=== PATIENT | female | born 1960 | race Hispanic/Latino ===

== ENCOUNTER 2017-02-04 06:26 | Inpatient (IN) | payer MEDICARE, MEDICAID, OTHER ==
--- NOTE | 2017-02-04 07:28 | ED PDOC ---
Arrival/HPI <Rickie Whitlock - Last Filed: 02/04/17 12:33> - General Historian: Patient - History of Present Illness Time/Duration: Prior to Arrival Symptom Onset: Sudden Symptom Course: Unchanged Quality: Dullness Context: Standing <Omkar Hunter - Last Filed: 02/04/17 12:39> - General Chief Complaint: Trauma Time Seen by Provider: 02/04/17 07:14 - History of Present Illness Narrative History of Present Illness (Text): 02/04/17 07:27 56yo F with PMHx including DM, HTN, Parkionson's, morbid obesity here for evaluation after Fall. She states that she woke up this morning to use the restroom, when she got up, her right knee gave out and she fell to the right side and hit the back of her right side head on a floor fan. She denies any loss of consciousness. Denies feeling dizzy or light-headed. Unable to get up off the floor after she fell and called EMS for transport to the Hospital. States that she remembers everything about the event, however, she does report feeling somewhat dazed. No tongue biting, no bowel or bladder incontinence. She states that she has been in and out of Rehab facilities over the past 4-5 months due to general weakness and deconditioning. She was last discharged from a Rehab facility on Jan 21. She states that her PMD recently decreased her Parkinson's med doses. She has not taken her meds today. She does report a hx of CVA with some residual mild left sided weakness. PMD: Dr. Bartolome Weems PMHx: DM, HTN, Parkinson's PSHx: Posterior Craniotomy/Kristen hole due to hemorrhagic CVA evacuation. Social Hx: Lives with partner Allergy: PCN (DaleOmkar) Past Medical History - Provider Review Nursing Documentation Reviewed: Yes - Infectious Disease Hx of Infectious Diseases: None - Reproductive Menopause: Yes - Cardiac Hx Hypertension: Yes - Pulmonary Hx Respiratory Disorders: No - Neurological HX Cerebrovascular Accident: Yes (bilateral) Hx Parkinson's Disease: Yes - HEENT Hx HEENT Disorder: No - Renal Hx Renal Disorder: No - Endocrine/Metabolic Hx Diabetes Mellitus Type 2: Yes - Hematological/Oncological Hx Blood Disorders: No - Integumentary Hx Dermatological Disorder: No - Musculoskeletal/Rheumatological Hx Musculoskeletal Disorders: No - Gastrointestinal Hx Gastrointestinal Disorders: No - Genitourinary/Gynecological Hx Genitourinary Disorders: No - Psychiatric Hx Psychophysiologic Disorder: No Hx Substance Use: No - Surgical History Other/Comment: skull due to stroke - Anesthesia Hx Anesthesia: No <Omkar Hunter - Last Filed: 02/04/17 12:39> Family/Social History - Physician Review Nursing Documentation Reviewed: Yes Family/Social History: Unknown Family HX Smoking Status: Never Smoked Hx Alcohol Use: No Hx Substance Use: No <Aysha Hunternay - Last Filed: 02/04/17 12:39> Allergies/Home Meds <KamleshRickie L - Last Filed: 02/04/17 12:33> <DaleOmkar - Last Filed: 02/04/17 12:39> Allergies/Adverse Reactions: Allergies Penicillins Allergy (Verified 02/04/17 06:43) ANGIOEDEMA Home Medications: Home Meds Medication Instructions Recorded Confirmed Carbidopa/Levodopa 25/100 mg 1 tab PO BID 06/01/16 06/01/16 [Sinemet] Atorvastatin [Lipitor] 10 mg PO DAILY 02/04/17 02/04/17 Carbidopa/Levodopa/Entacapone 1 tab PO QID 02/04/17 02/04/17 [Carbidopa, Levodopa and Entacapone 31.25 mg-2] Insulin Glargine,Hum.rec.anlog 36 unit SQ DAILY 02/04/17 02/04/17 [Toujeo Solostar] Valsartan/Hydrochlorothiazide 1 each PO DAILY 02/04/17 02/04/17 [Diovan Hct 160-25 mg Tablet] metFORMIN [glucOPHAGE] 500 mg PO BID 02/04/17 02/04/17 Review of Systems - Physician Review All systems were reviewed & negative as marked: Yes - Review of Systems Constitutional: Normal Eyes: Normal ENT: Normal Respiratory: Normal Cardiovascular: Normal Gastrointestinal: Normal Genitourinary Female: Normal Musculoskeletal: Other (Right knee pain) Skin: Normal Neurological: Headache Endocrine: Normal Hemo/Lymphatic: Normal Psychiatric: Normal <DaleOmkar - Last Filed: 02/04/17 12:39> Physical Exam Vital Signs Reviewed: Yes Temperature: Afebrile Blood Pressure: Normal Pulse: Regular Respiratory Rate: Normal Appearance: Positive for: Well-Appearing, Comfortable Pain Distress: Mild Mental Status: Positive for: Alert and Oriented X 3 - Systems Exam Head: Present: Atraumatic, Normocephalic, Other (No aparent contusion. No tenderness to palpation) Pupils: Present: PERRL Extroacular Muscles: Present: EOMI Mouth: Present: Moist Mucous Membranes Respiratory/Chest: Present: Good Air Exchange. No: Accessory Muscle Use, Wheezes, Rhonchi Cardiovascular: Present: Normal S1, S2. No: Murmurs Abdomen: No: Tenderness, Distention Upper Extremity: Present: Normal Inspection Lower Extremity: Present: Edema, NORMAL PULSES, Tenderness (Right medial knee joint tenderness. No bony tenderness. Bilateral lower extremity [place] erythema, dry scaly skin). No: CALF TENDERNESS, Eber's Sign, Deformity, Temperature Abnormalties Neurological: Present: GCS=15 Skin: Present: Warm, Dry, Normal Color Psychiatric: Present: Alert, Oriented x 3 <Omkar Hunter - Last Filed: 02/04/17 12:39> Vital Signs Temp Pulse Resp BP Pulse Ox 02/04/17 12:24 70 18 149/77 100 02/04/17 11:18 75 13 160/92 H 100 02/04/17 09:00 70 19 167/79 H 100 02/04/17 07:46 73 17 160/75 H 99 02/04/17 06:49 97.8 F 74 18 146/66 97 Medical Decision Making <Rickie Whitlock - Last Filed: 02/04/17 12:33> <Omkar Hunter - Last Filed: 02/04/17 12:39> ED Course and Treatment: 02/04/17 08:43 Patient Seen With Resident: In agreement with resident note. Patient was seen and evaluated with resident, came up with plan and treatment together. 02/04/17 09:49 EKG: Ordered, reviewed, and independently interpreted the EKG. Rate : 69 BPM Rhythm : NSR Interpretation : 3 acute waves Comparison : No previous EKG for comparison. 02/04/17 12:33 Labs reviewed. WBC 12. UA pending. PT attempted but patient cannot walk well and is not safe for discharging. She will benefit from rebhab. Case discussed with Dr. Jovel who covers for Dr. Goode who will place on her service. ( Rickie Whitlock) 02/04/17 07:50 56yo F with Parkinson's, DM, HTN here for evaluation after Fall at home - likely mechanical fall, however, patient is a poor historian - CT Head - R Knee XRay - EKG - CBC/CMP/UA - Finger stick Glucose - Possible PT eval and treat in ED 02/04/17 09:13 CT Head - no acute hemorrhage EKG - NSR @69, Q-waves present, No apparent ST changes R Knee - no acute fractures. No apparent joint space disease Finger Stick Glucose - 65. Will give patient something to eat and repeat Finger stick. 02/04/17 09:21 WBC - 12.2 02/04/17 10:15 Repeat sugar is wnl. Will obtain a walker for a bedside walking test. 02/04/17 12:20 Physical Therapy at bedside to walk patient. PT recommends that patient is not safe for discharge and will benefit from rehab. Discussed case with Dr. Goode. Agrees with admission under Dr. Mcgovern. Would like to decrease Insulin coverage to half current dose. Call placed to Dr. Mcgovern, admits for Dr. Goode. 02/04/17 12:[address] Mcgovern. Accepts patient admission. Plan discussed with patient. All questions and concerns addressed. Patient understands and agrees with plan. (Omkar Hunter) - Lab Interpretations Lab Results: 02/04/17 08:50 02/04/17 08:50 Lab Results 02/04/17 09:53: POC Glucose (mg/dL) 119 H 02/04/17 08:50: Sodium 143, Potassium 3.6, Chloride 107, Carbon Dioxide 29, Anion Gap 11, BUN 22 H, Creatinine 0.9, Est GFR ( Amer) > 60, Est GFR ( Non-Af Amer) > 60, Random Glucose 66 L, Calcium 9.4, Total Bilirubin 1.1, AST 29 , ALT 19, Alkaline Phosphatase 139 H, Total Protein 8.0, Albumin 4.3, Globulin 3.7, Albumin/Globulin Ratio 1.2 02/04/17 08:50: WBC 12.2 H, RBC 4.24, Hgb 12.2, Hct 35.1 L, MCV 82.8, MCH 28.8, MCHC 34.8, RDW 14.1, Plt Count 294, MPV 10.1, Gran % 80.7 H, Lymph % (Auto) 13.3 L, Cherry % (Auto) 4.6, Eos % (Auto) 1.1 L, Baso % (Auto) 0.3, Gran # 9.86 H , Lymph # 1.6, Cherry # 0.6, Eos # 0.1, Baso # 0.04 02/04/17 08:25: POC Glucose (mg/dL) 65 - RAD Interpretation Radiology Orders: 02/04/17 07:29 HEAD W/O CONTRAST [CT] Stat 02/04/17 07:36 KNEE RIGHT 2 VIEWS (AP & LAT) [RAD] Stat - Medication Orders Current Medication Orders: Discontinued Medications Acetaminophen (Tylenol 325mg Tab) 975 mg PO STAT STA Stop: 02/04/17 07:30 Last Admin: 02/04/17 07:42 Dose: 975 mg - PA / [employer]GER / Resident Statement / has reviewed & agrees with the documentation as recorded. / has examined the patient and agrees with the treatment plan. <Omkar Hunter - Last Filed: 02/04/17 12:39> Disposition/Present on Arrival - Present on Arrival Any Indicators Present on Arrival: No - Disposition Have Diagnosis and Disposition been Completed?: Yes Disposition Time: 12:34 Patient Plan: Admission <Rickie Whitlock - Last Filed: 02/04/17 12:33> - Present on Arrival Any Indicators Present on Arrival: No History of DVT/PE: No History of Uncontrolled Diabetes: No Urinary Catheter: No History of Decub. Ulcer: No History Surgical Site Infection Following: None - Disposition Have Diagnosis and Disposition been Completed?: Yes Patient Plan: Admission <DaleOmkar - Last Filed: 02/04/17 12:39> - Disposition Diagnosis: Weakness, Ataxia, Fall, Knee pain, Hypoglycemia Disposition: HOSPITALIZED Patient Problems: Current Active Problems Problem Status Onset Ataxia Acute Fall Acute Hypoglycemia Acute Knee pain Acute Weakness Acute Condition: FAIR Discharge Instructions (ExitCare): Weakness (ED) Referrals: [facility] Bridgett Req, [Non-Staff] - Follow up with primary Forms: Spotted ([place])
--- NOTE | 2017-02-04 08:50 | CT ---
PROCEDURE: CT HEAD WITHOUT CONTRAST. HISTORY: Fall, Headache COMPARISON: 03/17/2016 TECHNIQUE: Axial computed tomography images were obtained through the head/brain without intravenous contrast. Radiation dose: Total exam DLP = 690 mGy-cm. This CT exam was performed using one or more of the following dose reduction techniques: Automated exposure control, adjustment of the mA and/or kV according to patient size, and/or use of iterative reconstruction technique. FINDINGS: HEMORRHAGE: No intracranial hemorrhage. BRAIN: No mass effect or edema. Old left suboccipital craniectomy with encephalomalacia in left occipital lobe. Chronic periventricular white matter ischemic disease. VENTRICLES: Unremarkable. No hydrocephalus. CALVARIUM: As above. PARANASAL SINUSES: Unremarkable as visualized. No significant inflammatory changes. MASTOID AIR CELLS: Unremarkable as visualized. No inflammatory changes. OTHER FINDINGS: None. IMPRESSION: No acute hemorrhage.
[2017-02-04 09:06] LABS: BASO # 0.04 K/mm3 (0.0-2.0); BASO % 0.3 % (0.0-3.0); EOS # 0.1 (0.0-0.7); EOS % 1.1 % (1.5-5.0); GRAN # 9.86 (1.4-6.5); GRAN % 80.7 % (50.0-68.0); HEMOGLOBIN 12.2 g/dL (12.0-16.0); LYMPH # 1.6 (1.2-3.4); LYMPH % 13.3 % (22.0-35.0); MEAN CELL VOLUME 82.8 fl (80.0-105.0); MEAN CORPUSCULAR HEMOGLOBIN 28.8 pg (25.0-35.0); MEAN CORPUSCULAR HGB CONC 34.8 g/dl (31.0-37.0); MEAN PLATELET VOLUME 10.1 fl (7.0-11.0); MONO # 0.6 (0.1-0.6); MONO % 4.6 % (1.0-6.0); PLATELET COUNT 294 10^3/uL (120.0-450.0); RBC 4.24 10^6/uL (3.5-6.1); RED CELL DISTRIBUTION WIDTH 14.1 % (11.5-14.5); WHITE BLOOD COUNT 12.2 10^3/ul (4.5-11.0)
[2017-02-04 09:07] LABS: ALB/GLOB RATIO 1.2 (1.1-1.8); ALBUMIN 4.3 g/dL (3.0-4.8); ALT/SGPT 19 U/L (7-56); AST/SGOT 29 U/L (15-39); BLOOD UREA NITROGEN 22 mg/dL (7-21); CALCIUM 9.4 mg/dL (8.4-10.5); GFR AFRICAN-AMERICAN > 60; GFR NON-AFRICAN AMERICAN > 60
--- NOTE | 2017-02-04 09:32 | RAD ---
PROCEDURE: Right Knee Radiographs. HISTORY: Fall COMPARISON: None. FINDINGS: BONES: Normal. No fracture. JOINTS: Normal. No osteoarthritis. JOINT EFFUSION: None. OTHER FINDINGS: None. IMPRESSION: Normal radiographs of the right knee.
--- NOTE | 2017-02-04 11:45 | CARD ---
APPROVED REPORT EKG Measurement Heart [id number] <Conclusion> Normal sinus rhythm Inferior infarct, age undetermined Possible Anterior infarct, age undetermined Abnormal ECG
[2017-02-04 13:19] LABS: URINE BILIRUBIN NEGATIVE (NEGATIVE); URINE BLOOD NEGATIVE (NEGATIVE); URINE GLUCOSE (UA) NEGATIVE (NEGATIVE); URINE LEUKOCYTE ESTERASE TRACE Leu/uL (NEGATIVE); URINE NITRATE NEGATIVE (NEGATIVE); URINE PROTEIN 100 mg/dL (<30 mg/dL); URINE UROBILINOGEN 0.2 E.U./dL (<1 E.U./dL)
[2017-02-04 13:20] LABS: URINE APPEARANCE SL CLOUDY (CLEAR); URINE COLOR YELLOW (YELLOW)
[2017-02-04 13:31] LABS: URINE RBC 0 - 2 /hpf (0-2)
[2017-02-04 13:32] LABS: URINE BACTERIA MANY (NEG)
[2017-02-04] MEDS ORDERED: VALSARTAN PO SCH (17:15)
[2017-02-04] MEDS ORDERED: [UNRECOGNIZED DRUG - OTHER] PO SCH (17:15)
[2017-02-04] MEDS ORDERED: HYDROCHLOROTHIAZIDE PO SCH (17:15)
[2017-02-04] MEDS ORDERED: INSULIN GLARGINE HUM REC ANLOG 36 UNIT SQ SCH (17:15)
[2017-02-04] MEDS ORDERED: Nystatin 100,000 Units/gm Topical Pow(15 gm) TOP PRN (17:37)
[2017-02-04] MEDS: Carbidopa/Levodopa/Entacapone 37.5mg-150mg-200mg PO SCH (18:25)
[2017-02-04 19:55] VITALS: BMI 41.5
[2017-02-04] MEDS ORDERED: Pneumococcal 23-Valent Vaccine IM ONE (19:55)
[2017-02-04] MEDS: Insulin Reg-LOW-Coverage SC SCH (22:29)
[2017-02-04] MEDS: Insulin Detemir 100 units/ml Vial (Levemir) SC SCH (22:30)
--- NOTE | 2017-02-04 23:51 | CP.PCM.HP ---
History of Present Illness - History of Present Illness History of Present Illness: 02/04/17 56yo F with PMHx including DM, HTN, Parkionson's, morbid obesity here for evaluation after Fall. She states that she woke up this morning to use the restroom, when she got up, her right knee gave out and she fell to the right side and hit the back of her right side head on a floor fan. She denies any loss of consciousness. Denies feeling dizzy or light-headed. Unable to get up off the floor after she fell and called EMS for transport to the Hospital. States that she remembers everything about the event, however, she does report feeling somewhat dazed. No tongue biting, no bowel or bladder incontinence. She states that she has been in and out of Rehab facilities over the past 4-5 months due to general weakness and deconditioning. She was last discharged from a Rehab facility on Jan 21. She states that her PMD recently decreased her Parkinson's med doses. She has not taken her meds today. She does report a hx of CVA with some residual mild left sided weakness. Present on Admission - Present on Admission Any Indicators Present on Admission: No Review of Systems - Constitutional Constitutional: As Per HPI - EENT Eyes: As Per HPI Ears: As Per HPI Nose/Mouth/Throat: As Per HPI - Breasts Breasts: As Per HPI - Cardiovascular Cardiovascular: As Per HPI - Respiratory Respiratory: As Per HPI - Gastrointestinal Gastrointestinal: As Per HPI Past Patient History - Infectious Disease Hx of Infectious Diseases: None - Past Social History Smoking Status: Never Smoked - CARDIAC Hx Cardiac Disorders: Yes Hx Hypercholesterolemia: Yes Hx Hypertension: Yes Hx Peripheral Edema: Yes Hx Peripheral Vascular Disease: Yes (VENOUS STASIS DERMATITIS) - PULMONARY Hx Respiratory Disorders: Yes Hx Pneumonia: Yes - NEUROLOGICAL Hx Neurological Disorder: Yes HX Cerebrovascular Accident: Yes (bilateral,LEFT SIDED WEAKNESS) Hx Parkinson's Disease: Yes - HEENT Hx HEENT Problems: No - RENAL Hx Chronic Kidney Disease: No - ENDOCRINE/METABOLIC Hx Endocrine Disorders: Yes Hx Diabetes Mellitus Type 2: Yes - HEMATOLOGICAL/ONCOLOGICAL Hx Blood Disorders: No - INTEGUMENTARY Hx Dermatological Problems: Yes Other/Comment: 02-04-17 MASD TO UNDER THE BREAST FOLD AND UNDER THE STOMACH FOLD. IASD TO BILATERAL GROIN AREA. SACRAL PRESSURE ULCER-HAS A SLIT TO MID PART OF SACRUM.DRY STAGE 2 . RIGHT KNEE SLIGHT ABRASION FR FALL. LEFT UNDER THE ARM BRUISED AREA FROM FALL.HIT IT FR A FLOOR FAN. RIGHT TEMPORAL - WOUND FROM SCRATCHING AREA. - MUSCULOSKELETAL/RHEUMATOLOGICAL Hx Musculoskeletal Disorders: Yes Hx Falls: Yes (FELL TODAY 02-04-17) Hx Unsteady Gait: Yes (CANE/WALKER) - GASTROINTESTINAL Hx Gastrointestinal Disorders: No - GENITOURINARY/GYNECOLOGICAL Hx Genitourinary Disorders: Yes Hx Incontinence: Yes - PSYCHIATRIC Hx Psychophysiologic Disorder: Yes Hx Substance Use: No - SURGICAL HISTORY Hx Surgeries: Yes (TONSILLECTOMY) Other/Comment: CRANIOTOMY- due to HEMORRHAGIC stroke - ANESTHESIA Hx Anesthesia: No Meds Allergies/Adverse Reactions: Allergies Allergy/AdvReac Type Severity Reaction Status Date / Time Penicillins Allergy ANGIOEDEMA Verified 02/04/17 15:50 Physical Exam - Constitutional Appears: Well - Head Exam Head Exam: ATRAUMATIC, NORMAL INSPECTION, NORMOCEPHALIC - Eye Exam Eye Exam: EOMI, Normal appearance, PERRL Pupil Exam: NORMAL ACCOMODATION, PERRL - ENT Exam ENT Exam: Mucous Membranes Moist, Normal Exam - Neck Exam Neck exam: Positive for: Normal Inspection - Respiratory Exam Respiratory Exam: Clear to Auscultation Bilateral, NORMAL BREATHING PATTERN - Cardiovascular Exam Cardiovascular Exam: REGULAR RHYTHM - GI/Abdominal Exam GI & Abdominal Exam: Normal Bowel Sounds, Soft. absent: Tenderness - Rectal Exam Rectal Exam: NORMAL INSPECTION - Exam Exam: Circumcision, NORMAL INSPECTION External exam: NORMAL EXTERNAL EXAM Speculum exam: NORMAL SPECULUM EXAM Bimanual exam: NORMAL BIMANUAL EXAM - Extremities Exam Extremities exam: Positive for: normal inspection - Back Exam Back exam: NORMAL INSPECTION - Neurological Exam Neurological exam: Alert, CN II-XII Intact, Normal Gait, Oriented x3, Reflexes Normal - Psychiatric Exam Psychiatric exam: Normal Affect, Normal Mood - Skin Skin Exam: Dry, Intact, Normal Color, Warm Results - Vital Signs Recent Vital Signs: Last Vital Signs Temp 98.2 F 02/04/17 19:09 Pulse 71 02/04/17 19:09 Resp 18 02/04/17 19:09 BP 158/72 H 02/04/17 19:09 Pulse Ox 96 02/04/17 16:30 - Labs Result Diagrams: 02/04/17 08:50 08/15/17 08:50 Labs: Laboratory Results - last 24 hr 02/04/17 02/04/17 02/04/17 13:00 17:22 21:15 POC Glucose (mg/dL) 101 98 Urine Color Yellow Urine Appearance Sl cloudy Urine pH 6.0 Ur Specific [place] 1.025 Urine Protein 100 H Urine Glucose (UA) Negative Urine Ketones Negative Urine Blood Negative Urine Nitrate Negative Urine Bilirubin Negative Urine Urobilinogen 0.2 Ur Leukocyte Esterase Trace H Urine RBC 0 - 2 Urine WBC 5 - 10 Ur Epithelial Cells 10 - 12 Urine Bacteria Many Urine Other Uyeast Assessment & Plan - Assessment and Plan (Free Text) Assessment: 56yo F with PMHx including DM, HTN, Parkionson's, morbid obesity here for evaluation after Fall. She states that she woke up this morning to use the restroom, when she got up, her right knee gave out and she fell to the right side and hit the back of her right side head on a floor fan. She denies any loss of consciousness. Denies feeling dizzy or light-headed. Unable to get up off the floor after she fell and called EMS for transport to the Hospital. States that she remembers everything about the event, however, she does report feeling somewhat dazed. No tongue biting, no bowel or bladder incontinence. She states that she has been in and out of Rehab facilities over the past 4-5 months due to general weakness and deconditioning. She was last discharged from a Rehab facility on Jan 21. She states that her PMD recently decreased her Parkinson's med doses. She has not taken her meds today. She does report a hx of CVA with some residual mild left sided weakness. Problem Status Onset Ataxia Acute Fall Acute Hypoglycemia Acute Knee pain Acute Weakness Acute Plan: admitted pt consult called with neuro , cat scane of head noted . fall precaution . pt ot
[2017-02-05] MEDS: Insulin Reg-LOW-Coverage SC SCH ×4 (07:59→22:55)
--- NOTE | 2017-02-05 09:09 | CON ---
DATE: 02/04/2017 NEUROLOGY CONSULT CHIEF COMPLAINT: Frequent falls. 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 On CAT scan, we see an old left occipital encephalomalacia from prior hemorrhagic CVA with some residual generalized weakness, Parkinson's disease, where her primary care doctor Dr. Porfirio Goode recently readjusted her Parkinson's medicines, she was seen prior neurologist, which she was on carbidopa and levodopa as well as Stalevo. He adjusted her Stalevo to where she is taking 31.25 mg 4 times a day. She came to the hospital because it was noticed that she was walked into her restroom, where she got up and her right knee gave out, she fell on the right side, hit the back of her right side of the head, but did not lose any consciousness. She has been having frequent falls and has been having lower extremity weakness in terms of increased rigidity and tightness due to recent adjustment of her Parkinson's medications. PAST MEDICAL HISTORY: Type 2 diabetes, hypertension, Parkinson's disease, and history of hemorrhagic occipital lobe CVA. PAST SURGICAL HISTORY: History of posterior left occipital craniotomy/eliazar hole due to hemorrhagic CVA, evacuation. SOCIAL HISTORY: Lives with the partner. No illicit drug use, smoking or ETOH abuse. ALLERGIES: PENICILLIN. REVIEW OF SYSTEMS: A 14-point review of system is negative except as in the HPI. PHYSICAL EXAMINATION: GENERAL: The patient has a flat affect. VITAL SIGNS: Temperature 97.8, pulse rate 70, blood pressure 149/77, respiratory rate 18, and oxygen saturation 100% on room air. HEENT: Head is atraumatic, normocephalic. PERRLA. Extraocular muscles intact. NECK: Supple. No JVD. No adenopathy noted. LUNGS: Clear to auscultation. No adventitious sounds. HEART: S1 and S2 normal, regular rate and rhythm. No murmur, rubs, or gallops. ABDOMEN: Soft, nontender and nondistended. Bowel sounds present. EXTREMITIES: No clubbing, no cyanosis. Peripheral pulses 2+ felt bilaterally. NEUROLOGICAL: The patient is alert and oriented to person, place, and year. Recall after 5 minutes 0/3. Poor attention span, slow thought process. Flat affect. Cranial nerves II through XII intact. Speech is hyperphonic. Motor exam: Increased tone throughout in the lower extremities. Has cogwheel rigidity at the wrist. Sensory exam: Decreased light touch and pinprick up to the calves bilaterally. Decreased vibration of the toes. DTRs are 2+ throughout, 1 at the knees and absent at the ankles. Coordination, [id number] intact. Has a mild resting tremor. Gait is deferred for now. LABORATORY DATA: Sodium 143, potassium 3.6, chloride 107, carbon dioxide 29, BUN 22, creatinine 0.9, and random glucose 66. ASSESSMENT: This is a 56-year-old woman with past medical history of hypertension, type 2 diabetes mellitus with a history of left occipital lobe hemorrhagic cerebrovascular accident in the past with residual encephalomalacia with generalized deconditioned state, history of Parkinson's disease with frequent falls, where her medications were readjusted in terms of Parkinson's medications by Dr. Porfirio Goode, her primary care doctor. She used to see a neurologist in the past, but has not seen one for a year. She used to see Dr. Guadalupe Schuster, who was her neurologist in the past in [place]. Currently, she had came in for frequent falls and deconditioned state. At this time, her frequent falls are secondary to underlying Parkinson's disease causing gait dysfunction. PLAN: 1. We would recommend just for her to be on Stalevo, which is carbidopa/levodopa/entacapone at a dose of 31.25 mg/125/200, and she will take it 4 times a day. 2. She will need physical and occupational therapy, will require subacute rehab. 3. Keep her blood sugars between 140-180. She had an episode of hypoglycemia in the ER. Recommend to monitor her blood sugars and adjust her diabetic medications. Diabetic education given to the patient. Continue current present medical management. Thank you for this consult. Reggie Osborne MD [facility]
[2017-02-05] MEDS: Insulin Detemir 100 units/ml Vial (Levemir) SC SCH ×2 (09:36→23:00)
[2017-02-05] MEDS: Carbidopa/Levodopa/Entacapone 37.5mg-150mg-200mg PO SCH ×5 (09:40→21:42)
--- NOTE | 2017-02-05 13:15 | PN ---
DATE: 02/05/2017 SUBJECTIVE: The patient is seen and examined at bedside. The patient is doing much better, seen up in the chair. She is back on her Stalevo. Physical therapy has been evaluating her today for subacute rehab. No acute events overnight. Blood pressures are stable. 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 PAST SURGICAL HISTORY: History of posterior left occipital craniotomy status post eliazar hole due to hemorrhagic CVA status post evacuation. SOCIAL HISTORY: Lives with the partner. No illicit drug use, smoking or ETOH abuse. ALLERGIES: PENICILLIN. REVIEW OF SYSTEMS: A 14-point review of systems negative except as stated in the HPI. PHYSICAL EXAMINATION: GENERAL: The patient is sitting up in the chair, in no acute distress. VITAL SIGNS: Temperature of 98.2, pulse rate of 71, blood pressure 158/72, respiratory rate of 18, oxygen saturation 100% on room air. HEENT: Atraumatic and normocephalic. PERRLA. Extraocular muscles intact. NECK: Supple. No JVD. No adenopathy noted. LUNGS: Clear to auscultation. No adventitious sounds. HEART: S1 and S2, normal rate and rhythm. No murmurs, rubs, or gallops. ABDOMEN: Soft, nontender, and nondistended. Bowel sounds are present. EXTREMITIES: No clubbing and no cyanosis. Peripheral pulses are 2+, felt bilaterally. NEUROLOGIC: The patient is alert and oriented to person, place, and year. Recall after 5 minutes 0/3. Poor attention span, slow thought process. Flat affect. Cranial nerves II through XII intact. Speech is hyperphonic. Motor exam: Increased tone throughout associated in the lower extremity. Has cogwheel rigidity at the wrist. Sensory exam: Decreased light touch and pinprick up to the calves bilaterally. DTRs are 2+ throughout, one at the knees and absent at the ankles. Coordination: [id number] intact. Has a mild resting tremor. Gait is deferred for now. LABORATORY DATA: Today's blood sugar is 119. ASSESSMENT AND PLAN: This is a 56-year-old woman with a past medical history of hypertension, type 2 diabetes mellitus, history of a left occipital lobe hemorrhages, cerebrovascular accident in the past with residual encephalomalacia with generalized deconditioned state, history of Parkinson's disease with frequent falls where her medications are recently adjusted by her primary care doctor who comes here from frequent falls and difficulty to getup. Her frequent falls are secondary to underlying Parkinson's disease causing gait dysfunction, superimposed underlying decondition state. At this time, I recommend her to continue with Stalevo, which is carbidopa/levodopa/ entacapone at a dose of 31.25 mg/125/200, which she should be on it four times a day. No need for Sinemet since she is on this medication. Await physical therapy and occupational therapy evaluation for a subacute rehab transfer. Keep her blood pressure from 140-180, avoid hypoglycemic events and continue diabetic management. At this time, she is neurologically stable. Thank you for this followup. Reggie Osborne MD [facility]
[2017-02-05] MEDS ORDERED: cefTRIAXone 1 gm 1 GM/100 ML BAG IVPB SCH (13:30)
[2017-02-05] MEDS: Vancomycin 1gm in NS 250ml 1 GM/250 ML BAG IVPB SCH (17:20)
--- NOTE | 2017-02-05 18:49 | US ---
HISTORY: Leg pain and swelling. Evaluate for DVT PHYSICIAN(S): Richard Hodgson MD. TECHNIQUE: Duplex sonography and color-flow Doppler with graded compression were used to evaluate the deep venous systems of both lower extremities. The exam is limited by body habitus and edema. The tibial veins are not well seen. FINDINGS: The visualized deep venous systems of both lower extremities are sonographically normal and compressible. Normal wave forms and augmentation are seen. There is no sonographic evidence for deep venous thrombosis in the visualized segments of both lower extremities. IMPRESSION: No sonographic evidence for deep venous thrombosis in the visualized segments of both lower extremities. Limited study.
--- NOTE | 2017-02-05 23:48 | CP.PCM.PN ---
Subjective - Date & Time of Evaluation Date of Evaluation: 02/05/17 Time of Evaluation: 23:45 - Subjective Subjective: Patient was seen at bed side because of her complaint of nausea and vomiting. Has no other complaints. Medical record was reviewed. This 56 year old woman was admitted after a fall when her right knee gave out. Has PMH of DM II, HTN, obesity, Parkinson's disease, HLD. Objective - Vital Signs/Intake and Output Vital Signs (last 24 hours): Temp Pulse Resp BP Pulse Ox 98 F 61 18 170/80 H 97 02/05/17 16:00 02/05/17 18:38 02/05/17 16:00 02/05/17 18:38 02/05/17 16:00 Intake and Output: 02/05/17 02/06/17 18:59 06:59 Intake Total 360 300 Output Total 500 Balance 360 -200 - Medications Medications: Current Medications Atorvastatin Calcium (Lipitor) 10 mg PO DAILY [facility] Last Admin: 02/05/17 09:35 Dose: 10 mg Carbidopa/Levodopa/Entacapone (Stalevo 150) 1 tab PO QID [facility] Last Admin: 02/05/17 21:42 Dose: 1 tab Clonidine HCl (Catapres-Tts2 0.2 Mg/24 Hr) 1 patch TD Q7D@1000 [facility] Last Admin: 02/05/17 18:38 Dose: 1 patch Furosemide (Lasix) 40 mg PO DAILY [facility] Last Admin: 02/05/17 13:43 Dose: 40 mg Hydrochlorothiazide (Hydrodiuril) 25 mg PO DAILY [facility] Last Admin: 02/05/17 09:35 Dose: 25 mg Vancomycin HCl (Vancomycin 1gm) 1 gm in 250 mls @ 167 mls/hr IVPB Q12H [facility] PRN Reason: Protocol Stop: 02/12/17 15:01 Last Admin: 02/05/17 17:20 Dose: 167 mls/hr Insulin Detemir (Levemir) 18 unit SC Q12 [facility] Last Admin: 02/05/17 23:00 Dose: 18 unit Insulin Human Regular (Humulin R Low) 0 units SC ACHS [facility] PRN Reason: Protocol Last Admin: 02/05/17 22:55 Dose: Not Given Losartan Potassium (Cozaar) 100 mg PO DAILY [facility] Last Admin: 02/05/17 09:35 Dose: 100 mg Metformin HCl (Glucophage) 500 mg PO BID [facility] Last Admin: 02/05/17 17:20 Dose: 500 mg Nystatin (Nystop Topical Powder) 0 gm TOP BID PRN PRN Reason: Rash - Constitutional Appears: Well, No Acute Distress - Head Exam Head Exam: ATRAUMATIC, NORMAL INSPECTION, NORMOCEPHALIC - Eye Exam Eye Exam: Normal appearance - ENT Exam ENT Exam: Normal External Ear Exam - Neck Exam Neck Exam: Normal Inspection - Respiratory Exam Respiratory Exam: NORMAL BREATHING PATTERN - Cardiovascular Exam Cardiovascular Exam: absent: JVD - GI/Abdominal Exam GI & Abdominal Exam: absent: Distended - Rectal Exam Rectal Exam: Deferred - Exam Additional comments: Deferred. - Extremities Exam Extremities Exam: Normal Inspection - Back Exam Back Exam: NORMAL INSPECTION - Neurological Exam Neurological Exam: Alert, Awake - Psychiatric Exam Psychiatric exam: Normal Affect, Normal Mood - Skin Skin Exam: Normal Color Assessment and Plan - Assessment and Plan (Free Text) Assessment: Nausea and vomiting. DM II. HTN. Obesity. Parkinson's disease. HLD. Plan: Zofran 4 mg IV stat. Protonix 40 mg IV stat. Later on Ibuprofen was given for pain. Continue present management.
--- NOTE | 2017-02-06 05:38 | PN ---
DATE: SUBJECTIVE: The patient is a 56-year-old female. The patient is seen and examined at the bedside, sitting on the commode. No nausea, vomiting or diarrhea. No hematuria or hematochezia. Legs are red and warm. Discussion was done with the nurse practitioner. No hematuria or hematochezia. PHYSICAL EXAMINATION: VITAL SIGNS: Temperature 98.2, pulse 71, blood pressure 158/72 and respiratory rate of 18. HEENT: Head normocephalic and atraumatic. Eyes, PERRLA. Extraocular muscles intact. Conjunctivae is clear. Nose patent. NECK: Supple. No carotid bruits. No JVD or thyromegaly. CHEST: Bilaterally symmetrical. HEART: S1 and S2 positive. LUNGS: Clear to auscultation. No adventitious sounds. ABDOMEN: Soft. Bowel sounds are present. No organomegaly. EXTREMITIES: No clubbing. No cyanosis, but has red and warm and swollen. NEUROLOGIC: Awake and alert. Moving all four extremities. No focal deficits. Has tremors. MEDICATIONS: Clindamycin, losartan, metformin, hydrochlorothiazide, insulin, Lasix, Levemir, rosuvastatin. LABORATORY DATA: We do not have recent labs today, but I reviewed old labs. TSH 54. Prolactin less than 0.05. Glucose is 158. ASSESSMENT AND PLAN: Ms. Celestino Rievra is a 56-year-old lady with leukocytosis, inflammatory response syndrome, hyperglycemia, proteinuria, urinary tract infection, Parkinson's disease, neurologist is on the case, history of left occipital craniotomy status post eliazar hole due to hemorrhagic cerebrovascular accident, status post evacuation, cellulitis of the leg. ID consult called. Antibiotics started. Neurologist is on the case. History of frequent falls. Frequent falls looks like secondary to underlying Parkinson's disease causing gait dysfunction, superimposed underlying deconditioning. Continue Stalevo which is carbidopa/levodopa. Physical therapy, antibiotics. GI/DVT prophylaxis. Repeat labs. Alondra Uriostegui MD
[2017-02-06] MEDS: Vancomycin 1gm in NS 250ml 1 GM/250 ML BAG IVPB SCH (06:04)
[2017-02-06 07:41] LABS: HEMOGLOBIN 11.6 g/dL (12.0-16.0); MEAN CORPUSCULAR HEMOGLOBIN 29.1 pg (25.0-35.0); MEAN PLATELET VOLUME 10.4 fl (7.0-11.0); RBC 3.99 10^6/uL (3.5-6.1); RED CELL DISTRIBUTION WIDTH 13.7 % (11.5-14.5); WHITE BLOOD COUNT 9.3 10^3/ul (4.5-11.0)
[2017-02-06 07:59] LABS: ALB/GLOB RATIO 1.2 (1.1-1.8); ALBUMIN 3.8 g/dL (3.0-4.8); ALT/SGPT 13 U/L (7-56); AST/SGOT 20 U/L (15-39); BLOOD UREA NITROGEN 21 mg/dL (7-21); CALCIUM 8.9 mg/dL (8.4-10.5); GFR AFRICAN-AMERICAN > 60; GFR NON-AFRICAN AMERICAN 57
[2017-02-06] MEDS: Insulin Reg-LOW-Coverage SC SCH ×4 (08:38→22:35)
[2017-02-06 08:41] VITALS: RESP 20
[2017-02-06] MEDS ORDERED: Potassium Chloride 20 mEq ER Tab PO ONE (11:06)
[2017-02-06] MEDS: Insulin Detemir 100 units/ml Vial (Levemir) SC SCH ×2 (11:08→22:43)
--- NOTE | 2017-02-06 11:08 | CP.PCM.CON ---
History of Present Illness - History of Present Illness History of Present Illness: 56 year old female with PMH of HTN, DM, Parkinson's disease, morbid obesity with BMI 42 was initially admitted after sustaining a fall in her bathroom, without loss of consciousness, no seizures, although she had slight trauma to the back of her head. Infectious Diseases consult is requested to evaluate for erythema and swelling of her legs. She states that her legs would at times get swollen and become red and painful. Currently there is slight pain, mild redness , no oozing. She denies fever or chills, no nausea or vomiting, no chest pain, no SOB, no headache or dizziness, no abdominal pain, no diarrhea, no dysuria. She denies animal contacts, no insect bites, no soaking of feet or legs in water. Review of Systems - Review of Systems All systems: reviewed and no additional remarkable complaints except (as per HPI ) Past Patient History - Infectious Disease Hx of Infectious Diseases: None - Past Social History Smoking Status: Never Smoked - CARDIAC Hx Cardiac Disorders: Yes Hx Hypercholesterolemia: Yes Hx Hypertension: Yes Hx Peripheral Edema: Yes Hx Peripheral Vascular Disease: Yes (VENOUS STASIS DERMATITIS) - PULMONARY Hx Respiratory Disorders: Yes Hx Pneumonia: Yes - NEUROLOGICAL Hx Neurological Disorder: Yes HX Cerebrovascular Accident: Yes (bilateral,LEFT SIDED WEAKNESS) Hx Parkinson's Disease: Yes - HEENT Hx HEENT Problems: No - RENAL Hx Chronic Kidney Disease: No - ENDOCRINE/METABOLIC Hx Endocrine Disorders: Yes Hx Diabetes Mellitus Type 2: Yes - HEMATOLOGICAL/ONCOLOGICAL Hx Blood Disorders: No - INTEGUMENTARY Hx Dermatological Problems: Yes Other/Comment: 02-04-17 MASD TO UNDER THE BREAST FOLD AND UNDER THE STOMACH FOLD. IASD TO BILATERAL GROIN AREA. SACRAL PRESSURE ULCER-HAS A SLIT TO MID PART OF SACRUM.DRY STAGE 2 . RIGHT KNEE SLIGHT ABRASION FR FALL. LEFT UNDER THE ARM BRUISED AREA FROM FALL.HIT IT FR A FLOOR FAN. RIGHT TEMPORAL - WOUND FROM SCRATCHING AREA. - MUSCULOSKELETAL/RHEUMATOLOGICAL Hx Musculoskeletal Disorders: Yes Hx Falls: Yes (FELL TODAY 02-04-17) Hx Unsteady Gait: Yes (CANE/WALKER) - GASTROINTESTINAL Hx Gastrointestinal Disorders: No - GENITOURINARY/GYNECOLOGICAL Hx Genitourinary Disorders: Yes Hx Incontinence: Yes - PSYCHIATRIC Hx Psychophysiologic Disorder: Yes Hx Substance Use: No - SURGICAL HISTORY Hx Surgeries: Yes (TONSILLECTOMY) Other/Comment: CRANIOTOMY- due to HEMORRHAGIC stroke - ANESTHESIA Hx Anesthesia: No Meds Allergies/Adverse Reactions: Allergies Allergy/AdvReac Type Severity Reaction Status Date / Time Penicillins Allergy ANGIOEDEMA Verified 02/04/17 15:50 - Medications Medications: Current Medications Atorvastatin Calcium (Lipitor) 10 mg PO DAILY [facility] Last Admin: 02/05/17 09:35 Dose: 10 mg Carbidopa/Levodopa/Entacapone (Stalevo 150) 1 tab PO QID [facility] Last Admin: 02/05/17 13:45 Dose: 1 tab Furosemide (Lasix) 40 mg PO DAILY [facility] Last Admin: 02/05/17 13:43 Dose: 40 mg Hydrochlorothiazide (Hydrodiuril) 25 mg PO DAILY [facility] Last Admin: 02/05/17 09:35 Dose: 25 mg Insulin Detemir (Levemir) 18 unit SC Q12 [facility] Last Admin: 02/05/17 09:36 Dose: Not Given Insulin Human Regular (Humulin R Low) 0 units SC ACHS [facility] PRN Reason: Protocol Last Admin: 02/05/17 12:14 Dose: 2 units Losartan Potassium (Cozaar) 100 mg PO DAILY [facility] Last Admin: 02/05/17 09:35 Dose: 100 mg Metformin HCl (Glucophage) 500 mg PO BID [facility] Last Admin: 02/05/17 09:35 Dose: 500 mg Nystatin (Nystop Topical Powder) 0 gm TOP BID PRN PRN Reason: Rash Physical Exam - Constitutional Appears: Non-toxic, No Acute Distress - Head Exam Head Exam: NORMAL INSPECTION - ENT Exam ENT Exam: Mucous Membranes Moist - Neck Exam Neck exam: Negative for: Lymphadenopathy, Meningismus - Respiratory Exam Respiratory Exam: Decreased Breath Sounds - Cardiovascular Exam Cardiovascular Exam: +S1, +S2 - GI/Abdominal Exam GI & Abdominal Exam: Soft. absent: Tenderness - Extremities Exam Additional comments: both legs with dry cracking skin with chronic skin changes on the anterior portions, no discharge, mild erythema, no increased warmth, minimal tenderness Results - Vital Signs Recent Vital Signs: Last Vital Signs Temp 98.0 F 02/05/17 06:00 Pulse 69 02/05/17 06:00 Resp 20 02/05/17 06:00 BP 167/70 H 02/05/17 13:43 Pulse Ox 97 02/05/17 06:00 - Labs Result Diagrams: 02/06/17 07:00 02/06/17 07:00 Labs: Laboratory Results - last 24 hr 02/04/17 02/04/17 02/05/17 17:22 21:15 07:36 ESR POC Glucose (mg/dL) 101 98 84 02/05/17 02/05/17 02/05/17 10:23 12:02 13:24 ESR 64 H POC Glucose (mg/dL) 168 H 213 H Assessment & Plan - Assessment and Plan (Free Text) Plan: Assessment Probable stasis dermatitis of both lower extremities HTN DM Parkinson's disease morbid obesity with BMI 42 Plan Will order Bactroban ointment over the lower extremities and will monitor clinically
[2017-02-06] MEDS: Carbidopa/Levodopa/Entacapone 37.5mg-150mg-200mg PO SCH ×4 (11:10→21:27)
[2017-02-06 16:06] VITALS: TEMP 97.9
--- NOTE | 2017-02-07 00:38 | CP.PCM.PN ---
Subjective - Date & Time of Evaluation Date of Evaluation: 02/06/17 Time of Evaluation: 09:00 - Subjective Subjective: History of Present Illness: 56 year old female with PMH of HTN, DM, Parkinson's disease, morbid obesity with BMI 42 was initially admitted after sustaining a fall in her bathroom, without loss of consciousness, no seizures, although she had slight trauma to the back of her head. Infectious Diseases consult is requested to evaluate for erythema and swelling of her legs. She states that her legs would at times get swollen and become red and painful. Currently there is slight pain, mild redness , no oozing. She denies fever or chills, no nausea or vomiting, no chest pain, no SOB, no headache or dizziness, no abdominal pain, no diarrhea, no dysuria. She denies animal contacts, no insect bites, no soaking of feet or legs in water. Objective - Vital Signs/Intake and Output Vital Signs (last 24 hours): Temp Pulse Resp BP Pulse Ox 97.9 F 64 20 146/80 97 02/06/17 16:00 02/06/17 16:00 02/06/17 16:00 02/06/17 16:00 02/06/17 16:00 Intake and Output: 02/06/17 02/07/17 18:59 06:59 Intake Total 600 Output Total 200 Balance 400 - Medications Medications: Current Medications Atorvastatin Calcium (Lipitor) 10 mg PO DAILY [facility] Last Admin: 02/06/17 11:11 Dose: 10 mg Carbidopa/Levodopa/Entacapone (Stalevo 150) 1 tab PO QID [facility] Last Admin: 02/06/17 21:27 Dose: 1 tab Clonidine HCl (Catapres-Tts2 0.2 Mg/24 Hr) 1 patch TD Q7D@1000 [facility] Last Admin: 02/05/17 18:38 Dose: 1 patch Furosemide (Lasix) 40 mg PO DAILY [facility] Last Admin: 02/06/17 11:11 Dose: 40 mg Hydrochlorothiazide (Hydrodiuril) 25 mg PO DAILY [facility] Last Admin: 02/06/17 11:12 Dose: 25 mg Insulin Detemir (Levemir) 18 unit SC Q12 [facility] Last Admin: 02/06/17 22:43 Dose: 18 unit Insulin Human Regular (Humulin R Low) 0 units SC ACHS [facility] PRN Reason: Protocol Last Admin: 02/06/17 22:35 Dose: Not Given Losartan Potassium (Cozaar) 100 mg PO DAILY [facility] Last Admin: 02/06/17 11:09 Dose: 100 mg Metformin HCl (Glucophage) 500 mg PO BID [facility] Last Admin: 02/06/17 18:10 Dose: 500 mg Mupirocin (Bactroban Ointment) 0 gm TOP BID [facility] Last Admin: 02/06/17 17:50 Dose: Not Given Nystatin (Nystop Topical Powder) 0 gm TOP BID PRN PRN Reason: Rash Ondansetron HCl (Zofran Inj) 4 mg IVP Q4H PRN PRN Reason: Nausea/Vomiting Last Admin: 02/06/17 18:09 Dose: 4 mg - Labs Labs: 02/06/17 07:00 02/06/17 07:00 - Constitutional Appears: Well - Head Exam Head Exam: ATRAUMATIC, NORMAL INSPECTION, NORMOCEPHALIC - Eye Exam Eye Exam: EOMI, Normal appearance, PERRL Pupil Exam: NORMAL ACCOMODATION, PERRL - ENT Exam ENT Exam: Mucous Membranes Moist, Normal Exam - Neck Exam Neck Exam: Full ROM, Normal Inspection. absent: Lymphadenopathy - Respiratory Exam Respiratory Exam: Clear to Ausculation Bilateral, NORMAL BREATHING PATTERN - Cardiovascular Exam Cardiovascular Exam: REGULAR RHYTHM, +S1, +S2. absent: Murmur - GI/Abdominal Exam GI & Abdominal Exam: Soft, Normal Bowel Sounds. absent: Tenderness - Rectal Exam Rectal Exam: NORMAL INSPECTION - Exam Exam: Circumcision, NORMAL INSPECTION External exam: NORMAL EXTERNAL EXAM Speculum exam: NORMAL SPECULUM EXAM Bimanual exam: NORMAL BIMANUAL EXAM - Extremities Exam Extremities Exam: Full ROM, Normal Capillary Refill, Pedal Edema. absent: Joint Swelling - Back Exam Back Exam: NORMAL INSPECTION - Neurological Exam Neurological Exam: Alert, Awake, CN II-XII Intact, Normal Gait, Oriented x3 - Psychiatric Exam Psychiatric exam: Normal Affect, Normal Mood - Skin Skin Exam: Dry, Intact, Normal Color, Warm Assessment and Plan - Assessment and Plan (Free Text) Assessment: Assessment Probable stasis dermatitis of both lower extremities HTN DM Parkinson's disease morbid obesity with BMI 42 Plan ,getting Bactroban ointment over the lower extremities and will monitor clinically 00b ,pt ot , need rehab
[2017-02-07 06:35] LABS: HEMOGLOBIN 12.3 g/dL (12.0-16.0); MEAN CELL VOLUME 83.5 fl (80.0-105.0); MEAN CORPUSCULAR HEMOGLOBIN 28.6 pg (25.0-35.0); MEAN CORPUSCULAR HGB CONC 34.3 g/dl (31.0-37.0); MEAN PLATELET VOLUME 10.7 fl (7.0-11.0); RBC 4.3 10^6/uL (3.5-6.1); RED CELL DISTRIBUTION WIDTH 13.8 % (11.5-14.5); WHITE BLOOD COUNT 9.5 10^3/ul (4.5-11.0)
[2017-02-07 06:49] LABS: ALB/GLOB RATIO 1.1 (1.1-1.8); ALBUMIN 3.9 g/dL (3.0-4.8); CALCIUM 9.1 mg/dL (8.4-10.5)
[2017-02-07] MEDS: Insulin Reg-LOW-Coverage SC SCH ×2 (08:01→12:12)
[2017-02-07 08:25] VITALS: BP 145/70; PULSE 61; O2SAT 100
[2017-02-07] MEDS: Insulin Detemir 100 units/ml Vial (Levemir) SC SCH (09:08)
[2017-02-07] MEDS: Carbidopa/Levodopa/Entacapone 37.5mg-150mg-200mg PO SCH ×2 (09:09→14:35)
--- NOTE | 2017-02-07 15:43 | CP.PCM.PN ---
Subjective - Date & Time of Evaluation Date of Evaluation: 02/07/17 Time of Evaluation: 10:40 - Subjective Subjective: Comfortable, not in distress, afebrile, less pain in the legs. Objective - Vital Signs/Intake and Output Vital Signs (last 24 hours): Temp Pulse Resp BP Pulse Ox 97.9 F 64 20 146/80 97 02/06/17 16:00 02/06/17 16:00 02/06/17 16:00 02/06/17 16:00 02/06/17 16:00 Intake and Output: 02/06/17 02/07/17 18:59 06:59 Intake Total 600 480 Output Total 200 Balance 400 480 - Medications Medications: Current Medications Atorvastatin Calcium (Lipitor) 10 mg PO DAILY [facility] Last Admin: 02/06/17 11:11 Dose: 10 mg Carbidopa/Levodopa/Entacapone (Stalevo 150) 1 tab PO QID [facility] Last Admin: 02/06/17 21:27 Dose: 1 tab Clonidine HCl (Catapres-Tts2 0.2 Mg/24 Hr) 1 patch TD Q7D@1000 [facility] Last Admin: 02/05/17 18:38 Dose: 1 patch Furosemide (Lasix) 40 mg PO DAILY [facility] Last Admin: 02/06/17 11:11 Dose: 40 mg Hydrochlorothiazide (Hydrodiuril) 25 mg PO DAILY [facility] Last Admin: 02/06/17 11:12 Dose: 25 mg Insulin Detemir (Levemir) 18 unit SC Q12 [facility] Last Admin: 02/06/17 22:43 Dose: 18 unit Insulin Human Regular (Humulin R Low) 0 units SC ACHS [facility] PRN Reason: Protocol Last Admin: 02/06/17 22:35 Dose: Not Given Losartan Potassium (Cozaar) 100 mg PO DAILY [facility] Last Admin: 02/06/17 11:09 Dose: 100 mg Metformin HCl (Glucophage) 500 mg PO BID [facility] Last Admin: 02/06/17 18:10 Dose: 500 mg Mupirocin (Bactroban Ointment) 0 gm TOP BID [facility] Last Admin: 02/06/17 17:50 Dose: Not Given Nystatin (Nystop Topical Powder) 0 gm TOP BID PRN PRN Reason: Rash Ondansetron HCl (Zofran Inj) 4 mg IVP Q4H PRN PRN Reason: Nausea/Vomiting Last Admin: 02/06/17 18:09 Dose: 4 mg - Labs Labs: 02/07/17 05:30 02/06/17 07:00 - Constitutional Appears: Non-toxic, No Acute Distress - Head Exam Head Exam: NORMAL INSPECTION - ENT Exam ENT Exam: Mucous Membranes Moist - Neck Exam Neck Exam: absent: Lymphadenopathy, Meningismus - Respiratory Exam Respiratory Exam: Decreased Breath Sounds - Cardiovascular Exam Cardiovascular Exam: +S1, +S2 - GI/Abdominal Exam GI & Abdominal Exam: Soft. absent: Tenderness - Extremities Exam Additional comments: anterior legs with some erythema but no tenderness Assessment and Plan - Assessment and Plan (Free Text) Plan: Assessment Probable stasis dermatitis of both lower extremities HTN DM Parkinson's disease morbid obesity with BMI 42 Plan continue Bactroban ointment over the lower extremities and will monitor clinically
--- NOTE | 2017-02-08 14:05 | CP.PCM.DIS ---
Provider - Provider Date of Admission: 02/04/17 12:31 Attending physician: Alondra Uriostegui MD Primary care physician: MD edith dictating dc for 02/07/17 Consults: 56yo F with PMHx including DM, HTN, Parkionson's, morbid obesity here for evaluation after Fall. She states that she woke up this morning to use the restroom, when she got up, her right knee gave out and she fell to the right side and hit the back of her right side head on a floor fan. She denies any loss of consciousness. Denies feeling dizzy or light-headed. Unable to get up off the floor after she fell and called EMS for transport to the Hospital. States that she remembers everything about the event, however, she does report feeling somewhat dazed. No tongue biting, no bowel or bladder incontinence. She states that she has been in and out of Rehab facilities over the past 4-5 months due to general weakness and deconditioning. She was last discharged from a Rehab facility on Jan 21. She states that her PMD recently decreased her Parkinson's med doses. She has not taken her meds today. She does report a hx of CVA with some residual mild left marilyn. Time Spent in preparation of Discharge (in minutes): 60 Hospital Course - Lab Results Lab Results: Micro Results 02/05/17 13:24 Blood-Venous Blood Culture - Preliminary NO GROWTH AFTER 3 DAYS Most Recent Lab Values WBC 9.5 10^3/ul (4.5-11.0) 02/07/17 05:30 RBC 4.30 10^6/uL (3.5-6.1) 02/07/17 05:30 Hgb 12.3 g/dL (12.0-16.0) 02/07/17 05:30 Hct 35.9 % (36.0-48.0) L 02/07/17 05:30 MCV 83.5 fl (80.0-105.0) 02/07/17 05:30 MCH 28.6 pg (25.0-35.0) 02/07/17 05:30 MCHC 34.3 g/dl (31.0-37.0) 02/07/17 05:30 RDW 13.8 % (11.5-14.5) 02/07/17 05:30 Plt Count 274 10^3/uL (120.0-450.0) 02/07/17 05:30 MPV 10.7 fl (7.0-11.0) 02/07/17 05:30 Gran % 80.7 % (50.0-68.0) H 02/04/17 08:50 Lymph % (Auto) 13.3 % (22.0-35.0) L 02/04/17 08:50 Jerauld % (Auto) 4.6 % (1.0-6.0) 02/04/17 08:50 Eos % (Auto) 1.1 % (1.5-5.0) L 02/04/17 08:50 Baso % (Auto) 0.3 % (0.0-3.0) 02/04/17 08:50 Gran # 9.86 (1.4-6.5) H 02/04/17 08:50 Lymph # 1.6 (1.2-3.4) 02/04/17 08:50 Jerauld # 0.6 (0.1-0.6) 02/04/17 08:50 Eos # 0.1 (0.0-0.7) 02/04/17 08:50 Baso # 0.04 K/mm3 (0.0-2.0) 02/04/17 08:50 ESR 64 mm/hr (0.0-20.0) H 02/05/17 13:24 Sodium 141 mmol/L (132-148) 02/07/17 05:30 Potassium 3.7 mmol/L (3.6-5.0) 02/07/17 05:30 Chloride 103 mmol/L (95-110) 02/07/17 05:30 Carbon Dioxide 29 mmol/L (21-33) 02/07/17 05:30 Anion Gap 13 (10-20) 02/07/17 05:30 BUN 29 mg/dL (7-21) H 02/07/17 05:30 Creatinine 1.2 mg/dL (0.5-1.4) 02/07/17 05:30 Est GFR ( Amer) 56 02/07/17 05:30 Est GFR (Non-Af Amer) 46 02/07/17 05:30 POC Glucose (mg/dL) 167 mg/dL (65-110) H 02/07/17 11:42 Random Glucose 134 mg/dL (70-110) H 02/07/17 05:30 Calcium 9.1 mg/dL (8.4-10.5) 02/07/17 05:30 Total Bilirubin 1.4 mg/dL (0.2-1.3) H 02/07/17 05:30 AST 18 U/L (15-39) 02/07/17 05:30 ALT 21 U/L (7-56) 02/07/17 05:30 Alkaline Phosphatase 108 U/L (38-133) 02/07/17 05:30 C-React Prot High Sens > 15.00 mg/L (1.00-3.00) H 02/05/17 13:24 Total Protein 7.4 g/dL (5.8-8.3) 02/07/17 05:30 Albumin 3.9 g/dL (3.0-4.8) 02/07/17 05:30 Globulin 3.5 gm/dL 02/07/17 05:30 Albumin/Globulin Ratio 1.1 (1.1-1.8) 02/07/17 05:30 Procalcitonin < 0.05 NG/ML (0.19-0.49) L 02/05/17 13:24 Urine Color Yellow (YELLOW) 02/04/17 13:00 Urine Appearance Sl cloudy (CLEAR) 02/04/17 13:00 Urine pH 6.0 (4.7-8.0) 02/04/17 13:00 Ur Specific Mcdonough 1.025 (1.005-1.035) 02/04/17 13:00 Urine Protein 100 mg/dL (<30 mg/dL) H 02/04/17 13:00 Urine Glucose (UA) Negative mg/dL (NEGATIVE) 02/04/17 13:00 Urine Ketones Negative mg/dL (NEGATIVE) 02/04/17 13:00 Urine Blood Negative (NEGATIVE) 02/04/17 13:00 Urine Nitrate Negative (NEGATIVE) 02/04/17 13:00 Urine Bilirubin Negative (NEGATIVE) 02/04/17 13:00 Urine Urobilinogen 0.2 E.U./dL (<1 E.U./dL) 02/04/17 13:00 Ur Leukocyte Esterase Trace Richie/uL (NEGATIVE) H 02/04/17 13:00 Urine RBC 0 - 2 /hpf (0-2) 02/04/17 13:00 Urine WBC 5 - 10 /hpf (0-6) 02/04/17 13:00 Ur Epithelial Cells 10 - 12 /hpf (0-5) 02/04/17 13:00 Urine Bacteria Many (NEG) 02/04/17 13:00 Urine Other Uyeast 02/04/17 13:00 - Hospital Course Hospital Course: 56yo F with PMHx including DM, HTN, Parkionson's, morbid obesity here for evaluation after Fall. She states that she woke up this morning to use the restroom, when she got up, her right knee gave out and she fell to the right side and hit the back of her right side head on a floor fan. She denies any loss of consciousness. Denies feeling dizzy or light-headed. Unable to get up off the floor after she fell and called EMS for transport to the Hospital. States that she remembers everything about the event, however, she does report feeling somewhat dazed. No tongue biting, no bowel or bladder incontinence. She states that she has been in and out of Rehab facilities over the past 4-5 months due to general weakness and deconditioning. She was last discharged from a Rehab facility on Jan 21. She states that her PMD recently decreased her Parkinson's med doses. She has not taken her meds today. She does report a hx of CVA with some residual mild left sided weakness.admittted id , neuro and gave anb Probable stasis dermatitis of both lower extremities HTN DM Parkinson's disease morbid obesity with BMI 42 Plan continue Bactroban ointment over the lower extremities and will monitor clinically Discharge Exam - Head Exam Head Exam: NORMAL INSPECTION - Eye Exam Eye Exam: EOMI, Normal appearance, PERRL Pupil Exam: NORMAL ACCOMODATION, PERRL - GI/Abdominal Exam GI & Abdominal Exam: Normal Bowel Sounds - Rectal Exam Rectal Exam: NORMAL INSPECTION - Exam Exam: Circumcision, NORMAL INSPECTION External exam: NORMAL EXTERNAL EXAM Speculum exam: NORMAL SPECULUM EXAM Bimanual exam: NORMAL BIMANUAL EXAM - Neurological Exam Neurological exam: Alert, CN II-XII Intact, Normal Gait, Oriented x3, Reflexes Normal - Psychiatric Exam Psychiatric exam: Normal Affect, Normal Mood - Skin Skin Exam: Dry, Intact, Normal Color, Warm Discharge Plan - Discharge Medications Prescriptions: Potassium Chloride [K-Dur 20] 20 meq PO DAILY #1 tab - Follow Up Plan Condition: FAIR Disposition: TRANSF TO SNF Instructions: Weakness (GEN), Fall Prevention (DC) Additional Instructions: MD TO FOLLOW AT [facility]. CONTINUE MEDICATIONS INSTRUCTED. REPORT ANY PAIN, DISCOMFORT TO STAFF. Referrals: Porfirio Goode MD [Primary Care Provider] -
== END 2017-02-07 16:45 | DRG 57 ==
LOC: ED 06:26 → ERH 12:31 → 3RSO 15:43
PROVIDERS: ADMIT Internal Medicine; ATTEND Internal Medicine
DX: G20 Parkinson's disease (principal); L89.152 Pressure ulcer of sacral region, stage 2; E11.649 Type 2 diabetes mellitus with hypoglycemia without coma; E11.65 Type 2 diabetes mellitus with hyperglycemia; I69.354 Hemiplegia and hemiparesis following cerebral infarction affecting left non-dominant side; I10 Essential (primary) hypertension; S40.022A Contusion of left upper arm, initial encounter; D72.829 Elevated white blood cell count, unspecified; N39.0 Urinary tract infection, site not specified; Z68.41 Body mass index [BMI] 40.0-44.9, adult; L03.119 Cellulitis of unspecified part of limb; R53.1 Weakness; S09.90XA Unspecified injury of head, initial encounter; I87.2 Venous insufficiency (chronic) (peripheral); E66.01 Morbid (severe) obesity due to excess calories; E78.00 Pure hypercholesterolemia, unspecified; I73.9 Peripheral vascular disease, unspecified; R29.6 Repeated falls; Z79.899 Other long term (current) drug therapy; Z87.01 Personal history of pneumonia (recurrent); R27.0 Ataxia, unspecified; M25.569 Pain in unspecified knee; S80.211A Abrasion, right knee, initial encounter; R32 Unspecified urinary incontinence; Z88.0 Allergy status to penicillin; R80.9 Proteinuria, unspecified; R53.81 Other malaise

== ENCOUNTER 2017-05-09 01:11 | Emergency (ER) | payer MEDICARE, MEDICAID, OTHER ==
[2017-05-09 01:12] VITALS: BMI 41.5
[2017-05-09 01:32] VITALS: TEMP 98.1
--- NOTE | 2017-05-09 02:00 | ED PDOC ---
Arrival/HPI - General Chief Complaint: Lower Extremity Problem/Injury Time Seen by Provider: 05/09/17 01:32 - History of Present Illness Narrative History of Present Illness (Text): 05/09/17 01:52 A 56 year old female, whose past medical history includes CVA, DM, HTN, Parkionson's, morbid obesity, presents to the emergency department complaining of s/p fall injuries. Uses walker to ambulate. Patient reports she was walking to the bathroom and legs gave out, causing mechanical fall. Patient notes hitting head onto dresser but deneis any syncope. Patient denies any other injuries. Also, patient is not currently taking any anticoagulents. No PMD Past Medical History - Provider Review Nursing Documentation Reviewed: Yes - Infectious Disease Hx of Infectious Diseases: None - Reproductive Menopause: Yes - Cardiac Hx Cardiac Disorders: Yes Hx Hypertension: Yes Hx Peripheral Edema: Yes Hx Peripheral Vascular Disease: Yes (VENOUS STASIS DERMATITIS) - Pulmonary Hx Respiratory Disorders: Yes Hx Pneumonia: Yes - Neurological Hx Neurological Disorder: Yes HX Cerebrovascular Accident: Yes (2010 left sided weakness w/c) Hx Parkinson's Disease: Yes - HEENT Hx HEENT Disorder: No - Renal Hx Renal Disorder: No - Endocrine/Metabolic Hx Endocrine Disorders: Yes Hx Diabetes Mellitus Type 2: Yes - Hematological/Oncological Hx Blood Disorders: No - Integumentary Hx Dermatological Disorder: Yes Other/Comment: 02-04-17 MASD TO UNDER THE BREAST FOLD AND UNDER THE STOMACH FOLD. IASD TO BILATERAL GROIN AREA. SACRAL PRESSURE ULCER-HAS A SLIT TO MID PART OF SACRUM.DRY STAGE 2 . RIGHT KNEE SLIGHT ABRASION FR FALL. LEFT UNDER THE ARM BRUISED AREA FROM FALL.HIT IT FR A FLOOR FAN. RIGHT TEMPORAL - WOUND FROM SCRATCHING AREA. - Musculoskeletal/Rheumatological Hx Musculoskeletal Disorders: Yes Hx Falls: Yes (FELL TODAY 02-04-17) Hx Unsteady Gait: Yes (CANE/WALKER) - Gastrointestinal Hx Gastrointestinal Disorders: No - Genitourinary/Gynecological Hx Genitourinary Disorders: Yes Hx Incontinence: Yes - Psychiatric Hx Psychophysiologic Disorder: Yes Hx Substance Use: No - Surgical History Other/Comment: CRANIOTOMY- due to HEMORRHAGIC stroke 2010 - Anesthesia Hx Anesthesia: No Family/Social History - Physician Review Nursing Documentation Reviewed: Yes Family/Social History: No Known Family HX Smoking Status: Never Smoked Hx Alcohol Use: No Hx Substance Use: No Allergies/Home Meds Allergies/Adverse Reactions: Allergies Penicillins Allergy (Verified 05/09/17 01:24) SWELLING Home Medications: Home Meds Medication Instructions Recorded Confirmed Valsartan/Hydrochlorothiazide 1 each PO DAILY 02/04/17 05/09/17 [Diovan Hct 160-25 mg Tablet] metFORMIN [glucOPHAGE] 500 mg PO BID 02/04/17 05/09/17 Carbidopa/Levodopa/Entacapone 125 mg PO QID 05/09/17 05/09/17 [Stalevo 150] Insulin Glargine,Hum.rec.anlog 32 units SQ BID 05/09/17 05/09/17 [Shalini Brown] Review of Systems - Physician Review All systems were reviewed & negative as marked: Yes - Review of Systems Constitutional: absent: Other (patient denies any other injuries) Musculoskeletal: Other (abrasion to right forehead and left calf s/p mechanical fall) Physical Exam Vital Signs Reviewed: Yes Vital Signs Temp Pulse Resp BP Pulse Ox 05/09/17 05:00 84 18 135/72 98 05/09/17 03:00 85 18 137/72 98 05/09/17 01:24 98.1 F 81 22 147/80 100 Temperature: Afebrile Blood Pressure: Normal Pulse: Regular Respiratory Rate: Normal Appearance: Positive for: Unkept, Other (disheveled) Pain Distress: None Mental Status: Positive for: Alert and Oriented X 3 - Systems Exam Head: Present: Abrasion (1 cm abrasion to right forehead). No: Other (no hematoma) Pupils: Present: PERRL Extroacular Muscles: Present: EOMI Conjunctiva: Present: Normal Mouth: Present: Moist Mucous Membranes Neck: Present: Normal Range of Motion Respiratory/Chest: Present: Clear to Auscultation, Good Air Exchange, Other ( chest wall nontender). No: Respiratory Distress, Accessory Muscle Use Cardiovascular: Present: Regular Rate and Rhythm, Normal S1, S2. No: Murmurs Abdomen: Present: Normal Bowel Sounds. No: Tenderness, Distention, Peritoneal Signs Back: Present: Normal Inspection Upper Extremity: Present: Normal Inspection. No: Cyanosis, Edema Lower Extremity: Present: Normal ROM, Other (abrasion to left calf; small area of cellulitis to left lateral leg) Neurological: Present: GCS=15, CN II-XII Intact, Speech Normal Skin: Present: Warm, Dry, Normal Color. No: Rashes Psychiatric: Present: Alert, Oriented x 3, Normal Insight, Normal Concentration Medical Decision Making ED Course and Treatment: 05/09/17 01:56 Impression: 56 year old female with s/p fall injuries. Physical exam shows 1 cm abrasion to right forehead (no hematoma) and abrasion to left calf; small area of cellulitis to left lateral leg; full ROM to LE; chest wall nontender. Plan: -- Head CT -- Left Tibia Fibula X-Ray -- Reassess and disposition Prior Visits: Notes and results from previous visits were reviewed. Patient was last seen in the emergency department on 02/04/2017 for evaluation after fall. Patient was admitted. Progress Notes: 05/09/2017 03:[address] IMPRESSION: No acute intracranial hemorrhage, or suspicious mass effect. Dictator: Arlet Raines MD - RAD Interpretation Radiology Orders: 05/09/17 01:53 HEAD W/O CONTRAST [CT] Stat TIBIA FIBULA LEFT [RAD] Stat - Medication Orders Current Medication Orders: Discontinued Medications Clindamycin HCl (Cleocin) 300 mg PO STAT STA PRN Reason: Protocol Stop: 05/09/17 03:49 - Scribe Statement The provider has reviewed the documentation as recorded by the Laurence Ritter Provider Scribe Attestation: All medical record entries made by the Scribe were at my direction and personally dictated by me. I have reviewed the chart and agree that the record accurately reflects my personal performance of the history, physical exam, medical decision making, and the department course for this patient. I have also personally directed, reviewed, and agree with the discharge instructions and disposition. Disposition/Present on Arrival - Present on Arrival Any Indicators Present on Arrival: No History of DVT/PE: No History of Uncontrolled Diabetes: No Urinary Catheter: No History of Decub. Ulcer: No History Surgical Site Infection Following: None - Disposition Have Diagnosis and Disposition been Completed?: Yes Diagnosis: Fall Disposition: HOME/ ROUTINE Disposition Time: 03:45 Patient Plan: Discharge Condition: IMPROVED Discharge Instructions (ExitCare): Cellulitis (ED), Fall Prevention for Older Adults (GEN) Prescriptions: Clindamycin [Cleocin] 300 mg PO Q6 #40 cap Referrals: PCP,NO [Primary Care Provider] - Follow up with primary Forms: [employer] (Greek)
--- NOTE | 2017-05-09 03:22 | CT ---
EXAM: CT Head Without Intravenous Contrast CLINICAL HISTORY: 56 years old, female; Injury or trauma; Fall; Initial encounter; Concussion / head injury; Additional info: Fall trauma TECHNIQUE: Axial computed tomography images of the head/brain without intravenous contrast. All CT scans at this facility use one or more dose reduction techniques, viz.: automated exposure control; ma/kV adjustment per patient size (including targeted exams where dose is matched to indication; i.e. head); or iterative reconstruction technique. COMPARISON: CT - HEAD W/O CONTRAST 2017-02-04 07:57 FINDINGS: Brain: No acute intracranial hemorrhage. No significant white matter disease. No edema. Ventricles: No significant ventriculomegaly. Bones: No acute displaced fracture. Sinuses: Unremarkable as visualized. No acute sinusitis. Mastoid air cells: Unremarkable as visualized. No mastoid effusion. IMPRESSION: No acute intracranial hemorrhage, or suspicious mass effect.
[2017-05-09 03:48] VITALS: RESP 18; O2SAT 98
[2017-05-09 06:00] VITALS: BP 135/72; PULSE 84
--- NOTE | 2017-05-09 11:05 | RAD ---
PROCEDURE: Radiographs of the left tibia and fibula. HISTORY: fall COMPARISON: None available. TECHNIQUE: Frontal and lateral views obtained. FINDINGS: BONES: No fracture or destructive lesion. JOINT SPACES: Unremarkable. OTHER FINDINGS: None. IMPRESSION: Unremarkable radiographs of the left tibia and fibula.
== END 2017-05-09 05:10 | disposition home or self-care (01) ==
LOC: ED 01:11
DX: Z04.3 Encounter for examination and observation following other accident (principal); W01.190A Fall on same level from slipping, tripping and stumbling with subsequent striking against furniture, initial encounter; Y93.89 Activity, other specified; Y92.89 Other specified places as the place of occurrence of the external cause

== ENCOUNTER 2017-07-01 21:36 | Inpatient (IN) | payer MEDICARE, OTHER ==
--- NOTE | 2017-07-01 23:00 | ED PDOC ---
Arrival/HPI <Yousif Schwartz - Last Filed: 07/02/17 00:19> - General Historian: Patient - History of Present Illness Time/Duration: Other (see hpi) Context: Home <Tori Patiño - Last Filed: 07/08/17 00:14> - General Time Seen by Provider: 07/01/17 22:59 - History of Present Illness Narrative History of Present Illness (Text): 07/01/17 23:00 Patient just arrived in ED room. A 56 year old female, whose past medical history includes CVA, DM, HTN, Parkinson's, morbid obesity, presents to the emergency department complaining of right lower leg cellulitis, generalized weakness, and multiple falls x 3 days. Patient stated symptoms have worsen today, and she does can not ambulate due to her weakness, and afraid to fall again. Patient noted she was hospitalized for one day at [facility] x 2 days ago, and discharge home yesterday with Bactrim DS. (Tori Patñio) Past Medical History - Provider Review Nursing Documentation Reviewed: Yes - Infectious Disease Hx of Infectious Diseases: None - Cardiac Hx Cardiac Disorders: Yes Hx Hypertension: Yes Hx Peripheral Edema: Yes Hx Peripheral Vascular Disease: Yes (VENOUS STASIS DERMATITIS) - Pulmonary Hx Respiratory Disorders: Yes Hx Pneumonia: Yes - Neurological Hx Neurological Disorder: Yes HX Cerebrovascular Accident: Yes (2011 left sided weakness w/c) Hx Parkinson's Disease: Yes - HEENT Hx HEENT Disorder: No - Renal Hx Renal Disorder: No - Endocrine/Metabolic Hx Endocrine Disorders: Yes Hx Diabetes Mellitus Type 2: Yes - Hematological/Oncological Hx Blood Disorders: No - Integumentary Hx Dermatological Disorder: Yes Other/Comment: 02-04-17 MASD TO UNDER THE BREAST FOLD AND UNDER THE STOMACH FOLD. IASD TO BILATERAL GROIN AREA. SACRAL PRESSURE ULCER-HAS A SLIT TO MID PART OF SACRUM.DRY STAGE 2 . RIGHT KNEE SLIGHT ABRASION FR FALL. LEFT UNDER THE ARM BRUISED AREA FROM FALL.HIT IT FR A FLOOR FAN. RIGHT TEMPORAL - WOUND FROM SCRATCHING AREA. - Musculoskeletal/Rheumatological Hx Musculoskeletal Disorders: Yes Hx Falls: Yes (FELL TODAY 02-04-17) Hx Unsteady Gait: Yes (CANE/WALKER) - Gastrointestinal Hx Gastrointestinal Disorders: No - Genitourinary/Gynecological Hx Genitourinary Disorders: Yes Hx Incontinence: Yes - Psychiatric Hx Psychophysiologic Disorder: Yes Hx Substance Use: No - Surgical History Other/Comment: CRANIOTOMY- due to HEMORRHAGIC stroke 2010 - Anesthesia Hx Anesthesia: No <HaroonKendradusty Gray - Last Filed: 07/08/17 00:14> Family/Social History - Physician Review Nursing Documentation Reviewed: Yes Family/Social History: Other (noncontributory) Smoking Status: Never Smoked Hx Alcohol Use: No Hx Substance Use: No <Tori Patiño - Last Filed: 07/08/17 00:14> Allergies/Home Meds <Yousif Schwartz - Last Filed: 07/02/17 00:19> <HaroonKendradusty Gray - Last Filed: 07/08/17 00:14> Allergies/Adverse Reactions: Allergies Penicillins Allergy (Verified 05/09/17 01:24) SWELLING Home Medications: Home Meds Medication Instructions Recorded Confirmed Valsartan/Hydrochlorothiazide 1 each PO DAILY 02/04/17 07/02/17 [Diovan Hct 160-25 mg Tablet] metFORMIN [glucOPHAGE] 500 mg PO BID 02/04/17 07/02/17 Carbidopa/Levodopa/Entacapone 125 mg PO QID 05/09/17 07/02/17 [Stalevo 150] Insulin Glargine,Hum.rec.anlog 32 units SQ BID 05/09/17 07/02/17 [Shalini Brown] Review of Systems - Review of Systems Constitutional: Fatigue. absent: Weight Change, Fevers Eyes: Normal ENT: Normal Respiratory: Normal. absent: SOB, Cough Cardiovascular: Normal. absent: Chest Pain, Palpitations Gastrointestinal: Normal. absent: Abdominal Pain, Nausea, Vomiting Genitourinary Female: Normal Musculoskeletal: Normal Skin: Cellulitis Neurological: Normal, Other (generalized weakness) Endocrine: Normal Hemo/Lymphatic: Normal Psychiatric: Normal <Tori Patiño - Last Filed: 07/08/17 00:14> Physical Exam Temperature: Afebrile Blood Pressure: Normal Pulse: Regular Respiratory Rate: Normal Appearance: Positive for: Well-Appearing, Non-Toxic, Comfortable Pain Distress: None Mental Status: Positive for: Alert and Oriented X 3 - Systems Exam Head: Present: Atraumatic, Normocephalic Pupils: Present: PERRL Extroacular Muscles: Present: EOMI Conjunctiva: Present: Normal Mouth: Present: Moist Mucous Membranes Neck: Present: Normal Range of Motion Respiratory/Chest: Present: Clear to Auscultation, Good Air Exchange. No: Respiratory Distress, Accessory Muscle Use Cardiovascular: Present: Regular Rate and Rhythm, Normal S1, S2. No: Murmurs Abdomen: Present: Normal Bowel Sounds. No: Tenderness, Distention, Peritoneal Signs Back: Present: Normal Inspection Upper Extremity: Present: Normal Inspection. No: Cyanosis, Edema Lower Extremity: Present: Edema (trace b/l edema), NORMAL PULSES, Normal ROM, Temperature Abnormalties, Neurovascularly Intact, Capillary Refill < 2 s, Other ((+) right lower leg anterior cellulitis). No: CALF TENDERNESS Neurological: Present: GCS=15, CN II-XII Intact, Speech Normal Skin: Present: Warm, Dry, Normal Color. No: Rashes Psychiatric: Present: Alert, Oriented x 3, Normal Insight, Normal Concentration <Tori Patiño - Last Filed: 07/08/17 00:14> Vital Signs Temp Pulse Resp BP Pulse Ox 07/02/17 03:11 98.9 F 07/02/17 01:41 100 H 17 132/63 94 L 07/02/17 00:35 103 F H 07/02/17 00:30 103 F H 07/01/17 23:43 98.3 F 104 H 18 154/77 H 96 Medical Decision Making <Yousif Schwartz - Last Filed: 07/02/17 00:19> Re-evaluation Time: 02:18 Reassessment Condition: Re-examined, Improving,but remains with symptoms - Lab Interpretations I have reviewed the lab results: Yes Interpretation: Abnormal lab values - EKG Interpretation Interpreted by ED Physician: Yes (NSR @ [address] changes) Type: 12 lead EKG Comparison: No previous EKG avail. <Tori Patiño - Last Filed: 07/08/17 00:14> ED Course and Treatment: 07/02/17 02:[address] Uriostegui. Who agreed with plan for admission. She recommended consult Dr. Mead for Infectious Disease consult. (Tori Patiño) - Lab Interpretations Microbiology Results: Microbiology Results 07/02/17 01:15 Blood Blood Culture - Final NO GROWTH AFTER 5 DAYS 07/02/17 01:15 Blood Gram Stain - Final TEST NOT PERFORMED 07/02/17 00:50 Blood Blood Culture - Final NO GROWTH AFTER 5 DAYS 07/02/17 00:50 Blood Gram Stain - Final TEST NOT PERFORMED Lab Results: 07/02/17 00:50 07/02/17 00:50 Lab Results 07/02/17 00:50: PT 14.6 H, INR 1.27 H, APTT 32.2 07/02/17 00:50: pO2 23 L, VBG pH 7.42, VBG pCO2 46.0, VBG HCO3 29.8 H, VBG Total CO2 31.2 H, VBG O2 Sat (Calc) 48.1, VBG Base Excess 4.5 H, VBG Potassium 4.5, Sodium 132.0, Chloride 101.0, Glucose 178 H, Lactate 1.3, FiO2 21.0, Venous Blood Potassium 4.5 07/02/17 00:50: Sodium 134, Chloride 98, Potassium 4.3, Carbon Dioxide 28, Anion Gap 12, BUN 17, Creatinine 1.2, Est GFR ( Amer) 56, Est GFR (Non- Af Amer) 46, Random Glucose 179 H, Calcium 9.2, Total Bilirubin 1.4 H, AST 33, ALT 29, Alkaline Phosphatase 218 H, NT-Pro-B Natriuret Pep 321, Total Protein 7.7, Albumin 4.0, Globulin 3.7, Albumin/Globulin Ratio 1.1 07/02/17 00:50: WBC 11.3 H, RBC 3.84, Hgb 11.2 L, Hct 32.3 L, MCV 84.1, MCH 29.2 , MCHC 34.7, RDW 13.7, Plt Count 234, MPV 10.8, Gran % 86.2 H, Lymph % (Auto) 8.2 L, [place] % (Auto) 5.1, Eos % (Auto) 0.3 L, Baso % (Auto) 0.2, Gran # 9.77 H, Lymph # 0.9 L, [place] # 0.6, Eos # 0.0, Baso # 0.02, ESR 22 H - RAD Interpretation Narrative RAD Interpretations (Text): 07/02/17 03:35 Chest x-rays: NAD (Patiño,Nahim P) Radiology Orders: 07/01/17 23:25 CHEST PORTABLE [RAD] Stat - Medication Orders Current Medication Orders: Discontinued Medications Acetaminophen (Tylenol 325mg Tab) 975 mg PO STAT STA Stop: 07/02/17 00:29 Last Admin: 07/02/17 00:35 Dose: 975 mg NIXON Pain/Vitals Document 07/02/17 00:35 RD (Rec: 07/02/17 01:05 RD [facility] [id number]) Pain Reassessment Is This A Pain ReAssessment? No Sleep Is patient sleeping during reassessment? No Presence of Pain Presence of Pain No Vitals Temperature (97.6 F-99.6 F) 103 F Temperature Source Rectal Acetaminophen (Tylenol 325mg Tab) 650 mg PO Q4H PRN PRN Reason: Fever >100.5 F Last Admin: 07/05/17 22:54 Dose: 650 mg NIXON Pain/Vitals Document 07/05/17 22:54 [place] (Rec: 07/05/17 22:54 [place] [id number]) Pain Reassessment Is This A Pain ReAssessment? No Sleep Is patient sleeping during reassessment? No Presence of Pain Presence of Pain Yes Pain Scale Used Pain Scale Used Numeric Location Left, Right or Bilateral Right Pain Location Body Site Shoulder Intensity 6 Pain Behavior Irritability Alleviating Factors Medication Re-Assess: NIXON Pain/Vitals Document 07/05/17 23:54 [place] (Rec: 07/06/17 01:16 [place] [id number]) Pain Reassessment Is This A Pain ReAssessment? No Sleep Is patient sleeping during reassessment? Yes Al Hydrox/Mg Hydrox/Simethicone (Maalox Plus 30 Ml) 30 ml PO STAT STA Stop: 07/02/17 22:12 Last Admin: 07/02/17 22:18 Dose: 30 ml Albuterol/Ipratropium (Duoneb 3 Mg/0.5 Mg (3 Ml) Ud) 3 ml IH STAT STA Stop: 07/05/17 02:41 Last Admin: 07/05/17 02:51 Dose: 3 ml Albuterol/Ipratropium (Duoneb 3 Mg/0.5 Mg (3 Ml) Ud) 3 ml IH STAT STA Stop: 07/05/17 02:52 Bisacodyl (Dulcolax) 10 mg RC ONCE ONE Stop: 07/04/17 11:57 Last Admin: 07/04/17 12:07 Dose: 10 mg Docusate Sodium (Colace) 200 mg PO DAILY [facility] Last Admin: 07/07/17 12:21 Dose: 200 mg Famotidine (Pepcid) 40 mg PO HS [facility] Last Admin: 07/06/17 22:31 Dose: 40 mg Ferrous Sulfate (Feosol) 324 mg PO TID [facility] Last Admin: 07/07/17 16:36 Dose: 324 mg Home Med (Home Med) 1 unit PO QID [facility] Last Admin: 07/03/17 10:15 Dose: Home Med (Home Med) 1 unit PO QID [facility] Last Admin: 07/07/17 16:37 Dose: 1 unit Hydrochlorothiazide (Hydrodiuril) 25 mg PO DAILY [facility] Hydrochlorothiazide (Hydrodiuril) 25 mg PO DAILY [facility] Last Admin: 07/07/17 12:21 Dose: 25 mg Sodium Chloride (Sodium Chloride 0.9%) 1,000 mls @ 999 mls/hr IV .Q1H1M STA Stop: 07/02/17 01:29 Last Admin: 07/02/17 00:50 Dose: 999 mls/hr eMAR Start Stop Document 07/02/17 00:50 RD (Rec: 07/02/17 01:05 RD [id number]) Intravenous Solution Start Date 07/02/17 Start Time 00:50 End Date 07/02/17 End time 01:50 Total Infusion Time 60 Clindamycin Phosphate 600 mg/ (Sodium Chloride) 54 mls @ 108 mls/hr IVPB STAT STA PRN Reason: Protocol Stop: 07/02/17 02:24 Last Admin: 07/02/17 02:45 Dose: 108 mls/hr eMAR Start Stop Document 07/02/17 02:45 RD (Rec: 07/02/17 02:45 RD [facility] [id number]) Intravenous Solution Start Date 07/02/17 Start Time 02:45 End Date 07/02/17 End time 03:15 Total Infusion Time 30 Vancomycin HCl (Vancomycin 1gm) 1 gm in 250 mls @ 167 mls/hr IVPB DAILY REI PRN Reason: Protocol Last Admin: 07/07/17 12:20 Dose: 167 mls/hr eMAR Start Stop Document 07/07/17 12:20 CV (Rec: 07/07/17 12:20 CV [id number]) Intravenous Solution Start Date 07/07/17 Start Time 12:20 Sodium Chloride (Sodium Chloride 0.9%) 1,000 mls @ 80 mls/hr IV .[id number] [facility] Last Admin: 07/05/17 05:06 Dose: Insulin Human Regular (Humulin R Low) 0 units SC ACHS REI PRN Reason: Protocol Last Admin: 07/04/17 09:23 Dose: 2 units MAR Blood Glucose Document 07/04/17 09:[address] [facility] (Rec: 07/04/17 09[id number] Blood Glucose Finger Stick Blood Glucose (70-120) 221 Subcutaneous Administrations Document 07/04/17 09:[address] [facility] (Rec: 07/04/17 09:23 [id number] Injection Site MAR Injection Site Right Arm Charges for Administration # of Subcutaneous Administrations 1 Insulin Human Regular (Humulin R Low) 0 units SC ACHS REI PRN Reason: Protocol Last Admin: 07/07/17 16:38 Dose: 3 units MAR Blood Glucose Document 07/07/17 16:38 CV (Rec: 07/07/17 16:38 CV [id number]) Blood Glucose Finger Stick Blood Glucose (70-120) 294 Subcutaneous Administrations Document 07/07/17 16:38 CV (Rec: 07/07/17 16:38 CV [id number]) Charges for Administration # of Subcutaneous Administrations 1 Losartan Potassium (Cozaar) 100 mg PO DAILY [facility] Losartan Potassium (Cozaar) 100 mg PO DAILY [facility] Last Admin: 07/07/17 12:21 Dose: 100 mg Metformin HCl (Glucophage) 500 mg PO BID [facility] Last Admin: 07/04/17 09:22 Dose: 500 mg Non-Formulary Medication (Insulin Glargine,Hum.Rec.Anlog [Shalini Brown]) 32 units SQ BID [facility] Last Admin: 07/07/17 10:15 Dose: Ondansetron HCl (Zofran Inj) 4 mg IVP ONCE ONE Stop: 07/04/17 11:57 Last Admin: 07/04/17 12:09 Dose: 4 mg IVP Administration Document 07/04/17 12:[address] [facility] (Rec: 07/04/17 12:09 [id number]) Charges for Administration # of IVP Administrations 1 Polyethylene Glycol (Miralax) 17 gm PO DAILY [facility] Last Admin: 07/07/17 12:21 Dose: 17 gm Potassium Chloride (K-Dur 20 Meq Er Tab) 20 meq PO DAILY [facility] Potassium Chloride (K-Dur 20 Meq Er Tab) 20 meq PO DAILY [facility] Last Admin: 07/07/17 12:22 Dose: 20 meq Tramadol HCl (Ultram) 50 mg PO TID [facility] Last Admin: 07/07/17 16:37 Dose: 50 mg MAR Pain Assessment Document 07/07/17 16:37 CV (Rec: 07/07/17 16:37 CV [facility] [id number]) Pain Reassessment Is this a pain reassessment? No Presence of Pain Presence of Pain Yes Pain Scale Used Pain Scale Used Numeric - PA / RISK AND INSURANCE MANAGER / Resident Statement MD/DO has reviewed & agrees with the documentation as recorded. MD/DO has examined the patient and agrees with the treatment plan. <Yousif Schwartz - Last Filed: 07/02/17 00:19> Disposition/Present on Arrival <Yousif Schwartz - Last Filed: 07/02/17 00:19> - Present on Arrival Any Indicators Present on Arrival: No History of DVT/PE: No History of Uncontrolled Diabetes: No Urinary Catheter: No History Surgical Site Infection Following: None - Disposition Have Diagnosis and Disposition been Completed?: Yes Disposition Time: 02:20 Patient Plan: Admission <Tori Patiño - Last Filed: 07/08/17 00:14> - Disposition Diagnosis: Cellulitis and abscess of lower extremity, Generalized weakness, Failure of outpatient treatment Disposition: HOSPITALIZED Condition: STABLE
[2017-07-02] MEDS ORDERED: Sodium Chloride 0.9% 1,000 ML IV STA (00:29)
[2017-07-02 01:16] LABS: BASO # 0.02 K/mm3 (0.0-2.0); BASO % 0.2 % (0.0-3.0); EOS % 0.3 % (1.5-5.0); GRAN # 9.77 (1.4-6.5); GRAN % 86.2 % (50.0-68.0); HEMOGLOBIN 11.2 g/dL (12.0-16.0); LYMPH # 0.9 (1.2-3.4); LYMPH % 8.2 % (22.0-35.0); MEAN CELL VOLUME 84.1 fl (80.0-105.0); MEAN CORPUSCULAR HEMOGLOBIN 29.2 pg (25.0-35.0); MEAN CORPUSCULAR HGB CONC 34.7 g/dl (31.0-37.0); MEAN PLATELET VOLUME 10.8 fl (7.0-11.0); MONO # 0.6 (0.1-0.6); MONO % 5.1 % (1.0-6.0); RBC 3.84 10^6/uL (3.5-6.1); RED CELL DISTRIBUTION WIDTH 13.7 % (11.5-14.5); WHITE BLOOD COUNT 11.3 10^3/ul (4.5-11.0)
[2017-07-02 01:20] LABS: ALB/GLOB RATIO 1.1 (1.1-1.8); CALCIUM 9.2 mg/dL (8.4-10.5); VENOUS BLOOD GAS BASE EXCESS 4.5 mmol/L (0.0-2.0); VENOUS BLOOD GAS PO2 23 mm/Hg (30-55); VENOUS BLOOD PH 7.42 (7.32-7.43)
[2017-07-02 01:24] LABS: INR 1.27 (0.93-1.08); PARTIAL THROMBOPLASTIN TIME 32.2 Seconds (25.1-36.5); PROTHROMBIN TIME 14.6 SECONDS (9.4-12.5)
[2017-07-02 05:03] VITALS: BMI 40.2
--- NOTE | 2017-07-02 09:28 | RAD ---
HISTORY: admission COMPARISON: No prior. FINDINGS: LUNGS: No active pulmonary disease. PLEURA: No significant pleural effusion identified, no pneumothorax apparent. CARDIOVASCULAR: Normal. OSSEOUS STRUCTURES: No significant abnormalities. VISUALIZED UPPER ABDOMEN: Normal. OTHER FINDINGS: None. IMPRESSION: No active disease.
--- NOTE | 2017-07-02 12:22 | CARD ---
APPROVED REPORT EKG Measurement Heart [id number] <Conclusion> Normal sinus rhythm Left axis deviation Inferior infarct, age undetermined Abnormal ECG
[2017-07-02] MEDS: Insulin Reg-LOW-Coverage SC SCH ×2 (13:20→16:31)
[2017-07-02] MEDS: STALEVO PO SCH ×3 (13:20→18:00)
--- NOTE | 2017-07-02 17:51 | CP.PCM.HP ---
<Mena Yates - Last Filed: 07/03/17 01:11> History of Present Illness - History of Present Illness History of Present Illness: 47 yr female w/ history of CVA, DM, HTN, Parkinson's, morbid obesity, venous stasis dermatitis, and pneumonia. Pt was recently hospitalized at [facility] x 2 days ago and discharge home 07/01/17 with Bactrim DS. She reports R lower leg cellulitis, generalized weakness, and multiple falls x 3 days ago. She denies any fevers, chills, headaches, n/v, diarrhea, constipation , sob, chest pain, urinary changes, or distress. Present on Admission - Present on Admission Any Indicators Present on Admission: No History of DVT/PE: No History of Uncontrolled Diabetes: No Urinary Catheter: No Decubitus Ulcer Present: No Review of Systems - Constitutional Constitutional: As Per HPI - EENT Eyes: As Per HPI Ears: As Per HPI Nose/Mouth/Throat: As Per HPI - Breasts Breasts: As Per HPI - Cardiovascular Cardiovascular: As Per HPI - Respiratory Respiratory: As Per HPI - Gastrointestinal Gastrointestinal: As Per HPI - Genitourinary Genitourinary: As Per HPI - Musculoskeletal Musculoskeletal: As Per HPI - Integumentary Integumentary: As Per HPI - Neurological Neurological: As Per HPI - Psychiatric Psychiatric: As Per HPI - Endocrine Endocrine: As Per HPI - Hematologic/Lymphatic Hematologic: As Per HPI Past Patient History - Infectious Disease Hx of Infectious Diseases: None - Past Social History Smoking Status: Never Smoked - CARDIAC Hx Cardiac Disorders: Yes Hx Hypertension: Yes Hx Peripheral Edema: Yes Hx Peripheral Vascular Disease: Yes (VENOUS STASIS DERMATITIS) - PULMONARY Hx Respiratory Disorders: Yes Hx Pneumonia: Yes - NEUROLOGICAL Hx Neurological Disorder: Yes HX Cerebrovascular Accident: Yes (2011 left sided weakness w/c) Hx Parkinson's Disease: Yes - HEENT Hx HEENT Problems: No - RENAL Hx Chronic Kidney Disease: No - ENDOCRINE/METABOLIC Hx Endocrine Disorders: Yes Hx Diabetes Mellitus Type 2: Yes - HEMATOLOGICAL/ONCOLOGICAL Hx Blood Disorders: No - INTEGUMENTARY Hx Dermatological Problems: Yes Other/Comment: 02-04-17 MASD TO UNDER THE BREAST FOLD AND UNDER THE STOMACH FOLD. IASD TO BILATERAL GROIN AREA. SACRAL PRESSURE ULCER-HAS A SLIT TO MID PART OF SACRUM.DRY STAGE 2 . RIGHT KNEE SLIGHT ABRASION FR FALL. LEFT UNDER THE ARM BRUISED AREA FROM FALL.HIT IT FR A FLOOR FAN. RIGHT TEMPORAL - WOUND FROM SCRATCHING AREA. - MUSCULOSKELETAL/RHEUMATOLOGICAL Hx Falls: No - GASTROINTESTINAL Hx Gastrointestinal Disorders: No - GENITOURINARY/GYNECOLOGICAL Hx Genitourinary Disorders: Yes Hx Incontinence: Yes - PSYCHIATRIC Hx Psychophysiologic Disorder: Yes - SURGICAL HISTORY Other/Comment: CRANIOTOMY- due to HEMORRHAGIC stroke 2010 - ANESTHESIA Hx Anesthesia: No Meds Allergies/Adverse Reactions: Allergies Allergy/AdvReac Type Severity Reaction Status Date / Time Penicillins Allergy SWELLING Verified 05/09/17 01:24 Physical Exam - Constitutional Appears: Older Than Stated Age, Chronically Ill - Head Exam Head Exam: NORMOCEPHALIC Additional comments: R forehead healing abrasion/laceration - Eye Exam Eye Exam: EOMI, Normal appearance, PERRL - ENT Exam ENT Exam: Mucous Membranes Moist, Normal Exam - Neck Exam Neck exam: Positive for: Normal Inspection - Respiratory Exam Respiratory Exam: Clear to Auscultation Bilateral, NORMAL BREATHING PATTERN - Cardiovascular Exam Cardiovascular Exam: REGULAR RHYTHM - GI/Abdominal Exam GI & Abdominal Exam: Normal Bowel Sounds, Soft. absent: Tenderness Additional comments: morbidly obese - Extremities Exam Extremities exam: Positive for: joint swelling, normal capillary refill, pedal edema, tenderness, pedal pulses present Additional comments: bilateral ankle cellulitis noted with 1x1cm wounds. non-weight bearing lower extremities. walker at bedside. - Back Exam Back exam: NORMAL INSPECTION - Neurological Exam Neurological exam: Abnormal Gait, Alert, Oriented x3 Additional comments: resting tremor noted in bilateral hands. - Psychiatric Exam Psychiatric exam: Anxious, Flat Affect, Normal Mood - Skin Skin Exam: Dry, Intact, Normal Color, Warm Results - Vital Signs Recent Vital Signs: Last Vital Signs Temp 99.4 F 07/02/17 08:57 Pulse 80 07/02/17 08:57 Resp 19 07/02/17 08:57 BP 125/69 07/02/17 08:57 Pulse Ox 95 07/02/17 08:57 - Labs Result Diagrams: 07/02/17 00:50 07/02/17 00:50 Assessment & Plan (1) Cellulitis and abscess of lower extremity Status: Acute (2) Failure of outpatient treatment Status: Acute (3) Weakness Status: Acute (4) Ataxia Status: Acute - Assessment and Plan (Free Text) Plan: IV clinda & vanco. US of legs. Blood cultures drawn. PT onboard. Consult: ID - Dr. Mead Reviewed: CXR = WNL ECG = ABNORMAL, NSR, L axis deviation, inferior infarct, age undetermined - Date & Time Date: 07/02/17 Time: 11:30 Decision To Admit - Pt Status Changed To: Hospital Disposition Of: Inpatient Admission - Admit Certification Admit to Inpatient:: After my assessment, the patient will require hospitalization for at least two midnights. This is because of the severity of symptoms shown, intensity of services needed, and/or the medical risk in this patient being treated as an outpatient. - . Bed Request Type: Med/Surg <Alondra Uriostegui - Last Filed: 07/05/17 08:41> Results - Vital Signs Recent Vital Signs: Last Vital Signs Temp 97.8 F 07/05/17 08:12 Pulse 92 H 07/05/17 08:12 Resp 22 07/05/17 08:12 BP 122/75 07/05/17 08:12 Pulse Ox 93 L 07/05/17 08:12 - Labs Result Diagrams: 07/05/17 06:15 07/05/17 06:15 Labs: Laboratory Results - last 24 hr 07/04/17 07/04/17 07/04/17 09:15 09:15 11:31 WBC 20.8 H D RBC 3.32 L Hgb 9.7 L Hct 27.7 L MCV 83.4 MCH 29.2 MCHC 35.0 RDW 13.4 Plt Count 233 MPV 10.7 Gran % Lymph % (Auto) [place] % (Auto) Eos % (Auto) Baso % (Auto) Gran # Lymph # [place] # Eos # Baso # Sodium 129 L Potassium 4.2 Chloride 96 L Carbon Dioxide 23 Anion Gap 15 BUN 23 H Creatinine 1.3 H Est GFR ( Amer) 51 Est GFR (Non-Af Amer) 42 POC Glucose (mg/dL) 246 H Random Glucose 261 H Calcium 8.9 Total Bilirubin AST ALT Alkaline Phosphatase Total Protein Albumin Globulin Albumin/Globulin Ratio 07/04/17 07/04/17 07/05/17 16:19 21:18 06:15 WBC 15.6 H D RBC 3.12 L Hgb 9.2 L Hct 26.3 L MCV 84.3 MCH 29.5 MCHC 35.0 RDW 13.5 Plt Count 264 MPV 12.1 H Gran % 84.0 H Lymph % (Auto) 8.0 L [place] % (Auto) 6.5 H Eos % (Auto) 1.4 L Baso % (Auto) 0.1 Gran # 13.05 H Lymph # 1.3 [place] # 1.0 H Eos # 0.2 Baso # 0.02 Sodium Potassium Chloride Carbon Dioxide Anion Gap BUN Creatinine Est GFR ( Amer) Est GFR (Non-Af Amer) POC Glucose (mg/dL) 206 H 242 H Random Glucose Calcium Total Bilirubin AST ALT Alkaline Phosphatase Total Protein Albumin Globulin Albumin/Globulin Ratio 07/05/17 07/05/17 06:15 08:17 WBC RBC Hgb Hct MCV MCH MCHC RDW Plt Count MPV Gran % Lymph % (Auto) [place] % (Auto) Eos % (Auto) Baso % (Auto) Gran # Lymph # [place] # Eos # Baso # Sodium 129 L Potassium 4.0 Chloride 96 L Carbon Dioxide 23 Anion Gap 14 BUN 28 H Creatinine 1.3 H Est GFR ( Amer) 51 Est GFR (Non-Af Amer) 42 POC Glucose (mg/dL) 245 H Random Glucose 244 H Calcium 8.8 Total Bilirubin 1.9 H AST 46 H D ALT 19 Alkaline Phosphatase 259 H Total Protein 7.2 Albumin 3.2 Globulin 4.0 Albumin/Globulin Ratio 0.8 L Assessment & Plan - Assessment and Plan (Free Text) Plan: 47 yr female w/ history of CVA, DM, HTN, Parkinson's, morbid obesity, venous stasis dermatitis, and pneumonia. Pt was recently hospitalized at [facility] x 2 days ago and discharge home 07/01/17 with Joseph LAUREN. She reports R lower leg cellulitis, generalized weakness, and multiple falls x 3 days ago. She denies any fevers, chills, headaches, n/v, diarrhea, constipation , sob, chest pain, urinary changes, or distress. pt is seen and examined at bed side ,looking comfortable . agreed all above . swelling of legs , red and warm , getting anb. as per anb, will f/u . cont. present treatment ,
--- NOTE | 2017-07-02 18:13 | CP.PCM.CON ---
History of Present Illness - History of Present Illness History of Present Illness: Infectious Disease Consultation: July 02, 2017 57 yo female with medical history of obesity, HTN, DM, Parkinson's Disease, and lower extreme cellulitis history. The patient has erythema mostly to the anterior lower extremities with some scabbed ulcerations also present. There is no current additional warmth or tenderness to the area at this time. The patient had a previous hospitalization for a similar issue. The patient denies fevers or chills at this time. PMHx: Morbidly obesity, HTN, DM, Parkinson's Disease, and lower extreme cellulitis PSHx: tonsillectomy and craniotomy Allergies: PCN Social Hx: No tobacco, EtOH, or illicit drug use Active Medications Acetaminophen (Tylenol 325mg Tab) 650 mg PO Q4H PRN PRN Reason: Fever >100.5 F Home Med (Home Med) 1 unit PO QID [facility] Last Admin: 07/02/17 16:31 Dose: Not Given Hydrochlorothiazide (Hydrodiuril) 25 mg PO DAILY [facility] Vancomycin HCl (Vancomycin 1gm) 1 gm in 250 mls @ 167 mls/hr IVPB DAILY [facility] PRN Reason: Protocol Insulin Human Regular (Humulin R Low) 0 units SC ACHS [facility] PRN Reason: Protocol Last Admin: 07/02/17 16:31 Dose: Not Given Losartan Potassium (Cozaar) 100 mg PO DAILY [facility] Potassium Chloride (K-Dur 20 Meq Er Tab) 20 meq PO DAILY [facility] Family Hx: none given ROS: no fevers, chills, nausea, vomiting, diarrhea, headaches, dizziness, chest pain , abdominal pain, melena, hematuria, hematemesis, hematochezia, depression, anxiety. Past Patient History - Infectious Disease Hx of Infectious Diseases: None - Past Social History Smoking Status: Never Smoked - CARDIAC Hx Cardiac Disorders: Yes Hx Hypertension: Yes Hx Peripheral Edema: Yes Hx Peripheral Vascular Disease: Yes (VENOUS STASIS DERMATITIS) - PULMONARY Hx Respiratory Disorders: Yes Hx Pneumonia: Yes - NEUROLOGICAL Hx Neurological Disorder: Yes HX Cerebrovascular Accident: Yes (2010 left sided weakness w/c) Hx Parkinson's Disease: Yes - HEENT Hx HEENT Problems: No - RENAL Hx Chronic Kidney Disease: No - ENDOCRINE/METABOLIC Hx Endocrine Disorders: Yes Hx Diabetes Mellitus Type 2: Yes - HEMATOLOGICAL/ONCOLOGICAL Hx Blood Disorders: No - INTEGUMENTARY Hx Dermatological Problems: Yes Other/Comment: 02-04-17 MASD TO UNDER THE BREAST FOLD AND UNDER THE STOMACH FOLD. IASD TO BILATERAL GROIN AREA. SACRAL PRESSURE ULCER-HAS A SLIT TO MID PART OF SACRUM.DRY STAGE 2 . RIGHT KNEE SLIGHT ABRASION FR FALL. LEFT UNDER THE ARM BRUISED AREA FROM FALL.HIT IT FR A FLOOR FAN. RIGHT TEMPORAL - WOUND FROM SCRATCHING AREA. - MUSCULOSKELETAL/RHEUMATOLOGICAL Hx Falls: No - GASTROINTESTINAL Hx Gastrointestinal Disorders: No - GENITOURINARY/GYNECOLOGICAL Hx Genitourinary Disorders: Yes Hx Incontinence: Yes - PSYCHIATRIC Hx Psychophysiologic Disorder: Yes - SURGICAL HISTORY Other/Comment: CRANIOTOMY- due to HEMORRHAGIC stroke 2010 - ANESTHESIA Hx Anesthesia: No Meds Allergies/Adverse Reactions: Allergies Allergy/AdvReac Type Severity Reaction Status Date / Time Penicillins Allergy SWELLING Verified 05/09/17 01:24 - Medications Medications: Current Medications Acetaminophen (Tylenol 325mg Tab) 650 mg PO Q4H PRN PRN Reason: Fever >100.5 F Home Med (Home Med) 1 unit PO QID [facility] Last Admin: 07/02/17 16:31 Dose: Not Given Hydrochlorothiazide (Hydrodiuril) 25 mg PO DAILY [facility] Vancomycin HCl (Vancomycin 1gm) 1 gm in 250 mls @ 167 mls/hr IVPB DAILY [facility] PRN Reason: Protocol Insulin Human Regular (Humulin R Low) 0 units SC ACHS [facility] PRN Reason: Protocol Last Admin: 07/02/17 16:31 Dose: Not Given Losartan Potassium (Cozaar) 100 mg PO DAILY [facility] Potassium Chloride (K-Dur 20 Meq Er Tab) 20 meq PO DAILY [facility] Physical Exam - Constitutional Appears: Non-toxic, No Acute Distress, Chronically Ill Additional comments: morbidly obese. - Head Exam Head Exam: ATRAUMATIC, NORMOCEPHALIC - Eye Exam Eye Exam: EOMI, PERRL Pupil Exam: NORMAL ACCOMODATION, PERRL - ENT Exam ENT Exam: Mucous Membranes Moist, Normal External Ear Exam, TM's Normal Bilaterally - Neck Exam Neck exam: Positive for: Full Rom, Normal Inspection - Respiratory Exam Respiratory Exam: Clear to Auscultation Bilateral, NORMAL BREATHING PATTERN. absent: Rales, Rhonchi, Wheezes - Cardiovascular Exam Cardiovascular Exam: REGULAR RHYTHM, RRR, +S1, +S2 - GI/Abdominal Exam GI & Abdominal Exam: Normal Bowel Sounds, Soft. absent: Distended, Tenderness - Extremities Exam Extremities exam: Positive for: full ROM Additional comments: stage 2 ulcerations on anterior lower legs bilaterally. - Neurological Exam Neurological exam: Alert, CN II-XII Intact, Oriented x3 - Psychiatric Exam Psychiatric exam: Normal Affect, Normal Mood - Skin Skin Exam: Intact, Normal Color Additional comments: except for bilateral lower extremities - erythema of the anterior lower legs bilaterally. Scabbed stage 2 ulcers anterior lower extremities. No additional warmth or tenderness at time of exam. Results - Vital Signs Recent Vital Signs: Last Vital Signs Temp 99.4 F 07/02/17 08:57 Pulse 80 07/02/17 08:57 Resp 19 07/02/17 08:57 BP 125/69 07/02/17 08:57 Pulse Ox 95 07/02/17 08:57 - Labs Result Diagrams: 07/02/17 00:50 07/02/17 00:50 Assessment & Plan - Assessment and Plan (Free Text) Assessment: 57 yo female with recent hospitalization at [facility] for lower extremity cellulitis and discharged with Bactrim DS. The patient comes to [facility] with lower extremity pain with erythema to the anterior lower legs. The patient was started on Vancomycin IV for antibiotic coverage given the PCN allergy. Supportive care. The patient has a history of obesity, HTN, DM, Parkinson's Disease, and lower extreme cellulitis. Local wound care. Thank you for allowing me to participate in the care of the patient, we will follow with you.
[2017-07-02] MEDS ORDERED: Alum-Mag Hydrox-Simethicone Susp (30 mL) PO STA (22:11)
[2017-07-03] MEDS: STALEVO PO SCH ×6 (05:29→21:43)
[2017-07-03] MEDS: Insulin Reg-LOW-Coverage SC SCH ×10 (05:30→21:34)
[2017-07-03 07:23] LABS: HEMOGLOBIN 9.8 g/dL (12.0-16.0); MEAN CELL VOLUME 83.3 fl (80.0-105.0); MEAN CORPUSCULAR HEMOGLOBIN 28.7 pg (25.0-35.0); MEAN CORPUSCULAR HGB CONC 34.5 g/dl (31.0-37.0); MEAN PLATELET VOLUME 10.7 fl (7.0-11.0); RBC 3.41 10^6/uL (3.5-6.1); RED CELL DISTRIBUTION WIDTH 13.5 % (11.5-14.5); WHITE BLOOD COUNT 16.6 10^3/ul (4.5-11.0)
[2017-07-03 07:44] LABS: BLOOD UREA NITROGEN 16 mg/dL (7-21); CALCIUM 8.8 mg/dL (8.4-10.5); GFR AFRICAN-AMERICAN > 60; GFR NON-AFRICAN AMERICAN 51
[2017-07-03] MEDS ORDERED: Potassium Chloride 20 mEq ER Tab PO SCH (10:00)
[2017-07-03] MEDS: Potassium Chloride 20 mEq ER Tab PO SCH (10:00)
[2017-07-03] MEDS: Vancomycin 1gm in NS 250ml 1 GM/250 ML BAG IVPB SCH ×2 (10:06→10:17)
[2017-07-03] MEDS: INSULIN GLARGINE HUM REC ANLOG 32 UNIT SQ SCH ×2 (10:16→18:36)
--- NOTE | 2017-07-03 15:58 | CT ---
PROCEDURE: CT Chest without contrast HISTORY: dyspnea COMPARISON: None. TECHNIQUE: Contiguous axial images were obtained through the chest without intravenous contrast enhancement. Sagittal and coronal reconstructions were performed. Radiation dose (DLP): 697 mGy-cm. This CT exam was performed using one or more of the following dose reduction techniques: Automated exposure control, adjustment of the mA and/or kV according to patient size, and/or use of iterative reconstruction technique. FINDINGS: LUNGS: Clear lungs. Visualized airway clear. MEDIASTINUM: Unremarkable thoracic aorta. No aneurysm. Normal sized heart. Main pulmonary artery unremarkable. No vascular congestion. Small anterior mediastinal lymph nodes PLEURA: No pleural fluid. No pneumothorax. BONES: No fracture. No destructive lesion. UPPER ABDOMEN: Grossly unremarkable. OTHER FINDINGS: None. IMPRESSION: Unremarkable non-contrast enhanced CT of the chest.
--- NOTE | 2017-07-03 16:40 | CARD ---
APPROVED REPORT EXAM: Two-dimensional and M-mode echocardiogram with Doppler and color Doppler. INDICATION Dyspnea 2D DIMENSIONS Left Atrium (2D)4.4 (1.6-4.0cm)IVSd1.6 (0.7-1.1cm) LVDd4.6 (3.9-5.9cm)PWd1.2 (0.7-1.1cm) LVDs2.8 (2.5-4.0cm)FS (%) 39.6 % LVEF (%)70.3 (>50%) M-Mode DIMENSIONS Aortic Root3.80 (2.2-3.7cm)Aortic Cusp Exc.1.90 (1.5-2.0cm) Aortic Valve AoV Peak Jslqxnas114.0cm/Mohan Peak GR.6mmHg Mitral Valve MV E Xprhmjvd174.0cm/sMV A Ovrghkkg21.8cm/sE/A ratio1.1 TDI Lateral E' Peak V11.30cm/sMedial E' Peak V5.65cm/sE/Lateral E'9.6 E/Medial E'19.1 Pulmonary Valve PV Peak Hoevfina60.5cm/sPV Peak Grad.2mmHg Tricuspid Valve TR Peak Gjhqxulp657tm/sRAP [id number] Peak Gr.27mmHg [id number] LEFT VENTRICLE The left ventricle is normal size. There is moderate concentric left ventricular hypertrophy. The left ventricular function is normal. The left ventricular ejection fraction is within the normal range. There is normal LV segmental wall motion. Transmitral Doppler flow pattern is Grade I-abnormal relaxation pattern. RIGHT VENTRICLE The right ventricle is normal size. There is normal right ventricular wall thickness. The right ventricular systolic function is normal. ATRIA The left atrium is borderline dilated. The right atrium is borderline dilated. AORTIC VALVE The aortic valve is mildly thickened. There is trace aortic regurgitation. There is no aortic valvular stenosis. MITRAL VALVE The mitral valve is mildly thickened. There is no mitral valve regurgitation noted. There is no mitral valve stenosis. TRICUSPID VALVE There is mild tricuspid regurgitation. There is mild pulmonary hypertension. PULMONIC VALVE There is trace pulmonic valvular regurgitation. GREAT VESSELS The aortic root is mildly enlarged. The IVC was not visualized. <Conclusion> The left ventricle is normal size. There is moderate concentric left ventricular hypertrophy. The left ventricular function is normal. The left ventricular ejection fraction is within the normal range. There is normal LV segmental wall motion. Transmitral Doppler flow pattern is Grade I-abnormal relaxation pattern. There is mild tricuspid regurgitation. There is mild pulmonary hypertension.
--- NOTE | 2017-07-03 23:18 | CP.PCM.PN ---
Subjective - Date & Time of Evaluation Date of Evaluation: 07/03/17 Time of Evaluation: 23:15 - Subjective Subjective: Infectious Disease Follow Up: July 03, 2017 57 yo female with medical history of obesity, HTN, DM, Parkinson's Disease, and lower extreme cellulitis history. The patient has erythema mostly to the anterior lower extremities with some scabbed ulcerations also present. There is no current additional warmth or tenderness to the area at this time. The patient had a previous hospitalization for a similar issue. The patient denies fevers or chills at this time. Patient is overweight with limited mobility. Complains of SOB on exertion. Objective - Vital Signs/Intake and Output Vital Signs (last 24 hours): Temp Pulse Resp BP Pulse Ox 98.4 F 88 20 127/76 95 07/03/17 16:00 07/03/17 16:00 07/03/17 16:00 07/03/17 16:00 07/03/17 16:00 Intake and Output: 07/03/17 07/04/17 18:59 06:59 Intake Total 300 240 Balance 300 240 - Medications Medications: Current Medications Acetaminophen (Tylenol 325mg Tab) 650 mg PO Q4H PRN PRN Reason: Fever >100.5 F Docusate Sodium (Colace) 200 mg PO DAILY [facility] Last Admin: 07/03/17 11:09 Dose: 200 mg Famotidine (Pepcid) 40 mg PO HS [facility] Last Admin: 07/03/17 21:43 Dose: 40 mg Home Med (Home Med) 1 unit PO QID [facility] Last Admin: 07/03/17 21:43 Dose: 1 unit Hydrochlorothiazide (Hydrodiuril) 25 mg PO DAILY [facility] Last Admin: 07/03/17 10:00 Dose: 25 mg Vancomycin HCl (Vancomycin 1gm) 1 gm in 250 mls @ 167 mls/hr IVPB DAILY [facility] PRN Reason: Protocol Last Admin: 07/03/17 10:17 Dose: 167 mls/hr Insulin Human Regular (Humulin R Low) 0 units SC ACHS [facility] PRN Reason: Protocol Last Admin: 07/03/17 21:34 Dose: Not Given Insulin Human Regular (Humulin R Low) 0 units SC ACHS [facility] PRN Reason: Protocol Last Admin: 07/03/17 21:34 Dose: Not Given Losartan Potassium (Cozaar) 100 mg PO DAILY [facility] Last Admin: 07/03/17 10:06 Dose: 100 mg Metformin HCl (Glucophage) 500 mg PO BID [facility] Last Admin: 07/03/17 18:34 Dose: 500 mg Non-Formulary Medication (Insulin Glargine,Hum.Rec.Anlog [Shalini Campbellgrayeric]) 32 units SQ BID [facility] Last Admin: 07/03/17 18:36 Dose: Not Given Potassium Chloride (K-Dur 20 Meq Er Tab) 20 meq PO DAILY [facility] Last Admin: 07/03/17 10:00 Dose: 20 meq Tramadol HCl (Ultram) 50 mg PO TID [facility] Last Admin: 07/03/17 18:36 Dose: 50 mg - Labs Labs: 07/03/17 06:45 07/03/17 06:45 PT 14.6 SECONDS (9.4-12.5) H 07/02/17 00:50 INR 1.27 (0.93-1.08) H 07/02/17 00:50 APTT 32.2 Seconds (25.1-36.5) 07/02/17 00:50 - Constitutional Appears: Non-toxic, No Acute Distress, Chronically Ill - Head Exam Head Exam: ATRAUMATIC, NORMOCEPHALIC - Eye Exam Eye Exam: EOMI, PERRL Pupil Exam: NORMAL ACCOMODATION, PERRL - ENT Exam ENT Exam: Mucous Membranes Moist, Normal External Ear Exam, TM's Normal Bilaterally - Neck Exam Neck Exam: Full ROM, Normal Inspection - Respiratory Exam Respiratory Exam: Clear to Ausculation Bilateral, NORMAL BREATHING PATTERN. absent: Rales, Rhonchi, Wheezes - Cardiovascular Exam Cardiovascular Exam: REGULAR RHYTHM, RRR, +S1, +S2 - GI/Abdominal Exam GI & Abdominal Exam: Soft, Normal Bowel Sounds. absent: Distended, Tenderness - Extremities Exam Extremities Exam: Pedal Edema Additional comments: stage 2 ulcerations on anterior lower legs bilaterally. - Neurological Exam Neurological Exam: Alert, Awake, CN II-XII Intact, Oriented x3 - Psychiatric Exam Psychiatric exam: Normal Affect, Normal Mood - Skin Additional comments: bilateral lower extremities - erythema of the anterior lower legs bilaterally. Scabbed stage 2 ulcers anterior lower extremities. No additional warmth or tenderness at time of exam. Assessment and Plan - Assessment and Plan (Free Text) Assessment: 57 yo female with recent hospitalization at [facility] for lower extremity cellulitis and discharged with Bactrim DS. The patient comes to [facility] with lower extremity pain with erythema to the anterior lower legs. The patient was started on Vancomycin IV for antibiotic coverage given the PCN allergy. Supportive care. The patient has a history of obesity, HTN, DM, Parkinson's Disease, and lower extreme cellulitis. Local wound care. Noted elevation of the WBC today. Monitor WBC trend. Thank you for allowing me to participate in the care of the patient, we will follow with you.
--- NOTE | 2017-07-04 00:34 | US ---
HISTORY: Leg pain and swelling. Evaluate for DVT PHYSICIAN(S): Richard Hodgson MD. TECHNIQUE: Duplex sonography and color-flow Doppler with graded compression were used to evaluate the deep venous systems of both lower extremities. The exam is limited by body habitus and edema. FINDINGS: The visualized deep venous systems of both lower extremities are sonographically normal and compressible. Normal wave forms and augmentation are seen. There is no sonographic evidence for deep venous thrombosis in the visualized segments of both lower extremities. IMPRESSION: No sonographic evidence for deep venous thrombosis in the visualized segments of both lower extremities. Limited study
--- NOTE | 2017-07-04 02:05 | PN ---
SUBJECTIVE: Patient is seen and examined at the bedside. Her mother is on the bedside also. Swelling of the leg is getting better. There is some scab ulceration present on the legs, red and warm and swollen. No fever, no chills. No nausea, vomiting, or diarrhea. No hematuria or hematochezia. No headache. No dizziness. PHYSICAL EXAMINATION VITAL SIGNS: Temperature is 98.4, pulse is 88, respiratory rate is 20, blood pressure is 127/76, pulse oximetry of 95%. HEENT: Head is normocephalic and atraumatic. Eyes; PERRLA. Extraocular muscles intact. Conjunctivae clear. Nose is patent. Mucous membrane moist. NECK: Supple. No carotid bruit. No JVD or thyromegaly. CHEST: Bilaterally symmetrical. HEART: S1 and S2 positive. LUNGS: Clear to auscultation. ABDOMEN: Soft. Bowel sounds positive. No organomegaly. EXTREMITIES: No edema. No cyanosis. NEUROLOGIC: Patient is awake, alert, moving all four extremities. No focal deficit. MEDICATIONS: Tylenol, Colace, Pepcid, hydrochlorothiazide, vancomycin, insulin, Cozaar, Glucophage, tramadol, K-Dur. LABORATORY DATA: White blood cell 16.6, hemoglobin 9.8, hematocrit 28.4, platelets 219. Sodium 131, potassium 4.1, BUN 16, creatinine 1.1, glucose 199. ASSESSMENT AND PLAN: Mrs. Nicole Tirado is a 57-year-old lady with hyponatremia, hyperglycemia, leukocytosis, anemia, may be cellulitis of the lower extremity. Patient was admitted in [facility] recently for lower extremity cellulitis and was discharged home with Bactrim DS. Patient comes to [place] with lower extremity pain with erythema to the anterior lower legs. Now the patient started on vancomycin for antibiotic coverage. THE PATIENT IS ALLERGIC WITH PENICILLIN, obesity, sleep apnea syndrome, history of hypertension, asthma, Parkinson's disease, need local wound care. Discussion done with the patient and the patient's mother and nurse practitioner and nursing staff. May be we will transfer the patient to TCU to complete the antibiotics. We will follow up. Alondra Uriostegui MD
[2017-07-04] MEDS: Potassium Chloride 20 mEq ER Tab PO SCH (09:22)
[2017-07-04] MEDS: Insulin Reg-LOW-Coverage SC SCH ×5 (09:23→21:41)
[2017-07-04] MEDS: Vancomycin 1gm in NS 250ml 1 GM/250 ML BAG IVPB SCH (09:24)
[2017-07-04] MEDS: INSULIN GLARGINE HUM REC ANLOG 32 UNIT SQ SCH ×2 (09:24→17:30)
[2017-07-04 09:30] LABS: HEMOGLOBIN 9.7 g/dL (12.0-16.0); MEAN CELL VOLUME 83.4 fl (80.0-105.0); MEAN CORPUSCULAR HEMOGLOBIN 29.2 pg (25.0-35.0); MEAN PLATELET VOLUME 10.7 fl (7.0-11.0); RBC 3.32 10^6/uL (3.5-6.1); RED CELL DISTRIBUTION WIDTH 13.4 % (11.5-14.5); WHITE BLOOD COUNT 20.8 10^3/ul (4.5-11.0)
[2017-07-04] MEDS: STALEVO PO SCH ×4 (09:34→21:48)
[2017-07-04 09:41] LABS: CALCIUM 8.9 mg/dL (8.4-10.5)
[2017-07-04] MEDS: POLYETHYLENE GLYCOL 3350 17 GM/Dose PACKET PO SCH (12:06)
[2017-07-04] MEDS: Sodium Chloride 0.9% 1,000 ML IV SCH (12:09)
--- NOTE | 2017-07-04 22:45 | CP.PCM.PN ---
Subjective - Date & Time of Evaluation Date of Evaluation: 07/04/17 Time of Evaluation: 22:41 - Subjective Subjective: Infectious Disease Follow Up: July 04, 2017 57 yo female with medical history of obesity, HTN, DM, Parkinson's Disease, and lower extreme cellulitis history. The patient has erythema mostly to the anterior lower extremities with some scabbed ulcerations also present. There is no current additional warmth or tenderness to the area at this time. The patient had a previous hospitalization for a similar issue. The patient denies fevers or chills at this time. Patient is overweight with limited mobility. Complains of SOB on exertion. Cultures negative. On antibiotics. Objective - Vital Signs/Intake and Output Vital Signs (last 24 hours): Temp Pulse Resp BP Pulse Ox 98.8 F 78 18 118/72 98 07/04/17 07:30 07/04/17 07:30 07/04/17 07:30 07/04/17 07:30 07/04/17 07:30 Intake and Output: 07/04/17 07/05/17 18:59 06:59 Intake Total 600 Balance 600 - Medications Medications: Current Medications Acetaminophen (Tylenol 325mg Tab) 650 mg PO Q4H PRN PRN Reason: Fever >100.5 F Docusate Sodium (Colace) 200 mg PO DAILY [facility] Last Admin: 07/04/17 09:21 Dose: 200 mg Famotidine (Pepcid) 40 mg PO HS [facility] Last Admin: 07/04/17 21:48 Dose: 40 mg Home Med (Home Med) 1 unit PO QID [facility] Last Admin: 07/04/17 21:48 Dose: 1 unit Hydrochlorothiazide (Hydrodiuril) 25 mg PO DAILY [facility] Last Admin: 07/04/17 09:22 Dose: 25 mg Vancomycin HCl (Vancomycin 1gm) 1 gm in 250 mls @ 167 mls/hr IVPB DAILY [facility] PRN Reason: Protocol Last Admin: 07/04/17 09:24 Dose: 167 mls/hr Sodium Chloride (Sodium Chloride 0.9%) 1,000 mls @ 80 mls/hr IV .[id number] [facility] Last Admin: 07/04/17 12:09 Dose: 80 mls/hr Insulin Human Regular (Humulin R Low) 0 units SC ACHS [facility] PRN Reason: Protocol Last Admin: 07/04/17 21:41 Dose: Not Given Losartan Potassium (Cozaar) 100 mg PO DAILY [facility] Last Admin: 07/04/17 09:22 Dose: 100 mg Metformin HCl (Glucophage) 500 mg PO BID [facility] Last Admin: 07/04/17 09:22 Dose: 500 mg Non-Formulary Medication (Insulin Glargine,Hum.Rec.Anlog [Fengmarlynsd Campbellgrayeric]) 32 units SQ BID [facility] Last Admin: 07/04/17 17:30 Dose: Not Given Polyethylene Glycol (Miralax) 17 gm PO DAILY [facility] Last Admin: 07/04/17 12:06 Dose: 17 gm Potassium Chloride (K-Dur 20 Meq Er Tab) 20 meq PO DAILY [facility] Last Admin: 07/04/17 09:22 Dose: 20 meq Tramadol HCl (Ultram) 50 mg PO TID [facility] Last Admin: 07/04/17 17:31 Dose: Not Given - Labs Labs: 07/04/17 09:15 07/04/17 09:15 PT 14.6 SECONDS (9.4-12.5) H 07/02/17 00:50 INR 1.27 (0.93-1.08) H 07/02/17 00:50 APTT 32.2 Seconds (25.1-36.5) 07/02/17 00:50 - Constitutional Appears: Non-toxic, No Acute Distress, Chronically Ill - Head Exam Head Exam: ATRAUMATIC, NORMOCEPHALIC - Eye Exam Eye Exam: EOMI, PERRL Pupil Exam: NORMAL ACCOMODATION, PERRL - ENT Exam ENT Exam: Mucous Membranes Moist, Normal External Ear Exam, TM's Normal Bilaterally - Neck Exam Neck Exam: Full ROM, Normal Inspection - Respiratory Exam Respiratory Exam: Clear to Ausculation Bilateral, NORMAL BREATHING PATTERN. absent: Rales, Rhonchi, Wheezes - Cardiovascular Exam Cardiovascular Exam: REGULAR RHYTHM, RRR, +S1, +S2 - GI/Abdominal Exam GI & Abdominal Exam: Soft, Normal Bowel Sounds. absent: Distended, Tenderness - Extremities Exam Extremities Exam: Pedal Edema Additional comments: stage 2 ulcerations on anterior lower legs bilaterally. - Neurological Exam Neurological Exam: Alert, Awake, CN II-XII Intact, Oriented x3 - Psychiatric Exam Psychiatric exam: Normal Affect, Normal Mood - Skin Additional comments: bilateral lower extremities - erythema of the anterior lower legs bilaterally. Scabbed stage 2 ulcers anterior lower extremities. No additional warmth or tenderness at time of exam. Assessment and Plan - Assessment and Plan (Free Text) Assessment: 57 yo female with recent hospitalization at [facility] for lower extremity cellulitis and discharged with Joseph LAUREN. The patient comes to [facility] with lower extremity pain with erythema to the anterior lower legs. The patient was started on Vancomycin IV for antibiotic coverage given the PCN allergy. Supportive care. The patient has a history of obesity, HTN, DM, Parkinson's Disease, and lower extreme cellulitis. Local wound care. Noted elevation of the WBC today. Monitor WBC trend. Up to 20.8 today. Will check differential, ESR, and C-Reactive Protein. Thank you for allowing me to participate in the care of the patient, we will follow with you.
--- NOTE | 2017-07-04 22:45 | PN ---
DATE: Patient is 57-year-old female. SUBJECTIVE: Patient is seen and examined at the bedside. Eating comfortable. Still complaining about leg pain, but leg is getting better, swelling is better, redness is better. No more warm. The patient got physical therapy today. No nausea, vomiting, or diarrhea. No hematuria or hematochezia. No headache, no dizziness. PHYSICAL EXAMINATION: VITAL SIGNS: Temperature 98.8, pulse 78, blood pressure 118/72, respiratory rate 18. HEENT: Head is normocephalic and atraumatic. Eyes; PERRLA. Extraocular muscles intact. Conjunctivae clear. Nose is patent. Mucous membrane moist. NECK: Supple. No carotid bruit. No JVD or thyromegaly. CHEST: Bilaterally symmetrical. HEART: S1 and S2 positive. LUNGS: Clear to auscultation. ABDOMEN: Soft. Bowel sounds positive. No organomegaly. EXTREMITIES: No edema. No cyanosis. NEUROLOGIC: The patient is awake, alert, moving all 4 extremities. No focal deficit. MEDICATIONS: Colace, Cozaar, Glucophage, insulin, hydrochlorothiazide, potassium, MiraLax, Pepcid, Tylenol, tramadol, vancomycin. LABORATORY DATA: White blood cells 20.8, hemoglobin 9.7, hematocrit 27.7. Sodium 129, potassium 4.2, BUN 26, creatinine 1.3, glucose 206. ASSESSMENT AND PLAN: Ms. Celestino Rivera is a 57-year-old female with leukocytosis, anemia, hyponatremia, renal insufficiency, hyperglycemia, has cellulitis of the leg, history of hypertension, obesity, Parkinson disease. The patient was seen in [facility] also for lower extremity cellulitis and discharged on Bactrim DS. The patient comes to [facility] with same complaints. The patient started on vancomycin, IV antibiotics. THE PATIENT IS ALLERGIC WITH PENICILLIN. Supportive care provided, providing local wound care. CAT scan of the chest done, showed unremarkable non-contrast enhance. Discussion done with nursing staff, nurse practitioner. Continue present treatment. Alondra Uriostegui MD
[2017-07-05] MEDS ORDERED: Albuterol-Ipratrop 3 mg / 0.5 (3 ml) UD IH STA ×2 (02:40→02:51)
--- NOTE | 2017-07-05 02:44 | CP.PCM.PN ---
Subjective - Date & Time of Evaluation Date of Evaluation: 07/05/17 Time of Evaluation: 02:40 - Subjective Subjective: Patient was seen at bedside. She complains of intermittent sob for past 24 hours. Never had sob like this before. Denies chest pain, nausea,sweating, palpitation. Has complaints of dry cough. Gives history of wheezing and smoking in the past. Medical record was reviewed. This 57 year old white woman was admitted for right lower leg cellulitis, generalized weakness, falls 3 days ago, Has PMH of obesity,HTN, venous stasis dermatitis, PNA, CVA, Parkinson's,DM II, craniotomy. Objective - Vital Signs/Intake and Output Vital Signs (last 24 hours): Temp Pulse Resp BP Pulse Ox 98.8 F 78 18 118/72 98 07/04/17 07:30 07/04/17 07:30 07/04/17 07:30 07/04/17 07:30 07/04/17 07:30 Intake and Output: 07/04/17 07/05/17 18:59 06:59 Intake Total 600 420 Balance 600 420 - Medications Medications: Current Medications Acetaminophen (Tylenol 325mg Tab) 650 mg PO Q4H PRN PRN Reason: Fever >100.5 F Albuterol/Ipratropium (Duoneb 3 Mg/0.5 Mg (3 Ml) Ud) 3 ml IH STAT STA Stop: 07/05/17 02:41 Docusate Sodium (Colace) 200 mg PO DAILY [facility] Last Admin: 07/04/17 09:21 Dose: 200 mg Famotidine (Pepcid) 40 mg PO HS [facility] Last Admin: 07/04/17 21:48 Dose: 40 mg Home Med (Home Med) 1 unit PO QID [facility] Last Admin: 07/04/17 21:48 Dose: 1 unit Hydrochlorothiazide (Hydrodiuril) 25 mg PO DAILY [facility] Last Admin: 07/04/17 09:22 Dose: 25 mg Vancomycin HCl (Vancomycin 1gm) 1 gm in 250 mls @ 167 mls/hr IVPB DAILY [facility] PRN Reason: Protocol Last Admin: 07/04/17 09:24 Dose: 167 mls/hr Sodium Chloride (Sodium Chloride 0.9%) 1,000 mls @ 80 mls/hr IV .[id number] [facility] Last Admin: 07/04/17 12:09 Dose: 80 mls/hr Insulin Human Regular (Humulin R Low) 0 units SC ACHS [facility] PRN Reason: Protocol Last Admin: 07/04/17 21:41 Dose: Not Given Losartan Potassium (Cozaar) 100 mg PO DAILY [facility] Last Admin: 07/04/17 09:22 Dose: 100 mg Metformin HCl (Glucophage) 500 mg PO BID [facility] Last Admin: 07/04/17 09:22 Dose: 500 mg Non-Formulary Medication (Insulin Glargine,Hum.Rec.Anlog [Shalini Brown]) 32 units SQ BID [facility] Last Admin: 07/04/17 17:30 Dose: Not Given Polyethylene Glycol (Miralax) 17 gm PO DAILY [facility] Last Admin: 07/04/17 12:06 Dose: 17 gm Potassium Chloride (K-Dur 20 Meq Er Tab) 20 meq PO DAILY [facility] Last Admin: 07/04/17 09:22 Dose: 20 meq Tramadol HCl (Ultram) 50 mg PO TID [facility] Last Admin: 07/04/17 17:31 Dose: Not Given - Labs Labs: 07/04/17 09:15 07/04/17 09:15 PT 14.6 SECONDS (9.4-12.5) H 07/02/17 00:50 INR 1.27 (0.93-1.08) H 07/02/17 00:50 APTT 32.2 Seconds (25.1-36.5) 07/02/17 00:50 Micro Results 07/02/17 00:50 Blood Blood Culture - Preliminary NO GROWTH AFTER 3 DAYS 07/02/17 01:15 Blood Blood Culture - Preliminary NO GROWTH AFTER 48 HOURS Most Recent Lab Values WBC 20.8 10^3/ul (4.5-11.0) H D 07/04/17 09:15 RBC 3.32 10^6/uL (3.5-6.1) L 07/04/17 09:15 Hgb 9.7 g/dL (12.0-16.0) L 07/04/17 09:15 Hct 27.7 % (36.0-48.0) L 07/04/17 09:15 MCV 83.4 fl (80.0-105.0) 07/04/17 09:15 MCH 29.2 pg (25.0-35.0) 07/04/17 09:15 MCHC 35.0 g/dl (31.0-37.0) 07/04/17 09:15 RDW 13.4 % (11.5-14.5) 07/04/17 09:15 Plt Count 233 10^3/uL (120.0-450.0) 07/04/17 09:15 MPV 10.7 fl (7.0-11.0) 07/04/17 09:15 Gran % 86.2 % (50.0-68.0) H 07/02/17 00:50 Lymph % (Auto) 8.2 % (22.0-35.0) L 07/02/17 00:50 [place] % (Auto) 5.1 % (1.0-6.0) 07/02/17 00:50 Eos % (Auto) 0.3 % (1.5-5.0) L 07/02/17 00:50 Baso % (Auto) 0.2 % (0.0-3.0) 07/02/17 00:50 Gran # 9.77 (1.4-6.5) H 07/02/17 00:50 Lymph # 0.9 (1.2-3.4) L 07/02/17 00:50 [place] # 0.6 (0.1-0.6) 07/02/17 00:50 Eos # 0.0 (0.0-0.7) 07/02/17 00:50 Baso # 0.02 K/mm3 (0.0-2.0) 07/02/17 00:50 ESR 22 mm/hr (0.0-20.0) H 07/02/17 00:50 PT 14.6 SECONDS (9.4-12.5) H 07/02/17 00:50 INR 1.27 (0.93-1.08) H 07/02/17 00:50 APTT 32.2 Seconds (25.1-36.5) 07/02/17 00:50 pO2 23 mm/Hg (30-55) L 07/02/17 00:50 VBG pH 7.42 (7.32-7.43) 07/02/17 00:50 VBG pCO2 46.0 (40-60) 07/02/17 00:50 VBG HCO3 29.8 mmol/l (21-28) H 07/02/17 00:50 VBG Total CO2 31.2 mmol.L (22-28) H 07/02/17 00:50 VBG O2 Sat (Calc) 48.1 % (40-65) 07/02/17 00:50 VBG Base Excess 4.5 mmol/L (0.0-2.0) H 07/02/17 00:50 VBG Potassium 4.5 mmol/L (3.6-5.2) 07/02/17 00:50 Sodium 132.0 mmol/L (132-148) 07/02/17 00:50 Chloride 101.0 mmol/L (98-107) 07/02/17 00:50 Glucose 178 mg/dl (65-105) H 07/02/17 00:50 Lactate 1.3 mmol/L (0.7-2.1) 07/02/17 00:50 FiO2 21.0 % 07/02/17 00:50 Sodium 129 mmol/L (132-148) L 07/04/17 09:15 Potassium 4.2 mmol/L (3.6-5.0) 07/04/17 09:15 Chloride 96 mmol/L (98-107) L 07/04/17 09:15 Carbon Dioxide 23 mmol/L (21-33) 07/04/17 09:15 Anion Gap 15 (10-20) 07/04/17 09:15 BUN 23 mg/dL (7-21) H 07/04/17 09:15 Creatinine 1.3 mg/dl (0.7-1.2) H 07/04/17 09:15 Est GFR ( Amer) 51 07/04/17 09:15 Est GFR (Non-Af Amer) 42 07/04/17 09:15 POC Glucose (mg/dL) 242 mg/dL (65-110) H 07/04/17 21:18 Random Glucose 261 mg/dL (70-110) H 07/04/17 09:15 Calcium 8.9 mg/dL (8.4-10.5) 07/04/17 09:15 Total Bilirubin 1.4 mg/dL (0.2-1.3) H 07/02/17 00:50 AST 33 U/L (14-36) 07/02/17 00:50 ALT 29 U/L (7-56) 07/02/17 00:50 Alkaline Phosphatase 218 U/L (38-126) H 07/02/17 00:50 NT-Pro-B Natriuret Pep 321 pg/mL (0-450) 07/02/17 00:50 Total Protein 7.7 g/dL (5.8-8.3) 07/02/17 00:50 Albumin 4.0 g/dL (3.0-4.8) 07/02/17 00:50 Globulin 3.7 gm/dL 07/02/17 00:50 Albumin/Globulin Ratio 1.1 (1.1-1.8) 07/02/17 00:50 Venous Blood Potassium 4.5 mmol/L (3.6-5.2) 07/02/17 00:50 - Constitutional Appears: Well, No Acute Distress - Head Exam Head Exam: ATRAUMATIC, NORMAL INSPECTION, NORMOCEPHALIC - Eye Exam Eye Exam: Normal appearance - ENT Exam ENT Exam: Normal External Ear Exam - Neck Exam Neck Exam: Normal Inspection - Respiratory Exam Respiratory Exam: Clear to Ausculation Bilateral, NORMAL BREATHING PATTERN. absent: Accessory Muscle Use, Chest Wall Tenderness, Rales, Rhonchi, Wheezes, Respiratory Distress, Stridor Additional comments: Hardly hear any wheezing. - Cardiovascular Exam Cardiovascular Exam: absent: JVD - GI/Abdominal Exam GI & Abdominal Exam: absent: Distended - Rectal Exam Rectal Exam: Deferred - Exam Additional comments: Deferred. - Extremities Exam Extremities Exam: Normal Inspection Additional comments: No pitting edema. Minimal swelling ,redness. - Back Exam Back Exam: NORMAL INSPECTION - Neurological Exam Neurological Exam: Alert, Awake, Oriented x3 - Psychiatric Exam Psychiatric exam: Normal Affect, Normal Mood - Skin Skin Exam: Normal Color Assessment and Plan - Assessment and Plan (Free Text) Assessment: Dyspnea. Wheezing history. Former smoker. Cellulitis. Obesity. HTN. DM II. Leukocytosis. Anemia. Hyponatremia. Renal insufficiency. History craniotomy for hemorrhagic stroke. Plan: Duoneb neb treatment stat. Continue present management .
[2017-07-05] MEDS: Sodium Chloride 0.9% 1,000 ML IV SCH (05:06)
[2017-07-05 06:49] LABS: ALB/GLOB RATIO 0.8 (1.1-1.8); ALBUMIN 3.2 g/dL (3.0-4.8); CALCIUM 8.8 mg/dL (8.4-10.5)
[2017-07-05 07:33] LABS: EOS % 1.4 % (1.5-5.0); HEMOGLOBIN 9.2 g/dL (12.0-16.0); MEAN CELL VOLUME 84.3 fl (80.0-105.0); MEAN CORPUSCULAR HEMOGLOBIN 29.5 pg (25.0-35.0); MEAN PLATELET VOLUME 12.1 fl (7.0-11.0); MONO % 6.5 % (1.0-6.0); RBC 3.12 10^6/uL (3.5-6.1); RED CELL DISTRIBUTION WIDTH 13.5 % (11.5-14.5); WHITE BLOOD COUNT 15.6 10^3/ul (4.5-11.0)
[2017-07-05 07:34] LABS: BASO # 0.02 K/mm3 (0.0-2.0); BASO % 0.1 % (0.0-3.0); EOS # 0.2 (0.0-0.7); GRAN # 13.05 (1.4-6.5); LYMPH # 1.3 (1.2-3.4)
[2017-07-05] MEDS: POLYETHYLENE GLYCOL 3350 17 GM/Dose PACKET PO SCH (09:09)
[2017-07-05] MEDS: Insulin Reg-LOW-Coverage SC SCH ×4 (09:09→22:37)
[2017-07-05] MEDS: Vancomycin 1gm in NS 250ml 1 GM/250 ML BAG IVPB SCH (09:09)
[2017-07-05] MEDS: Potassium Chloride 20 mEq ER Tab PO SCH ×2 (09:09→09:19)
[2017-07-05] MEDS: STALEVO PO SCH ×3 (09:09→17:16)
[2017-07-05] MEDS: INSULIN GLARGINE HUM REC ANLOG 32 UNIT SQ SCH ×2 (09:10→17:23)
--- NOTE | 2017-07-05 17:37 | CP.PCM.PN ---
Subjective - Date & Time of Evaluation Date of Evaluation: 07/05/17 Time of Evaluation: 15:45 - Subjective Subjective: Infectious Disease Follow Up: July 05, 2017 57 yo female with medical history of obesity, HTN, DM, Parkinson's Disease, and lower extreme cellulitis history. The patient has erythema mostly to the anterior lower extremities with some scabbed ulcerations also present. There is no current additional warmth or tenderness to the area at this time. The patient had a previous hospitalization for a similar issue. The patient denies fevers or chills at this time. Patient is overweight with limited mobility. Complains of SOB on exertion. Cultures negative. On antibiotics. Noted last night the patient complained of SOB. Objective - Vital Signs/Intake and Output Vital Signs (last 24 hours): Temp Pulse Resp BP Pulse Ox 97.8 F 92 H 22 122/75 93 L 07/05/17 08:12 07/05/17 08:12 07/05/17 08:12 07/05/17 08:12 07/05/17 08:12 Intake and Output: 07/05/17 07/05/17 06:59 18:59 Intake Total 660 360 Output Total 1 3 Balance 659 357 - Medications Medications: Current Medications Acetaminophen (Tylenol 325mg Tab) 650 mg PO Q4H PRN PRN Reason: Fever >100.5 F Docusate Sodium (Colace) 200 mg PO DAILY [facility] Last Admin: 07/05/17 09:09 Dose: 200 mg Famotidine (Pepcid) 40 mg PO HS [facility] Last Admin: 07/04/17 21:48 Dose: 40 mg Home Med (Home Med) 1 unit PO QID [facility] Last Admin: 07/05/17 17:16 Dose: 1 unit Hydrochlorothiazide (Hydrodiuril) 25 mg PO DAILY [facility] Last Admin: 07/05/17 09:10 Dose: 25 mg Vancomycin HCl (Vancomycin 1gm) 1 gm in 250 mls @ 167 mls/hr IVPB DAILY [facility] PRN Reason: Protocol Last Admin: 07/05/17 09:09 Dose: 167 mls/hr Sodium Chloride (Sodium Chloride 0.9%) 1,000 mls @ 80 mls/hr IV .[id number] [facility] Last Admin: 07/05/17 05:06 Dose: Not Given Insulin Human Regular (Humulin R Low) 0 units SC ACHS [facility] PRN Reason: Protocol Last Admin: 07/05/17 17:16 Dose: 2 units Losartan Potassium (Cozaar) 100 mg PO DAILY [facility] Last Admin: 07/05/17 09:10 Dose: 100 mg Metformin HCl (Glucophage) 500 mg PO BID [facility] Last Admin: 07/04/17 09:22 Dose: 500 mg Non-Formulary Medication (Insulin Glargine,Hum.Rec.Anlog [Fengmarlynhenryanette Shannanamrit]) 32 units SQ BID [facility] Last Admin: 07/05/17 17:23 Dose: Not Given Polyethylene Glycol (Miralax) 17 gm PO DAILY [facility] Last Admin: 07/05/17 09:09 Dose: 17 gm Potassium Chloride (K-Dur 20 Meq Er Tab) 20 meq PO DAILY [facility] Last Admin: 07/05/17 09:19 Dose: Not Given Tramadol HCl (Ultram) 50 mg PO TID [facility] Last Admin: 07/05/17 17:23 Dose: Not Given - Labs Labs: 07/05/17 06:15 07/05/17 06:15 PT 14.6 SECONDS (9.4-12.5) H 07/02/17 00:50 INR 1.27 (0.93-1.08) H 07/02/17 00:50 APTT 32.2 Seconds (25.1-36.5) 07/02/17 00:50 - Constitutional Appears: Non-toxic, No Acute Distress, Chronically Ill - Head Exam Head Exam: ATRAUMATIC, NORMOCEPHALIC - Eye Exam Eye Exam: EOMI, PERRL Pupil Exam: NORMAL ACCOMODATION, PERRL - ENT Exam ENT Exam: Mucous Membranes Moist, Normal External Ear Exam, TM's Normal Bilaterally - Neck Exam Neck Exam: Full ROM, Normal Inspection - Respiratory Exam Respiratory Exam: Clear to Ausculation Bilateral, NORMAL BREATHING PATTERN. absent: Rales, Rhonchi, Wheezes - Cardiovascular Exam Cardiovascular Exam: REGULAR RHYTHM, RRR, +S1, +S2 - GI/Abdominal Exam GI & Abdominal Exam: Soft, Normal Bowel Sounds. absent: Distended, Tenderness - Extremities Exam Extremities Exam: Pedal Edema Additional comments: stage 2 ulcerations on anterior lower legs bilaterally. - Neurological Exam Neurological Exam: Alert, Awake, CN II-XII Intact, Oriented x3 - Psychiatric Exam Psychiatric exam: Normal Affect, Normal Mood - Skin Skin Exam: Intact, Normal Color Assessment and Plan - Assessment and Plan (Free Text) Assessment: 57 yo female with recent hospitalization at [facility] for lower extremity cellulitis and discharged with Bactrim DS. The patient comes to [facility] with lower extremity pain with erythema to the anterior lower legs. The patient was started on Vancomycin IV for antibiotic coverage given the PCN allergy. Supportive care. The patient has a history of obesity, HTN, DM, Parkinson's Disease, and lower extreme cellulitis. Local wound care. Noted elevation of the WBC today. Monitor WBC trend. Up to 15.6 today. Will check differential, ESR, and C-Reactive Protein. Latest ESR is down to 22. Clinically, the patient is improving. Thank you for allowing me to participate in the care of the patient, we will follow with you.
--- NOTE | 2017-07-05 20:33 | PN ---
DATE: SUBJECTIVE: The patient is a 57-year-old female. The patient was seen and examined early in the morning on the bedside, sitting on the chair, still complaining about intermittent shortness of breath for the past 24 hours, never had shortness of breath before that, seen by house physician. No chest pain. No nausea, vomiting, diarrhea, or palpitations. Still complaining of dry cough. History of heavy smoking actively. Swelling of the leg is getting better, less warm and redness. PHYSICAL EXAMINATION: VITAL SIGNS: Temperature 98.8, pulse 78, respirations 18, blood pressure 118/72, pulse oximetry 98. HEENT: Head is normocephalic and atraumatic. Eyes; PERRLA. Extraocular muscles intact. Conjunctivae clear. Nose is patent. Mucous membrane moist. NECK: Supple. No carotid bruit. No JVD or thyromegaly. CHEST: Bilaterally symmetrical. HEART: S1 and S2 positive. LUNGS: Positive wheezing bilaterally. ABDOMEN: Soft. Bowel sounds positive. No organomegaly. EXTREMITIES: Warm and red, but improving. NEUROLOGIC: The patient is awake, alert, moving all 4 extremities. No focal deficit. MEDICATIONS: Tylenol, DuoNeb, Colace, Pepcid, hydrochlorothiazide, vancomycin, NS, Insulin, Cozaar, Glucophage, MiraLax, K-Dur, and tramadol. LABORATORY DATA: White blood cell 20.8, hemoglobin 9.7, hematocrit 27.7, platelets 236, sodium 129, potassium 4.2, BUN 23, creatinine 1.3, glucose 261. ASSESSMENT AND PLAN: Ms. Celestino Rivera is a 57-year-old lady with leukocytosis trending up, anemia, hyponatremia, renal insufficiency, uncontrolled diabetes mellitus, has history of dyspnea, wheezing, former smoker, cellulitis of the leg, comorbid obesity, hypertension, diabetes mellitus type 2, history of craniotomy for the hemorrhagic stroke in the past. House physician Dr. Wooten, saw the patient and recommended DuoNeb. Forms Designer is on the case. Continue antibiotics as per Dr. Pierce Mead. History of recent hospitalization at [facility] for same lower extremity cellulitis and discharged with Bactrim DS, then patient came into [facility], now got vancomycin. PATIENT IS ALLERGIC WITH PENICILLIN. Supportive care. History of Parkinson disease. Gastrointestinal and deep venous thrombosis prophylaxis. We will repeat labs. We will call for reconsult. We will follow. Alondra Uriostegui MD
[2017-07-06] MEDS: STALEVO PO SCH ×5 (01:04→22:31)
[2017-07-06 08:13] LABS: ALB/GLOB RATIO 0.8 (1.1-1.8); ALBUMIN 3.3 g/dL (3.0-4.8); CALCIUM 8.9 mg/dL (8.4-10.5)
[2017-07-06 08:33] LABS: HEMOGLOBIN 8.8 g/dL (12.0-16.0); MEAN CELL VOLUME 85.6 fl (80.0-105.0); MEAN CORPUSCULAR HEMOGLOBIN 28.8 pg (25.0-35.0); MEAN CORPUSCULAR HGB CONC 33.6 g/dl (31.0-37.0); MEAN PLATELET VOLUME 12.3 fl (7.0-11.0); RBC 3.06 10^6/uL (3.5-6.1); RED CELL DISTRIBUTION WIDTH 13.7 % (11.5-14.5); WHITE BLOOD COUNT 15.8 10^3/ul (4.5-11.0)
[2017-07-06] MEDS: Insulin Reg-LOW-Coverage SC SCH ×4 (08:36→22:05)
[2017-07-06] MEDS: Potassium Chloride 20 mEq ER Tab PO SCH (10:35)
[2017-07-06] MEDS: POLYETHYLENE GLYCOL 3350 17 GM/Dose PACKET PO SCH (10:35)
[2017-07-06] MEDS: INSULIN GLARGINE HUM REC ANLOG 32 UNIT SQ SCH ×2 (10:36→17:50)
[2017-07-06] MEDS: Vancomycin 1gm in NS 250ml 1 GM/250 ML BAG IVPB SCH (10:36)
[2017-07-06 13:15] LABS: FOLATE 8.3 ng/mL
--- NOTE | 2017-07-06 17:25 | PN ---
DATE: SUBJECTIVE: The patient was seen and examined on the bedside, looking comfortable. No nausea, vomiting, diarrhea. No hematuria. No hematochezia. Still has swelling of the leg. Sometimes coughing. Having shortness of breath. No fever. No chills. No headache. No dizziness. The patient is a very poor historian. Family member was sitting on the bedside. Length of time discussion done. According to family, the patient has schizophrenia, bipolar, needs psych medication, but they do not remember medication's name. So I told them bring home medication or I will call a psych consult. PHYSICAL EXAMINATION: VITAL SIGNS: Temperature 98.5, pulse 83, blood pressure 108/63, respiratory rate 18. HEENT: Head normocephalic, atraumatic. Eyes PERRLA. Extraocular muscles intact. Conjunctivae clear. Nose patent. Mucous membrane moist. NECK: Supple. No carotid bruit. No JVD or thyromegaly. CHEST: Bilaterally symmetrical. HEART: S1 and S2 positive. LUNGS: Clear to auscultation. ABDOMEN: Soft. Bowel sounds positive. No organomegaly. EXTREMITIES: Trace edema. Partially red, but improving. NEUROLOGICAL: The patient is awake, alert. Moving all 4 extremities. No focal deficits. LABORATORY DATA: White blood cells 15.8, hemoglobin 8.8, hematocrit 26.2, platelets 284. Sodium 130, potassium 4.1, BUN 33, creatinine 1.4. Glucose 358, 226. Iron 17. Total bilirubin 1.7. MEDICATIONS: Colace, Cozaar, Glucophage, insulin, hydrochlorothiazide, K-Dur, MiraLax, Pepcid, Tylenol, Tramadol, vancomycin. ASSESSMENT AND PLAN: Mrs. Celestino Rivera, 57-year-old lady, with leukocytosis, anemia, hyponatremia, renal insufficiency, hyperglycemia, iron deficiency, abnormal liver function test. As per family has a history of schizophrenia or bipolar. They will bring list of the medication. Seen by Infectious Disease, Dr. Pierce Mead. The patient was hospitalized in [facility] for lower extremity cellulitis, discharged with Bactrim DS. Came in to [facility] with the same complaints, getting vancomycin for antibiotic coverage given the penicillin allergies. Supportive care. The patient has history of obesity, hypertension, Parkinson disease. Local wound care. The patient's white blood cell is trending up. Dr. Mead ordered workup. Inflammatory responsive syndrome. Seen by Dr. Wooten. Gastrointestinal/deep venous thrombosis prophylaxis. Repeat labs. We will follow. Alondra Uriostegui MD
--- NOTE | 2017-07-06 17:33 | CP.PCM.PN ---
Subjective - Date & Time of Evaluation Date of Evaluation: 07/06/17 Time of Evaluation: 16:15 - Subjective Subjective: Infectious Disease Follow Up: July 06, 2017 57 yo female with medical history of obesity, HTN, DM, Parkinson's Disease, and lower extreme cellulitis history. The patient has erythema mostly to the anterior lower extremities with some scabbed ulcerations also present. There is no current additional warmth or tenderness to the area at this time. The patient had a previous hospitalization for a similar issue. The patient denies fevers or chills at this time. Patient is overweight with limited mobility. Complains of SOB on exertion. Cultures negative. On antibiotics. Noted last night the patient complained of SOB. Mild Cellulitis of the lower extremities bilateral that appears to be nearly improved. Objective - Vital Signs/Intake and Output Vital Signs (last 24 hours): Temp Pulse Resp BP Pulse Ox 98.5 F 83 18 108/63 94 L 07/06/17 08:22 07/06/17 08:22 07/06/17 08:22 07/06/17 08:22 07/06/17 08:22 Intake and Output: 07/06/17 07/06/17 06:59 18:59 Intake Total 360 Balance 360 - Medications Medications: Current Medications Acetaminophen (Tylenol 325mg Tab) 650 mg PO Q4H PRN PRN Reason: Fever >100.5 F Last Admin: 07/05/17 22:54 Dose: 650 mg Docusate Sodium (Colace) 200 mg PO DAILY [facility] Last Admin: 07/06/17 10:35 Dose: 200 mg Famotidine (Pepcid) 40 mg PO HS [facility] Last Admin: 07/05/17 22:54 Dose: 40 mg Home Med (Home Med) 1 unit PO QID [facility] Last Admin: 07/06/17 13:50 Dose: 1 unit Hydrochlorothiazide (Hydrodiuril) 25 mg PO DAILY [facility] Last Admin: 07/06/17 10:35 Dose: 25 mg Vancomycin HCl (Vancomycin 1gm) 1 gm in 250 mls @ 167 mls/hr IVPB DAILY [facility] PRN Reason: Protocol Last Admin: 07/06/17 10:36 Dose: 167 mls/hr Sodium Chloride (Sodium Chloride 0.9%) 1,000 mls @ 80 mls/hr IV .[id number] [facility] Last Admin: 07/05/17 05:06 Dose: Not Given Insulin Human Regular (Humulin R Low) 0 units SC ACHS [facility] PRN Reason: Protocol Last Admin: 07/06/17 12:34 Dose: 5 units Losartan Potassium (Cozaar) 100 mg PO DAILY [facility] Last Admin: 07/06/17 10:36 Dose: 100 mg Metformin HCl (Glucophage) 500 mg PO BID [facility] Last Admin: 07/04/17 09:22 Dose: 500 mg Non-Formulary Medication (Insulin Glargine,Hum.Rec.Anlog [Fengannie Shannanamrit]) 32 units SQ BID [facility] Last Admin: 07/06/17 10:36 Dose: Not Given Polyethylene Glycol (Miralax) 17 gm PO DAILY [facility] Last Admin: 07/06/17 10:35 Dose: 17 gm Potassium Chloride (K-Dur 20 Meq Er Tab) 20 meq PO DAILY [facility] Last Admin: 07/06/17 10:35 Dose: 20 meq Tramadol HCl (Ultram) 50 mg PO TID [facility] Last Admin: 07/06/17 13:58 Dose: Not Given - Labs Labs: 07/06/17 06:00 07/06/17 06:30 PT 14.6 SECONDS (9.4-12.5) H 07/02/17 00:50 INR 1.27 (0.93-1.08) H 07/02/17 00:50 APTT 32.2 Seconds (25.1-36.5) 07/02/17 00:50 - Constitutional Appears: Non-toxic, No Acute Distress, Chronically Ill - Head Exam Head Exam: ATRAUMATIC, NORMOCEPHALIC - Eye Exam Eye Exam: EOMI, PERRL Pupil Exam: NORMAL ACCOMODATION, PERRL - ENT Exam ENT Exam: Mucous Membranes Moist, Normal External Ear Exam, TM's Normal Bilaterally - Neck Exam Neck Exam: Full ROM, Normal Inspection - Respiratory Exam Respiratory Exam: Clear to Ausculation Bilateral, NORMAL BREATHING PATTERN. absent: Rales, Rhonchi, Wheezes - Cardiovascular Exam Cardiovascular Exam: REGULAR RHYTHM, RRR, +S1, +S2 - GI/Abdominal Exam GI & Abdominal Exam: Soft, Normal Bowel Sounds. absent: Distended, Tenderness - Extremities Exam Extremities Exam: Pedal Edema Additional comments: stage 2 ulcerations on anterior lower legs bilaterally. - Neurological Exam Neurological Exam: Alert, Awake, CN II-XII Intact, Oriented x3 - Psychiatric Exam Psychiatric exam: Normal Affect, Normal Mood - Skin Skin Exam: Intact, Normal Color Assessment and Plan - Assessment and Plan (Free Text) Assessment: 57 yo female with recent hospitalization at [facility] for lower extremity cellulitis and discharged with Bactrim DS. The patient comes to [facility] with lower extremity pain with erythema to the anterior lower legs. The patient was started on Vancomycin IV for antibiotic coverage given the PCN allergy. Supportive care. The patient has a history of obesity, HTN, DM, Parkinson's Disease, and lower extreme cellulitis. Local wound care. Noted mild elevation of the WBC today. Monitor WBC trend. Up to 15.8 today. Will check differential, ESR, and C-Reactive Protein. Latest ESR is down to 22. Clinically, the patient is improving. Thank you for allowing me to participate in the care of the patient, we will follow with you.
--- NOTE | 2017-07-07 02:54 | CON ---
DATE: 07/06/2017 PULMONARY CONSULTATION REFERRING PHYSICIAN: Alondra Uriostegui MD REASON FOR CONSULTATION: Cellulitis of lower extremity, history of schizophrenia, and may have sleep apnea syndrome. HISTORY OF PRESENT ILLNESS: This is a 57-year-old female with known history of schizophrenia, hypertension, diabetes, Parkinson's disease, and lower extremity cellulitis, originally seen at [facility], was sent home with antibiotics, comes back with pain, discomfort, and erythema to [facility], ER where she was admitted and being treated by antibiotics. She admitted to have snoring, daytime sleepy and tired, not much cough, short of breath with exertion. No nausea, no vomiting, and no diarrhea. PAST MEDICAL HISTORY: Schizophrenia, obesity, hypertension, diabetes, Parkinson's disease, and lower extremity cellulitis. ALLERGIES: PENICILLIN. SOCIAL HISTORY: Nonsmoker and nondrinker. MEDICATIONS: She is on Colace 100 mg daily, Cozaar 100 mg daily, metformin 500 mg twice a day, insulin coverage, hydrochlorothiazide 25 mg daily, potassium 20 mEq daily, MiraLax 17 grams daily, Pepcid 40 mg at bedtime, IV fluid normal saline 80 mL/hour, Tylenol p.r.n., Ultram 50 mg 3 times a day, and vancomycin 1 g IV daily. REVIEW OF SYSTEMS: No headache and no rhinitis. Short of breath with exertion. No chest pain. Admit to have snoring, daytime sleepy and tired. No nausea, no vomiting, and no diarrhea. Does have leg erythema. PHYSICAL EXAMINATION: GENERAL: Lying in the bed, in no acute distress. VITAL SIGNS: Temperature is 98, heart rate is 83, respiratory rate is 20, blood pressure is 108/63, and pulse ox is 94% on nasal cannula. HEENT: Moist mucous membranes. Crowded airway. NECK: Supple. No JVD. LUNGS: Has a fair airflow with rhonchi. HEART: S1 and S2. ABDOMEN: Soft, nontender, and nondistended. EXTREMITIES: Erythema of the lower extremities. NEUROLOGIC: Awake, alert, and follows simple commands. LABORATORY DATA: Shows hemoglobin of 8.8, hematocrit of 26.2, WBC of 15.8, and platelets of 284. Sodium of 130, potassium of 4.1, chloride of 98, bicarbonate of 24, BUN of 33, creatinine of 1.4, glucose is 358, and calcium is 8.9. Iron is 17. AST is 34, ALT is 13, alkaline phosphatase is 271, and albumin is 3.3. Triglycerides is 120. Vitamin B12 is 611. Folate is 8.3. Sedimentation rate was 138. Microbiology: Blood cultures have been negative. DIAGNOSTIC DATA: She had a CAT scan of the chest done on admission, which showed unremarkable noncontrast CT of the chest. IMPRESSION AND PLAN: Cellulitis of lower extremity being treated with antibiotics and Infectious Disease, anemia, renal insufficiency, hyperglycemia, sleep apnea syndrome, and schizophrenia. Agree with the present management. Continue antibiotics as per Infectious Diseases. Gastric prophylaxis and deep venous thrombosis prophylaxis. We will start iron. We will send stool for guaiac. Sleep apnea precautions, as an outpatient attended sleep study. Thank you and we will follow with you. Jenise Salinas MD
[2017-07-07] MEDS: Insulin Reg-LOW-Coverage SC SCH ×3 (08:30→16:38)
[2017-07-07 08:37] VITALS: RESP 22
[2017-07-07 10:04] LABS: HEMOGLOBIN 8.3 g/dL (12.0-16.0); MEAN CELL VOLUME 84.1 fl (80.0-105.0); MEAN CORPUSCULAR HGB CONC 33.3 g/dl (31.0-37.0); MEAN PLATELET VOLUME 11.1 fl (7.0-11.0); RBC 2.96 10^6/uL (3.5-6.1); RED CELL DISTRIBUTION WIDTH 13.7 % (11.5-14.5); WHITE BLOOD COUNT 12.3 10^3/ul (4.5-11.0)
[2017-07-07 10:11] LABS: ALB/GLOB RATIO 0.8 (1.1-1.8); ALBUMIN 3.1 g/dL (3.0-4.8); CALCIUM 8.6 mg/dL (8.4-10.5)
[2017-07-07] MEDS: INSULIN GLARGINE HUM REC ANLOG 32 UNIT SQ SCH (10:15)
[2017-07-07] MEDS: Vancomycin 1gm in NS 250ml 1 GM/250 ML BAG IVPB SCH (12:20)
[2017-07-07] MEDS: POLYETHYLENE GLYCOL 3350 17 GM/Dose PACKET PO SCH (12:21)
[2017-07-07] MEDS: Potassium Chloride 20 mEq ER Tab PO SCH (12:22)
[2017-07-07] MEDS: STALEVO PO SCH ×2 (12:41→16:37)
[2017-07-07 19:22] VITALS: BP 169/96; PULSE 72; TEMP 97.6; O2SAT 95
--- NOTE | 2017-07-07 19:22 | CP.PCM.PN ---
Subjective - Date & Time of Evaluation Date of Evaluation: 07/07/17 Time of Evaluation: 17:15 - Subjective Subjective: Infectious Disease Follow Up: July 07, 2017 57 yo female with medical history of obesity, HTN, DM, Parkinson's Disease, and lower extreme cellulitis history. The patient has erythema mostly to the anterior lower extremities with some scabbed ulcerations also present. There is no current additional warmth or tenderness to the area at this time. The patient had a previous hospitalization for a similar issue. The patient denies fevers or chills at this time. Patient is overweight with limited mobility. Complains of SOB on exertion. Cultures negative. On antibiotics. Noted last night the patient complained of SOB. Mild Cellulitis of the lower extremities bilateral that appears to be nearly improved at this time. Remains on Vancomycin IV for antibiotic treatment. Renal function has remained stable though the course of treatment. Objective - Vital Signs/Intake and Output Vital Signs (last 24 hours): Temp Pulse Resp BP Pulse Ox 97.7 F 74 22 125/80 94 L 07/07/17 07:30 07/07/17 07:30 07/07/17 07:30 07/07/17 07:30 07/07/17 07:30 Intake and Output: 07/07/17 07/07/17 06:59 18:59 Intake Total 180 Balance 180 - Medications Medications: Current Medications Acetaminophen (Tylenol 325mg Tab) 650 mg PO Q4H PRN PRN Reason: Fever >100.5 F Last Admin: 07/05/17 22:54 Dose: 650 mg Docusate Sodium (Colace) 200 mg PO DAILY [facility] Last Admin: 07/07/17 12:21 Dose: 200 mg Famotidine (Pepcid) 40 mg PO HS [facility] Last Admin: 07/06/17 22:31 Dose: 40 mg Ferrous Sulfate (Feosol) 324 mg PO TID [facility] Last Admin: 07/07/17 16:36 Dose: 324 mg Home Med (Home Med) 1 unit PO QID [facility] Last Admin: 07/07/17 16:37 Dose: 1 unit Hydrochlorothiazide (Hydrodiuril) 25 mg PO DAILY [facility] Last Admin: 07/07/17 12:21 Dose: 25 mg Vancomycin HCl (Vancomycin 1gm) 1 gm in 250 mls @ 167 mls/hr IVPB DAILY [facility] PRN Reason: Protocol Last Admin: 07/07/17 12:20 Dose: 167 mls/hr Sodium Chloride (Sodium Chloride 0.9%) 1,000 mls @ 80 mls/hr IV .[id number] [facility] Last Admin: 07/05/17 05:06 Dose: Not Given Insulin Human Regular (Humulin R Low) 0 units SC ACHS [facility] PRN Reason: Protocol Last Admin: 07/07/17 16:38 Dose: 3 units Losartan Potassium (Cozaar) 100 mg PO DAILY [facility] Last Admin: 07/07/17 12:21 Dose: 100 mg Metformin HCl (Glucophage) 500 mg PO BID [facility] Last Admin: 07/04/17 09:22 Dose: 500 mg Non-Formulary Medication (Insulin Glargine,Hum.Rec.Anlog [Shalini Brown]) 32 units SQ BID [facility] Last Admin: 07/07/17 10:15 Dose: Not Given Polyethylene Glycol (Miralax) 17 gm PO DAILY [facility] Last Admin: 07/07/17 12:21 Dose: 17 gm Potassium Chloride (K-Dur 20 Meq Er Tab) 20 meq PO DAILY [facility] Last Admin: 07/07/17 12:22 Dose: 20 meq Tramadol HCl (Ultram) 50 mg PO TID [facility] Last Admin: 07/07/17 16:37 Dose: 50 mg - Labs Labs: 07/07/17 09:50 07/07/17 09:50 PT 14.6 SECONDS (9.4-12.5) H 07/02/17 00:50 INR 1.27 (0.93-1.08) H 07/02/17 00:50 APTT 32.2 Seconds (25.1-36.5) 07/02/17 00:50 - Constitutional Appears: Non-toxic, No Acute Distress, Chronically Ill - Head Exam Head Exam: ATRAUMATIC, NORMOCEPHALIC - Eye Exam Eye Exam: EOMI, PERRL Pupil Exam: NORMAL ACCOMODATION, PERRL - ENT Exam ENT Exam: Mucous Membranes Moist, Normal External Ear Exam, TM's Normal Bilaterally - Neck Exam Neck Exam: Full ROM, Normal Inspection - Respiratory Exam Respiratory Exam: Clear to Ausculation Bilateral, NORMAL BREATHING PATTERN. absent: Rales, Rhonchi, Wheezes - Cardiovascular Exam Cardiovascular Exam: REGULAR RHYTHM, RRR, +S1, +S2 - GI/Abdominal Exam GI & Abdominal Exam: Soft, Normal Bowel Sounds. absent: Distended, Tenderness - Extremities Exam Extremities Exam: Pedal Edema Additional comments: stage 2 ulcerations on anterior lower legs bilaterally. - Neurological Exam Neurological Exam: Alert, Awake, CN II-XII Intact, Oriented x3 - Psychiatric Exam Psychiatric exam: Normal Affect, Normal Mood - Skin Skin Exam: Intact, Normal Color Assessment and Plan - Assessment and Plan (Free Text) Assessment: 57 yo female with recent hospitalization at [facility] for lower extremity cellulitis and discharged with Bactrim DS. The patient comes to [facility] with lower extremity pain with erythema to the anterior lower legs. The patient was started on Vancomycin IV for antibiotic coverage given the PCN allergy. Supportive care. The patient has a history of obesity, HTN, DM, Parkinson's Disease, and lower extreme cellulitis. Local wound care. Noted mild elevation of the WBC today. Monitor WBC trend. Down to 12.3 today. Will check differential, ESR, and C-Reactive Protein. Latest ESR is down to 22. Clinically, the patient is improving. Minimal cellulitis on the legs. Thank you for allowing me to participate in the care of the patient, we will follow with you.
--- NOTE | 2017-07-07 23:46 | PN ---
DATE: 07/07/2017 REFERRING PHYSICIAN: Alondra Uriostegui MD SUBJECTIVE: The patient is lying in the bed at 45 degrees. Night was unremarkable. Feels better. Decreased cough. Decreased shortness of breath. No nausea. No vomiting. No diarrhea. Still has a lower extremity erythema. OBJECTIVE: VITAL SIGNS: Temperature 98, heart rate is 74, respiratory rate is 20, blood pressure 125/80, pulse ox 94% on 2 L nasal cannula. HEENT: Moist mucous membranes. Crowded airway. NECK: Supple. No JVD. LUNGS: Has fair airflow with rhonchi. HEART: S1 and S2. ABDOMEN: Soft and nontender. No organomegaly. EXTREMITIES: She has a trace edema of the lower extremity with erythema. NEUROLOGIC: Awake and alert. Follows simple commands. MEDICATIONS: She is on Colace 100 mg daily, Cozaar 100 mg daily, ferrous sulfate 324 mg three times a day, metformin 500 mg twice a day, insulin coverage, hydrochlorothiazide 25 mg daily, potassium 20 mEq daily, MiraLax 17 gm daily, Pepcid 40 mg daily, IV fluid normal saline 80 mL/hour, Tylenol p.r.n., albuterol 50 mg 3 times a day, and vancomycin 1 gm IV daily. LABORATORY DATA: Shows hemoglobin 8.3, hematocrit 24.9, WBC 12.3, and platelets are 370. Sodium 130, potassium 3.9, chloride 98, bicarbonate 24, BUN 33, creatinine 1.2, glucose 281, calcium is 8.6, total bilirubin 1.7, AST 48, ALT 25, alkaline phosphatase is 316, albumin is 3.1. Microbiology: Blood cultures have been negative. IMPRESSION AND PLAN: Cellulitis of lower extremities, anemia, renal insufficiency, hyperglycemia, sleep apnea syndrome, schizophrenia, obesity. Agree with the present management. Continue antibiotics. Keep head at 45 degrees. Sleep apnea precautions. Careful with sedation. Gastric and deep venous thrombosis prophylaxis. Fall precautions. Thank you, and we will follow with you. Jenise Salinas MD
--- NOTE | 2017-07-08 08:47 | CON ---
DATE: 07/07/2017 She is being seen today for a consultation. PRESENTATION: The patient is a 57-year-old female seen sitting by the side of her bed. She is quite disheveled and she is confused. The patient was admitted to the hospital for right lower leg cellulitis, generalized weakness, and multiple falls. She had been discharged from [facility] two days prior to that and she was admitted to [facility] on 07/02/2017. Psychiatric consult was ordered for depression. When I questioned the patient as to why she is in the hospital, she takes quite a while to come up with the answer, but she finally settles on that her leg was itchy. States she has Parkinson's disease and she hears voices, but they are not harmful. When I questioned her as to whether she has even been psychiatrically hospitalized, or seen a Psychiatrist, or been on psychiatric medications, she states no to all three. She indicates, she has no history of suicidal ideation or suicidal thoughts, and she indicates that the voices that she hears is only heard for few days. She denies any history of alcohol or drugs. She states she lives with her common-law in an apartment. Her brother visits and takes care of the buying groceries and cleaning the house. She indicates that they have two cats. She is on disability as well as her roommate. She does not remember how long they have been living together. She is unable to give me his name. She does not feel she is confused. However, she is unable to name the year, she does think it might be June and a Friday. Medically, she denies she has any problems. She denies ever having any legal issues, ever being arrested, spending a night in shelter, and denies any family history of depression or any kind of suicidal actions. She grew up in [place]. She indicates she is number 4 of 4 siblings. She had 2 sisters and a brother, one sister of something she was unable to remember what. Her brother lives locally and her sister lives in [place], [place]. She indicates that she has a good relationship with both. Does not recall either of their phone numbers. She indicates her mother is still alive and lives in [place], indicates that she had a happy childhood and lots of friends and graduate from high school. She cannot remember what she did after that. She does not think she had any education. She thinks, she might have worked and then she do agrees with me that she has a poor memory and she cannot remember these things. She is not taoist. She indicates, she has some friends, but she is really a very very poor historian and unable to clarify much of anything. PHYSICAL EXAMINATION: VITAL SIGNS: Current vital signs include temperature of 97.7, pulse rate of 74, blood pressure of 125/80, respiratory rate of 22, and an O2 sat of 94%. LABORATORY DATA: Her white blood cell count has gone as high as 20.8 on 07/04/2017, today it is down to 12.3, which is an improvement. CURRENT MEDICATIONS: Her current medications are all medical, there are no psychiatric medications at all with her. Hence speaking with the nurses and reviewing nurses notes, it appears that the patient will be discharged to [facility]. MENTAL STATUS EXAMINATION: The patient is alert and oriented x2. Her eye contact is fair. Her behavior is cooperative. Speech rate and volume are within normal limits. Mood is confused. Affect is constricted. Thought is scattered. She denies being suicidal or homicidal. Denies the presence of hallucinations, delusions, or paranoia. Her concentration and her focus reports are good; however, they are scattered. Her memory both short and exterminator termite have impairments. Her appetite and her sleep are reported as normal. DIAGNOSIS: Dementia, unspecified, possibly secondary to infection. PLAN: The patient denies being suicidal or homicidal at this time. She does not appear in no imminent danger of hurting herself or anyone else. In review of the old records available to me, this is her eighth admission since 2010 for medical issues. There is never been any psychiatric history on the chart. No any psychiatric consults. The patient has had some confusion during the night, but otherwise is cooperative and pleasant. She is cleared to go to the assisted. We will sign off on this patient. If there are any further concerns, just let us know. Thank you for the consult. María Aviles APN
== END 2017-07-07 19:38 | DRG 603 ==
LOC: ED 21:36 → ERH 07-02 02:16 → 5RSO 07-02 04:28 → 5RNO 07-04 22:09
PROVIDERS: ADMIT Internal Medicine; ATTEND Internal Medicine
DX: L03.115 Cellulitis of right lower limb (principal); L89.152 Pressure ulcer of sacral region, stage 2; E11.51 Type 2 diabetes mellitus with diabetic peripheral angiopathy without gangrene; G20 Parkinson's disease; F03.90 Unspecified dementia, unspecified severity, without behavioral disturbance, psychotic disturbance, mood disturbance, and anxiety; E11.65 Type 2 diabetes mellitus with hyperglycemia; E87.1 Hypo-osmolality and hyponatremia; Z68.41 Body mass index [BMI] 40.0-44.9, adult; D50.9 Iron deficiency anemia, unspecified; L03.116 Cellulitis of left lower limb; L02.419 Cutaneous abscess of limb, unspecified; I87.2 Venous insufficiency (chronic) (peripheral); E66.9 Obesity, unspecified; F20.9 Schizophrenia, unspecified; G47.30 Sleep apnea, unspecified; I10 Essential (primary) hypertension; J45.909 Unspecified asthma, uncomplicated; N28.9 Disorder of kidney and ureter, unspecified; R29.6 Repeated falls; Z86.73 Personal history of transient ischemic attack (TIA), and cerebral infarction without residual deficits; Z87.01 Personal history of pneumonia (recurrent); Z87.891 Personal history of nicotine dependence; Z88.0 Allergy status to penicillin; R26.81 Unsteadiness on feet; R32 Unspecified urinary incontinence; R40.2412 Glasgow coma scale score 13-15, at arrival to emergency department; S80.211A Abrasion, right knee, initial encounter

== ENCOUNTER 2017-07-29 10:00 | Inpatient (IN) | payer MEDICARE, OTHER ==
[2017-07-29 10:07] VITALS: BMI 40.0
[2017-07-29] MEDS ORDERED: diltiaZEM IVPB 100mg in NS 100 ML IV PRN (10:27)
--- NOTE | 2017-07-29 10:41 | ED PDOC ---
Arrival/HPI - General Chief Complaint: Dizziness/Lightheaded Time Seen by Provider: 07/29/17 10:15 Historian: Patient - Critical Care Critical Care Minutes: 30 minutes - History of Present Illness Narrative History of Present Illness (Text): 07/29/17 10:41 57 year old female, whose past medical history includes, CVA, diabetes, hypertension, Parkinson's, morbid obesity, and venous stasis dermatitis, presents to the emergency department complaining of weakness and dizziness associated with nausea and vomiting that began 3 days ago. She reports she's an ex-smoker and denies alcohol use. Patient denies any fever, chills, chest pain, shortness of breath, diarrhea, urinary symptoms, back pain, neck pain, headache , or any other complaints. Time/Duration: Other (3 days ago) Symptom Course: Unchanged Activities at Onset: Light Context: Home Past Medical History - Provider Review Nursing Documentation Reviewed: Yes - Infectious Disease Hx of Infectious Diseases: None - Reproductive Menopause: Yes - Cardiac Hx Cardiac Disorders: Yes Hx Hypertension: Yes Hx Peripheral Edema: Yes Hx Peripheral Vascular Disease: Yes (VENOUS STASIS DERMATITIS) - Pulmonary Hx Respiratory Disorders: Yes Hx Pneumonia: Yes - Neurological Hx Neurological Disorder: Yes HX Cerebrovascular Accident: Yes (2010 left sided weakness w/c) Hx Parkinson's Disease: Yes - HEENT Hx HEENT Disorder: No - Renal Hx Renal Disorder: No - Endocrine/Metabolic Hx Endocrine Disorders: Yes Hx Diabetes Mellitus Type 2: Yes - Hematological/Oncological Hx Blood Disorders: No - Integumentary Hx Dermatological Disorder: Yes Other/Comment: 02-04-17 MASD TO UNDER THE BREAST FOLD AND UNDER THE STOMACH FOLD. IASD TO BILATERAL GROIN AREA. SACRAL PRESSURE ULCER-HAS A SLIT TO MID PART OF SACRUM.DRY STAGE 2 . RIGHT KNEE SLIGHT ABRASION FR FALL. LEFT UNDER THE ARM BRUISED AREA FROM FALL.HIT IT FR A FLOOR FAN. RIGHT TEMPORAL - WOUND FROM SCRATCHING AREA. - Musculoskeletal/Rheumatological Hx Musculoskeletal Disorders: Yes Hx Falls: Yes (FELL TODAY 02-04-17) Hx Unsteady Gait: Yes (CANE/WALKER) - Gastrointestinal Hx Gastrointestinal Disorders: No - Genitourinary/Gynecological Hx Genitourinary Disorders: Yes Hx Incontinence: Yes - Psychiatric Hx Psychophysiologic Disorder: Yes Hx Substance Use: No - Surgical History Other/Comment: CRANIOTOMY- due to HEMORRHAGIC stroke 2011 - Anesthesia Hx Anesthesia: Yes Hx Anesthesia Reactions: No Hx Malignant Hyperthermia: No Family/Social History - Physician Review Nursing Documentation Reviewed: Yes Family/Social History: No Known Family HX Smoking Status: Never Smoked Hx Alcohol Use: No Hx Substance Use: No Allergies/Home Meds Allergies/Adverse Reactions: Allergies Penicillins Allergy (Verified 07/29/17 10:06) SWELLING Home Medications: Home Meds Medication Instructions Recorded Confirmed metFORMIN [glucOPHAGE] 500 mg PO BID 02/04/17 07/29/17 Carbidopa/Levodopa/Entacapone 125 mg PO QID 05/09/17 07/29/17 [Stalevo 150] Insulin Glargine,Hum.rec.anlog 32 units SQ BID 05/09/17 07/29/17 [Toujeo Solostar] Famotidine [Pepcid] 40 mg PO DAILY 07/29/17 07/29/17 Losartan [Cozaar] 100 mg PO DAILY 07/29/17 07/29/17 Pantoprazole [Protonix] 40 mg PO DAILY 07/29/17 07/29/17 Tramadol HCl [Ultram] 50 mg PO Q8 PRN 07/29/17 07/29/17 hydroCHLOROthiazide [Hydrodiuril] 25 mg PO DAILY 07/29/17 07/29/17 Review of Systems - Physician Review All systems were reviewed & negative as marked: Yes - Review of Systems Constitutional: absent: Fevers, Other (Chills) Respiratory: absent: SOB Cardiovascular: absent: Chest Pain Gastrointestinal: Nausea, Vomiting. absent: Diarrhea Genitourinary Female: absent: Dysuria, Frequency, Hematuria Musculoskeletal: absent: Back Pain, Neck Pain Neurological: Other (weakness). absent: Headache, Dizziness Physical Exam Vital Signs Reviewed: Yes Vital Signs Temp Pulse Resp BP Pulse Ox 07/29/17 12:44 128 H 16 133/79 100 07/29/17 10:50 90 106/67 07/29/17 10:41 123 H 112/74 07/29/17 10:27 97.0 F L 107 H 17 112/74 97 Temperature: Afebrile Blood Pressure: Normal Pulse: Tachycardic Respiratory Rate: Normal Appearance: Positive for: Well-Appearing, Non-Toxic, Other (morbidly obese). No : Comfortable Pain Distress: None Mental Status: Positive for: Alert and Oriented X 3 - Systems Exam Head: Present: Atraumatic, Normocephalic Pupils: Present: PERRL Extroacular Muscles: Present: EOMI Conjunctiva: Present: Normal Mouth: Present: Moist Mucous Membranes Neck: Present: Normal Range of Motion Respiratory/Chest: Present: Clear to Auscultation, Good Air Exchange, Other ( Diminished breath sounds). No: Respiratory Distress, Accessory Muscle Use, Rales, Rhonchi Cardiovascular: Present: Irregular Rhythm, Tachycardic. No: Murmurs Abdomen: Present: Normal Bowel Sounds. No: Tenderness, Distention, Peritoneal Signs, Rebound, Guarding Back: Present: Normal Inspection Upper Extremity: Present: Normal Inspection. No: Cyanosis, Edema Lower Extremity: Present: Edema (Bilaterial lower extremity +2 edema ), Other ( Chronic venous stasis changes. Both erythematous with ulcerated with blanching ) Neurological: Present: GCS=15, CN II-XII Intact, Speech Normal Skin: Present: Warm, Dry, Normal Color. No: Rashes Psychiatric: Present: Alert, Oriented x 3, Normal Insight, Normal Concentration Medical Decision Making ED Course and Treatment: 07/29/17 10:41 Impression: 57 year old female presents complaining of weakness and dizziness associated with nausea and vomiting that began 3 days ago Plan: -- VBG -- EKG -- Labs -- Chest X-ray -- Cardizem, Zofran Inj -- Urinalysis -- Reassess and disposition Prior Visits: Notes and results from previous visits were reviewed. Patient was last seen in the emergency department on 07/01/17 presents complaining of right lower leg cellulites, generalized weakness, multiple falls for the past 3 days. Progress Notes: PROCEDURE: Chest X-ray Dictator : Richard Appiah MD Report Date : 07/29/2017 10:47:27 IMPRESSION: No active disease. 07/29/17 12:07 Symptoms markedly improved. Heart rate improved. Discussed with , who will admit to telemetry. 07/29/17 12:46 EKG shows atrial fibrillation rate approximately [address] changes. EKG was normal sinus rhythm on 07/02/2017 - Lab Interpretations Lab Results: 07/29/17 10:30 07/29/17 10:30 Lab Results 07/29/17 12:00: Urine Color Yellow, Urine Appearance Clear, Urine pH 6.5, Ur Specific Rice 1.010, Urine Protein Negative, Urine Glucose (UA) Negative, Urine Ketones Trace H, Urine Blood Negative, Urine Nitrate Negative, Urine Bilirubin Negative, Urine Urobilinogen 0.2, Ur Leukocyte Esterase Negative 07/29/17 10:45: pO2 36, VBG pH 7.35, VBG pCO2 53.0, VBG HCO3 29.3 H, VBG Total CO2 30.9 H, VBG O2 Sat (Calc) 73.6 H, VBG Base Excess 2.5 H, VBG Potassium 3.8, Glucose 200 H, Lactate 1.7, FiO2 21.0, Sodium 140.0, Chloride 102.0, Venous Blood Potassium 3.8 07/29/17 10:30: Sodium 143, Potassium 3.8, Chloride 102, Carbon Dioxide 30, Anion Gap 14, BUN 26 H, Creatinine 1.0, Est GFR ( Amer) > 60, Est GFR ( Non-Af Amer) 57, Random Glucose 192 H, Calcium 9.8, Total Bilirubin 1.1, AST 18 , ALT 16, Alkaline Phosphatase 143 H D, Lactate Dehydrogenase 662, Total Creatine Kinase 38, Troponin I 0.01, NT-Pro-B Natriuret Pep 384, Total Protein 7.6, Albumin 4.0, Globulin 3.6, Albumin/Globulin Ratio 1.1, Lipase 110 07/29/17 10:30: PT 13.8 H, INR 1.20 H, APTT 30.8 07/29/17 10:30: WBC 6.9 D, RBC 4.02, Hgb 11.2 L D, Hct 33.8 L, MCV 84.1, MCH 27.9, MCHC 33.1, RDW 14.0, Plt Count 257, MPV 10.8, Gran % 72.9 H, Lymph % (Auto ) 16.7 L, [place] % (Auto) 6.0, Eos % (Auto) 4.1, Baso % (Auto) 0.3, Gran # 5.01, Lymph # (Auto) 1.2, [place] # (Auto) 0.4, Eos # (Auto) 0.3, Baso # (Auto) 0.02 I have reviewed the lab results: Yes - RAD Interpretation Radiology Orders: 07/29/17 10:26 CHEST PORTABLE [RAD] Stat - EKG Interpretation Interpreted by ED Physician: Yes Type: 12 lead EKG - Medication Orders Current Medication Orders: diltiaZEM IVPB 100mg in NS (Cardizem 100mg In Ns) 100 mls @ 5 mls/hr IV .Q20H PRN; Protocol; 5 MG/HR PRN Reason: PER MD Last Admin: 07/29/17 10:41 Dose: 5 mls/hr eMAR Start Stop Document 07/29/17 10:41 MS (Rec: 07/29/17 10:49 [place] [id number] Intravenous Solution Start Date 07/29/17 Start Time 10:48 Discontinued Medications Diltiazem HCl (Cardizem) 20 mg IVP ONCE ONE Stop: 07/29/17 10:28 Last Admin: 07/29/17 10:41 Dose: 20 mg IVP Administration Document 07/29/17 10:41 MS (Rec: 07/29/17 10:41 [place] [id number] Charges for Administration # of IVP Administrations 1 MAR Pulse and Blood Pressure Document 07/29/17 10:41 MS (Rec: 07/29/17 10:41 MS [id number]) Pulse Pulse Rate (60-90) 123 Blood Pressure Blood Pressure (100/60-150/90) 112/74 Ondansetron HCl (Zofran Inj) 4 mg IVP ONCE ONE Stop: 07/29/17 10:28 Last Admin: 07/29/17 10:36 Dose: 4 mg IVP Administration Document 07/29/17 10:36 MS (Rec: 07/29/17 10:40 MS [id number][place] Charges for Administration # of IVP Administrations 1 - Scribe Statement The provider has reviewed the documentation as recorded by the Kaseyibsarita Small Provider Scribe Attestation: All medical record entries made by the Scribe were at my direction and personally dictated by me. I have reviewed the chart and agree that the record accurately reflects my personal performance of the history, physical exam, medical decision making, and the department course for this patient. I have also personally directed, reviewed, and agree with the discharge instructions and disposition. Disposition/Present on Arrival - Present on Arrival Any Indicators Present on Arrival: No History of DVT/PE: No History of Uncontrolled Diabetes: No Urinary Catheter: No History of Decub. Ulcer: No History Surgical Site Infection Following: None - Disposition Have Diagnosis and Disposition been Completed?: Yes Diagnosis: Hyperglycemia, Nausea and vomiting, Rapid atrial fibrillation Disposition: HOSPITALIZED Disposition Time: 12:08 Patient Plan: Admission, Telemetry Patient Problems: Current Active Problems Problem Status Onset Hyperglycemia Acute Nausea and vomiting Acute Rapid atrial fibrillation Acute Condition: SERIOUS
--- NOTE | 2017-07-29 10:49 | RAD ---
HISTORY: weakness COMPARISON: 07/01/2017 FINDINGS: LUNGS: No active pulmonary disease. PLEURA: No significant pleural effusion identified, no pneumothorax apparent. CARDIOVASCULAR: Normal. OSSEOUS STRUCTURES: No significant abnormalities. VISUALIZED UPPER ABDOMEN: Normal. OTHER FINDINGS: None. IMPRESSION: No active disease.
[2017-07-29 10:51] LABS: VENOUS BLOOD GAS BASE EXCESS 2.5 mmol/L (0.0-2.0); VENOUS BLOOD GAS PO2 36 mm/Hg (30-55); VENOUS BLOOD PH 7.35 (7.32-7.43)
[2017-07-29 10:51] LABS: BASO # 0.02 K/mm3 (0.0-2.0); BASO % 0.3 % (0.0-3.0); EOS # 0.3 (0.0-0.7); EOS % 4.1 % (1.5-5.0); GRAN # 5.01 (1.4-6.5); GRAN % 72.9 % (50.0-68.0); HEMOGLOBIN 11.2 g/dL (12.0-16.0); LYMPH # 1.2 (1.2-3.4); LYMPH % 16.7 % (22.0-35.0); MEAN CELL VOLUME 84.1 fl (80.0-105.0); MEAN CORPUSCULAR HEMOGLOBIN 27.9 pg (25.0-35.0); MEAN CORPUSCULAR HGB CONC 33.1 g/dl (31.0-37.0); MEAN PLATELET VOLUME 10.8 fl (7.0-11.0); MONO # 0.4 (0.1-0.6); RBC 4.02 10^6/uL (3.5-6.1); WHITE BLOOD COUNT 6.9 10^3/ul (4.5-11.0)
[2017-07-29 11:04] LABS: ALB/GLOB RATIO 1.1 (1.1-1.8); ALT/SGPT 16 U/L (7-56); AST/SGOT 18 U/L (14-36); BLOOD UREA NITROGEN 26 mg/dL (7-21); CALCIUM 9.8 mg/dL (8.4-10.5); GFR AFRICAN-AMERICAN > 60; GFR NON-AFRICAN AMERICAN 57; LIPASE 110 U/L (23-300)
[2017-07-29 11:12] LABS: B-TYPE NATRIURETIC PEPTIDE 384 pg/mL (0-450); TROPONIN I 0.01 ng/mL
[2017-07-29 11:13] LABS: INR 1.2 (0.93-1.08); PARTIAL THROMBOPLASTIN TIME 30.8 Seconds (25.1-36.5); PROTHROMBIN TIME 13.8 SECONDS (9.4-12.5)
--- NOTE | 2017-07-29 12:16 | CARD ---
APPROVED REPORT EKG Measurement Heart [id number] <Conclusion> Atrial fibrillation with rapid ventricular response Anterolateral infarct, age undetermined Abnormal ECG
[2017-07-29 12:31] LABS: PH,URINE 6.5 (4.7-8.0); URINE BILIRUBIN NEGATIVE (NEGATIVE); URINE BLOOD NEGATIVE (NEGATIVE); URINE GLUCOSE (UA) NEGATIVE (NEGATIVE); URINE LEUKOCYTE ESTERASE NEGATIVE Leu/uL (NEGATIVE); URINE NITRATE NEGATIVE (NEGATIVE); URINE PROTEIN NEGATIVE mg/dL (<30 mg/dL); URINE UROBILINOGEN 0.2 E.U./dL (<1 E.U./dL)
[2017-07-29 12:34] LABS: URINE APPEARANCE CLEAR (CLEAR); URINE COLOR YELLOW (YELLOW)
[2017-07-29] MEDS ORDERED: Influenza Vaccine 60 mcg/0.5 mL SYR (4YR UP) IM ONE (16:14)
[2017-07-29] MEDS ORDERED: Pneumococcal 23-Valent Vaccine IM ONE (16:14)
[2017-07-29] MEDS: Insulin Reg-LOW-Coverage SC SCH ×2 (17:25→22:17)
[2017-07-29] MEDS: Pantoprazole 40 mg EC Tab PO SCH (17:31)
[2017-07-29] MEDS: INSULIN GLARGINE HUM REC ANLOG 32 UNIT SQ SCH (17:32)
[2017-07-29] MEDS ORDERED: Carbidopa/Levodopa/Entacapone 37.5mg-150mg-200mg PO SCH ×2 (18:00→18:25)
[2017-07-29] MEDS: Carbidopa/Levodopa/Entacapone 37.5mg-150mg-200mg PO SCH (18:52)
[2017-07-29] MEDS: Enoxaparin 100 mg Syringe SC SCH (20:44)
[2017-07-30] MEDS: Carbidopa/Levodopa/Entacapone 37.5mg-150mg-200mg PO SCH ×6 (00:04→23:14)
--- NOTE | 2017-07-30 05:27 | CON ---
DATE: 07/29/2017 SERVICE: Cardiology. PHYSICIAN: Jenise Jang MD REASON FOR CONSULTATION: Followup AFib with rapid ventricular rate, dizziness, headache, vomiting. HISTORY OF PRESENT ILLNESS: The patient is a 57-year-old female with a past medical history significant for CVA, diabetes, hypertension, hyperlipidemia, Parkinson disease, morbid obesity, venous stasis dermatitis, complained of weakness and dizziness, started vomiting for three days. So, the patient came to the emergency room. In the emergency room, she was found to be in AFib with rapid ventricular rate. Cardiology consult was called. The patient denies any chest pain, denies any shortness of breath, denies any palpitation. PAST MEDICAL HISTORY: Significant for CVA, Parkinson disease, diabetes, hypertension, and hyperlipidemia. PAST SURGICAL HISTORY: Nothing significant. CURRENT MEDICATIONS: The patient at home prior to coming was taking metformin 500 mg, hydrochlorothiazide, tramadol, Protonix, losartan, insulin, and carbidopa/levodopa. ALLERGIES: TO PENICILLIN. SOCIAL HISTORY: Denies smoking. Denies any history of alcohol abuse. REVIEW OF SYSTEMS: As per HPI. PHYSICAL EXAMINATION: As follows: VITAL SIGNS: Temperature afebrile, heart rate 120, blood pressure 133/79. HEENT: PERRLA. Extraocular muscles intact. NECK: Supple. No carotid bruit or thyromegaly. CHEST: Clear to auscultation. HEART: S1 and S2 regular. ABDOMEN: Soft. EXTREMITIES: Clubbing and cyanosis negative. LABORATORY DATA: EKG shows AFib with rapid ventricular rate. Telemetry shows that the patient converted to normal sinus. WBC 5, hemoglobin 11.8, hematocrit 33.5, and platelet count 257. Chemistry shows sodium 140, potassium 3.8, chloride 102, carbon dioxide 30, anion gap of 14, BUN 26, and creatinine is 1.0. BNP 384, total protein 7.6, albumin 4, globulin 3.2, and globulin ratio 1.1. IMPRESSION: Atrial fibrillation new onset, diabetes, hypertension, hyperlipidemia, vomiting, cerebrovascular accident, Parkinson disease, converted to normal sinus on Cardizem intravenous, currently on Cardizem. On previous cardiac workup, the patient had echocardiography done on 07/03/2017 that showed ejection fraction 70% calculated, normal left ventricular segmental wall motion abnormality, mild tricuspid regurgitation, no mitral valve stenosis, no mitral valve regurgitation. Right ventricular systolic pressure 37. New-onset atrial fibrillation, converted to normal sinus, essentially left ventricular function normal by echocardiogram, dated 07/03/2017, morbid obesity, diabetes, hypertension, hyperlipidemia, Parkinson disease, history of cerebrovascular accident. RECOMMENDATION: We will get lipid profile, TSH, and hemoglobin A1c. We will change Cardizem to p.o. and put beta-diana. We will hold losartan for now. We will follow with you. Thank you Dr. Uriostegui for providing us the opportunity in taking care of the patient, Celestino Rivera. Jenise Jang MD
[2017-07-30 06:21] LABS: BASO # 0.03 K/mm3 (0.0-2.0); BASO % 0.5 % (0.0-3.0); EOS # 0.3 (0.0-0.7); EOS % 5.4 % (1.5-5.0); GRAN # 3.09 (1.4-6.5); GRAN % 51.6 % (50.0-68.0); HEMOGLOBIN 10.1 g/dL (12.0-16.0); LYMPH # 2.1 (1.2-3.4); LYMPH % 34.6 % (22.0-35.0); MEAN CELL VOLUME 84.1 fl (80.0-105.0); MEAN CORPUSCULAR HEMOGLOBIN 27.7 pg (25.0-35.0); MEAN CORPUSCULAR HGB CONC 32.9 g/dl (31.0-37.0); MEAN PLATELET VOLUME 10.4 fl (7.0-11.0); MONO # 0.5 (0.1-0.6); MONO % 7.9 % (1.0-6.0); RBC 3.65 10^6/uL (3.5-6.1); RED CELL DISTRIBUTION WIDTH 14.1 % (11.5-14.5)
--- NOTE | 2017-07-30 06:38 | HP ---
CHIEF COMPLAINT: Dizziness and lightheadedness. HISTORY OF PRESENT ILLNESS: Ms. Celestino Rivera is a 57-year-old lady, well-known to me from previous admission and from [facility] stay with past medical history of CVA, diabetes, hypertension, Parkinson's disease, morbid obesity, venous stasis dermatitis of the extremities, came to the emergency room complaining of weakness, dizziness associated with nausea and vomiting that began 3 days ago. She reports she is an ex-smoker, and denies alcohol abuse. The patient denies any fevers, chills, nausea, vomiting, diarrhea, hematuria or hematochezia. No swelling of the legs. No fever. 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 FAMILY HISTORY: Father and mother, noncontributory. HABITS: Never smoked. No drug, no ethanol. ALLERGIES: THE PATIENT IS ALLERGIC WITH PENICILLIN. HOME MEDICATIONS: Metformin, carbidopa/levodopa, Cozaar, Protonix, tramadol, hydrochlorothiazide. REVIEW OF SYSTEMS: The patient seen and examined on the bedside, looking comfortable. No nausea, vomiting, or diarrhea. No hematuria or hematochezia. No swelling of the legs. No chest pain, no palpitation. No headache, no dizziness. Due to fall, there are multiple abrasions on the body at different parts. Sacral area had decubitus ulcer. PHYSICAL EXAMINATION VITAL SIGNS: Temperature 97.0, pulse 107, respiratory rate 17, blood pressure 110/74, pulse oximetry 97. HEENT: Head is normocephalic and atraumatic. Eyes, PERRLA. Extraocular muscles are intact. Conjunctivae are clear. Nose is patent. Mucous membranes are moist. NECK: Supple. No carotid bruits, JVD or thyromegaly. CHEST: Bilaterally symmetrical. HEART: S1 and S2 positive. LUNGS: Clear to auscultation. ABDOMEN: Soft. Bowel sound present. No organomegaly. EXTREMITIES: No edema. No cyanosis. NEUROLOGIC: The patient is awake and alert. Moving all 4 extremities. No focal deficits. LABORATORY DATA: White blood cell 6.9, hemoglobin 11.2, hematocrit 33.8, platelets 257. Sodium 143, potassium 3.8, BUN 23, creatinine 1.0, glucose 192. ASSESSMENT AND PLAN: Ms. Celestino Rivera is a 57-year-old lady with anemia, renal insufficiency, hyperglycemia, came with atrial fibrillation, nausea and vomiting, rapid atrial fibrillation, Cardizem given by . emergency room physician. The patient has a history of parkinsonism, old cerebrovascular accident, hypertension, morbid obesity, history of stasis dermatitis on the extremities, sacral decubitus ulcer, history of multiple falls, history of pneumonia, history of craniotomy due to hemorrhagic stroke, unsteady gait, urinary incontinence. We admitted the patient. Cardiology consult called. Started home medications. GI and deep venous thrombosis prophylaxis. Repeat labs. We will follow up. Alondra Uriostegui MD MTDEdis
[2017-07-30 06:54] LABS: LDL CHOLESTEROL 68 mg/dL (0-129)
[2017-07-30 07:52] LABS: ALB/GLOB RATIO 0.9 (1.1-1.8); ALBUMIN 3.4 g/dL (3.0-4.8); ALT/SGPT 16 U/L (7-56); AST/SGOT 19 U/L (14-36); BLOOD UREA NITROGEN 19 mg/dL (7-21); CALCIUM 9.4 mg/dL (8.4-10.5); GFR AFRICAN-AMERICAN > 60; GFR NON-AFRICAN AMERICAN 51; HDL CHOLESTEROL 38 mg/dL (29-60)
[2017-07-30] MEDS: Insulin Reg-LOW-Coverage SC SCH ×4 (08:15→23:12)
[2017-07-30] MEDS: Enoxaparin 100 mg Syringe SC SCH (08:52)
[2017-07-30] MEDS ORDERED: Potassium Chloride 20 mEq ER Tab PO ONE (09:44)
[2017-07-30] MEDS: INSULIN GLARGINE HUM REC ANLOG 32 UNIT SQ SCH ×3 (10:00→18:24)
[2017-07-30] MEDS: Metoprolol Succinate 25 mg XL Tab PO SCH (10:31)
[2017-07-30] MEDS: diltiaZEM 120 mg/24 Hours CD Cap PO SCH (10:32)
[2017-07-30] MEDS: Pantoprazole 40 mg EC Tab PO SCH (10:32)
--- NOTE | 2017-07-30 12:10 | CP.PCM.PN ---
<Mena Yates - Last Filed: 07/30/17 12:07> Subjective - Date & Time of Evaluation Date of Evaluation: 07/30/17 Time of Evaluation: 10:30 - Subjective Subjective: Chief complaint: Weakness 57 yr female previously resident of [facility] w/ history of hemorrhagic CVA (L sided weakness), DM II, HTN, Parkinson's disease, morbid obesity, stage II decubitus ulcer, & venous stasis dermatitis of BLE. She was at home following recent discharge from [facility]; unable to independently preform ADLS and with worsening tremors. She began to develop nausea, vomiting, dizziness and was found to be in Afib upon admission to [facility]. Today, she reports relief of n/v and dizziness. She states, "I don't think I can safely take care of myself and my family can't do it either." Denies any shortness of breath, chest pain, headache, constipation, paraesthesias, or urinary changes. Objective - Vital Signs/Intake and Output Vital Signs (last 24 hours): Temp Pulse Resp BP Pulse Ox 98.1 F 72 18 146/84 95 07/30/17 12:00 07/30/17 12:00 07/30/17 12:00 07/30/17 12:00 07/30/17 06:00 Intake and Output: 07/30/17 07/30/17 06:59 18:59 Intake Total 360 Balance 360 - Medications Medications: Current Medications Carbidopa/Levodopa/Entacapone (Stalevo 150) 1 tab PO Q6 [facility] Diltiazem HCl (Cardizem Cd) 120 mg PO DAILY [facility] Last Admin: 07/30/17 10:32 Dose: 120 mg Enoxaparin Sodium (Lovenox) 40 mg SC DAILY [facility] PRN Reason: Protocol Famotidine (Pepcid) 40 mg PO DAILY [facility] Last Admin: 07/30/17 10:33 Dose: 40 mg Insulin Human Regular (Humulin R Low) 0 units SC ACHS [facility] PRN Reason: Protocol Last Admin: 07/30/17 08:15 Dose: Not Given Losartan Potassium (Cozaar) 25 mg PO DAILY [facility] Last Admin: 07/30/17 10:31 Dose: 25 mg Metformin HCl (Glucophage) 500 mg PO BID [facility] Last Admin: 07/30/17 10:32 Dose: 500 mg Metoprolol Succinate (Toprol Xl) 25 mg PO DAILY [facility] Last Admin: 07/30/17 10:31 Dose: 25 mg Non-Formulary Medication (Insulin Glargine,Hum.Rec.Anlog [Shalini Campebllgrayeric]) 32 units SQ BID [facility] Last Admin: 07/29/17 17:32 Dose: Not Given Pantoprazole Sodium (Protonix Ec Tab) 40 mg PO DAILY [facility] Last Admin: 07/30/17 10:32 Dose: 40 mg Tramadol HCl (Ultram) 50 mg PO Q8 PRN PRN Reason: Pain, severe (8-10) - Labs Labs: 07/30/17 06:00 07/30/17 06:00 PT 13.8 SECONDS (9.4-12.5) H 07/29/17 10:30 INR 1.20 (0.93-1.08) H 07/29/17 10:30 APTT 30.8 Seconds (25.1-36.5) 07/29/17 10:30 - Constitutional Appears: Older Than Stated Age, Chronically Ill - Head Exam Head Exam: ATRAUMATIC, NORMAL INSPECTION, NORMOCEPHALIC Additional comments: healing scab on R side of forehead - Eye Exam Eye Exam: EOMI, Normal appearance, PERRL Pupil Exam: NORMAL ACCOMODATION, PERRL - ENT Exam ENT Exam: Mucous Membranes Moist, Normal Exam - Neck Exam Neck Exam: Full ROM, Normal Inspection. absent: Lymphadenopathy - Respiratory Exam Respiratory Exam: Clear to Ausculation Bilateral, NORMAL BREATHING PATTERN - Cardiovascular Exam Cardiovascular Exam: Irregular Rhythm, +S1, +S2 - GI/Abdominal Exam GI & Abdominal Exam: Soft, Normal Bowel Sounds. absent: Tenderness - Extremities Exam Additional comments: R arm tremor, contracture Stasis dermatitis of BLE, redness - Back Exam Back Exam: NORMAL INSPECTION - Neurological Exam Neurological Exam: Alert, Awake, Oriented x3 Additional comments: tremor, resting - Psychiatric Exam Psychiatric exam: Anxious, Depressed - Skin Skin Exam: Dry, Intact, Normal Color, Warm Additional comments: stage II sacral ulcer Assessment and Plan (1) Ketonuria Status: Acute (2) Anemia Status: Acute (3) Stasis dermatitis of both legs Status: Acute (4) Hyperglycemia Status: Acute (5) Nausea and vomiting Status: Acute (6) Rapid atrial fibrillation Status: Acute (7) Ataxia Status: Acute (8) Cellulitis and abscess of lower extremity Status: Acute (9) Weakness Status: Acute - Assessment and Plan (Free Text) Plan: Labs ordered. ECG ordered. Seizure, aspiration precautions. GI/VTE prophlyaxis on board. PT/OT onboard. Pain management: ultram Consults: Cardio - Dr. Torres Reviewed: CXR = WNL ECG = ABNORMAL, Afib, w RVR, anterolateral infarct <Alondra Uriostegui - Last Filed: 07/30/17 14:54> Objective - Vital Signs/Intake and Output Vital Signs (last 24 hours): Temp Pulse Resp BP Pulse Ox 98.1 F 72 18 146/84 95 07/30/17 12:00 07/30/17 12:00 07/30/17 12:00 07/30/17 12:00 07/30/17 06:00 Intake and Output: 07/30/17 07/30/17 06:59 18:59 Intake Total 360 Balance 360 - Medications Medications: Current Medications Carbidopa/Levodopa/Entacapone (Stalevo 150) 1 tab PO Q6 [facility] Diltiazem HCl (Cardizem Cd) 120 mg PO DAILY [facility] Last Admin: 07/30/17 10:32 Dose: 120 mg Enoxaparin Sodium (Lovenox) 40 mg SC DAILY [facility] PRN Reason: Protocol Famotidine (Pepcid) 40 mg PO DAILY [facility] Last Admin: 07/30/17 10:33 Dose: 40 mg Insulin Human Regular (Humulin R Low) 0 units SC ACHS [facility] PRN Reason: Protocol Last Admin: 07/30/17 08:15 Dose: Not Given Losartan Potassium (Cozaar) 25 mg PO DAILY [facility] Last Admin: 07/30/17 10:31 Dose: 25 mg Metformin HCl (Glucophage) 500 mg PO BID [facility] Last Admin: 07/30/17 10:32 Dose: 500 mg Metoprolol Succinate (Toprol Xl) 25 mg PO DAILY [facility] Last Admin: 07/30/17 10:31 Dose: 25 mg Non-Formulary Medication (Insulin Glargine,Hum.Rec.Anlog [Toannie Brown]) 32 units SQ BID [facility] Last Admin: 07/29/17 17:32 Dose: Not Given Pantoprazole Sodium (Protonix Ec Tab) 40 mg PO DAILY [facility] Last Admin: 07/30/17 10:32 Dose: 40 mg Tramadol HCl (Ultram) 50 mg PO Q8 [facility]N PRN Reason: Pain, severe (8-10) - Labs Labs: 07/30/17 06:00 07/30/17 06:00 PT 13.8 SECONDS (9.4-12.5) H 07/29/17 10:30 INR 1.20 (0.93-1.08) H 07/29/17 10:30 APTT 30.8 Seconds (25.1-36.5) 07/29/17 10:30 Assessment and Plan - Assessment and Plan (Free Text) Plan: 57 yr female previously resident of [facility] w/ history of hemorrhagic CVA (L sided weakness), DM II, HTN, Parkinson's disease, morbid obesity, stage II decubitus ulcer, & venous stasis dermatitis of BLE. She was at home following recent discharge from [facility]; unable to independently preform ADLS and with worsening tremors. She began to develop nausea, vomiting, dizziness and was found to be in Afib upon admission to [facility]. Today, she reports relief of n/v and dizziness. She states, "I don't think I can safely take care of myself and my family can't do it either." Denies any shortness of breath, chest pain, headache, constipation, parenthesis, or urinary changes.pt is seen and examined at bed side . looking comfortable . agreed all above , chart . labs and meds noted , agreed all above , d/d with unpaid intern and staff , will f/u
--- NOTE | 2017-07-30 16:02 | CARD ---
APPROVED REPORT EKG Measurement Heart [id number] <Conclusion> Normal sinus rhythm Low voltage QRS Inferior infarct, age undetermined Abnormal ECG
[2017-07-30] MEDS: Enoxaparin 40 mg Syringe SC SCH (16:11)
[2017-07-31] MEDS: Carbidopa/Levodopa/Entacapone 37.5mg-150mg-200mg PO SCH ×3 (05:23→17:58)
--- NOTE | 2017-07-31 08:08 | PN ---
DATE: 07/30/2017 REASON FOR CONSULTATION AND FOLLOWUP: AFib, new onset, converted to normal sinus, admitted with AFib with rapid ventricular rate after having dizziness, nausea, and vomiting. SUBJECTIVE: The patient denies any chest pain, shortness of breath, or palpitation. Wanted to go home. PHYSICAL EXAMINATION: GENERAL: Not in apparent distress. VITAL SIGNS: Temperature afebrile, heart rate 72, blood pressure 137/74. HEENT: PERRLA. Extraocular muscles intact. NECK: Supple. No carotid bruits or thyromegaly. CHEST: Clear to auscultation. HEART: S1 and S2, regular. ABDOMEN: Soft. EXTREMITIES: Clubbing and cyanosis negative. LABORATORY DATA: Blood workup as follows; WBC 6, hemoglobin , hematocrit 30.7, platelet count 240. Chemistry shows sodium 140, potassium 3.0, chloride 104, carbon dioxide 29, anion gap of 11, BUN 19, creatinine 1.1. Troponin is 0.01. Total protein 6.9, albumin , albumin-globulin ratio 0.9. Triglyceride 141, cholesterol 142, LDL 68, HDL 38. TSH 2.45. IMPRESSION: A 57-year-old female with a past medical history significant for Parkinson disease, diabetes, hypertension, hyperlipidemia, obesity, history of cerebrovascular accident, tremor, came in with nausea and vomiting, found to be in atrial fibrillation with rapid ventricular rate, converted to normal sinus, now patient is in normal sinus rhythm since then. The patient's last echo dated 07/03/2017 - ejection fraction 70% calculated, normal segmental wall motion, mild tricuspid regurgitation, no aortic valve stenosis, no mitral regurgitation, right ventricular systolic pressure 37. RECOMMENDATION: So far, no evidence of acute [place]. We will change Cardizem CD to 120 mg. The patient was at home on 100 mg of losartan, which is decreased to 25 because of Cardizem was given, so does not drop the blood pressure and the patient need losartan because of the diabetes to prevent proteinuria. We will put low dose of beta-diana as well and we will discontinue telemetry. We will supplement potassium and DVT prophylaxis. CVS status is stable. Put metoprolol succinate 25 once a day and hold for heart rate 55 and blood pressure 95. We will supplement potassium and discontinue telemetry and we will change Lovenox for DVT prophylaxis. Now, the patient is in normal sinus. Yesterday, the patient got 1 mg/kg q. 12 and now we will decrease to 40 once a day. Continue medicine for Parkinson disease because the patient has a tremor and cannot new symptoms of angina because of false positive result and the patient is asymptomatic. We will follow with you. Thank you Dr. Uriostegui for providing us the opportunity in taking care of the patient, Celestino Rivera. Jenise Jang MD
[2017-07-31] MEDS: Insulin Reg-LOW-Coverage SC SCH ×4 (08:20→21:45)
[2017-07-31] MEDS: Pantoprazole 40 mg EC Tab PO SCH (10:05)
[2017-07-31] MEDS: diltiaZEM 120 mg/24 Hours CD Cap PO SCH (10:07)
[2017-07-31] MEDS: Metoprolol Succinate 25 mg XL Tab PO SCH (10:08)
[2017-07-31] MEDS: Enoxaparin 40 mg Syringe SC SCH (10:08)
[2017-07-31] MEDS: INSULIN GLARGINE HUM REC ANLOG 32 UNIT SQ SCH ×2 (10:09→17:58)
--- NOTE | 2017-07-31 15:28 | PN ---
DATE: 07/31/2017 REASON FOR CONSULTATION AND FOLLOWUP: Atrial fibrillation, new onset, converted to normal sinus, admitted with atrial fibrillation with rapid ventricular rate after having dizziness, nausea, and vomiting. SUBJECTIVE: The patient denies any chest pain, shortness of breath, or palpitation. PHYSICAL EXAMINATION: VITAL SIGNS: Temperature afebrile, heart rate 72, blood pressure 157/79. HEENT: PERRLA. Extraocular muscles intact. NECK: Supple. No carotid bruits or thyromegaly. CHEST: Clear to auscultation. HEART: S1, S2. Regular. ABDOMEN: Soft. EXTREMITIES: Clubbing and cyanosis negative. LABORATORY DATA: Blood workup as follows; WBC 6, hemoglobin , hematocrit 30.7, and platelet count 240,000. Chemistry shows sodium 140, potassium , chloride 104, carbon dioxide 29, anion gap of 11, BUN 19, and creatinine 1.1. Total protein 6.9, albumin 3.4, albumin-globulin ratio 0.9. Triglycerides 141, cholesterol 142, LDL 68, and HDL . TSH 2.45. IMPRESSION: Paroxysmal atrial fibrillation converted to normal sinus; now, the patient is in normal sinus. Hypertension, diabetes, , Parkinson disease, cerebrovascular accident, tremor came in with nausea and vomiting, atrial fibrillation with rapid ventricular rate. Last echo dated 07/03/2017 shows ejection fraction of 70% calculated and normal segmental wall motion, mild tricuspid regurgitation, no aortic stenosis, no mitral regurgitation, right ventricular systolic pressure of 37. RECOMMENDATIONS: No evidence of acute [place]. Cardizem started for atrial fibrillation and change to Cardizem CD. Continue DVT prophylaxis. Continue low-dose beta-diana. We will discontinue telemetry. Further recommendation as per Dr. Uriostegui. No further cardiac workup is planned. Thank you Dr. Uriostegui for providing us the opportunity in taking care of the patient, eClestino Rivera. Jenise Jang MD
[2017-08-01] MEDS: Carbidopa/Levodopa/Entacapone 37.5mg-150mg-200mg PO SCH ×4 (07:03→18:17)
[2017-08-01] MEDS: Insulin Reg-LOW-Coverage SC SCH (08:21)
[2017-08-01 08:24] VITALS: RESP 20
--- NOTE | 2017-08-01 09:44 | PN ---
DATE: 07/31/2017 SUBJECTIVE: The patient is a 57-year-old female. The patient is seen and examined at the bedside, looking comfortable, constantly moving her head. As per the patient, today early in the morning, she had episode of nausea and vomiting. But when I saw her, she was having lunch and was tolerating very well. No fever, no chills. No hematuria or hematochezia. PHYSICAL EXAMINATION: VITAL SIGNS: Temperature 98.6, heart rate 72, blood pressure 150/79. HEENT: Head: Normocephalic, atraumatic. Eyes: PERRLA. Extraocular movements are intact. Conjunctivae clear. Nose patent. Mucous membranes are moist. NECK: Supple. No carotid bruits. No JVD, or thyromegaly. CHEST: Bilaterally symmetrical. HEART: S1, S2 positive. LUNGS: Clear to auscultation. ABDOMEN: Soft. Bowel sounds present. No organomegaly. EXTREMITIES: No edema. No cyanosis. NEUROLOGIC: The patient is awake and alert. Moving all four extremities. No focal deficits. MEDICATIONS: Reviewed by me. LABORATORY DATA: White blood cell is 6, hematocrit 30.7, and platelets 240. Sodium 140, BUN 19, creatinine 1.1. Triglyceride 141, cholesterol 142. ASSESSMENT AND PLAN: a 57-year-old female with history of paroxysmal atrial fibrillation - now converted to normal sinus, now the patient is in normal sinus, hypertension, uncontrolled diabetes mellitus, Parkinson's disease, advancing, cerebrovascular accident, tremors. Today, had an episode of nausea, vomiting. Echo is done, shows ejection fraction of 70%. No evidence of acute myocardial infarction. Cardizem started for atrial fibrillation and changed to Cardizem CD. Continue deep venous thrombosis and gastrointestinal prophylaxis, low doses of beta blockers. Dr. Jang discontinued the telemetry. The patient has problems with taking care of herself. She cannot do her activities of daily living. Looking for rehab/long-term. Discussion done with medicine staff and social workers. We will continue Cardizem, Losartan, metformin, insulin, Lovenox, Pepcid, pantoprazole, carbidopa/levodopa, metoprolol, tramadol, Zofran. We will follow. Alondra Uriostegui MD [facility] # [id number] JENA
[2017-08-01] MEDS: Metoprolol Succinate 25 mg XL Tab PO SCH (09:55)
[2017-08-01] MEDS: INSULIN GLARGINE HUM REC ANLOG 32 UNIT SQ SCH (09:56)
[2017-08-01] MEDS: Enoxaparin 40 mg Syringe SC SCH (09:56)
[2017-08-01] MEDS: diltiaZEM 120 mg/24 Hours CD Cap PO SCH (09:56)
[2017-08-01] MEDS: Pantoprazole 40 mg EC Tab PO SCH (09:56)
[2017-08-01] MEDS ORDERED: Bacitracin Ointment 30 GM TUBE TOP SCH (12:30)
--- NOTE | 2017-08-01 12:36 | CP.PCM.PN ---
<Mena Yates - Last Filed: 08/01/17 12:33> Subjective - Date & Time of Evaluation Date of Evaluation: 08/01/17 Time of Evaluation: 09:40 - Subjective Subjective: Chief complaint: R forehead abrasion 57 yr female previously resident of [facility] w/ history of hemorrhagic CVA (L sided weakness), DM II, HTN, Parkinson's disease, morbid obesity, stage II decubitus ulcer, & venous stasis dermatitis of BLE. She was at home following recent discharge from [facility]; unable to independently preform ADLS and with worsening tremors. She began to develop nausea, vomiting, dizziness and was found to be in Afib upon admission to [facility]. Today, she has an abrasion on her R forehead. Denies any shortness of breath, chest pain, headache , constipation, paraesthesias, or urinary changes. Objective - Vital Signs/Intake and Output Vital Signs (last 24 hours): Temp Pulse Resp BP Pulse Ox 98.6 F 76 20 137/71 99 08/01/17 07:30 08/01/17 07:30 08/01/17 07:30 08/01/17 07:30 08/01/17 07:30 Intake and Output: 08/01/17 08/01/17 06:59 18:59 Intake Total 120 Balance 120 - Medications Medications: Current Medications Bacitracin (Bacitracin) 0 gm TOP DAILY [facility] Carbidopa/Levodopa/Entacapone (Stalevo 150) 1 tab PO Q6 [facility] Last Admin: 08/01/17 07:03 Dose: 1 tab Diltiazem HCl (Cardizem Cd) 120 mg PO DAILY [facility] Last Admin: 08/01/17 09:56 Dose: 120 mg Enoxaparin Sodium (Lovenox) 40 mg SC DAILY [facility] PRN Reason: Protocol Last Admin: 08/01/17 09:56 Dose: 40 mg Famotidine (Pepcid) 40 mg PO DAILY [facility] Last Admin: 08/01/17 09:56 Dose: 40 mg Insulin Human Regular (Humulin R Low) 0 units SC ACHS [facility] PRN Reason: Protocol Last Admin: 08/01/17 08:21 Dose: Not Given Losartan Potassium (Cozaar) 25 mg PO DAILY [facility] Last Admin: 08/01/17 09:56 Dose: 25 mg Metformin HCl (Glucophage) 500 mg PO BID [facility] Last Admin: 08/01/17 09:56 Dose: 500 mg Metoprolol Succinate (Toprol Xl) 25 mg PO DAILY [facility] Last Admin: 08/01/17 09:55 Dose: 25 mg Non-Formulary Medication (Insulin Glargine,Hum.Rec.Anlog [Shalini Campbellgrayeric]) 32 units SQ BID [facility] Last Admin: 08/01/17 09:56 Dose: Not Given Ondansetron HCl (Zofran Inj) 4 mg IVP Q8H PRN PRN Reason: Nausea/Vomiting Last Admin: 07/31/17 11:33 Dose: 4 mg Pantoprazole Sodium (Protonix Ec Tab) 40 mg PO DAILY [facility] Last Admin: 08/01/17 09:56 Dose: 40 mg Tramadol HCl (Ultram) 50 mg PO Q8 PRN PRN Reason: Pain, severe (8-10) - Labs Labs: 07/30/17 06:00 07/30/17 06:00 PT 13.8 SECONDS (9.4-12.5) H 07/29/17 10:30 INR 1.20 (0.93-1.08) H 07/29/17 10:30 APTT 30.8 Seconds (25.1-36.5) 07/29/17 10:30 - Constitutional Appears: Unkempt, Chronically Ill - Head Exam Additional comments: R forehead abrasion, erythema - Eye Exam Eye Exam: EOMI, Normal appearance, PERRL Pupil Exam: NORMAL ACCOMODATION, PERRL - ENT Exam ENT Exam: Mucous Membranes Moist, Normal Exam - Neck Exam Neck Exam: Full ROM, Normal Inspection. absent: Lymphadenopathy - Respiratory Exam Respiratory Exam: Clear to Ausculation Bilateral, NORMAL BREATHING PATTERN - Cardiovascular Exam Cardiovascular Exam: +S1, +S2 - GI/Abdominal Exam GI & Abdominal Exam: Soft, Normal Bowel Sounds. absent: Tenderness - Extremities Exam Extremities Exam: Normal Capillary Refill Additional comments: BLE erythema, edema +1 - Neurological Exam Neurological Exam: Alert, Awake, Oriented x3 Additional comments: tremor, resting - Psychiatric Exam Psychiatric exam: Normal Affect, Normal Mood - Skin Skin Exam: Abrasion Additional comments: stage II sacral ulcer Assessment and Plan (1) Abrasion head Status: Acute (2) Ketonuria Status: Acute (3) Anemia Status: Acute (4) Stasis dermatitis of both legs Status: Acute (5) Hyperglycemia Status: Acute (6) Nausea and vomiting Status: Acute (7) Rapid atrial fibrillation Status: Acute (8) Ataxia Status: Acute (9) Cellulitis and abscess of lower extremity Status: Acute (10) Weakness Status: Acute - Assessment and Plan (Free Text) Plan: Labs ordered. On cardizem CD for Afib. Seizure, aspiration precautions. GI/VTE prophlyaxis on board. PT/OT onboard. Pain management: ultram Consults: Cardio - Dr. Torres Reviewed: CXR = WNL ECG = ABNORMAL, Afib, w RVR, anterolateral infarct ECG = 07/30/17 ABNORMAL, NSR, low voltage QRS, inferior infarct <Alondra Uriostegui - Last Filed: 08/02/17 00:10> Subjective - Subjective Subjective: 57 yr female previously resident of [facility] w/ history of hemorrhagic CVA (L sided weakness), DM II, HTN, Parkinson's disease, morbid obesity, stage II decubitus ulcer, & venous stasis dermatitis of BLE. She was at home following recent discharge from [facility]; unable to independently preform ADLS and with worsening tremors. She began to develop nausea, vomiting, dizziness and was found to be in Afib upon admission to [facility]. Today, she has an abrasion on her R forehead. Denies any shortness of breath, chest pain, headache , constipation, paraesthesias, or urinary changes.pt is seen and examined at bed side , looking comfortable . agreed all above . will f/u Objective - Vital Signs/Intake and Output Vital Signs (last 24 hours): Temp Pulse Resp BP Pulse Ox 97.8 F 74 20 122/76 100 08/01/17 16:00 08/01/17 16:00 08/01/17 16:00 08/01/17 16:00 08/01/17 16:00 - Labs Labs: 07/30/17 06:00 07/30/17 06:00 PT 13.8 SECONDS (9.4-12.5) H 07/29/17 10:30 INR 1.20 (0.93-1.08) H 07/29/17 10:30 APTT 30.8 Seconds (25.1-36.5) 07/29/17 10:30
[2017-08-01 16:45] VITALS: BP 122/76; PULSE 74; TEMP 97.8; O2SAT 100
== END 2017-08-01 21:45 | DRG 309 ==
LOC: ED 10:00 → ERH 12:05 → 2RSO 13:13 → 5RSO 07-31 23:44
PROVIDERS: ADMIT Internal Medicine; ATTEND Internal Medicine
DX: I48.0 Paroxysmal atrial fibrillation (principal); E11.65 Type 2 diabetes mellitus with hyperglycemia; L03.119 Cellulitis of unspecified part of limb; L89.152 Pressure ulcer of sacral region, stage 2; G20 Parkinson's disease; E66.01 Morbid (severe) obesity due to excess calories; L02.419 Cutaneous abscess of limb, unspecified; I87.2 Venous insufficiency (chronic) (peripheral); I10 Essential (primary) hypertension; R29.6 Repeated falls; D64.9 Anemia, unspecified; E78.5 Hyperlipidemia, unspecified; N28.9 Disorder of kidney and ureter, unspecified; R27.0 Ataxia, unspecified; R53.1 Weakness; S00.81XA Abrasion of other part of head, initial encounter; Z86.73 Personal history of transient ischemic attack (TIA), and cerebral infarction without residual deficits; Z91.81 History of falling; Z87.01 Personal history of pneumonia (recurrent); Z87.891 Personal history of nicotine dependence

== ENCOUNTER 2018-04-11 11:47 | Emergency (ER) | payer MEDICARE, MEDICAID ==
[2018-04-11 11:54] VITALS: BMI 41.5
--- NOTE | 2018-04-11 12:18 | ED PDOC ---
Arrival/HPI - General Historian: Patient - History of Present Illness Narrative History of Present Illness (Text): 04/11/18 12:15 57 yo F with PMHx of Parkinsons, HTN, DM, CVA, venous stasis dermatitis presenting to ED with acute onset RLE ulceration/pain x 1 day. Pt de scribes the pain as burning, localized to b/l LE R> L, with no radiation of pain. Pt unaware of any leg trauma or inciting event. Denies any headaches, dizziness, changes in vision, chest pain, palpitations, sob, cough, abdominal pain, n/v/d/c, dysuria, or changes in stool. Time/Duration: 24 hours Symptom Onset: Sudden Symptom Course: Unchanged Quality: Burning Activities at Onset: Light <Jerry Sanabria - Last Filed: 04/11/18 14:35> <Titus Mahoney - Last Filed: 04/11/18 14:47> - General Chief Complaint: Lower Extremity Problem/Injury Time Seen by Provider: 04/11/18 11:52 Past Medical History - Provider Review Nursing Documentation Reviewed: Yes - Infectious Disease Hx of Infectious Diseases: None - Cardiac Hx Cardiac Disorders: Yes Hx MA: Yes (cardiac cath with stents) Hx Hypertension: Yes - Pulmonary Hx Respiratory Disorders: Yes Hx Pneumonia: Yes - Neurological HX Cerebrovascular Accident: Yes (2011 left sided weakness) Hx Parkinson's Disease: Yes - HEENT Hx HEENT Disorder: No - Renal Hx Renal Disorder: No - Endocrine/Metabolic Hx Diabetes Mellitus Type 2: Yes - Hematological/Oncological Hx Blood Disorders: No - Integumentary Hx Dermatological Disorder: Yes Other/Comment: venous stasis dermatitis, vertical slit in skin to sacrum healed, buttocks slight redness, ble red tight dry edema dry flakey skin chronic blisters that break and form scabs, multiple red scabs to both legs, scratch higgins to left shoulder, slight redness to abd fold, and red area of skin to lower abd, no redness noted undr breasts, small scab to r forehead, red raised rash to top of left hand, multiple red scabs to both arms - Musculoskeletal/Rheumatological Hx Musculoskeletal Disorders: Yes Hx Falls: Yes Hx Osteomyelitis: Yes Hx Unsteady Gait: Yes (cane walker w/ch) - Gastrointestinal Hx Gastrointestinal Disorders: Yes (obese) Hx Constipation: Yes Hx Gastroesophageal Reflux: Yes - Genitourinary/Gynecological Hx Genitourinary Disorders: Yes Hx Incontinence: Yes - Psychiatric Hx Psychophysiologic Disorder: Yes Hx Bipolar Disorder: Yes Hx Schizophrenia: Yes (borderline) Hx Substance Use: No - Surgical History Other/Comment: CRANIOTOMY- due to HEMORRHAGIC stroke 2010, tonsillectomy - Anesthesia Hx Anesthesia: Yes Hx Anesthesia Reactions: No Hx Malignant Hyperthermia: No <Jerry Sanabria - Last Filed: 04/11/18 14:35> Family/Social History - Physician Review Nursing Documentation Reviewed: Yes Smoking Status: Never Smoked Hx Alcohol Use: No Hx Substance Use: No <Jerry Sanabria - Last Filed: 04/11/18 14:35> - Physician Review Nursing Documentation Reviewed: Yes Family/Social History: Unknown Family HX Smoking Status: Never Smoked Hx Alcohol Use: No Hx Substance Use: No <Titus Mahoney - Last Filed: 04/11/18 14:47> Allergies/Home Meds <Jerry Sanabria - Last Filed: 04/11/18 14:35> <Titus Mahoney - Last Filed: 04/11/18 14:47> Allergies/Adverse Reactions: Allergies Penicillins Allergy (Verified 07/29/17 10:06) SWELLING Home Medications: Home Meds Medication Instructions Recorded Confirmed Furosemide [Lasix] 1 tab PO DAILY 04/11/18 04/11/18 Pramipexole Di-HCl [Mirapex] 1 tab PO Q12H 04/11/18 04/11/18 RX: Carbidopa/Levodopa 25/100 mg 1 tab PO QID 04/11/18 04/11/18 [Sinemet] RX: Lisinopril [Zestril] 1 tab PO DAILY 04/11/18 04/11/18 RX: metFORMIN [glucOPHAGE] 1 tab PO BID 04/11/18 04/11/18 Review of Systems - Physician Review All systems were reviewed & negative as marked: Yes - Review of Systems Constitutional: Normal Eyes: Normal ENT: Normal Respiratory: Normal Cardiovascular: Normal. absent: Chest Pain, Palpitations Gastrointestinal: Normal. absent: Abdominal Pain, Constipation, Diarrhea, Nausea, Vomiting Genitourinary Female: Normal Musculoskeletal: Normal Skin: Skin Lesions (chronic dermatitis, b/l LE), Ulcer (2x1 cm skin ulcer on R anterior stock[place]), Cellulitis Neurological: Normal Endocrine: Normal Hemo/Lymphatic: Normal Psychiatric: Normal <Jerry Sanabria - Last Filed: 04/11/18 14:35> Physical Exam Vital Signs Reviewed: Yes Temperature: Afebrile Blood Pressure: Hypertensive Pulse: Regular Respiratory Rate: Normal Appearance: Positive for: Non-Toxic Pain Distress: Moderate Mental Status: Positive for: Alert and Oriented X 3 - Systems Exam Head: Present: Atraumatic, Normocephalic Pupils: Present: PERRL Extroacular Muscles: Present: EOMI Conjunctiva: Present: Normal Mouth: Present: Moist Mucous Membranes Neck: Present: Normal Range of Motion Respiratory/Chest: Present: Clear to Auscultation, Good Air Exchange. No: Respiratory Distress, Accessory Muscle Use, Wheezes, Rales, Rhonchi Cardiovascular: Present: Regular Rate and Rhythm, Normal S1, S2 Abdomen: Present: Normal Bowel Sounds. No: Tenderness, Distention, Peritoneal Signs, Rebound, Guarding, Mass/Organomegaly Back: Present: Normal Inspection Upper Extremity: Present: Normal Inspection, Normal ROM, NORMAL PULSES, Capillary Refill < 2s. No: Cyanosis, Edema, Tenderness, Swelling, Erythema Lower Extremity: Present: CALF TENDERNESS (R calf tenderness), NORMAL PULSES, Swelling (R>L), Erythema (B/L LE), Temperature Abnormalties (warm to touch b/l), Capillary Refill < 2 s Neurological: Present: GCS=15, Speech Normal Skin: Present: Warm, Dry, Rashes (chronic dermatitis b/l LE), Erythematous (b/l LE), Other (2x1cm ulcer R anterior stock[place]) Psychiatric: Present: Alert, Oriented x 3, Normal Insight, Normal Concentration <Jerry Sanabria - Last Filed: 04/11/18 14:35> Vital Signs Temp Pulse Resp BP Pulse Ox 04/11/18 11:48 97.7 F 64 18 153/55 H 98 <Titus Mahoney - Last Filed: 04/11/18 14:47> Medical Decision Making ED Course and Treatment: 04/11/18 12:23 Impression: 57 yo F with pmhx of HTN, CVA, DM, Parkinsons, chronic venous stasis dermatitis presenting to ED with acute onset RLE pain, ulceration x 1day Plan: --CBC, CMP --venous doppler --reassess and disposition 04/11/18 14:28 Labs wnl, venous dopplers negative Patient medically stable to be discharged To go home on clindamycin given PCN allergy, instructed to follow up with her PMD - Lab Interpretations I have reviewed the lab results: Yes - RAD Interpretation Narrative RAD Interpretations (Text): 04/11/18 14:09 Venous Dopplers: no acute findings Radiology Orders: 04/11/18 12:13 DUPLEX LOWER EXTRM VEIN BILAT [US] Stat [employer]ductor Equipment Technician: Radiologist <Jerry Sanabria - Last Filed: 04/11/18 14:35> ED Course and Treatment: 04/11/18 12:44 Seen and examined with the resident. Our history and physical exam reveals a woman who appears older than her stated age with chronic bilateral lower ext remity erythema. She developed an anterior right stock[place] ulcer after an unknown trauma an unknown time ago. She was seen in the emergency department by Dr. Wetzel who verifies that the erythema in her legs is chronic and no different from usual. The right lower extremity is swollen and we will obtain Doppler to rule out DVT. - RAD Interpretation Radiology Orders: 04/11/18 12:13 DUPLEX LOWER EXTRM VEIN BILAT [US] Stat Venous Doppler radiology read negative for DVT. Semiconductor Equipment Technician: Radiologist <Titus Mahoney - Last Filed: 04/11/18 14:47> - PA / COMPOUND WORKER / Resident Statement MD/DO has examined the patient and agrees with the treatment plan. - Scribe Statement The provider has reviewed the documentation as recorded by the Laurence Muhammad Provider Scribe Attestation: All medical record entries made by the Kaseyibsarita were at my direction and personally dictated by me. I have reviewed the chart and agree that the record accurately reflects my personal performance of the history, physical exam, medical decision making, and the department course for this patient. I have also personally directed, reviewed, and agree with the discharge instructions and disposition. <Titus Mahoney - Last Filed: 04/11/18 14:47> Disposition/Present on Arrival - Present on Arrival Any Indicators Present on Arrival: Yes History of DVT/PE: No History of Uncontrolled Diabetes: Yes Urinary Catheter: No History of Decub. Ulcer: No History Surgical Site Infection Following: None - Disposition Have Diagnosis and Disposition been Completed?: Yes Disposition Time: 14:10 Patient Plan: Discharge <Jerry Sanabria - Last Filed: 04/11/18 14:35> - Present on Arrival Any Indicators Present on Arrival: No History of DVT/PE: No History of Uncontrolled Diabetes: Yes Urinary Catheter: No History of Decub. Ulcer: No History Surgical Site Infection Following: None - Disposition Have Diagnosis and Disposition been Completed?: Yes Patient Plan: Discharge <Titus Mahoney - Last Filed: 04/11/18 14:47> - Disposition Diagnosis: Cellulitis, Leg ulcer Disposition: HOME/ ROUTINE Patient Problems: Current Active Problems Problem Status Onset Cellulitis Acute Leg ulcer Acute Condition: STABLE Discharge Instructions (ExitCare): Cellulitis (ED) Additional Instructions: RENAN GARZA, thank you for letting us take care of you today. Your provider was Ronald Mahoney MD and you were treated for RIGHT LEG PAIN AND SWELLING. The emergency medical care you received today was directed at your acute symptoms. If you were prescribed any medication, please fill it and take as directed. It may take several days for your symptoms to resolve. Return to the Emergency Department if your symptoms worsen, do not improve, or if you have any other problems. Please contact your doctor or call one of the physicians/clinics you have been referred to that are listed on the Patient Visit Information form that is included in your discharge packet. Bring any paperwork you were given at discharge with you along with any medications you are taking to your follow up visit. Our treatment cannot replace ongoing medical care by a primary care provider outside of the emergency department. Thank you for allowing the [facility] team to be part of your care today. Prescriptions: RX: Clindamycin [Cleocin] 450 mg PO TID #21 cap Referrals: Felipe Wetzel, [Primary Care Provider] - Follow up with primary Forms: [employer] (Hungarian)
[2018-04-11 12:20] VITALS: RESP 18; TEMP 97.7
[2018-04-11 12:48] LABS: BASO # 0.05 K/mm3 (0.0-2.0); BASO % 0.6 % (0.0-3.0); EOS # 0.3 (0.0-0.7); EOS % 3.6 % (1.5-5.0); GRAN # 4.94 (1.4-6.5); GRAN % 59.3 % (50.0-68.0); HEMOGLOBIN 11.4 g/dL (12.0-16.0); LYMPH # 2.5 (1.2-3.4); LYMPH % 30.3 % (22.0-35.0); MEAN CELL VOLUME 84.1 fl (80.0-105.0); MEAN CORPUSCULAR HEMOGLOBIN 28.3 pg (25.0-35.0); MEAN CORPUSCULAR HGB CONC 33.6 g/dl (31.0-37.0); MEAN PLATELET VOLUME 11.7 fl (7.0-11.0); MONO # 0.5 (0.1-0.6); MONO % 6.2 % (1.0-6.0); RBC 4.03 10^6/uL (3.5-6.1); WHITE BLOOD COUNT 8.3 10^3/ul (4.5-11.0)
[2018-04-11 12:54] LABS: ALB/GLOB RATIO 1.1 (1.1-1.8); ALBUMIN 4.2 g/dL (3.0-4.8); ALT/SGPT 13 U/L (7-56); AST/SGOT 23 U/L (14-36); BLOOD UREA NITROGEN 35 mg/dL (7-21); CALCIUM 9.5 mg/dL (8.4-10.5); GFR NON-AFRICAN AMERICAN 57
[2018-04-11 16:24] VITALS: BP 148/76; PULSE 68; O2SAT 98
--- NOTE | 2018-04-12 16:53 | US ---
HISTORY: Leg pain and swelling. Evaluate for DVT PHYSICIAN(S): Richard Hodgson MD. TECHNIQUE: Duplex sonography and color-flow Doppler with graded compression were used to evaluate the deep venous systems of both lower extremities. The exam is very limited by body habitus and edema. The tibial veins are not well seen FINDINGS: The visualized deep venous systems of both lower extremities are sonographically normal and compressible. Normal wave forms and augmentation are seen. There is no sonographic evidence for deep venous thrombosis in the visualized segments of both lower extremities. IMPRESSION: No sonographic evidence for deep venous thrombosis in the visualized segments of both lower extremities. Very limited study.
== END 2018-04-11 16:25 | disposition home or self-care (01) ==
LOC: ED 11:47
DX: L97.919 Non-pressure chronic ulcer of unspecified part of right lower leg with unspecified severity (principal); I10 Essential (primary) hypertension; G20 Parkinson's disease; E11.9 Type 2 diabetes mellitus without complications

== ENCOUNTER 2018-04-18 00:32 | Observation (INO) | payer MEDICARE, MEDICAID ==
--- NOTE | 2018-04-18 01:04 | ED PDOC ---
Arrival/HPI - General Chief Complaint: Lower Extremity Problem/Injury Time Seen by Provider: 04/18/18 00:40 Historian: Patient - History of Present Illness Narrative History of Present Illness (Text): 04/18/18 01:04 Celestino Rivera is a 57 year old female, whose past medical history includes Parkinson's disease, hypertension, Type 2 diabetes, CVA, and venous statis dermatitis, who presents to the Emergency department complaining of bilateral lower extremity pain. Patient states she has been experiencing worsening bilateral lower extremity pain with associated redness, right greater then left. On 04/11/2018, patient was seen in the Emergency department for worsening RLE ulceration/pain and had US Dopplers Lower Extremities performed, which were negative for DVT. Patient was discharged home. Patient denies any fever, chills, chest pain, shortness of breath, nausea, vomiting, diarrhea, headache, dizziness, or any other complaints. Symptom Onset: Gradual Symptom Course: Unchanged Activities at Onset: Light Context: Home Past Medical History - Provider Review Nursing Documentation Reviewed: Yes - Infectious Disease Hx of Infectious Diseases: None - Reproductive Menopause: Yes - Cardiac Hx Cardiac Disorders: Yes Hx OK: Yes (cardiac cath with stents) Hx Hypertension: Yes - Pulmonary Hx Respiratory Disorders: Yes Hx Pneumonia: Yes - Neurological HX Cerebrovascular Accident: Yes (2010 left sided weakness) Hx Parkinson's Disease: Yes - HEENT Hx HEENT Disorder: No - Renal Hx Renal Disorder: No - Endocrine/Metabolic Hx Diabetes Mellitus Type 2: Yes - Hematological/Oncological Hx Blood Disorders: No - Integumentary Hx Dermatological Disorder: Yes Other/Comment: venous stasis dermatitis, vertical slit in skin to sacrum healed, buttocks slight redness, ble red tight dry edema dry flakey skin chronic blisters that break and form scabs, multiple red scabs to both legs, scratch higgins to left shoulder, slight redness to abd fold, and red area of skin to lower abd, no redness noted undr breasts, small scab to r forehead, red raised rash to top of left hand, multiple red scabs to both arms - Musculoskeletal/Rheumatological Hx Musculoskeletal Disorders: Yes Hx Falls: Yes Hx Osteomyelitis: Yes Hx Unsteady Gait: Yes (cane walker w/ch) - Gastrointestinal Hx Gastrointestinal Disorders: Yes (obese) Hx Constipation: Yes Hx Gastroesophageal Reflux: Yes - Genitourinary/Gynecological Hx Genitourinary Disorders: Yes Hx Incontinence: Yes - Psychiatric Hx Psychophysiologic Disorder: Yes Hx Bipolar Disorder: Yes Hx Schizophrenia: Yes (borderline) Hx Substance Use: No - Surgical History Other/Comment: CRANIOTOMY- due to HEMORRHAGIC stroke 2010, tonsillectomy - Anesthesia Hx Anesthesia: Yes Hx Anesthesia Reactions: No Hx Malignant Hyperthermia: No Family/Social History - Physician Review Nursing Documentation Reviewed: Yes Family/Social History: Unknown Family HX Smoking Status: Never Smoked Hx Alcohol Use: No Hx Substance Use: No Allergies/Home Meds Allergies/Adverse Reactions: Allergies Penicillins Allergy (Verified 04/18/18 00:49) SWELLING Home Medications: Home Meds Medication Instructions Recorded Confirmed Carbidopa/Levodopa 25/100 mg 1 tab PO QID 04/11/18 04/18/18 [Sinemet] Furosemide [Lasix] 1 tab PO DAILY 04/11/18 04/18/18 Lisinopril [Zestril] 1 tab PO DAILY 04/11/18 04/18/18 Pramipexole Di-HCl [Mirapex] 1 tab PO Q12H 04/11/18 04/18/18 metFORMIN [glucOPHAGE] 1 tab PO BID 04/11/18 04/18/18 Review of Systems - Physician Review All systems were reviewed & negative as marked: Yes - Review of Systems Constitutional: Normal. absent: Fevers Eyes: Normal ENT: Normal Respiratory: Normal. absent: SOB, Cough Cardiovascular: Normal. absent: Chest Pain Gastrointestinal: Normal. absent: Abdominal Pain, Diarrhea, Nausea, Vomiting Genitourinary Female: Normal. absent: Dysuria, Frequency, Hematuria, Urine Output Changes Musculoskeletal: Normal. absent: Neck Pain Skin: Cellulitis Neurological: Normal Endocrine: Normal Hemo/Lymphatic: Normal Psychiatric: Normal Physical Exam Vital Signs Reviewed: Yes Vital Signs Temp Pulse Resp BP Pulse Ox 04/18/18 00:45 98.7 F 73 17 102/69 97 Temperature: Afebrile Blood Pressure: Normal Pulse: Regular Respiratory Rate: Normal Appearance: Positive for: Well-Appearing, Non-Toxic, Comfortable Pain Distress: None Mental Status: Positive for: Alert and Oriented X 3 - Systems Exam Head: Present: Atraumatic, Normocephalic Pupils: Present: PERRL Extroacular Muscles: Present: EOMI Conjunctiva: Present: Normal Mouth: Present: Moist Mucous Membranes Neck: Present: Normal Range of Motion Respiratory/Chest: Present: Clear to Auscultation, Good Air Exchange. No: Respiratory Distress, Accessory Muscle Use Cardiovascular: Present: Regular Rate and Rhythm, Normal S1, S2. No: Murmurs Abdomen: No: Tenderness, Distention, Peritoneal Signs Back: Present: Normal Inspection Upper Extremity: Present: Normal Inspection. No: Cyanosis, Edema Lower Extremity: Present: Swelling (Swelling to right lower leg), Erythema (Confluent erythema to bilateral lower legs.), Other (Scabbed wound to right leg). No: Edema Neurological: Present: GCS=15, CN II-XII Intact, Speech Normal Skin: Present: Warm, Dry, Normal Color. No: Rashes Psychiatric: Present: Alert, Oriented x 3, Normal Insight, Normal Concentration Medical Decision Making ED Course and Treatment: 04/18/18 01:04 Impression: 57 year old female complaining of bilateral lower extremity pain and redness, right greater than left. Plan: -- US Duplex Lower Extremities -- Labs, cultures -- Reassess and disposition Prior Visits: Notes and results from previous visits were reviewed. On 04/11/2018, pt was seen in the Emergency department for worsening RLE ulceration and pain. US Dopplers Lower Extremities performed, negative for DVT. Pt was discharged home. Progress Notes: Preliminary US Duplex Lower Extremities negative for DVT. 04/18/18 04:[address] Wetzel, who is aware and agrees with plan. Accepts pt in to his service. - Lab Interpretations I have reviewed the lab results: Yes - Scribe Statement The provider has reviewed the documentation as recorded by the Laurence Hermosillo Provider Scribe Attestation: All medical record entries made by the Scribe were at my direction and personally dictated by me. I have reviewed the chart and agree that the record accurately reflects my personal performance of the history, physical exam, medical decision making, and the department course for this patient. I have also personally directed, reviewed, and agree with the discharge instructions and disposition. Disposition/Present on Arrival - Present on Arrival Any Indicators Present on Arrival: No History of DVT/PE: No History of Uncontrolled Diabetes: Yes Urinary Catheter: No History of Decub. Ulcer: No History Surgical Site Infection Following: None - Disposition Have Diagnosis and Disposition been Completed?: Yes Diagnosis: Cellulitis Disposition: HOSPITALIZED Disposition Time: :21 Patient Plan: Discharge Condition: STABLE Discharge Instructions (ExitCare): Cellulitis (ED) Forms: [id number] (Hungarian)
[2018-04-18 03:23] LABS: ALBUMIN 3.4 g/dL (3.0-4.8); ALT/SGPT 11 U/L (7-56); AST/SGOT 22 U/L (14-36); BLOOD UREA NITROGEN 30 mg/dL (7-21); CALCIUM 9.2 mg/dL (8.4-10.5); GFR NON-AFRICAN AMERICAN 51
[2018-04-18 03:49] LABS: MEAN CORPUSCULAR HEMOGLOBIN 28.1 pg (25.0-35.0); MEAN CORPUSCULAR HGB CONC 33.4 g/dl (31.0-37.0); MEAN PLATELET VOLUME 12.4 fl (7.0-11.0); RBC 3.56 10^6/uL (3.5-6.1); RED CELL DISTRIBUTION WIDTH 13.7 % (11.5-14.5); WHITE BLOOD COUNT 10.5 10^3/uL (4.5-11.0)
[2018-04-18] MEDS ORDERED: Vancomycin 1gm in NS 250ml 1 GM/250 ML BAG IVPB STA (04:22)
[2018-04-18] MEDS ORDERED: Sodium Chloride 0.45% 1,000 ML IV SCH (11:15)
[2018-04-18 11:26] VITALS: BMI 41.0
[2018-04-18] MEDS: Insulin Lispro (humaLOG) MEDIUM Coverage SC SCH ×2 (13:02→17:04)
--- NOTE | 2018-04-18 13:52 | HP ---
was on clindamycin for cellulitis and she was brought into the emergency room with worsening bilateral lower extremity pain associated with redness, the right greater than the left. She had Dopplers done on the outpatient because of the swelling that she had to make sure there were no clots. PAST MEDICAL HISTORY: She has a past medical history of Parkinson's disease, hypertension, diabetes, CVA, venous stasis, dermatitis. She had a cardiac cath with stents. She had a CVA with left-sided weakness. I have been doing house calls on her. She has venous stasis dermatitis, sacral redness. She has had falls. She has had osteomyelitis in the past. She had unsteady gait in the past. She is obese, constipation, reflux. She has been incontinent of urine. Borderline history of schizophrenia. She had a hemorrhagic stroke in 2010. She had craniotomy, tonsillectomy, hypertension in the family. SOCIAL HISTORY: No smoker. No drinking. No drugs. ALLERGIES: SHE HAS ALLERGIES TO PENICILLIN. MEDICATIONS: She is on Sinemet, Lasix, Zestril, Mirapex, Glucophage. REVIEW OF SYSTEMS: No acute vision or hearing changes. No sore throat. No shortness of breath or cough. No chest pain or palpitations. No abdominal pain, nausea, vomiting, constipation or diarrhea. No problems urinating. No back pain. The legs are both been red. She has been on clindamycin on the outpatient. They got worse. Neurologically, she is okay. No anxiety. PHYSICAL EXAMINATION: VITAL SIGNS: She has 98.7 temperature, 78 pulse, 17 respiratory rate, 102/69 blood pressure, 97% O2 sat on room air. HEENT: Head is atraumatic and normocephalic. Well appearing, nontoxic, comfortable. Alert and oriented x3. Extraocular muscles are intact. Pupils are equal and reactive to light. Throat is moist. NECK: Supple. HEART: Regular rate. Normal S1 and S2. LUNGS: Decreased breath sounds bilaterally but clear to auscultation. No wheezes, no rhonchi, no rales. ABDOMEN: Soft and nontender. Positive bowel sounds. No guarding, no rebound or CVA tenderness. She is morbidly obese. EXTREMITIES: There is swelling to right lower extremity and left lower extremity. There is scab, there is some redness on the right stock[place]. GCS is 15. Cranial nerves II-XII are grossly intact. Speech is normal. Alert and oriented x3. LYMPHS: Thyroid midline. No palpable appreciable lymphadenopathy. LABORATORY DATA: She has 141 sodium, potassium 3.6, BUN 30, creatinine 1.1, GFR is 51, sugar is 259. Calcium is 9.2, total bili is 1.7, AST is 22, ALT is 11, alk phos 126, total protein is 6.7, albumin is 3.4. White count is 7.5, hemoglobin 10, hematocrit 29.9, platelets are 226. There is a extremity ultrasound pending. She will be on IV fluids and her medications. I will consult Infectious Disease for antibiotics to see if she needs to stay in the hospital. She is in observation right now to make sure she has a diet and get physical therapy, and I will talk to Infectious Disease later and see what the plan will be. had failed outpatient cellulitis of both lower extremities. Felipe Wetzel DO MTDD
--- NOTE | 2018-04-18 15:50 | DS ---
HISTORY OF PRESENT ILLNESS: She came in this morning with worsening cellulitis after being on clindamycin at home, but got more swollen and red. She came to the hospital and Infectious Disease felt that it does not need to be in the hospital at this time. She had one dose of vancomycin in the emergency room. She is currently on Zyvox 600 twice a day, should be on that for 5 days. As per Infectious Disease, she will be admitted and discharged today and followed up on the outpatient on house call. PHYSICAL EXAMINATION: VITAL SIGNS: She has 98.5 temperature, 88 pulse, 121/79 blood pressure, 16 respiratory rate, 99% O2 sat on room air. HEENT: Head is atraumatic and normocephalic. HEART: Regular rate with decreased breath sounds. ABDOMEN: Soft, morbidly obese, nontender. Positive bowel sounds. EXTREMITIES: Both lower extremities are red and inflamed. She will be on Zyvox at home. She failed outpatient clindamycin. Infectious Disease feels that she can go home on Zyvox 600 twice a day for 5 days. We will follow and see what happens. Ultrasound is pending. Felipe Wetzel DO
[2018-04-18 16:52] VITALS: BP 121/71; PULSE 74; RESP 19; TEMP 98.4; O2SAT 98
[2018-04-18] MEDS ORDERED: Clotrimazole 1% Cream(30 gm) TOP SCH (18:00)
--- NOTE | 2018-04-18 19:28 | CON ---
DATE OF CONSULTATION: 04/18/2018 The patient seen in Room 365, Bed 2. CHIEF COMPLAINT: Lower extremity erythema for several days. HISTORY OF PRESENT ILLNESS: This is a 57-year-old female with a history of obesity with BMI of 38, diabetes mellitus, cerebrovascular accident in 2010 with left-sided weakness, Parkinson disease, hypertension, peripheral vascular disease, coronary artery disease and venous stasis, who is admitted with a diagnosis of cellulitis. The patient states that she is weak. She is unable to walk normally. She walks with a walker. She has not been able to do that. She has had low-grade fevers at home, but no chills, no chest pain. She has had mild shortness of breath and minimal cough. No abdominal pain. No diarrhea or constipation. She denies any dysuria or frequency. However, she is complaining of generalized weakness. No headaches or blurred vision. PAST MEDICAL HISTORY: Significant for cerebrovascular accident in 2010 with left-sided weakness, Parkinson's disease, diabetes mellitus, hypertension, peripheral vascular ease, coronary artery disease, myocardial infarction, schizophrenia, bipolar, and hypertension. PAST SURGICAL HISTORY: Significant for cardiac stent placement. MEDICATIONS AT HOME: The patient is on carbidopa, levodopa, clindamycin, Lasix, lisinopril, Mirapex and Glucophage. The patient is not on any SSRI, not on any antidepressants. ALLERGIES: THE PATIENT HAS AN ALLERGY TO PENICILLIN. She states she was swelled up, although she does not really remember what happened as it was many years ago. PHYSICAL EXAMINATION: She is in bed, appearing weak, and overall poorly maintained with a temperature of 98, heart rate of 70, blood pressure is 113/40, respiratory rate of 18. Examination of HEENT is unremarkable. Neck is supple. Lungs have decreased breath sounds. Heart exam is normal S1 and S2. Abdominal examination is soft, nontender. No organomegaly, no rebound, no guarding, no masses. Examination of lower extremities reveals venous stasis. On the right leg, there is erythema, warmer to touch, but no break in the skin, no discharge. LABORATORY EXAMINATION: The patient's white count is 10, hemoglobin of 10, and platelets of 226. Chemistries reveal a BUN of 38, creatinine of 1.1. Ultrasound is noted. ASSESSMENT AND PLAN: This is a 57-year-old female with obesity with a BMI of 38, diabetes mellitus, cerebrovascular accident in 2011, Parkinson's, hypertension, peripheral vascular disease, coronary artery disease, and venous stasis with the right leg cellulitis. We can treat the patient with p.o. Zyvox 600 mg p.o. b.i.d. 5 days. The patient is not on any SSRIs from the review of medications. If unable to get Zyvox, may be able to use doxycycline 100 mg p.o. b.i.d. x5 days. We also will order Lotrimin or an antifungal cream to the feet in between the toes. Both feet she has significant tenia. We will treat that for 10 days bilateral with clotrimazole 1% cream, Lotrimin 1% topically b.i.d. to the feet x10 days. Case discussed with Dr. Felipe Wetzel. We will follow closely with you. Goran Loera MD
--- NOTE | 2018-04-20 11:00 | US ---
HISTORY: Leg pain and swelling. Evaluate for DVT PHYSICIAN(S): Richard Hodgson MD. TECHNIQUE: Duplex sonography and color-flow Doppler with graded compression were used to evaluate the deep venous systems of both lower extremities. The exam is limited by body habitus and edema. FINDINGS: The visualized deep venous systems of both lower extremities are sonographically normal and compressible. Normal wave forms and augmentation are seen. There is no sonographic evidence for deep venous thrombosis in the visualized segments of both lower extremities. IMPRESSION: No sonographic evidence for deep venous thrombosis in the visualized segments of both lower extremities. Limited study.
== END 2018-04-18 21:37 | disposition home or self-care (01) ==
LOC: ED 00:32 → ERH 04:23 → 3RNO 06:05
PROVIDERS: ADMIT Family Medicine; ATTEND Family Medicine
DX: L03.116 Cellulitis of left lower limb (principal); L03.115 Cellulitis of right lower limb; E11.622 Type 2 diabetes mellitus with other skin ulcer; L97.919 Non-pressure chronic ulcer of unspecified part of right lower leg with unspecified severity; E11.51 Type 2 diabetes mellitus with diabetic peripheral angiopathy without gangrene; G20 Parkinson's disease; I10 Essential (primary) hypertension; I25.10 Atherosclerotic heart disease of native coronary artery without angina pectoris; I69.354 Hemiplegia and hemiparesis following cerebral infarction affecting left non-dominant side; K21.9 Gastro-esophageal reflux disease without esophagitis; I87.8 Other specified disorders of veins; I87.2 Venous insufficiency (chronic) (peripheral); F20.9 Schizophrenia, unspecified; I25.2 Old myocardial infarction; E66.01 Morbid (severe) obesity due to excess calories; Z68.41 Body mass index [BMI] 40.0-44.9, adult; Z95.5 Presence of coronary angioplasty implant and graft; Z88.0 Allergy status to penicillin
CPT/HCPCS: 80053; 82948; 85027; 87040; 93970; 96365; 96366; 96375; 99284; G0378; J1940; J7030

== ENCOUNTER 2018-05-09 05:44 | Emergency (ER) | payer MEDICARE, MEDICAID ==
[2018-05-09 05:49] VITALS: BMI 43.4
[2018-05-09] MEDS ORDERED: Sodium Chloride 0.9% 1,000 ML IV STA (07:27)
--- NOTE | 2018-05-09 07:30 | ED PDOC ---
Arrival/HPI - General Chief Complaint: GI Problem Historian: Patient, Parent - History of Present Illness Narrative History of Present Illness (Text): 05/09/18 07:27 57 year old female, whose past medical history includes diabetes, hypertension, Parkinson's disease, CVA, and venous statis dermatitis, presents to the emergency department accompanied by mother complaining of urinary frequency and diarrhea for the past 12 hours. Patient denies any blood in urine or stool. Patient denies any fever, chills, chest pain, shortness of breath, nausea, vomiting, back pain, neck pain, headache, dizziness, or any other complaints. PMD: Dr. Wetzel Time/Duration: Other (12 hours (7:30PM last night)) Symptom Onset: Gradual Symptom Course: Unchanged Activities at Onset: Light Context: Home Past Medical History - Provider Review Nursing Documentation Reviewed: Yes - Infectious Disease Hx of Infectious Diseases: None - Cardiac Hx Cardiac Disorders: Yes Hx Circulatory Problems: Yes Hx Hypertension: Yes Hx Peripheral Edema: Yes Hx Peripheral Vascular Disease: Yes (Venous stasis dermatitis) - Pulmonary Hx Respiratory Disorders: Yes Hx Pneumonia: Yes - Neurological Hx Neurological Disorder: Yes HX Cerebrovascular Accident: Yes (2010 left sided weakness) Hx Parkinson's Disease: Yes - HEENT Hx HEENT Disorder: No - Renal Hx Renal Disorder: No - Endocrine/Metabolic Hx Endocrine Disorders: Yes Hx Diabetes Mellitus Type 2: Yes - Hematological/Oncological Hx Blood Disorders: No - Integumentary Hx Dermatological Disorder: Yes Other/Comment: venous stasis dermatitis, rash to bilateral breast skin folds - Musculoskeletal/Rheumatological Hx Musculoskeletal Disorders: Yes Hx Falls: Yes Hx Osteomyelitis: Yes Hx Unsteady Gait: Yes (walker) - Gastrointestinal Hx Gastrointestinal Disorders: Yes (obese) Hx Gastroesophageal Reflux: Yes - Genitourinary/Gynecological Hx Genitourinary Disorders: Yes Hx Incontinence: Yes - Psychiatric Hx Psychophysiologic Disorder: Yes Hx Bipolar Disorder: Yes Hx Schizophrenia: Yes (borderline) Hx Substance Use: No - Surgical History Hx Cardiac Catheterization: Yes Hx Coronary Stent: Yes Other/Comment: CRANIOTOMY- due to HEMORRHAGIC stroke 2010, tonsillectomy - Anesthesia Hx Anesthesia: Yes Hx Anesthesia Reactions: No Hx Malignant Hyperthermia: No Family/Social History - Physician Review Nursing Documentation Reviewed: Yes Family/Social History: No Known Family HX Smoking Status: Never Smoked Hx Alcohol Use: No Hx Substance Use: No Allergies/Home Meds Allergies/Adverse Reactions: Allergies Penicillins Allergy (Verified 05/09/18 05:48) SWELLING Home Medications: Home Meds Medication Instructions Recorded Confirmed Carbidopa/Levodopa 25/100 mg 1 tab PO QID 04/11/18 05/09/18 [Sinemet] Furosemide [Lasix] 1 tab PO DAILY 04/11/18 05/09/18 Lisinopril [Zestril] 1 tab PO DAILY 04/11/18 05/09/18 Pramipexole Di-HCl [Mirapex] 1 tab PO Q12H 04/11/18 05/09/18 metFORMIN [glucOPHAGE] 1 tab PO BID 04/11/18 05/09/18 Review of Systems - Physician Review All systems were reviewed & negative as marked: Yes - Review of Systems Constitutional: absent: Fevers, Other (Chills) Respiratory: absent: SOB Cardiovascular: absent: Chest Pain Gastrointestinal: Diarrhea. absent: Abdominal Pain, Nausea, Vomiting, Hematochezia Genitourinary Female: Frequency. absent: Hematuria Musculoskeletal: absent: Back Pain, Neck Pain Neurological: absent: Headache, Dizziness Physical Exam Vital Signs Reviewed: Yes Vital Signs Temp Pulse Resp BP Pulse Ox 05/09/18 05:56 97.6 F 69 16 149/39 L 99 Temperature: Afebrile Blood Pressure: Normal Pulse: Regular Respiratory Rate: Normal Appearance: Positive for: Well-Appearing, Non-Toxic, Comfortable Pain Distress: None Mental Status: Positive for: Alert and Oriented X 3 - Systems Exam Head: Present: Atraumatic, Normocephalic Pupils: Present: PERRL Extroacular Muscles: Present: EOMI Conjunctiva: Present: Normal Mouth: Present: Moist Mucous Membranes Neck: Present: Normal Range of Motion Respiratory/Chest: Present: Clear to Auscultation, Good Air Exchange. No: Respiratory Distress, Accessory Muscle Use Cardiovascular: Present: Regular Rate and Rhythm, Normal S1, S2. No: Murmurs Abdomen: No: Tenderness, Distention, Peritoneal Signs Back: Present: Normal Inspection Upper Extremity: Present: Normal Inspection. No: Cyanosis, Edema Lower Extremity: Present: Normal Inspection. No: Edema Neurological: Present: GCS=15, CN II-XII Intact, Speech Normal, Other (Resting tremor) Skin: Present: Warm (to touch), Dry, Normal Color, Erythematous, Other (Bilateral lower legs superfical breakdown secondary to cellulitis) Psychiatric: Present: Alert, Oriented x 3, Normal Insight, Normal Concentration Medical Decision Making ED Course and Treatment: 05/09/18 07:27 Impression: 57 year old female presents complaining of urinary frequency and diarrhea since last night for the past 12 hours. Plan: -- CT abd & Pelvis IV Contrast -- Labs -- IV Fluids -- Urine Culture -- Urinalysis -- Reassess and disposition Prior Visits: Notes and results from previous visits were reviewed. Progress Notes: PROCEDURE: CT Abdomen and Pelvis with contrast Dictator : Sue Mccullough MD Report Date : 05/09/2018 09:36:48 IMPRESSION: Two exophytic somewhat heterogeneous or hyperdense appearing right renal masses. Hounsfield units indicate these are cystic. Suggest further evaluation with follow-up ultrasound. Additional findings as above. 05/09/18 09:[address] Wetzel who is aware and recommends patient to be discharged home and follow up with him as outpatient. Patient is aware and agrees with the plan to be discharged home. Patient is stable for discharge. - Lab Interpretations I have reviewed the lab results: Yes - Scribe Statement The provider has reviewed the documentation as recorded by the Kaseyibsarita Small Provider Scribe Attestation: All medical record entries made by the Scribe were at my direction and personally dictated by me. I have reviewed the chart and agree that the record accurately reflects my personal performance of the history, physical exam, medical decision making, and the department course for this patient. I have also personally directed, reviewed, and agree with the discharge instructions and disposition. Disposition/Present on Arrival - Present on Arrival Any Indicators Present on Arrival: No History of DVT/PE: No History of Uncontrolled Diabetes: Yes Urinary Catheter: No History of Decub. Ulcer: No History Surgical Site Infection Following: None - Disposition Have Diagnosis and Disposition been Completed?: Yes Diagnosis: Diarrhea Disposition: HOME/ ROUTINE Disposition Time: 09:45 Condition: GOOD Discharge Instructions (ExitCare): Diarrhea in Adolescents and Adults Additional Instructions: RENAN GARZA, thank you for letting us take care of you today. The emergency medical care you received today was directed at your acute symptoms. If you were prescribed any medication, please fill it and take as directed. It may take several days for your symptoms to resolve. Return to the Emergency Department if your symptoms worsen, do not improve, or if you have any other problems. Please contact your doctor or call one of the physicians/clinics you have been referred to that are listed on the Patient Visit Information form that is included in your discharge packet. Bring any paperwork you were given at discharge with you along with any medications you are taking to your follow up visit. Our treatment cannot replace ongoing medical care by a primary care provider outside of the emergency department. Thank you for allowing the [facility] team to be part of your care today. Follow up with Dr. Wetzel next week for re-evaluation and further management. Referrals: Felipe Wetzel, [Family Provider] - Follow up with primary Forms: [employer] ([place])
[2018-05-09 08:03] LABS: BASO # 0.05 K/mm3 (0.0-2.0); BASO % 0.5 % (0.0-3.0); EOS # 0.3 (0.0-0.7); EOS % 2.9 % (1.5-5.0); GRAN # 7.33 (1.4-6.5); GRAN % 69.6 % (50.0-68.0); HEMOGLOBIN 11.6 g/dL (12.0-16.0); LYMPH # 2.3 (1.2-3.4); LYMPH % 21.9 % (22.0-35.0); MEAN CELL VOLUME 85.6 fl (80.0-105.0); MEAN CORPUSCULAR HEMOGLOBIN 28.3 pg (25.0-35.0); MEAN PLATELET VOLUME 12.1 fl (7.0-11.0); MONO # 0.5 (0.1-0.6); MONO % 5.1 % (1.0-6.0); RBC 4.1 10^6/uL (3.5-6.1); RED CELL DISTRIBUTION WIDTH 14.8 % (11.5-14.5); WHITE BLOOD COUNT 10.5 10^3/uL (4.5-11.0)
[2018-05-09 08:26] LABS: URINE BILIRUBIN NEGATIVE (NEGATIVE); URINE BLOOD NEGATIVE (NEGATIVE); URINE GLUCOSE (UA) NEGATIVE (NEGATIVE); URINE LEUKOCYTE ESTERASE NEGATIVE Leu/uL (NEGATIVE); URINE PROTEIN NEGATIVE mg/dL (<30 mg/dL); URINE UROBILINOGEN 0.2 E.U./dL (<1 E.U./dL)
[2018-05-09 08:29] LABS: ALB/GLOB RATIO 1.1 (1.1-1.8); ALBUMIN 4.1 g/dL (3.0-4.8); ALT/SGPT 24 U/L (7-56); AST/SGOT 25 U/L (14-36); BLOOD UREA NITROGEN 27 mg/dL (7-21); CALCIUM 9.6 mg/dL (8.4-10.5); GFR NON-AFRICAN AMERICAN > 60; LIPASE 120 U/L (23-300)
[2018-05-09 08:33] LABS: URINE APPEARANCE CLEAR (CLEAR); URINE COLOR YELLOW (YELLOW)
[2018-05-09] MEDS ORDERED: Iohexol 350 MG/100 ML VIAL ONE (08:48)
--- NOTE | 2018-05-09 09:40 | CT ---
Date of service: 05/09/2018 PROCEDURE: CT Abdomen and Pelvis with contrast HISTORY: lower abdominal pain with diarrhea COMPARISON: None available. TECHNIQUE: Contrast dose: 100 mL Omnipaque 350 Radiation dose: Total exam DLP = 1073.42 mGy-cm. This CT exam was performed using one or more of the following dose reduction techniques: Automated exposure control, adjustment of the mA and/or kV according to patient size, and/or use of iterative reconstruction technique. FINDINGS: Examination limited by habitus and streak artifact. LOWER THORAX: No visible consolidation, pleural effusion, or pneumothorax. LIVER: Unremarkable. GALLBLADDER AND BILE DUCTS: Unremarkable. PANCREAS: Atrophy. SPLEEN: Unremarkable. ADRENALS: Unremarkable. KIDNEYS AND URETERS: The kidneys enhance symmetrically. No hydronephrosis or obstructing calculus identified. Heterogeneous hypodense exophytic right renal mass measures 14 mm, 4 HU, likely cystic. Additional smaller right renal exophytic mass also appears somewhat hyperdense/heterogeneous but measures approximately 11 HU and 1 cm. VASCULATURE: No aortic aneurysm. Atherosclerotic calcification / mural plaque present. BOWEL: Stomach is nondistended. Lack of oral contrast limits evaluation for bowel pathology. Bowel loops appear within normal limits of caliber without evidence of obstruction. APPENDIX: The appendix appears within normal limits of caliber. No secondary signs of acute appendicitis. PERITONEUM: No significant free fluid. No definite free air. LYMPH NODES: No bulky adenopathy identified. BLADDER: The urinary bladder appears distended, otherwise grossly unremarkable. REPRODUCTIVE: Uterus is present. BONES: Degenerative changes. OTHER FINDINGS: None. IMPRESSION: Two exophytic somewhat heterogeneous or hyperdense appearing right renal masses. Hounsfield units indicate these are cystic. Suggest further evaluation with follow-up ultrasound. Additional findings as above.
[2018-05-09 11:07] VITALS: BP 150/78; PULSE 69; RESP 19; TEMP 98
[2018-05-09 11:48] VITALS: O2SAT 97
== END 2018-05-09 11:47 | disposition home or self-care (01) ==
LOC: ED 05:44
DX: R19.7 Diarrhea, unspecified (principal); E11.9 Type 2 diabetes mellitus without complications; I10 Essential (primary) hypertension; G20 Parkinson's disease
CPT/HCPCS: 74177; 80053; 81003; 83690; 83735; 85025; 87086; 99284; J7030; Q9967

== ENCOUNTER 2018-07-05 08:57 | Inpatient (IN) | payer MEDICARE, MEDICAID ==
[2018-07-05 09:05] VITALS: BMI 39.2
[2018-07-05] MEDS ORDERED: Vancomycin 1gm in NS 250ml 1 GM/250 ML BAG IVPB STA (09:44)
[2018-07-05] MEDS ORDERED: Morphine 4 mg/ml ISec IVP STA (09:44)
[2018-07-05] MEDS ORDERED: MEROPENEM 500 MG in NS 500 MG/50 ML BAG IVPB STA (09:44)
--- NOTE | 2018-07-05 09:44 | ED PDOC ---
Arrival/HPI - General Chief Complaint: Lower Extremity Problem/Injury Historian: Patient - History of Present Illness Narrative History of Present Illness (Text): 07/05/18 09:31 58 y/o female, pmh including dm/a.fibb/anemia/chronic lower extremity pedal e evin, allergic to penicillin, c/o bilateral lower extremities redness/swelling and pain x 3 days with no fall or trauma. Pt. has bilateral lower extremities cellulitis history, was on the PICC line vanco and merrems, last dose 05/26/2018, discharged from [facility] 06/22/2018 and now residing at home, noticed bilateral lower extremities redness/pain and skin blisters about 3 days ago, called the PMD dr. lew this morning and advised to come to the ER for evaluation. Pt. has no fever or chills, no night sweat, no numbness or tingling, no slurred speech, no other medical or psychological complaints. Past Medical History - Provider Review Nursing Documentation Reviewed: Yes - Infectious Disease Hx of Infectious Diseases: None - Cardiac Hx Cardiac Disorders: Yes (CARDIAC STENTS) Hx Congestive Heart Failure: Yes Hx Hypertension: Yes - Pulmonary Hx Pneumonia: Yes - Neurological Hx Parkinson's Disease: Yes - HEENT Hx HEENT Disorder: No - Renal Hx Renal Disorder: No - Endocrine/Metabolic Hx Diabetes Mellitus Type 2: Yes - Hematological/Oncological Hx Blood Disorders: No - Integumentary Hx Dermatological Disorder: Yes Other/Comment: venous stasis dermatitis - Musculoskeletal/Rheumatological Hx Musculoskeletal Disorders: Yes Hx Falls: Yes Hx Osteomyelitis: Yes - Gastrointestinal Hx Gastrointestinal Disorders: Yes Hx Gastroesophageal Reflux: Yes - Genitourinary/Gynecological Hx Genitourinary Disorders: Yes Hx Incontinence: Yes - Psychiatric Hx Bipolar Disorder: Yes Hx Schizophrenia: Yes (borderline) Hx Substance Use: No - Surgical History Hx Coronary Stent: Yes Hx Tonsillectomy: Yes - Anesthesia Hx Anesthesia: Yes Hx Anesthesia Reactions: No Hx Malignant Hyperthermia: No Family/Social History - Physician Review Nursing Documentation Reviewed: Yes Family/Social History: Unknown Family HX Smoking Status: Never Smoked Hx Alcohol Use: No Hx Substance Use: No Allergies/Home Meds Allergies/Adverse Reactions: Allergies Penicillins Allergy (Verified 05/09/18 05:48) SWELLING Home Medications: Home Meds Medication Instructions Recorded Confirmed Carbidopa/Levodopa 25/100 mg 1 tab PO QID 04/11/18 07/05/18 [Sinemet] Furosemide [Lasix] 1 tab PO DAILY 04/11/18 07/05/18 Lisinopril [Zestril] 1 tab PO DAILY 04/11/18 07/05/18 Pramipexole Di-HCl [Mirapex] 1 tab PO Q12H 04/11/18 07/05/18 metFORMIN [glucOPHAGE] 1 tab PO BID 04/11/18 07/05/18 Review of Systems - Review of Systems Constitutional: absent: Fatigue Eyes: absent: Vision Changes ENT: absent: Hearing Changes Respiratory: absent: SOB, Cough Cardiovascular: absent: Chest Pain Gastrointestinal: absent: Abdominal Pain, Nausea, Vomiting Skin: Rash, Pruritis, Skin Lesions, Cellulitis. absent: Laceration, Abscess, Ulcer Neurological: absent: Headache, Dizziness Psychiatric: absent: Anxiety, Depression Physical Exam Vital Signs Reviewed: Yes Vital Signs Temp Pulse Resp BP Pulse Ox 07/05/18 09:13 97.4 F L 72 18 138/62 98 Temperature: Afebrile Blood Pressure: Normal Pulse: Regular Respiratory Rate: Normal Appearance: Positive for: Well-Appearing Pain Distress: Moderate Mental Status: Positive for: Alert and Oriented X 3 - Systems Exam Head: Present: Atraumatic, Normocephalic Pupils: Present: PERRL Extroacular Muscles: Present: EOMI Conjunctiva: Present: Normal Mouth: Present: Moist Mucous Membranes Neck: Present: Normal Range of Motion Respiratory/Chest: Present: Clear to Auscultation, Good Air Exchange. No: Respiratory Distress, Accessory Muscle Use Cardiovascular: Present: Regular Rate and Rhythm, Normal S1, S2, Other (2+ pedal edema). No: Murmurs Abdomen: No: Tenderness, Distention, Peritoneal Signs Back: Present: Normal Inspection Upper Extremity: Present: Normal Inspection, Neurovascularly Intact. No: Cyanosis, Edema Lower Extremity: Present: Normal Inspection, Neurovascularly Intact, Other (Bilateral lower extremities: bilateral tibia/fibula calf regions noted to have erythematous/2+pedal edema celullitis with skin blisters and some ruptured assoc iated with streaking up to the proximal 1/3 tibial/fibula plus down to the foot region, +DPPT pulses, capillary refill< 2 seconds, neurovascular intact. ). No: Edema Neurological: Present: GCS=15, CN II-XII Intact, Speech Normal, Motor Func Grossly Intact, Memory Normal Skin: Present: Warm, Dry, Normal Color. No: Rashes Psychiatric: Present: Alert, Oriented x 3, Normal Insight, Normal Concentration Medical Decision Making ED Course and Treatment: 07/05/18 09:54 Cellulitis vs. DVT vs. Dehydration vs. CHF -labs/blood culture -ekg -doppler -chest xray -IV morphine/vancomycin/merrem -Observe and reassess 07/05/18 12:09 -EKG: NSR @ 71 BPM with low votlage QRS, no ST elevation or depression, no T wave inversion -Chest xray: No active disease. No significant interval change compared to the prior examination(s). -Bilateral LE Venuous doppler: as per preliminary report, no acute DVT -Labs show no acute findings except hgb 10.2 from 11.3, BUN 29 (IVF slow ordered) -Mg within normal limit -BNP 613 (mildly elevated) -UA ordered and no sample -I spoke to the pmd DR. Lew, agreed to admit to his service and he would order the consults. 07/05/18 12:31 - RAD Interpretation Radiology Orders: Bilateral LE Venuous doppler: as per preliminary report, no acute DVT -Chest xray: Date of service: 07/05/2018 HISTORY: Admission COMPARISON: 07/29/2017. FINDINGS: LUNGS: No active pulmonary disease. PLEURA: No significant pleural effusion identified, no pneumothorax apparent. CARDIOVASCULAR: No atherosclerotic calcification present No radiographic findings to suggest acute or significant cardiovascular disease. OSSEOUS STRUCTURES: No significant abnormalities. VISUALIZED UPPER ABDOMEN: Normal. OTHER FINDINGS: None. IMPRESSION: No active disease. No significant interval change compared to the prior examination(s). Neckties Painter: Radiologist - EKG Interpretation EKG Interpretation (Text): 07/05/18 10:47 NSR @ 71 BPM with low votlage QRS, no ST elevation or depression, no T wave inversion Interpreted by ED Physician: Yes Type: 12 lead EKG - PA / SERVICE DESK ANALYST / Resident Statement MD/DO has reviewed & agrees with the documentation as recorded. Disposition/Present on Arrival - Present on Arrival Any Indicators Present on Arrival: No History of DVT/PE: No History of Uncontrolled Diabetes: Yes Urinary Catheter: No History of Decub. Ulcer: No History Surgical Site Infection Following: None - Disposition Have Diagnosis and Disposition been Completed?: Yes Diagnosis: Cellulitis, Dehydration, Elevated brain natriuretic peptide (BNP) level Disposition: HOSPITALIZED Disposition Time: 12:11 Patient Plan: Observation, Telemetry Patient Problems: Current Active Problems Problem Status Onset Cellulitis Acute Dehydration Acute Elevated brain natriuretic peptide (BNP) level Acute Condition: STABLE
--- NOTE | 2018-07-05 10:28 | RAD ---
Date of service: 07/05/2018 HISTORY: Admission COMPARISON: 07/29/2017. FINDINGS: LUNGS: No active pulmonary disease. PLEURA: No significant pleural effusion identified, no pneumothorax apparent. CARDIOVASCULAR: No atherosclerotic calcification present No radiographic findings to suggest acute or significant cardiovascular disease. OSSEOUS STRUCTURES: No significant abnormalities. VISUALIZED UPPER ABDOMEN: Normal. OTHER FINDINGS: None. IMPRESSION: No active disease. No significant interval change compared to the prior examination(s).
[2018-07-05 11:31] LABS: BASO # 0.03 K/mm3 (0.0-2.0); BASO % 0.3 % (0.0-3.0); EOS # 0.2 (0.0-0.7); EOS % 1.9 % (1.5-5.0); GRAN # 6.2 (1.4-6.5); GRAN % 67.1 % (50.0-68.0); HEMOGLOBIN 10.2 g/dL (12.0-16.0); LYMPH # 2.3 (1.2-3.4); LYMPH % 24.5 % (22.0-35.0); MEAN CELL VOLUME 85.7 fl (80.0-105.0); MEAN CORPUSCULAR HEMOGLOBIN 28.6 pg (25.0-35.0); MEAN CORPUSCULAR HGB CONC 33.3 g/dl (31.0-37.0); MEAN PLATELET VOLUME 11.5 fl (7.0-11.0); MONO # 0.6 (0.1-0.6); MONO % 6.2 % (1.0-6.0); RBC 3.57 10^6/uL (3.5-6.1); RED CELL DISTRIBUTION WIDTH 15.6 % (11.5-14.5); WHITE BLOOD COUNT 9.3 10^3/uL (4.5-11.0)
[2018-07-05 11:37] LABS: BLOOD UREA NITROGEN 29 mg/dL (7-21); CALCIUM 9.5 mg/dL (8.4-10.5); GFR NON-AFRICAN AMERICAN > 60
[2018-07-05 11:38] LABS: ALB/GLOB RATIO 1.1 (1.1-1.8); ALT/SGPT 14 U/L (7-56); AST/SGOT 24 U/L (14-36)
[2018-07-05 11:46] LABS: B-TYPE NATRIURETIC PEPTIDE 613 pg/mL (0-450)
[2018-07-05] MEDS ORDERED: Sodium Chloride 0.9% 1,000 ML IV SCH (12:15)
--- NOTE | 2018-07-05 13:24 | US ---
HISTORY: Leg pain and swelling. Evaluate for DVT PHYSICIAN(S): Richard Hodgson MD. TECHNIQUE: Duplex sonography and color-flow Doppler with graded compression were used to evaluate the deep venous systems of both lower extremities. The exam is very limited by body habitus and edema FINDINGS: The visualized deep venous systems of both lower extremities are sonographically normal and compressible. Normal wave forms and augmentation are seen. There is no sonographic evidence for deep venous thrombosis in the visualized segments of both lower extremities. IMPRESSION: No sonographic evidence for deep venous thrombosis in the visualized segments of both lower extremities. Limited study.
--- NOTE | 2018-07-05 13:39 | HP ---
DATE OF EXAM: 07/05/2018 HISTORY OF PRESENT ILLNESS: I know Celestino very well from multiple admissions to the hospital also from house call. She is a 58-year-old female I know well, who presents with lower extremity swelling, redness, blisters, no falls, no trauma. She has had this before. She was on Merrem while back and Infectious Disease. The last time I saw the legs were great. No redness. No blisters, were very thin, has swollen, red and inflamed with blisters. PAST MEDICAL HISTORY: She has a past medical history of diabetes, AFib, anemia, lower extremity pedal edema, cellulitis, blisters, ulcers. She has CHF history, hypertension, pneumonia history, Parkinson's, diabetes, venous stasis, dermatitis, falls, osteomyelitis history, GERD, incontinence, schizophrenia, tonsillectomy, coronary stents. FAMILY HISTORY: Unknown family history. SOCIAL HISTORY: No smoking. No drinking. No drugs. ALLERGIES: ALLERGY TO PENICILLIN. MEDICATIONS: On carbidopa and levodopa, Lasix, Zestril, Mirapex, Glucophage. REVIEW OF SYSTEMS: She is fatigued, tired. Alert, no acute vision or hearing changes. No shortness of breath or cough. No chest pain or palpitations. No abdominal pain, nausea, vomiting, constipation, diarrhea. Bilateral lower extremity skin lesions, old cellulitis ulcers, blisters no headaches or dizziness. Not anxious or depressed. PHYSICAL EXAMINATION: VITAL SIGNS: 97.4 temperature, 72 pulse, 18 respiratory rate, 138/62 blood pressure, 98 pulse ox. GENERAL: Well appearing, alert and oriented x3, understands the situation. HEENT: Head is atraumatic, normocephalic. Extraocular muscles are intact. Pupils equal, react to light. Throat is moist. NECK: Supple. HEART: Regular rate. Normal S1, S2. LUNGS: Decreased breath sounds but clear to auscultation. ABDOMEN: Soft, morbidly obese. Nontender. Positive bowel sounds. No guarding, no rebound or CVA tenderness. EXTREMITIES: Bilateral lower extremities have +2/4 pitting edema with ulcers and blisters and redness and cellulitis. GCS is 15. NEUROLOGIC: Cranial nerves II through XII grossly intact. Normal speech. Alert and oriented x3. SKIN: Skin is okay except for the lower extremities. LYMPH: Thyroid midline. No palpable appreciable lymphadenopathy. DIAGNOSTIC DATA: She has a chest x-ray which showed no active disease. The labs are all pending at this time. Her legs are very swollen. She is here as far as bilateral cellulitis with blisters and ulcers and cellulitis with CHF and she is a diabetic. She had consults with Infectious Disease and Podiatry and Cardiology. She will be on IV Merrem which is already ordered. I will see what else the labs tests say. We will continue aggressive treatment and care. She got physical therapy. I will watch her very closely and she is here for cellulitis, CHF. Felipe Wetzel DO
[2018-07-05] MEDS: Meropenem IV 1 gm in NS 1 GM/50 ML BAG IVPB SCH ×2 (14:43→22:04)
[2018-07-05] MEDS ORDERED: Levalbuterol 0.63 MG/3 ML Inhal Soln UD ONE (15:03)
[2018-07-05] MEDS: Insulin Reg-MEDIUM-Coverage SC SCH ×3 (16:03→22:05)
[2018-07-05] MEDS ORDERED: Insulin Regular 1 UNITS/0.01 ML ML ONE (16:27)
[2018-07-05] MEDS: Clotrimazole 1% Cream(30 gm) TOP SCH (19:30)
--- NOTE | 2018-07-05 20:24 | CON ---
DATE OF CONSULTATION: 07/05/2018 The patient is seen in bed 29 in the emergency room. CHIEF COMPLAINT: Lower extremity erythema for several days. HISTORY OF PRESENT ILLNESS: This is a 58-year-old female with obesity, BMI of 39, diabetes, cerebrovascular accident in 2010 with left-sided weakness, Parkinson's disease, hypertension, peripheral vascular disease, coronary artery disease, schizophrenia, bipolar, atrial fibrillation, anemia, who is admitted now with complaint of lower extremity erythema and pain bilaterally. PAST MEDICAL HISTORY: Significant for diabetes, cerebrovascular accident, Parkinson's, hypertension, peripheral vascular disease, coronary artery disease, schizophrenia, bipolar, atrial fibrillation, anemia, obesity and cerebrovascular accident. PAST SURGICAL HISTORY: Significant for cardiac stent. MEDICATIONS AT HOME: Metformin, insulin, Lasix and carbidopa-levodopa. ALLERGIES: THE PATIENT IS ALLERGIC TO PENICILLIN. She has tolerated meropenem in the past well. REVIEW OF SYSTEMS: A 12-point review of systems is performed. There are low-grade fevers. No chills. No nausea or vomiting. No chest pain. PHYSICAL EXAMINATION: VITAL SIGNS: The patient's temperature is 97, blood pressure is 130/60, respiratory rate of 18, heart rate of 72. HEENT: Unremarkable. NECK: Supple. LUNGS: Decreased breath sounds. HEART: Normal S1, S2. ABDOMEN: Soft, nontender. EXTREMITIES: Bilateral lower extremity edema and erythema. However, right leg is warm to touch and more erythematous. LABORATORY EXAMINATION: White count 9.3, hemoglobin of 10, platelets of 329,00. Chemistries are noted. The patient does have a creatinine of 0.9. However, in the past, she has had creatinine of 1.4 in 06/2017. Urinalysis is pending. The patient's chest x-ray is negative. ER chart is reviewed. The patient had an ultrasound of the lower extremities and venous ultrasound. The results are pending. ASSESSMENT/PLAN: This is a 58-year-old female who is diabetic with right leg cellulitis in phase of bilateral chronic lower extremity erythema secondary to venous stasis and tenia. Must rule out underlying peripheral arterial disease progression and must rule out underlying osteomyelitis. We will give the patient vanco once daily because of the renal failure in the past and meropenem because of the penicillin allergy. The right leg does have a bullous lesion that is erythematous and has a discharge from the bullous lesion and we will send that for culture and additional blood culture. We will order sed rate, C-reactive protein, vanco trough on the fourth dose, HIV and a CAT scan to rule out underlying osteomyelitis. We will order arterial Dopplers to rule out the progression of peripheral arterial disease and ABIs, vascular consultation and podiatric consultation. Case discussed with Dr. Felipe Wetzel. Goran Loera MD
[2018-07-05] MEDS: Insulin Detemir 100 units/ml Vial (Levemir) SC SCH (22:04)
--- NOTE | 2018-07-05 22:05 | CARD ---
APPROVED REPORT Date of service: 07/05/2018 EKG Measurement Heart [id number] <Conclusion> Normal sinus rhythm Low voltage QRS Inferior infarct, age undetermined Cannot rule out Anterior infarct, age undetermined Abnormal ECG
[2018-07-06] MEDS: Meropenem IV 1 gm in NS 1 GM/50 ML BAG IVPB SCH ×3 (05:19→21:29)
[2018-07-06 06:40] LABS: MEAN CELL VOLUME 86.3 fl (80.0-105.0); MEAN CORPUSCULAR HGB CONC 32.5 g/dl (31.0-37.0); MEAN PLATELET VOLUME 11.1 fl (7.0-11.0); RBC 3.21 10^6/uL (3.5-6.1); RED CELL DISTRIBUTION WIDTH 15.1 % (11.5-14.5); WHITE BLOOD COUNT 6.6 10^3/uL (4.5-11.0)
[2018-07-06 07:17] LABS: ALBUMIN 3.5 g/dL (3.0-4.8); ALT/SGPT 7 U/L (7-56); AST/SGOT 18 U/L (14-36); BLOOD UREA NITROGEN 23 mg/dL (7-21); CALCIUM 9.1 mg/dL (8.4-10.5); GFR NON-AFRICAN AMERICAN > 60
[2018-07-06] MEDS ORDERED: Vancomycin 1gm in NS 250ml 1 GM/250 ML BAG IVPB SCH (10:00)
--- NOTE | 2018-07-06 10:48 | PN ---
DATE: 07/06/2018 SUBJECTIVE: I saw her this morning in bed. She has got multiple questions. Does not want to be in the hospital, but understands that she is here for IV antibiotics and diuresing of her swollen legs. She has metformin, insulin, Lasix IV, Levemir Lotrimin cream, Merrem IV, morphine, Sinemet, IV fluids which I will discontinue. I am waiting for her consults to see her, which is Podiatry and Cardiology. PHYSICAL EXAMINATION: VITAL SIGNS: She has a 97.3 temperature, 66 pulse, 133/67 blood pressure, 20 respiratory rate and 99% O2 sat on room air. HEENT: Head is atraumatic and normocephalic. HEART: Regular rate. LUNGS: Decreased breath sounds, but clear. ABDOMEN: Soft and obese. EXTREMITIES: +1/4 pitting edema, better than yesterday. Legs are still red and inflamed. There is some cellulitis and ulcers that are slowly improving. LABORATORY DATA: She has 142 sodium, potassium 3.8, BUN 23, creatinine 0.9 getting better, GFR is greater than 60, sugar is 108, calcium is 9.1, total bili is 1.3, AST is 18, ALT is 7, alk phos 19 and total protein 6.8. White count 6.6, hemoglobin 9, hematocrit 27.7 and platelets of 275. She has consults pending, IV antibiotics and watching her blood sugar. We have physical therapy involved, get her out of bed to chair if possible. Checking her labs. She is improving. We will continue with the diuresis and IV antibiotics. I will continue with aggressive treatment and care on Celestino Rivera, who has got bilateral cellulitis with CHF and diabetes. Felipe Wetzel DO
--- NOTE | 2018-07-06 11:12 | CT ---
Date of service: 07/06/2018 PROCEDURE: CT of the right ankle HISTORY: r/o osteo COMPARISON: TECHNIQUE: Radiation dose: Total exam DLP = 437.73 mGy-cm. This CT exam was performed using one or more of the following dose reduction techniques: Automated exposure control, adjustment of the mA and/or kV according to patient size, and/or use of iterative reconstruction technique. FINDINGS: There is no bony destruction to suggest osteomyelitis. There is no evidence of fracture. There is minimal subcutaneous edema on the lateral side of the ankle. IMPRESSION: No evidence of osteomyelitis
--- NOTE | 2018-07-06 11:45 | US ---
PROCEDURE: Lower extremity MERLIN exam HISTORY: Peripheral vascular disease with pain and ulceration. Diabetes. Previous smoking. PHYSICIAN(S): Richard Hodgson MD. FINDINGS: The PVR waveforms are limited by artifact. The right resting MERLIN is normal, 1.24. The left resting MERLIN is mildly abnormal, 0.86 The brachial systolic pressures are symmetric. The low thigh pressures and waveforms are relatively normal. There is a 50 mm gradient across the left knee. The left ankle and metatarsal waveforms are moderately to severely blunted. Findings are consistent with distal left SFA, popliteal, and/or tibial disease. No significant gradient is appreciated on the right. The right ankle and metatarsal waveforms are very limited by artifact IMPRESSION: 1. Limited study. 2. Distal left SFA, popliteal, and/or tibial disease 3. Limited study due to PVR waveform artifact
[2018-07-06] MEDS: Insulin Reg-MEDIUM-Coverage SC SCH ×4 (11:55→21:29)
[2018-07-06] MEDS: Nystatin 100,000 Units/gm Topical Pow(15 gm) TOP SCH ×2 (12:04→18:20)
[2018-07-06] MEDS: Insulin Detemir 100 units/ml Vial (Levemir) SC SCH ×2 (12:04→21:30)
[2018-07-06] MEDS: Clotrimazole 1% Cream(30 gm) TOP SCH ×2 (12:04→18:21)
--- NOTE | 2018-07-06 12:47 | CP.PCM.CON ---
<LaraDarleen - Last Filed: 07/06/18 12:50> History of Present Illness - History of Present Illness History of Present Illness: Podiatry Consult Note: Dr. Chavez, 58 year old female with PMHx of Bipolar Disorder, HTN, Hypercholesterolemia, Parkinson's Disease, Peripheral Edema, Pneumonia, Schizophrenia was seen and evaluated concerning redness and swelling to the b/l LE. Patient is AAOx3 and appears in NAD. Patient states that she usually follows up with Dr. Wetzel who is her program specialist. Patient states that she noticed redness on her leg and was advised to come to the hospital. Patient admits to pain in the right lower extremity.. Patient denies of recent F/N/V/C/SOB/CP/headache. Denies of any other pedal complains today PMHx: Bipolar Disorder, HTN, Hypercholesterolemia, Parkinson's Disease, Peripheral Edema, Pneumonia, Schizophrenia PSHx: Coronary Stent, Tonsillectomy Allergies: Penicillins Past Patient History - Infectious Disease Hx of Infectious Diseases: None - Past Medical History & Family History Past Medical History?: Yes - Past Social History Smoking Status: Never Smoked - CARDIAC Hx Cardiac Disorders: Yes (CARDIAC STENTS) Hx Congestive Heart Failure: Yes Hx Hypertension: Yes - PULMONARY Hx Pneumonia: Yes - NEUROLOGICAL Hx Parkinson's Disease: Yes - HEENT Hx HEENT Problems: No - RENAL Hx Chronic Kidney Disease: No - ENDOCRINE/METABOLIC Hx Diabetes Mellitus Type 2: Yes - HEMATOLOGICAL/ONCOLOGICAL Hx Blood Disorders: No - INTEGUMENTARY Hx Dermatological Problems: Yes Other/Comment: venous stasis dermatitis - MUSCULOSKELETAL/RHEUMATOLOGICAL Hx Musculoskeletal Disorders: Yes Hx Falls: Yes Hx Osteomyelitis: Yes - GASTROINTESTINAL Hx Gastrointestinal Disorders: Yes Hx Gastroesophageal Reflux: Yes - GENITOURINARY/GYNECOLOGICAL Hx Genitourinary Disorders: Yes Hx Incontinence: Yes - PSYCHIATRIC Hx Bipolar Disorder: Yes Hx Schizophrenia: Yes (borderline) Hx Substance Use: No - SURGICAL HISTORY Hx Coronary Stent: Yes Hx Tonsillectomy: Yes - ANESTHESIA Hx Anesthesia: Yes Hx Anesthesia Reactions: No Hx Malignant Hyperthermia: No Meds Allergies/Adverse Reactions: Allergies Allergy/AdvReac Type Severity Reaction Status Date / Time Penicillins Allergy SWELLING Verified 07/11/18 18:19 - Medications Medications: Current Medications Acetaminophen (Tylenol 325mg Tab) 650 mg PO Q6H PRN PRN Reason: Pain, moderate (4-7) Last Admin: 07/05/18 23:21 Dose: 650 mg Carbidopa/Levodopa (Sinemet) 1 tab PO QID [facility] Last Admin: 07/06/18 12:05 Dose: 1 tab Clotrimazole (Lotrimin 1%) 0 gm TOP BID [facility] Stop: 07/15/18 18:01 Last Admin: 07/06/18 12:04 Dose: 1 applic Furosemide (Lasix) 40 mg IVP DAILY [facility] Last Admin: 07/06/18 11:55 Dose: 40 mg Vancomycin HCl (Vancomycin 1gm) 1 gm in 250 mls @ 167 mls/hr IVPB DAILY [facility]; Protocol Stop: 07/11/18 10:01 Last Admin: 07/06/18 12:05 Dose: 167 mls/hr Meropenem (Merrem Iv 1 Gm Premix) 1 gm in 50 mls @ 100 mls/hr IVPB Q8 [facility]; Protocol Stop: 07/14/18 14:01 Last Admin: 07/06/18 05:19 Dose: 100 mls/hr Insulin Detemir (Levemir) 7 unit SC Q12 [facility] Last Admin: 07/06/18 12:04 Dose: 7 units Insulin Human Regular (Humulin R Med) 0 units SC ACHS [facility]; Protocol Last Admin: 07/06/18 11:55 Dose: Not Given Lisinopril (Zestril) 5 mg PO DAILY [facility] Last Admin: 07/06/18 12:05 Dose: 5 mg Metformin HCl (Glucophage) 850 mg PO BID [facility] Last Admin: 07/06/18 11:55 Dose: 850 mg Nystatin (Nystop Topical Powder) 0 gm TOP BID [facility] Last Admin: 07/06/18 12:04 Dose: 1 appl Pramipexole Dihydrochloride (Mirapex) 1 mg PO Q12H [facility] Last Admin: 07/06/18 12:16 Dose: 1 mg Physical Exam - Constitutional Appears: Well, Non-toxic, No Acute Distress - Head Exam Head Exam: ATRAUMATIC, NORMOCEPHALIC - Eye Exam Eye Exam: Normal appearance Pupil Exam: NORMAL ACCOMODATION - ENT Exam ENT Exam: Mucous Membranes Moist - Extremities Exam Additional comments: Bilateral LE exam VASC: DP/PT pulses are palpable 1/4, Cap refill time: < 3 sec to all digits, Temp gradient: warm to warm from proximal to distal, diffuse non-pitting edema noted on b/l LE distal to the knee joint (R>L), erythema noted to the LE b/L DERM: superficial dry eschars noted diffusly with surrounding cellulitis on left lower extremity with some superficial ulceration anterior aspect of the leg, no active drainage, no malodor, no probe to bone, no tunneling and tracking lanced blister noted on the right anterior leg with 100% granular base, no malodor, minimal drainage, no probe to bone, no tracking or tunneling noted. NEURO: Protective sensation mildly diminished ORTHO: no pain on palpation of the LE, no pain during AROM or PROM of the ankle joint - Neurological Exam Neurological exam: Alert, Oriented x3 - Psychiatric Exam Psychiatric exam: Normal Affect Results - Vital Signs Recent Vital Signs: Last Vital Signs Temp 97.3 F L 07/06/18 08:11 Pulse 70 07/06/18 12:05 Resp 20 07/06/18 08:11 BP 146/61 07/06/18 12:05 Pulse Ox 99 07/06/18 08:11 - Labs Result Diagrams: 07/06/18 06:00 07/06/18 06:00 Labs: Laboratory Results - last 24 hr 07/05/18 07/05/18 07/05/18 12:50 16:02 21:16 WBC RBC Hgb Hct MCV MCH MCHC RDW Plt Count MPV ESR 60 H Sodium Potassium Chloride Carbon Dioxide Anion Gap BUN Creatinine Est GFR ( Amer) Est GFR (Non-Af Amer) POC Glucose (mg/dL) 466 H* 152 H Random Glucose Calcium Total Bilirubin AST ALT Alkaline Phosphatase Total Protein Albumin Globulin Albumin/Globulin Ratio 07/06/18 07/06/18 07/06/18 06:00 06:00 07:22 WBC 6.6 D RBC 3.21 L Hgb 9.0 L Hct 27.7 L MCV 86.3 MCH 28.0 MCHC 32.5 RDW 15.1 H Plt Count 275 MPV 11.1 H ESR Sodium 142 Potassium 3.8 Chloride 109 H Carbon Dioxide 27 Anion Gap 10 BUN 23 H Creatinine 0.9 Est GFR ( Amer) > 60 Est GFR (Non-Af Amer) > 60 POC Glucose (mg/dL) 109 Random Glucose 108 Calcium 9.1 Total Bilirubin 1.3 AST 18 ALT 7 Alkaline Phosphatase 109 Total Protein 6.8 Albumin 3.5 Globulin 3.3 Albumin/Globulin Ratio 1.0 L 07/06/18 11:44 WBC RBC Hgb Hct MCV MCH MCHC RDW Plt Count MPV ESR Sodium Potassium Chloride Carbon Dioxide Anion Gap BUN Creatinine Est GFR ( Amer) Est GFR (Non-Af Amer) POC Glucose (mg/dL) 171 H Random Glucose Calcium Total Bilirubin AST ALT Alkaline Phosphatase Total Protein Albumin Globulin Albumin/Globulin Ratio Assessment & Plan - Assessment and Plan (Free Text) Assessment: 57 year old female evaluated for b/l LE cellulitis with superficial ulcerations on B/L lE Plan: Patient seen and evaluated Labs, vitals and charts reviewe- afebrile, no leukocytosis B/L LE cleaned with saline and adaptic, DSD applied to LE Continue IV abx as per ID Patient is stable from podiatry standpoint Thank you for the Podiatry consult Will continue to follow patient while in-house <Roseanna Chavez - Last Filed: 07/12/18 16:07> Results - Vital Signs Recent Vital Signs: Last Vital Signs Temp 97.7 F 07/11/18 06:00 Pulse 62 07/11/18 06:00 Resp 20 07/11/18 06:00 BP 126/68 07/11/18 10:17 Pulse Ox 98 07/11/18 06:00 - Labs Result Diagrams: 07/11/18 07:00 07/11/18 07:00 Labs: Laboratory Results - last 24 hr 07/11/18 16:12 POC Glucose (mg/dL) 241 H Attending/Attestation - Attestation I have personally seen and examined this patient.: Yes I have fully participated in the care of the patient.: Yes I have reviewed all pertinent clinical information: Yes
--- NOTE | 2018-07-06 16:10 | CP.PCM.APN ---
Subjective - Date & Time of Evaluation Date of Evaluation: 07/06/18 Time of Evaluation: 15:50 - Subjective Subjective: Pt. seen and examined at bedside. Denied chest pain , shortness of breath, legs wrapped with dressing, denied pain to legs, denied fever or chills. Review of Systems - Constitutional Constitutional: Other - Cardiovascular Cardiovascular: As Per HPI - Respiratory Respiratory: As Per HPI - Gastrointestinal Gastrointestinal: As Per HPI - Genitourinary Genitourinary: As Per HPI - Musculoskeletal Musculoskeletal: Other Additional comments: redness, swelling b/l legs - Integumentary Integumentary: Non-Healing Lesions - Endocrine Endocrine: As Per HPI - Hematologic/Lymphatic Hematologic: As Per HPI Objective - Vital Signs/Intake and Output Vital Signs (last 24 hours): Temp Pulse Resp BP Pulse Ox 97.3 F L 70 20 146/61 99 07/06/18 08:11 07/06/18 12:05 07/06/18 08:11 07/06/18 12:05 07/06/18 08:11 Intake and Output: 07/06/18 07/06/18 06:59 18:59 Intake Total 360 Output Total 400 Balance -40 - Medications Medications: Current Medications Acetaminophen (Tylenol 325mg Tab) 650 mg PO Q6H PRN PRN Reason: Pain, moderate (4-7) Last Admin: 07/05/18 23:21 Dose: 650 mg Carbidopa/Levodopa (Sinemet) 1 tab PO QID [facility] Last Admin: 07/06/18 12:05 Dose: 1 tab Clotrimazole (Lotrimin 1%) 0 gm TOP BID [facility] Stop: 07/15/18 18:01 Last Admin: 07/06/18 12:04 Dose: 1 applic Furosemide (Lasix) 40 mg IVP DAILY [facility] Last Admin: 07/06/18 11:55 Dose: 40 mg Vancomycin HCl (Vancomycin 1gm) 1 gm in 250 mls @ 167 mls/hr IVPB DAILY [facility]; Protocol Stop: 07/11/18 10:01 Last Admin: 07/06/18 12:05 Dose: 167 mls/hr Meropenem (Merrem Iv 1 Gm Premix) 1 gm in 50 mls @ 100 mls/hr IVPB Q8 [facility]; Protocol Stop: 07/14/18 14:01 Last Admin: 07/06/18 05:19 Dose: 100 mls/hr Insulin Detemir (Levemir) 7 unit SC Q12 [facility] Last Admin: 07/06/18 12:04 Dose: 7 units Insulin Human Regular (Humulin R Med) 0 units SC ACHS [facility]; Protocol Last Admin: 07/06/18 11:55 Dose: Not Given Lisinopril (Zestril) 5 mg PO DAILY [facility] Last Admin: 07/06/18 12:05 Dose: 5 mg Metformin HCl (Glucophage) 850 mg PO BID [facility] Last Admin: 07/06/18 11:55 Dose: 850 mg Nystatin (Nystop Topical Powder) 0 gm TOP BID [facility] Last Admin: 07/06/18 12:04 Dose: 1 appl Pramipexole Dihydrochloride (Mirapex) 1 mg PO Q12H [facility] Last Admin: 07/06/18 12:16 Dose: 1 mg - Labs Labs: 07/06/18 06:00 07/06/18 06:00 - Constitutional Appears: Well, Non-toxic - Head Exam Head Exam: NORMOCEPHALIC - ENT Exam ENT Exam: Mucous Membranes Moist, Normal Exam - Neck Exam Neck Exam: Full ROM - Respiratory Exam Respiratory Exam: Clear to Ausculation Bilateral - Cardiovascular Exam Cardiovascular Exam: REGULAR RHYTHM, +S1, +S2 - GI/Abdominal Exam GI & Abdominal Exam: Soft, Normal Bowel Sounds - Rectal Exam Rectal Exam: Deferred - Exam Exam: NORMAL INSPECTION - Extremities Exam Extremities Exam: Pedal Edema, Tenderness - Neurological Exam Neurological Exam: Alert, Awake, Oriented x3 - Psychiatric Exam Psychiatric exam: Flat Affect - Skin Skin Exam: Erythema Assessment and Plan - Assessment and Plan (Free Text) Assessment: ITS Impressions Chest X-Ray 07/05/18 09:44 IMPRESSION: No active disease. No significant interval change compared to the prior examination(s). Extremity Ultrasound 07/05/18 09:44 IMPRESSION: No sonographic evidence for deep venous thrombosis in the visualized segments of both lower extremities. Limited study. Lower Extremity CT 07/05/18 12:48 IMPRESSION: No evidence of osteomyelitis Extremity Ultrasound 07/05/18 12:49 IMPRESSION: 1. Limited study. 2. Distal left SFA, popliteal, and/or tibial disease 3. Limited study due to PVR waveform artifact Assessment: 57 year old female evaluated for b/l LE cellulitis with superficial ulcerations ,admitted for workup and treatment of cellulitis. Plan: 1. Cellulitis b/l LE, - Wound cx pos. Staph Aureus, Id / sens. pending, continue IV antibiotics, Lasix IV, dressing changes per podiatry. 2. Weakness, - PT recommends TCU vs. HWS, PT eval pending. Will continue to monitor clinical status and follow closely.
--- NOTE | 2018-07-06 17:34 | CP.PCM.PN ---
Subjective - Date & Time of Evaluation Date of Evaluation: 07/06/18 Time of Evaluation: 10:00 - Subjective Subjective: No increase in leg pain, no fevers. Objective - Vital Signs/Intake and Output Vital Signs (last 24 hours): Temp Pulse Resp BP Pulse Ox 98.8 F 68 18 129/71 98 07/05/18 18:00 07/06/18 02:00 07/05/18 18:00 07/05/18 18:00 07/05/18 18:00 Intake and Output: 07/06/18 07/06/18 06:59 18:59 Intake Total 360 Output Total 400 Balance -40 - Medications Medications: Current Medications Acetaminophen (Tylenol 325mg Tab) 650 mg PO Q6H PRN PRN Reason: Pain, moderate (4-7) Last Admin: 07/05/18 23:21 Dose: 650 mg Carbidopa/Levodopa (Sinemet) 1 tab PO QID [facility] Last Admin: 07/05/18 22:04 Dose: 1 tab Clotrimazole (Lotrimin 1%) 0 gm TOP BID [facility] Stop: 07/15/18 18:01 Last Admin: 07/05/18 19:30 Dose: 1 applic Furosemide (Lasix) 40 mg IVP DAILY [facility] Last Admin: 07/05/18 15:32 Dose: 40 mg Sodium Chloride (Sodium Chloride 0.9%) 1,000 mls @ 40 mls/hr IV .Q24H [facility] Last Admin: 07/05/18 15:32 Dose: 40 mls/hr Vancomycin HCl (Vancomycin 1gm) 1 gm in 250 mls @ 167 mls/hr IVPB DAILY [facility]; Protocol Stop: 07/11/18 10:01 Meropenem (Merrem Iv 1 Gm Premix) 1 gm in 50 mls @ 100 mls/hr IVPB Q8 [facility]; Protocol Stop: 07/14/18 14:01 Last Admin: 07/06/18 05:19 Dose: 100 mls/hr Insulin Detemir (Levemir) 7 unit SC Q12 [facility] Last Admin: 07/05/18 22:04 Dose: 7 units Insulin Human Regular (Humulin R Med) 0 units SC ACHS [facility]; Protocol Last Admin: 07/05/18 22:05 Dose: Not Given Lisinopril (Zestril) 5 mg PO DAILY [facility] Metformin HCl (Glucophage) 850 mg PO BID [facility] Last Admin: 07/05/18 18:13 Dose: 850 mg Nystatin (Nystop Topical Powder) 0 gm TOP BID [facility] Pramipexole Dihydrochloride (Mirapex) 1 mg PO Q12H [facility] Last Admin: 07/05/18 23:22 Dose: 1 mg - Labs Labs: 07/06/18 06:00 07/06/18 06:00 - Constitutional Appears: Chronically Ill - Head Exam Head Exam: NORMAL INSPECTION - Respiratory Exam Respiratory Exam: Decreased Breath Sounds - Cardiovascular Exam Cardiovascular Exam: +S1, +S2 - GI/Abdominal Exam GI & Abdominal Exam: Soft. absent: Tenderness Assessment and Plan - Assessment and Plan (Free Text) Plan: Assessment right leg cellulitis R/O PAD R/O osteomyelitis history of stasis dermatitis of both lower extremities HTN DM Parkinson's disease morbid obesity with BMI 42 Plan continue renally-adjusted Vancomycin and Merrem day [address] leg, duplex ultrasound and will make further recommendations based on the test r esults
--- NOTE | 2018-07-06 18:10 | CARD ---
APPROVED REPORT Date of service: 07/06/2018 EXAM: Two-dimensional and M-mode echocardiogram with Doppler and color Doppler. INDICATION PEDAL EDEMA 2D DIMENSIONS Left Atrium (2D)4.3 (1.6-4.0cm)IVSd1.4 (0.7-1.1cm) LVDd4.4 (3.9-5.9cm)PWd1.3 (0.7-1.1cm) LVDs2.8 (2.5-4.0cm)FS (%) 35.8 % LVEF (%)65.6 (>50%) M-Mode DIMENSIONS Aortic Root3.10 (2.2-3.7cm)Aortic Cusp Exc.2.00 (1.5-2.0cm) Aortic Valve AoV Peak Nrafatdq977.0cm/Mohan Peak GR.8mmHg Mitral Valve MV E Wjgruwqx79.8cm/sMV A Czyhxpeb695.0cm/sE/A ratio0.9 TDI Lateral E' Peak V8.58cm/sMedial E' Peak V5.56cm/sE/Lateral E'10.8 E/Medial E'16.7 Pulmonary Valve PV Peak Ddgtwbme98.0cm/sPV Peak Grad.2mmHg Tricuspid Valve TR Peak Zqcnircs146iv/sRAP DOKVCPLW16ztHvOU Peak Gr.30mmHg [id number] LEFT VENTRICLE The left ventricle is normal size. There is mild concentric left ventricular hypertrophy. The left ventricular function is normal. The left ventricular ejection fraction is within the normal range. There is normal LV segmental wall motion. Transmitral Doppler flow pattern is Grade I-abnormal relaxation pattern. RIGHT VENTRICLE The right ventricle is normal size. There is normal right ventricular wall thickness. The right ventricular systolic function is normal. ATRIA The left atrium is borderline dilated. The right atrium is borderline dilated. AORTIC VALVE The aortic valve is normal in structure. No aortic regurgitation is present. There is no aortic valvular stenosis. MITRAL VALVE The mitral valve is normal in structure. Mitral regurgitation is trace to mild. There is no mitral valve stenosis. TRICUSPID VALVE There is mild tricuspid regurgitation. There is mild pulmonary hypertension. PULMONIC VALVE There is trace to mild pulmonic valvular regurgitation. GREAT VESSELS The aortic root is normal in size. The IVC is normal in size and collapses >50% with inspiration. <Conclusion> There is mild concentric left ventricular hypertrophy. The left ventricular function is normal. The left ventricular ejection fraction is within the normal range. There is normal LV segmental wall motion. Transmitral Doppler flow pattern is Grade I-abnormal relaxation pattern. Mitral regurgitation is trace to mild. There is mild tricuspid regurgitation. There is mild pulmonary hypertension.
--- NOTE | 2018-07-06 19:34 | CON ---
DATE: 07/06/2018 HISTORY OF PRESENT ILLNESS: The patient is a 58-year-old woman who presents with lower extremity cellulitis. The patient was just recently [facility] where she suffered from pedal edema and found to have cellulitis in her lower extremities. PAST MEDICAL HISTORY: Includes diabetes mellitus, hypertension and hypercholesterolemia. She has had multivessel PTCA and stent at [facility] a year and a half ago. She denies angina. Her past medical history also includes a history of CVA several years ago. In addition, she has been suffered from Parkinson's. SOCIAL HISTORY: The patient does not smoke, but at home she walks with a walker around the house. REVIEW OF SYSTEMS: Fourteen-point review of systems is reviewed in detail. No angina, no shortness of breath. Positive edema in the lower extremities. No history of syncope. No falls at home. PHYSICAL EXAM: VITAL SIGNS: Blood pressure is 146/61, heart rate is in the 70s. NECK: Negative JVD. LUNGS: Without rales. HEART: S1, S2. EXTREMITIES: A bandage in both lower extremities with erythema underneath the bandages. LABORATORY DATA: Hemoglobin is 9. BUN and creatinine unremarkable. The glucose is 171. The ProBNP on admission was 613. EKG reveals normal sinus rhythm with low voltages throughout, questionable inferior wall [place] in the past. Ultrasound of the lower extremities reveals possible peripheral vascular disease. IMPRESSION: 1. Pedal edema. 2. Cellulitis of the lower extremities. 3. Stable angina. 4. History of percutaneous transluminal coronary angioplasty and stents at [facility] a year and a half to two years ago. 5. Diabetes mellitus. 6. History of cerebrovascular accident. 7. Parkinson's. 8. History of hypertension. Given these findings, I agree with Lasix in association with her IV antibiotics. We will obtain an echocardiogram to evaluate her LV function and to rule out pulmonary hypertension. Richard Dejesus MD
[2018-07-07] MEDS: Meropenem IV 1 gm in NS 1 GM/50 ML BAG IVPB SCH (05:49)
[2018-07-07 06:54] LABS: HEMOGLOBIN 9.4 g/dL (12.0-16.0); MEAN CELL VOLUME 85.3 fl (80.0-105.0); MEAN CORPUSCULAR HEMOGLOBIN 28.1 pg (25.0-35.0); MEAN PLATELET VOLUME 10.8 fl (7.0-11.0); RBC 3.34 10^6/uL (3.5-6.1); RED CELL DISTRIBUTION WIDTH 14.9 % (11.5-14.5); WHITE BLOOD COUNT 6.7 10^3/uL (4.5-11.0)
[2018-07-07 07:41] LABS: ALB/GLOB RATIO 1.1 (1.1-1.8); ALBUMIN 3.5 g/dL (3.0-4.8); ALT/SGPT 12 U/L (7-56); AST/SGOT 16 U/L (14-36); BLOOD UREA NITROGEN 22 mg/dL (7-21); CALCIUM 9.1 mg/dL (8.4-10.5); GFR NON-AFRICAN AMERICAN 57
[2018-07-07] MEDS: Insulin Reg-MEDIUM-Coverage SC SCH ×4 (08:52→21:50)
[2018-07-07] MEDS: Insulin Detemir 100 units/ml Vial (Levemir) SC SCH ×2 (09:42→21:51)
[2018-07-07] MEDS: Nystatin 100,000 Units/gm Topical Pow(15 gm) TOP SCH ×2 (09:43→17:40)
[2018-07-07] MEDS: Clotrimazole 1% Cream(30 gm) TOP SCH ×2 (09:43→17:40)
[2018-07-07] MEDS ORDERED: DAPTOmycin 500 mg Inj (Cubicin) IV SCH (09:45)
--- NOTE | 2018-07-07 10:34 | PN ---
DATE: 07/07/2018 SUBJECTIVE: I saw her resting comfortably in bed. She is doing a bit better. She does not want the telemetry anymore. She does not like these things on her chest. Her legs are little less swollen, little less red, little less painful, that are improving on antibiotics. MEDICATIONS: She is on metformin, Lasix IV, Levemir, Lotrimin cream, Merrem IV, Mirapex, nystatin powder, Sinemet, Tylenol, vancomycin IV, and Zestril. OBJECTIVE: VITAL SIGNS: She has a 97.8 temperature, 65 pulse, 140/71 blood pressure, 20 respiratory rate, 95% O2 sat on room air. HEENT: Head is atraumatic, normocephalic. HEART: Regular rate. LUNGS: Decreased breath sounds, but clear. ABDOMEN: Morbidly obese, soft, nontender. EXTREMITIES: Trace edema to +1 with redness bandage, both legs are bandaged from ulcers and oozing, which are slowly improved. LABORATORY DATA: She has a 139 sodium, potassium 3.7, BUN 22, creatinine 1, GFR is , sugar is 124, calcium is 9.1, total bili is 1.1, AST is 16, ALT is 12, alk phos 112, total protein 6.9. White count 6.7, hemoglobin 9.4, hematocrit 20.5, platelets of 263. ASSESSMENT AND PLAN: She has Staphylococcus aureus in the wound. She is being seen by Infectious Disease, Cardiology, and Podiatry. I am hoping to get her to Transitional Care Unit tomorrow to continue the IV antibiotics and wound care, diuresing and the antibiotics. Bilateral lower extremity cellulitis with ulcerations, congestive heart failure. The patient needs physical therapy. Felipe Wetzel DO MTDD
--- NOTE | 2018-07-07 11:31 | CP.PCM.PN ---
<Darleen Lara - Last Filed: 07/07/18 13:19> Subjective - Date & Time of Evaluation Date of Evaluation: 07/07/18 Time of Evaluation: 11:27 - Subjective Subjective: Podiatry progress Note: Dr. Chavez/mary 58 year old female with PMHx of Bipolar Disorder, HTN, Hypercholesterolemia, Parkinson's Disease, Peripheral Edema, Pneumonia, Schizophrenia was seen and evaluated concerning redness and swelling to the b/l LE. Patient is AAOx3 and appears in NAD. Admits to pain in the lower extremity. Is sleeping at this time. Denies acute overnight events. Objective - Vital Signs/Intake and Output Vital Signs (last 24 hours): Temp Pulse Resp BP Pulse Ox 97.8 F 65 20 140/71 95 07/07/18 08:16 07/07/18 09:43 07/07/18 08:16 07/07/18 09:43 07/07/18 08:16 Intake and Output: 07/07/18 07/07/18 06:59 18:59 Intake Total 2460 Output Total 3500 Balance -1040 - Medications Medications: Current Medications Acetaminophen (Tylenol 325mg Tab) 650 mg PO Q6H PRN PRN Reason: Pain, moderate (4-7) Last Admin: 07/06/18 22:44 Dose: 650 mg Carbidopa/Levodopa (Sinemet) 1 tab PO QID [facility] Last Admin: 07/07/18 09:43 Dose: 1 tab Clotrimazole (Lotrimin 1%) 0 gm TOP BID [facility] Stop: 07/15/18 18:01 Last Admin: 07/07/18 09:43 Dose: 1 applic Furosemide (Lasix) 40 mg IVP DAILY [facility] Last Admin: 07/07/18 09:41 Dose: 40 mg Daptomycin 380 mg/ Sodium (Chloride) 100 mls @ 200 mls/hr IV Q24H [facility] Stop: 07/12/18 10:01 Insulin Detemir (Levemir) 7 unit SC Q12 [facility] Last Admin: 07/07/18 09:42 Dose: 7 units Insulin Human Regular (Humulin R Med) 0 units SC ACHS [facility]; Protocol Last Admin: 07/07/18 08:52 Dose: Not Given Lisinopril (Zestril) 5 mg PO DAILY [facility] Last Admin: 07/07/18 09:43 Dose: 5 mg Metformin HCl (Glucophage) 850 mg PO BID [facility] Last Admin: 07/07/18 09:41 Dose: 850 mg Nystatin (Nystop Topical Powder) 0 gm TOP BID [facility] Last Admin: 07/07/18 09:43 Dose: 1 appl Pramipexole Dihydrochloride (Mirapex) 1 mg PO Q12H [facility] Last Admin: 07/06/18 22:46 Dose: 1 mg - Labs Labs: 07/07/18 06:00 07/07/18 06:30 - Constitutional Appears: Well, Non-toxic, No Acute Distress - Head Exam Head Exam: ATRAUMATIC - Eye Exam Eye Exam: Normal appearance Pupil Exam: NORMAL ACCOMODATION - Extremities Exam Additional comments: Bilateral LE exam: dressing dry, clean and intact VASC: DP/PT pulses are palpable 1/4, Cap refill time: < 3 sec to all digits, Temp gradient: warm to warm from proximal to distal, diffuse non-pitting edema noted on b/l LE distal to the knee joint (R>L), erythema noted to the LE b/L DERM: superficial dry eschars noted diffusly with surrounding cellulitis on left lower extremity with some superficial ulceration anterior aspect of the leg, no active drainage, no malodor, no probe to bone, no tunneling and tracking lanced blister noted on the right anterior leg with 100% granular base, no malodor, minimal drainage, no probe to bone, no tracking or tunneling noted. NEURO: Protective sensation mildly diminished ORTHO: no pain on palpation of the LE, no pain during AROM or PROM of the ankle joint - Neurological Exam Neurological Exam: Alert, Awake, Oriented x3 - Psychiatric Exam Psychiatric exam: Normal Affect Assessment and Plan - Assessment and Plan (Free Text) Assessment: 57 year old female evaluated for b/l LE cellulitis with superficial ulcerations on B/L lE Plan: Patient seen and evaluated Labs, vitals and charts reviewe- afebrile, no leukocytosis B/L LE to be dressed with adaptic, DSD applied to LE Continue IV abx as per ID Wound cultures: MRSA CT: No osteo LE arterial: left distal SFA, popliteal, tibial disease. Vasc consult ordered; recs appreciated Patient is stable from podiatry standpoint Will continue to follow patient while in-house <John Dickinson Last Filed: 07/07/18 17:57> Objective - Vital Signs/Intake and Output Vital Signs (last 24 hours): Temp Pulse Resp BP Pulse Ox 97.8 F 64 18 120/65 98 07/07/18 16:24 07/07/18 16:24 07/07/18 16:24 07/07/18 16:24 07/07/18 16:24 Intake and Output: 07/07/18 07/07/18 06:59 18:59 Intake Total 2460 Output Total 3500 Balance -1040 - Medications Medications: Current Medications Acetaminophen (Tylenol 325mg Tab) 650 mg PO Q6H PRN PRN Reason: Pain, moderate (4-7) Last Admin: 07/06/18 22:44 Dose: 650 mg Carbidopa/Levodopa (Sinemet) 1 tab PO QID [facility] Last Admin: 07/07/18 13:26 Dose: 1 tab Clotrimazole (Lotrimin 1%) 0 gm TOP BID [facility] Stop: 07/15/18 18:01 Last Admin: 07/07/18 09:43 Dose: 1 applic Furosemide (Lasix) 40 mg IVP DAILY [facility] Last Admin: 07/07/18 09:41 Dose: 40 mg Daptomycin 380 mg/ Sodium (Chloride) 100 mls @ 200 mls/hr IV Q24H [facility] Stop: 07/12/18 10:01 Last Admin: 07/07/18 11:26 Dose: 200 mls/hr Insulin Detemir (Levemir) 7 unit SC Q12 [facility] Last Admin: 07/07/18 09:42 Dose: 7 units Insulin Human Regular (Humulin R Med) 0 units SC ACHS [facility]; Protocol Last Admin: 07/07/18 12:50 Dose: 3 unit Lisinopril (Zestril) 5 mg PO DAILY [facility] Last Admin: 07/07/18 09:43 Dose: 5 mg Nystatin (Nystop Topical Powder) 0 gm TOP BID [facility] Last Admin: 07/07/18 09:43 Dose: 1 appl Pramipexole Dihydrochloride (Mirapex) 1 mg PO Q12H [facility] Last Admin: 07/07/18 11:27 Dose: 1 mg Sitagliptin Phosphate (Januvia) 50 mg PO DAILY [facility] - Labs Labs: 07/07/18 06:00 07/07/18 06:30 Attending/Attestation - Attestation I have personally seen and examined this patient.: Yes I have fully participated in the care of the patient.: Yes I have reviewed all pertinent clinical information, including history, physical exam and plan: Yes
--- NOTE | 2018-07-07 12:32 | CP.PCM.PCO ---
Physician Communication Note - Physician Communication Note Physician Communication Note: tcu eval pending,pt.pos MRSA to leg wound
--- NOTE | 2018-07-07 14:06 | PN ---
DATE: 07/07/2018 SUBJECTIVE: The patient is without complaints. No shortness of breath noted. PHYSICAL EXAMINATION: VITAL SIGNS: Stable. NECK: Negative JVD. LUNGS: Without rales. HEART: S1, S2. EXTREMITIES: Trace edema with bandages and erythema noted in lower extremities. LABORATORY DATA: Hemoglobin is 9.4. Chemistries, BUN and creatinine are unremarkable. Glucose is 127. Echocardiogram reveals good LV function with mild pulmonary hypertension. IMPRESSION: 1. Cellulitis of the lower extremities. 2. Left ventricular hypertrophy, on echocardiogram. 3. Mild pulmonary hypertension. 4. Stable angina. 5. History of percutaneous transluminal coronary angioplasty and stent at [facility]. 6. Diabetes mellitus. 7. History of cerebrovascular accident. 8. History of Parkinson's. PLAN: Given these findings, the patient's cardiac status is stable. We will discontinue telemetry at the patient's request. Richard Dejesus MD
--- NOTE | 2018-07-07 15:56 | CP.PCM.PN ---
Subjective - Date & Time of Evaluation Date of Evaluation: 07/07/18 Time of Evaluation: 09:50 - Subjective Subjective: Comfortable, still with leg pain but a little better, afebrile, no diarrhea or nausea. Objective - Vital Signs/Intake and Output Vital Signs (last 24 hours): Temp Pulse Resp BP Pulse Ox 97.8 F 65 20 140/71 95 07/07/18 08:16 07/07/18 08:16 07/07/18 08:16 07/07/18 08:16 07/07/18 08:16 Intake and Output: 07/07/18 07/07/18 06:59 18:59 Intake Total 2460 Output Total 3500 Balance -1040 - Medications Medications: Current Medications Acetaminophen (Tylenol 325mg Tab) 650 mg PO Q6H PRN PRN Reason: Pain, moderate (4-7) Last Admin: 07/06/18 22:44 Dose: 650 mg Carbidopa/Levodopa (Sinemet) 1 tab PO QID [facility] Last Admin: 07/06/18 21:30 Dose: 1 tab Clotrimazole (Lotrimin 1%) 0 gm TOP BID [facility] Stop: 07/15/18 18:01 Last Admin: 07/06/18 18:21 Dose: 1 applic Daptomycin (Cubicin) 380 mg 4 mg/kg (380 mg) IV Q24H [facility]; Protocol Stop: 07/12/18 09:46 Furosemide (Lasix) 40 mg IVP DAILY [facility] Last Admin: 07/06/18 11:55 Dose: 40 mg Insulin Detemir (Levemir) 7 unit SC Q12 [facility] Last Admin: 07/06/18 21:30 Dose: 7 units Insulin Human Regular (Humulin R Med) 0 units SC ACHS [facility]; Protocol Last Admin: 07/07/18 08:52 Dose: Not Given Lisinopril (Zestril) 5 mg PO DAILY [facility] Last Admin: 07/06/18 12:05 Dose: 5 mg Metformin HCl (Glucophage) 850 mg PO BID [facility] Last Admin: 07/06/18 18:22 Dose: 850 mg Nystatin (Nystop Topical Powder) 0 gm TOP BID [facility] Last Admin: 07/06/18 18:20 Dose: 1 appl Pramipexole Dihydrochloride (Mirapex) 1 mg PO Q12H [facility] Last Admin: 07/06/18 22:46 Dose: 1 mg - Labs Labs: 07/07/18 06:00 07/07/18 06:30 - Constitutional Appears: Chronically Ill - Head Exam Head Exam: NORMAL INSPECTION - ENT Exam ENT Exam: Mucous Membranes Moist - Neck Exam Neck Exam: absent: Meningismus - Respiratory Exam Respiratory Exam: Decreased Breath Sounds - Cardiovascular Exam Cardiovascular Exam: +S1, +S2 - GI/Abdominal Exam GI & Abdominal Exam: Soft. absent: Tenderness Assessment and Plan - Assessment and Plan (Free Text) Plan: Assessment right leg cellulitis with probable PAD, no osteomyelitis on CT leg, growing MRSA from wound cultures history of stasis dermatitis of both lower extremities HTN DM Parkinson's disease morbid obesity with BMI 42 Plan will change antibiotics to Daptomycin and continue to monitor clinically (day 3 of antibiotics) follow up further plans of Podiatry
--- NOTE | 2018-07-07 17:08 | CP.PCM.PCO ---
Physician Communication Note - Physician Communication Note Physician Communication Note: TCU eval pending.
--- NOTE | 2018-07-08 01:54 | CON ---
DATE: 07/07/2018 TIME: 6 p.m. CHIEF COMPLAINT/HISTORY OF PRESENT ILLNESS: Ms. Rivera is a 58-year-old female who was admitted with swelling and progressive stasis changes involving both lower extremities. This has been a recurrent problem related to her body habitus, sedentary lifestyle and Parkinson's disease. Her leg swelling has improved since admission with bedrest and elevation. I was asked to see her concerning her lower extremity arterial disease. She has a history of diabetes and CHF. Her MERLIN/PVR exam is limited by artifact but demonstrates left distal SFA, popliteal and/or trifurcation disease. PHYSICAL EXAMINATION: Her feet are warm and she denies pain distally. She has normal capillary refill. Her femoral pulses are strong. She has a palpable right popliteal pulse. Her left popliteal pulse is absent. Her pedal pulses are absent on the dorsum of the foot. RECOMMENDATIONS: At the present time, I would treat Ms. Rivera's stasis disease and swelling. It has improved with bedrest and elevation. She should be fitted with class I compression stockings that she wears on a daily basis. If she comes to the office, we can measure and obtain the compression stockings for her. At the current time, there is no indication for arterial revascularization. She denies claudication or critical limb ischemia. Richard Hodgson MD MTDEdis
[2018-07-08 07:27] LABS: HEMOGLOBIN 10.2 g/dL (12.0-16.0); MEAN CELL VOLUME 85.2 fl (80.0-105.0); MEAN CORPUSCULAR HEMOGLOBIN 27.9 pg (25.0-35.0); MEAN CORPUSCULAR HGB CONC 32.8 g/dl (31.0-37.0); MEAN PLATELET VOLUME 10.5 fl (7.0-11.0); RBC 3.65 10^6/uL (3.5-6.1); RED CELL DISTRIBUTION WIDTH 14.7 % (11.5-14.5); WHITE BLOOD COUNT 6.8 10^3/uL (4.5-11.0)
[2018-07-08 08:07] LABS: ALBUMIN 3.7 g/dL (3.0-4.8); ALT/SGPT 15 U/L (7-56); AST/SGOT 17 U/L (14-36); BLOOD UREA NITROGEN 21 mg/dL (7-21); CALCIUM 9.3 mg/dL (8.4-10.5); GFR NON-AFRICAN AMERICAN > 60
--- NOTE | 2018-07-08 09:24 | PN ---
DATE: 07/08/2018 SUBJECTIVE: I am hoping to get her to TCU today for continued treatment of her cellulitis of the right leg and physical therapy. She is on daptomycin, insulin, Januvia, Lasix, Levemir Lotrimin cream, Mirapex, nystatin powder, Sinemet, Tylenol and Zestril. OBJECTIVE: VITAL SIGNS: She has a 98 temperature, 65 pulse, 146/68 blood pressure, 18 respiratory rate, 95% O2 sat on room air. HEENT: Head: Atraumatic, normocephalic. HEART: Regular rate. LUNGS: Decreased breath sounds but clear. ABDOMEN: Soft, obese. EXTREMITIES: Wrapped up with cellulitis, it is MRSA in the wound with right leg cellulitis. LABORATORY DATA: She has a 6.8 white count, 10.2 hemoglobin, 31.1 hematocrit with 260 platelets. 139 sodium, potassium 4, BUN is 21, creatinine 0.9, GFR is greater than 60, sugar is 115, calcium is 9.3. Total bili is 1.2, AST is 17, ALT is 15, alk phos 111, total protein 7.2. She has MRSA in the wound, seen by interventional radiologist, Infectious Disease, Podiatry holding for TCU today to continue treatment and care. I will continue aggressive treatment and care and IV antibiotics and physical therapy on Jose Guadalupe Rivera. Hopefully, she could be transferred to the TCU today for further care. Felipe Wetzel DO
--- NOTE | 2018-07-08 11:05 | CP.PCM.PN ---
<Darleen Lara - Last Filed: 07/08/18 11:06> Subjective - Date & Time of Evaluation Date of Evaluation: 07/08/18 Time of Evaluation: 11:02 - Subjective Subjective: Podiatry progress Note: Dr. Chavez/mary 58 year old female with PMHx of Bipolar Disorder, HTN, Hypercholesterolemia, Parkinson's Disease, Peripheral Edema, Pneumonia, Schizophrenia was seen and evaluated concerning redness and swelling to the b/l LE. Patient is AAOx3 and appears in NAD. Admits to pain in the lower extremity. Denies acute overnight events. Objective - Vital Signs/Intake and Output Vital Signs (last 24 hours): Temp Pulse Resp BP Pulse Ox 98 F 65 18 146/68 95 07/08/18 06:00 07/08/18 06:00 07/08/18 06:00 07/08/18 06:00 07/08/18 06:00 Intake and Output: 07/08/18 07/08/18 06:59 18:59 Intake Total 1920 Output Total 3540 Balance -1620 - Medications Medications: Current Medications Acetaminophen (Tylenol 325mg Tab) 650 mg PO Q6H PRN PRN Reason: Pain, moderate (4-7) Last Admin: 07/08/18 02:54 Dose: 650 mg Carbidopa/Levodopa (Sinemet) 1 tab PO QID [facility] Last Admin: 07/07/18 21:42 Dose: 1 tab Clotrimazole (Lotrimin 1%) 0 gm TOP BID [facility] Stop: 07/15/18 18:01 Last Admin: 07/07/18 17:40 Dose: 1 applic Furosemide (Lasix) 40 mg IVP DAILY [facility] Last Admin: 07/07/18 09:41 Dose: 40 mg Daptomycin 380 mg/ Sodium (Chloride) 100 mls @ 200 mls/hr IV Q24H [facility] Stop: 07/12/18 10:01 Last Admin: 07/07/18 11:26 Dose: 200 mls/hr Insulin Detemir (Levemir) 7 unit SC Q12 [facility] Last Admin: 07/07/18 21:51 Dose: 7 units Insulin Human Regular (Humulin R Med) 0 units SC ACHS [facility]; Protocol Last Admin: 07/07/18 21:50 Dose: 2 unit Lisinopril (Zestril) 5 mg PO DAILY [facility] Last Admin: 07/07/18 09:43 Dose: 5 mg Nystatin (Nystop Topical Powder) 0 gm TOP BID [facility] Last Admin: 07/07/18 17:40 Dose: 1 appl Pramipexole Dihydrochloride (Mirapex) 1 mg PO Q12H [facility] Last Admin: 07/08/18 04:46 Dose: Not Given Sitagliptin Phosphate (Januvia) 50 mg PO DAILY [facility] - Labs Labs: 07/08/18 07:00 07/08/18 07:00 - Constitutional Appears: Well, Non-toxic, No Acute Distress - Head Exam Head Exam: ATRAUMATIC, NORMOCEPHALIC - Eye Exam Eye Exam: Normal appearance - ENT Exam ENT Exam: Mucous Membranes Moist - Extremities Exam Additional comments: Bilateral LE exam: dressing dry, clean and intact VASC: DP/PT pulses are palpable 1/4, Cap refill time: < 3 sec to all digits, Te mp gradient: warm to warm from proximal to distal, diffuse non-pitting edema noted on b/l LE distal to the knee joint (R>L), erythema noted to the LE b/L DERM: superficial dry eschars noted diffusly with surrounding cellulitis on left lower extremity with some superficial ulceration anterior aspect of the leg, no active drainage, no malodor, no probe to bone, no tunneling and tracking two lanced blisters noted on the right anterior leg with 100% granular base, no malodor, no drainage, no probe to bone, no tracking or tunneling noted. NEURO: Protective sensation mildly diminished ORTHO: no pain on palpation of the LE, no pain during AROM or PROM of the ankle joint - Neurological Exam Neurological Exam: Alert, Awake Assessment and Plan - Assessment and Plan (Free Text) Assessment: 58 yo female evaluated for b/l LE cellulitis with superficial ulcerations on B/L lE Plan: Patient seen and evaluated Labs, vitals and charts reviewe- afebrile, no leukocytosis B/L LE to be dressed with xeroform DSD applied to LE Lotrisone applied to both legs Continue IV abx as per ID Wound cultures: MRSA CT: No osteo LE arterial: left distal SFA, popliteal, tibial disease. Vasc consult ordered; recs appreciated Patient is stable from podiatry standpoint Will continue to follow patient while in-house <Roseanna Chavez - Last Filed: 07/12/18 16:03> Objective - Vital Signs/Intake and Output Vital Signs (last 24 hours): Temp Pulse Resp BP Pulse Ox 97.7 F 62 20 126/68 98 07/11/18 06:00 07/11/18 06:00 07/11/18 06:00 07/11/18 10:17 07/11/18 06:00 - Labs Labs: 07/11/18 07:00 07/11/18 07:00 Attending/Attestation - Attestation I have personally seen and examined this patient.: Yes I have fully participated in the care of the patient.: Yes I have reviewed all pertinent clinical information, including history, physical exam and plan: Yes
[2018-07-08] MEDS: Insulin Detemir 100 units/ml Vial (Levemir) SC SCH ×2 (11:10→22:03)
[2018-07-08] MEDS: Nystatin 100,000 Units/gm Topical Pow(15 gm) TOP SCH ×2 (11:14→18:03)
[2018-07-08] MEDS: Insulin Reg-MEDIUM-Coverage SC SCH ×4 (11:17→21:57)
[2018-07-08] MEDS: Clotrimazole 1% Cream(30 gm) TOP SCH ×2 (11:19→18:03)
--- NOTE | 2018-07-08 16:33 | CP.PCM.APN ---
Subjective - Date & Time of Evaluation Date of Evaluation: 07/08/18 Time of Evaluation: 12:15 - Subjective Subjective: Patient seen and examined at bedside, observed to be eating lunch, does complain of pain to lower legs upon palpation. Denied fever, chills, denied shortness of breath. Review of Systems - Constitutional Constitutional: As Per HPI - EENT Eyes: absent: As Per HPI, Blind Spots, Blurred Vision, Change in Vision, Decreased Night Vision, Diplopia, Discharge, Dry Eye, Exophthalmos, Floaters, Irritation, Itchy Eyes, Loss of Peripheral Vision, Pain, Photophobia, Requires Corrective Lenses, Sees Flashes, Spots in Vision, Tunnel Vision, Other Visual Disturbances, Loss of Vision, Other Ears: absent: As Per HPI, Decreased Hearing, Ear Discharge, Ear Pain, Tinnitus, Abnormal Hearing, Disequilibrium, Dizziness, Other Nose/Mouth/Throat: absent: As Per HPI, Epistaxis, Nasal Congestion, Nasal Discharge, Nasal Obstruction, Nasal Trauma, Nose Pain, Post Nasal Drip, Sinus Pain, Sinus Pressure, Bleeding Gums, Change in Voice, Dental Pain, Dry Mouth, Dysphagia, Halitosis, Hoarsness, Lip Swelling, Mouth Lesions, Mouth Pain, Odynophagia, Sore Throat, Throat Swelling, Tongue Swelling, Facial Pain, Neck Pain, Neck Mass, Other - Cardiovascular Cardiovascular: absent: As Per HPI, Acrocyanosis, Chest Pain, Chest Pain at Rest, Chest Pain with Activity, Claudication, Diaphoresis, Dyspnea, Dyspnea on Exertion, Edema, Irregular Heart Rhythm, Pain Radiating to Arm/Neck/Jaw, Leg Edema, Leg Ulcers, Lightheadedness, Orthopnea, Palpitations, Paroxysmal N octurnal Dyspnea, Pedal Edema, Radiating Pain, Rapid Heart Rate, Slow Heart Rate, Syncope, Other - Respiratory Respiratory: absent: As Per HPI, Cough, Dyspnea, Hemoptysis, Dyspnea on Exertion, Wheezing, Snoring, Stridor, Pain on Inspiration, Chest Congestion, E xcessive Mucous Production, Change in Mucous Color, Pain with Coughing, Other - Gastrointestinal Gastrointestinal: absent: As Per HPI, Abdominal Pain, Belching, Bloating, Change in Bowel Habits, Change in Stool Character, Coffee Ground Emesis, Constipation, Cramping, Diarrhea, Dyspepsia, Dysphagia, Early Satiety, Excessive Flatus, Fecal Incontinence, Heartburn, Hematemesis, Hematochezia, Loose Stools, Melena, Nausea, Odynophagia, Temesmus, Vomiting, Other - Genitourinary Genitourinary: absent: As Per HPI, Change in Urinary Stream, Difficulty Urinating, Dysuria, Flank Pain, Hematuria, Pyuria, Nocturia, Urinary Incon tinence, Urinary Frequency, Urinary Hesitance, Urinary Urgency, Voiding Freq/Small Amts, Freq UTI, Hx Renal/Bladder Calculi, Hx /Renal Surgery, Bladder Distension, Other - Reproductive: Female Reproductive:Female: absent: As Per HPI, Amenorrhea, Amenorrhea/ Control, Currently Menstual, Cycle <21 Days, Cycle >35 Days, Cycle Variable, Menses 1-7 Days, Menses >/= 8 Days, Menses Variable, Cycle > 4 Weeks Between, No Menses for 6 Months, Heavy Menses, Light Menses, Normal Menses, Spotting Between Cycles, S/P Hysterectomy, Menopausal, Post Menopausal, Premenarche, Abnormal Vaginal Bleeding, Dysmenorrhea, Dyspareunia, Genital Lesions, Genital Pruritis, Pelvic Pain, Prolapse Symptoms, Sexual Dysfunction, Vaginal Discharge, Vaginal Dryness, Vaginal Odor, Vaginal Pruritis, Other - Integumentary Integumentary: Wounds - Neurological Neurological: As Per HPI - Psychiatric Psychiatric: Other - Endocrine Endocrine: absent: As Per HPI, Change in Body Appearance, Change in Libido, Cold Intolorance, Deepening of Voice, Excessive Sweating, Fatigue, Flushing, Heat Intolorance, Increase in Ring/Shoe/Hat Size, Palpitations, Polydipsia, Polyphagia, Polyuria, Other - Hematologic/Lymphatic Hematologic: absent: As Per HPI, Easy Bleeding, Easy Bruising, Lymphadenopathy, Other Objective - Vital Signs/Intake and Output Vital Signs (last 24 hours): Temp Pulse Resp BP Pulse Ox 98 F 65 18 146/68 95 07/08/18 06:00 07/08/18 11:14 07/08/18 06:00 07/08/18 11:14 07/08/18 06:00 Intake and Output: 07/08/18 07/08/18 06:59 18:59 Intake Total 1920 Output Total 3540 Balance -1620 - Medications Medications: Current Medications Acetaminophen (Tylenol 325mg Tab) 650 mg PO Q6H PRN PRN Reason: Pain, moderate (4-7) Last Admin: 07/08/18 11:14 Dose: 650 mg Carbidopa/Levodopa (Sinemet) [address] [facility] Last Admin: 07/08/18 14:35 Dose: 1 tab Clotrimazole (Lotrimin 1%) [address] [facility] Stop: 07/15/18 18:01 Last Admin: 07/08/18 11:19 Dose: 1 applic Furosemide (Lasix) [address] [facility] Last Admin: 07/08/18 11:13 Dose: 40 mg Daptomycin 380 mg/ Sodium (Chloride) 100 mls @ 200 mls/hr IV Q24H [facility] Stop: 07/12/18 10:01 Last Admin: 07/08/18 11:16 Dose: 200 mls/hr Insulin Detemir (Levemir) [address] [facility] Last Admin: 07/08/18 11:10 Dose: 7 units Insulin Human Regular (Humulin R Med) [address] [facility]; Protocol Last Admin: 07/08/18 11:17 Dose: Not Given Lisinopril (Zestril) [address] [facility] Last Admin: 07/08/18 11:14 Dose: 5 mg Nystatin (Nystop Topical Powder) [address] [facility] Last Admin: 07/08/18 11:14 Dose: 1 appl Pramipexole Dihydrochloride (Mirapex) [address] [facility] Last Admin: 07/08/18 11:20 Dose: 1 mg Sitagliptin Phosphate (Januvia) [address] [facility] Last Admin: 07/08/18 11:16 Dose: 50 mg - Labs Labs: 07/08/18 07:00 07/08/18 07:00 - Constitutional Appears: Well - Head Exam Head Exam: NORMOCEPHALIC - Eye Exam Pupil Exam: NORMAL ACCOMODATION - ENT Exam ENT Exam: Mucous Membranes Moist, Normal Exam - Neck Exam Neck Exam: Full ROM - Respiratory Exam Respiratory Exam: Clear to Ausculation Bilateral, NORMAL BREATHING PATTERN - Cardiovascular Exam Cardiovascular Exam: REGULAR RHYTHM, +S1, +S2 - GI/Abdominal Exam GI & Abdominal Exam: Soft - Rectal Exam Rectal Exam: Deferred - Exam Exam: absent: Circumcision, NORMAL INSPECTION, Scrotal Swelling, Testicular Tenderness, Uretheral Discharge, Testicular Vertical Lie, Bladder Distension Speculum exam: absent: Cervical Discharge, Erythema, Foreign Body, Laceration, NORMAL SPECULUM EXAM, Tissue, Vaginal Bleeding, Vaginal Discharge Bimanual exam: absent: Adenexal Mass, Adnexal, Cervical Motion Tendernes, NORMAL BIMANUAL EXAM, Uterine Enlargement, Uterine Tenderness - Extremities Exam Extremities Exam: Pedal Edema - Back Exam Back Exam: NORMAL INSPECTION - Neurological Exam Neurological Exam: Oriented x3 - Psychiatric Exam Psychiatric exam: Flat Affect - Skin Skin Exam: Normal Color, Warm Assessment and Plan - Assessment and Plan (Free Text) Assessment: 57 year old female evaluated for b/l LE cellulitis with superficial ulcerations ,admitted for workup and treatment of cellulitis. Plan: 1. Cellulitis b/l LE, - Wound cx pos. Staph Aureus, Id / sens. pending, continue IV antibiotics, Daptomycin 4-5 more days, continue Lasix IV, dressing changes per podiatry. 2. Weakness, - PT recommends TCU , TCU eval pending. Will continue to monitor clinical status and follow closely.
--- NOTE | 2018-07-08 18:16 | PN ---
DATE: 07/08/2018 CARDIOLOGY FOLLOWUP SUBJECTIVE: The patient is without distress. No shortness of breath. No chest pain. PHYSICAL EXAMINATION: VITAL SIGNS: Blood pressure 146/68, heart rates in the 60s. NECK: Negative JVD. LUNGS: Without rales. HEART: S1, S2. EXTREMITIES: Edema noted. LABORATORY DATA: Hemoglobin is 10.2. Chemistries, BUN and creatinine are unremarkable. IMPRESSION: 1. Cellulitis. 2. Good left ventricular function. 3. Mild pulmonary hypertension. 4. History of coronary artery disease. 5. Diabetes mellitus. 6. History of Parkinson's. PLAN: Given these findings, the patient is hemodynamically stable and is currently on IV antibiotics. The patient is awaiting transfer to [facility] Richard Dejesus MD
--- NOTE | 2018-07-08 20:40 | CP.PCM.PN ---
Subjective - Date & Time of Evaluation Date of Evaluation: 07/08/18 Time of Evaluation: 09:00 - Subjective Subjective: Still with leg pain, no fevers. Objective - Vital Signs/Intake and Output Vital Signs (last 24 hours): Temp Pulse Resp BP Pulse Ox 97.8 F 65 20 140/71 95 07/07/18 08:16 07/07/18 09:43 07/07/18 08:16 07/07/18 09:43 07/07/18 08:16 Intake and Output: 07/07/18 07/07/18 06:59 18:59 Intake Total 2460 Output Total 3500 Balance -1040 - Medications Medications: Current Medications Acetaminophen (Tylenol 325mg Tab) 650 mg PO Q6H PRN PRN Reason: Pain, moderate (4-7) Last Admin: 07/06/18 22:44 Dose: 650 mg Carbidopa/Levodopa (Sinemet) 1 tab PO QID [facility] Last Admin: 07/07/18 13:26 Dose: 1 tab Clotrimazole (Lotrimin 1%) 0 gm TOP BID [facility] Stop: 07/15/18 18:01 Last Admin: 07/07/18 09:43 Dose: 1 applic Furosemide (Lasix) 40 mg IVP DAILY [facility] Last Admin: 07/07/18 09:41 Dose: 40 mg Daptomycin 380 mg/ Sodium (Chloride) 100 mls @ 200 mls/hr IV Q24H [facility] Stop: 07/12/18 10:01 Last Admin: 07/07/18 11:26 Dose: 200 mls/hr Insulin Detemir (Levemir) 7 unit SC Q12 [facility] Last Admin: 07/07/18 09:42 Dose: 7 units Insulin Human Regular (Humulin R Med) 0 units SC ACHS [facility]; Protocol Last Admin: 07/07/18 12:50 Dose: 3 unit Lisinopril (Zestril) 5 mg PO DAILY [facility] Last Admin: 07/07/18 09:43 Dose: 5 mg Metformin HCl (Glucophage) 850 mg PO BID [facility] Last Admin: 07/07/18 09:41 Dose: 850 mg Nystatin (Nystop Topical Powder) 0 gm TOP BID [facility] Last Admin: 07/07/18 09:43 Dose: 1 appl Pramipexole Dihydrochloride (Mirapex) 1 mg PO Q12H [facility] Last Admin: 07/07/18 11:27 Dose: 1 mg - Labs Labs: 07/07/18 06:00 07/07/18 06:30 - Constitutional Appears: Chronically Ill - Head Exam Head Exam: NORMAL INSPECTION - Respiratory Exam Respiratory Exam: Decreased Breath Sounds - Cardiovascular Exam Cardiovascular Exam: +S1, +S2 - GI/Abdominal Exam GI & Abdominal Exam: Soft. absent: Tenderness - Extremities Exam Additional comments: both legs with dressings in place Assessment and Plan - Assessment and Plan (Free Text) Plan: Assessment right leg cellulitis with probable PAD, no osteomyelitis on CT leg, growing MRSA from wound cultures history of stasis dermatitis of both lower extremities HTN DM Parkinson's disease morbid obesity with BMI 42 Plan will change antibiotics to Daptomycin and continue to monitor clinically (day 4 of antibiotics) follow up further plans of Podiatry
[2018-07-09 07:50] LABS: HEMOGLOBIN 10.2 g/dL (12.0-16.0); MEAN CELL VOLUME 84.7 fl (80.0-105.0); MEAN CORPUSCULAR HEMOGLOBIN 27.9 pg (25.0-35.0); MEAN PLATELET VOLUME 11.3 fl (7.0-11.0); RBC 3.65 10^6/uL (3.5-6.1); RED CELL DISTRIBUTION WIDTH 14.8 % (11.5-14.5); WHITE BLOOD COUNT 7.6 10^3/uL (4.5-11.0)
[2018-07-09 08:09] LABS: ALBUMIN 3.7 g/dL (3.0-4.8); ALT/SGPT 13 U/L (7-56); AST/SGOT 28 U/L (14-36); BLOOD UREA NITROGEN 26 mg/dL (7-21); CALCIUM 9.2 mg/dL (8.4-10.5); GFR NON-AFRICAN AMERICAN > 60
[2018-07-09] MEDS: Insulin Reg-MEDIUM-Coverage SC SCH ×4 (08:20→22:10)
[2018-07-09] MEDS: Insulin Detemir 100 units/ml Vial (Levemir) SC SCH ×2 (10:11→22:10)
--- NOTE | 2018-07-09 10:13 | CP.PCM.PN ---
<Mitchell Wu - Last Filed: 07/09/18 10:12> Subjective - Date & Time of Evaluation Date of Evaluation: 07/09/18 Time of Evaluation: 10:12 - Subjective Subjective: Podiatry progress Note: Dr. Chavez 58 year old female with PMHx of Bipolar Disorder, HTN, Hypercholesterolemia, Parkinson's Disease, Peripheral Edema, Pneumonia, Schizophrenia was seen and evaluated concerning redness and swelling to the b/l LE. Patient is AAOx3 and appears in NAD. Admits to pain in the lower extremity. Denies acute overnight events. Objective - Vital Signs/Intake and Output Vital Signs (last 24 hours): Temp Pulse Resp BP Pulse Ox 97.7 F 63 18 141/67 97 07/09/18 06:00 07/09/18 06:00 07/09/18 06:00 07/09/18 06:00 07/09/18 06:00 Intake and Output: 07/09/18 07/09/18 06:59 18:59 Intake Total 240 Output Total 150 Balance 90 - Medications Medications: Current Medications Acetaminophen (Tylenol 325mg Tab) 650 mg PO Q6H PRN PRN Reason: Pain, moderate (4-7) Last Admin: 07/08/18 11:14 Dose: 650 mg Carbidopa/Levodopa (Sinemet) 1 tab PO QID [facility] Last Admin: 07/08/18 21:58 Dose: 1 tab Clotrimazole (Lotrimin 1%) 0 gm TOP BID [facility] Stop: 07/15/18 18:01 Last Admin: 07/08/18 18:03 Dose: 1 applic Furosemide (Lasix) 40 mg IVP DAILY [facility] Last Admin: 07/08/18 11:13 Dose: 40 mg Daptomycin 380 mg/ Sodium (Chloride) 100 mls @ 200 mls/hr IV Q24H [facility] Stop: 07/12/18 10:01 Last Admin: 07/08/18 11:16 Dose: 200 mls/hr Insulin Detemir (Levemir) 7 unit SC Q12 [facility] Last Admin: 07/08/18 22:03 Dose: 7 units Insulin Human Regular (Humulin R Med) 0 units SC ACHS [facility]; Protocol Last Admin: 07/09/18 08:20 Dose: Not Given Lisinopril (Zestril) 5 mg PO DAILY [facility] Last Admin: 07/08/18 11:14 Dose: 5 mg Nystatin (Nystop Topical Powder) 0 gm TOP BID [facility] Last Admin: 07/08/18 18:03 Dose: 1 appl Pramipexole Dihydrochloride (Mirapex) 1 mg PO Q12H [facility] Last Admin: 07/08/18 23:21 Dose: 1 mg Sitagliptin Phosphate (Januvia) 50 mg PO DAILY [facility] Last Admin: 07/08/18 11:16 Dose: 50 mg - Labs Labs: 07/09/18 06:45 07/09/18 06:45 - Constitutional Appears: Well, Non-toxic, No Acute Distress - Head Exam Head Exam: ATRAUMATIC, NORMOCEPHALIC - Extremities Exam Additional comments: VASC: DP/PT pulses are palpable 1/4, Cap refill time: < 3 sec to all digits, Temp gradient: warm to warm from proximal to distal, diffuse non-pitting edema n oted on b/l LE distal to the knee joint (R>L), erythema noted to the LE b/L DERM: superficial dry eschars noted diffusly with surrounding cellulitis on left lower extremity with some superficial ulceration anterior aspect of the leg, no active drainage, no malodor, no probe to bone, no tunneling and tracking two lanced blisters noted on the right anterior leg with 100% granular base, no malodor, no drainage, no probe to bone, no tracking or tunneling noted. NEURO: Protective sensation mildly diminished ORTHO: no pain on palpation of the LE, no pain during AROM or PROM of the ankle joint - Neurological Exam Neurological Exam: Alert, Awake - Psychiatric Exam Psychiatric exam: Normal Affect, Normal Mood Assessment and Plan - Assessment and Plan (Free Text) Assessment: 58 yo female evaluated for b/l LE cellulitis with superficial ulcerations on B/L lE Plan: Patient seen and evaluated Labs, vitals and charts reviewe- afebrile, no leukocytosis B/L LE to be dressed with xeroform DSD applied to LE Lotrisone applied to both legs Continue IV abx as per ID Wound cultures: MRSA CT: No osteo LE arterial: left distal SFA, popliteal, tibial disease. Vasc consult ordered; recs appreciated Patient is stable from podiatry standpoint Will continue to follow patient while in-house <Roseanna Chavez - Last Filed: 07/12/18 15:59> Objective - Vital Signs/Intake and Output Vital Signs (last 24 hours): Temp Pulse Resp BP Pulse Ox 97.7 F 62 20 126/68 98 07/11/18 06:00 07/11/18 06:00 07/11/18 06:00 07/11/18 10:17 07/11/18 06:00 - Labs Labs: 07/11/18 07:00 07/11/18 07:00 Attending/Attestation - Attestation I have personally seen and examined this patient.: Yes I have fully participated in the care of the patient.: Yes I have reviewed all pertinent clinical information, including history, physical exam and plan: Yes
--- NOTE | 2018-07-09 12:44 | PN ---
DATE: 07/09/2018 SUBJECTIVE: She is presently comfortable in bed. Her legs are wrapped up. She has methicillin-resistant Staphylococcus aureus in the gram stain of the wound. The pain is better. The swelling is better. She is eating little bit better. PHYSICAL EXAMINATION: VITAL SIGNS: She has 97.7 temperature, 63 pulse, 141/67 blood pressure, 18 respiratory rate, and 97% O2 saturation on room air. HEENT: Head is atraumatic and normocephalic. HEART: Regular rate. LUNGS: Decreased breath sounds, but clear. ABDOMEN: Soft, obese, and nontender. EXTREMITIES: Less swollen. less red; they are improving, they are bandaged. LABORATORY DATA: She has a 7.6 white count, 10.2 hemoglobin, 30.9 hematocrit with 287 platelets; 136 sodium, potassium 4.1, BUN 26, creatinine 0.9, GFR is greater than 60, sugar is 116, calcium is 9.2, total bili is 1.1, AST is 28, ALT is 13, alk phos 112, and total protein is 7.3. HIV was nonreactive. PLAN: She is being seen by Infectious Disease, Cardiology, and Podiatry. She is currently on daptomycin with aggressive treatment and care. Physical Therapy recommended TCU with daptomycin. I will put a TCU order in and will see if they want to accept her. Continue IV antibiotics. Felipe Wetzel DO MTDD
--- NOTE | 2018-07-09 16:12 | CP.PCM.PN ---
Subjective - Date & Time of Evaluation Date of Evaluation: 07/09/18 Time of Evaluation: 09:35 - Subjective Subjective: Still with pain in the legs but a little less, no fevers, no nausea. Objective - Vital Signs/Intake and Output Vital Signs (last 24 hours): Temp Pulse Resp BP Pulse Ox 98 F 65 18 146/68 95 07/08/18 06:00 07/08/18 11:14 07/08/18 06:00 07/08/18 11:14 07/08/18 06:00 - Medications Medications: Current Medications Acetaminophen (Tylenol 325mg Tab) 650 mg PO Q6H PRN PRN Reason: Pain, moderate (4-7) Last Admin: 07/08/18 11:14 Dose: 650 mg Carbidopa/Levodopa (Sinemet) 1 tab PO QID [facility] Last Admin: 07/08/18 18:02 Dose: 1 tab Clotrimazole (Lotrimin 1%) 0 gm TOP BID [facility] Stop: 07/15/18 18:01 Last Admin: 07/08/18 18:03 Dose: 1 applic Furosemide (Lasix) 40 mg IVP DAILY [facility] Last Admin: 07/08/18 11:13 Dose: 40 mg Daptomycin 380 mg/ Sodium (Chloride) 100 mls @ 200 mls/hr IV Q24H [facility] Stop: 07/12/18 10:01 Last Admin: 07/08/18 11:16 Dose: 200 mls/hr Insulin Detemir (Levemir) 7 unit SC Q12 [facility] Last Admin: 07/08/18 11:10 Dose: 7 units Insulin Human Regular (Humulin R Med) 0 units SC ACHS [facility]; Protocol Last Admin: 07/08/18 18:02 Dose: 1 unit Lisinopril (Zestril) 5 mg PO DAILY [facility] Last Admin: 07/08/18 11:14 Dose: 5 mg Nystatin (Nystop Topical Powder) 0 gm TOP BID [facility] Last Admin: 07/08/18 18:03 Dose: 1 appl Pramipexole Dihydrochloride (Mirapex) 1 mg PO Q12H [facility] Last Admin: 07/08/18 11:20 Dose: 1 mg Sitagliptin Phosphate (Januvia) 50 mg PO DAILY [facility] Last Admin: 07/08/18 11:16 Dose: 50 mg - Labs Labs: 07/08/18 07:00 01/16/19 07:00 - Constitutional Appears: Chronically Ill - Head Exam Head Exam: NORMAL INSPECTION - Respiratory Exam Respiratory Exam: Decreased Breath Sounds - Cardiovascular Exam Cardiovascular Exam: +S1, +S2 - GI/Abdominal Exam GI & Abdominal Exam: Soft. absent: Tenderness Assessment and Plan - Assessment and Plan (Free Text) Plan: Assessment right leg cellulitis with probable PAD, no osteomyelitis on CT leg, growing MRSA from wound cultures history of stasis dermatitis of both lower extremities HTN DM Parkinson's disease morbid obesity with BMI 42 Plan continue Daptomycin and continue to monitor clinically (day 5 of antibiotics) follow up further plans of Podiatry
--- NOTE | 2018-07-09 18:11 | PQF ---
PROVIDER RESPONSE TEXT: Mild pulm htn as per cardiology REVIEWER QUERY TEXT: CHF Acuity and Type Congestive Heart Failure is documented in the Medical Record. Please document the type and acuity (in cludes probable or suspected) Such as: Type: -- Systolic -- Diastolic -- Combined -- Other, please specify Acuity: -- Acute -- Chronic -- Acute on chronic -- Other, please specify Also please document the underlying cause of the CHF (includes probable or suspected) The patient's Clinical Indicators include: Echo shows normal LVF, EF 65%, elevated BNP, negative CXR. Please specify type and acuity of CHF. Query created by: Court Guerrero on 07/07/2018 10:09 AM Electronically signed by: Felipe Wetzel DO 07/09/2018 6:08 PM
[2018-07-10 07:43] LABS: HEMOGLOBIN 10.4 g/dL (12.0-16.0); MEAN CELL VOLUME 85.3 fl (80.0-105.0); MEAN CORPUSCULAR HEMOGLOBIN 27.8 pg (25.0-35.0); MEAN CORPUSCULAR HGB CONC 32.6 g/dl (31.0-37.0); MEAN PLATELET VOLUME 11.1 fl (7.0-11.0); RBC 3.74 10^6/uL (3.5-6.1); RED CELL DISTRIBUTION WIDTH 14.7 % (11.5-14.5); WHITE BLOOD COUNT 7.6 10^3/uL (4.5-11.0)
[2018-07-10 08:06] LABS: ALB/GLOB RATIO 1.1 (1.1-1.8); ALBUMIN 3.7 g/dL (3.0-4.8); ALT/SGPT 18 U/L (7-56); AST/SGOT 16 U/L (14-36); BLOOD UREA NITROGEN 32 mg/dL (7-21); GFR NON-AFRICAN AMERICAN 57
[2018-07-10] MEDS: Insulin Reg-MEDIUM-Coverage SC SCH ×4 (08:29→21:50)
[2018-07-10] MEDS: Insulin Detemir 100 units/ml Vial (Levemir) SC SCH ×2 (09:24→21:54)
[2018-07-10] MEDS: Nystatin 100,000 Units/gm Topical Pow(15 gm) TOP SCH ×2 (09:25→17:10)
[2018-07-10] MEDS: Clotrimazole 1% Cream(30 gm) TOP SCH ×2 (09:25→17:10)
--- NOTE | 2018-07-10 11:53 | CP.PCM.PN ---
<Mitchell Wu - Last Filed: 07/10/18 11:49> Subjective - Date & Time of Evaluation Date of Evaluation: 07/10/18 Time of Evaluation: 11:49 - Subjective Subjective: Podiatry progress Note for Dr. Dickinson 58F seen and evaluated at bedside with Dr. Dickinson. Seen sitting in chair resting comfortably. Admits to pain in the right lower extremity, denies in left. Denies acute overnight events. Denies N/V/F/C/SOB/CP and has no other acute complaints. Objective - Vital Signs/Intake and Output Vital Signs (last 24 hours): Temp Pulse Resp BP Pulse Ox 98.6 F 65 18 120/72 99 07/10/18 06:00 07/10/18 06:00 07/10/18 06:00 07/10/18 09:24 07/10/18 06:00 Intake and Output: 07/10/18 07/10/18 06:59 18:59 Intake Total 380 Output Total 50 Balance 330 - Medications Medications: Current Medications Acetaminophen (Tylenol 325mg Tab) 650 mg PO Q6H PRN PRN Reason: Pain, moderate (4-7) Last Admin: 07/09/18 22:55 Dose: 650 mg Carbidopa/Levodopa (Sinemet) 1 tab PO QID [facility] Last Admin: 07/10/18 09:23 Dose: 1 tab Clotrimazole (Lotrimin 1%) 0 gm TOP BID [facility] Stop: 07/15/18 18:01 Last Admin: 07/10/18 09:25 Dose: 1 applic Furosemide (Lasix) 40 mg IVP DAILY [facility] Last Admin: 07/10/18 09:24 Dose: 40 mg Daptomycin 380 mg/ Sodium (Chloride) 100 mls @ 200 mls/hr IV Q24H [facility] Stop: 07/12/18 10:01 Last Admin: 07/10/18 10:33 Dose: 200 mls/hr Insulin Detemir (Levemir) 7 unit SC Q12 [facility] Last Admin: 07/10/18 09:24 Dose: 7 units Insulin Human Regular (Humulin R Med) 0 units SC ACHS [facility]; Protocol Last Admin: 07/10/18 11:48 Dose: Not Given Lisinopril (Zestril) 5 mg PO DAILY [facility] Last Admin: 07/10/18 09:23 Dose: 5 mg Nystatin (Nystop Topical Powder) 0 gm TOP BID [facility] Last Admin: 07/10/18 09:25 Dose: 1 appl Pramipexole Dihydrochloride (Mirapex) 1 mg PO Q12H [facility] Last Admin: 07/10/18 10:37 Dose: 1 mg Sitagliptin Phosphate (Januvia) 50 mg PO DAILY [facility] Last Admin: 07/10/18 09:24 Dose: 50 mg - Labs Labs: 07/10/18 07:30 07/10/18 07:30 - Constitutional Appears: Non-toxic, No Acute Distress - Head Exam Head Exam: ATRAUMATIC, NORMOCEPHALIC - Extremities Exam Additional comments: LE focused VASC: DP/PT pulses are palpable 1/4, Cap refill time: < 3 sec to all digits, Temp gradient: warm to warm from proximal to distal, diffuse non-pitting edema noted on b/l LE distal to the knee joint (R>L), erythema noted to the LE b/L DERM: superficial dry eschars noted diffusly with surrounding cellulitis on left lower extremity with some superficial ulceration anterior aspect of the leg, no active drainage, no malodor, no probe to bone, no tunneling and tracking two lanced blisters noted on the right anterior leg with 100% granular base, no malodor, no drainage, no probe to bone, no tracking or tunneling noted. NEURO: Protective sensation mildly diminished ORTHO: no pain on palpation of the LE, no pain during AROM or PROM of the ankle joint - Neurological Exam Neurological Exam: Alert, Awake - Psychiatric Exam Psychiatric exam: Normal Affect, Normal Mood Assessment and Plan - Assessment and Plan (Free Text) Assessment: 58F with b/l LE cellulitis with superficial ulcerations on B/L LE Plan: Patient seen and evaluated with Dr. Dickinson Afebrile, absent leukocytosis B/L LE to be dressed with xeroform DSD applied to LE Lotrisone applied to both legs and feet Continue IV abx as per ID Wound cultures: MRSA CT: No osteo LE arterial: left distal SFA, popliteal, tibial disease. Vasc consult ordered; recs appreciated Patient is stable from podiatry standpoint Will continue to follow patient while in-house <John Dickinson - Last Filed: 07/11/18 07:34> Objective - Vital Signs/Intake and Output Vital Signs (last 24 hours): Temp Pulse Resp BP Pulse Ox 98.6 F 65 18 120/72 99 07/10/18 06:00 07/10/18 06:00 07/10/18 06:00 07/10/18 09:24 07/10/18 06:00 - Medications Medications: Current Medications Acetaminophen (Tylenol 325mg Tab) 650 mg PO Q6H PRN PRN Reason: Pain, moderate (4-7) Last Admin: 07/10/18 13:44 Dose: 650 mg Carbidopa/Levodopa (Sinemet) 1 tab PO QID [facility] Last Admin: 07/10/18 21:54 Dose: 1 tab Clotrimazole (Lotrimin 1%) 0 gm TOP BID [facility] Stop: 07/15/18 18:01 Last Admin: 07/10/18 17:10 Dose: Not Given Furosemide (Lasix) 40 mg IVP DAILY [facility] Last Admin: 07/10/18 09:24 Dose: 40 mg Daptomycin 380 mg/ Sodium (Chloride) 100 mls @ 200 mls/hr IV Q24H [facility] Stop: 07/12/18 10:01 Last Admin: 07/10/18 10:33 Dose: 200 mls/hr Insulin Detemir (Levemir) 7 unit SC Q12 [facility] Last Admin: 07/10/18 21:54 Dose: 7 units Insulin Human Regular (Humulin R Med) 0 units SC ACHS [facility]; Protocol Last Admin: 07/10/18 21:50 Dose: Not Given Lisinopril (Zestril) 5 mg PO DAILY [facility] Last Admin: 07/10/18 09:23 Dose: 5 mg Nystatin (Nystop Topical Powder) 0 gm TOP BID [facility] Last Admin: 07/10/18 17:10 Dose: 1 appl Pramipexole Dihydrochloride (Mirapex) 1 mg PO Q12H [facility] Last Admin: 07/10/18 10:37 Dose: 1 mg Sitagliptin Phosphate (Januvia) 50 mg PO DAILY [facility] Last Admin: 07/10/18 09:24 Dose: 50 mg - Labs Labs: 07/10/18 07:30 07/10/18 07:30 Attending/Attestation - Attestation I have personally seen and examined this patient.: Yes I have fully participated in the care of the patient.: Yes I have reviewed all pertinent clinical information, including history, physical exam and plan: Yes
--- NOTE | 2018-07-10 13:01 | CP.PCM.PCO ---
Physician Communication Note - Physician Communication Note Physician Communication Note: pt.cleared for discharge to [facility] patient has copay to meet
--- NOTE | 2018-07-10 14:02 | PN ---
DATE: 07/10/2018 SUBJECTIVE: She is resting comfortably in bed. She is alert. The legs are still bothering her a little bit. She is on daptomycin, insulin, Januvia, Lasix IV, Levemir, Lotrimin, Mirapex, nystatin powder, Sinemet, Tylenol and Zestril. She is eating some, not that comfortable yet. PHYSICAL EXAMINATION: VITAL SIGNS: 98.6 temperature, 65 pulse, 124/72 blood pressure, 18 respiratory rate, 99% O2 sat on room air. HEENT: Head is atraumatic, normocephalic. HEART: Regular rate. LUNGS: Decreased breath sounds but clear. ABDOMEN: Soft, obese. EXTREMITIES: Bandaged, but less swollen. LABORATORY DATA: She has a 7.6 white count, 10.4 hemoglobin, 31.9 hematocrit with 275 platelets. 137 sodium, potassium 4.1, BUN 32, creatinine is 1. Last blood sugar is 134, calcium is 9, total bili is 0.9, AST is 16, ALT is 18, alk phos 112, total protein 7.2. HIV was nonreactive. ASSESSMENT AND PLAN: She is being seen by Infectious Disease. She has right leg cellulitis, methicillin-resistant staphylococcus aureus, hypertension, diabetes, Parkinson's disease, on daptomycin. Continue aggressive treatment and care. Felipe Wetzel DO
--- NOTE | 2018-07-10 16:51 | CP.PCM.PN ---
Subjective - Date & Time of Evaluation Date of Evaluation: 07/10/18 Time of Evaluation: 15:25 - Subjective Subjective: Less pain on the legs, no fevers, no nausea. Objective - Vital Signs/Intake and Output Vital Signs (last 24 hours): Temp Pulse Resp BP Pulse Ox 97.7 F 68 20 143/72 99 07/09/18 14:00 07/09/18 14:00 07/09/18 14:00 07/09/18 14:00 07/09/18 14:00 Intake and Output: 07/09/18 07/09/18 06:59 18:59 Intake Total 240 Output Total 150 Balance 90 - Medications Medications: Current Medications Acetaminophen (Tylenol 325mg Tab) 650 mg PO Q6H PRN PRN Reason: Pain, moderate (4-7) Last Admin: 07/08/18 11:14 Dose: 650 mg Carbidopa/Levodopa (Sinemet) 1 tab PO QID [facility] Last Admin: 07/09/18 14:48 Dose: 1 tab Clotrimazole (Lotrimin 1%) 0 gm TOP BID [facility] Stop: 07/15/18 18:01 Last Admin: 07/08/18 18:03 Dose: 1 applic Furosemide (Lasix) 40 mg IVP DAILY [facility] Last Admin: 07/09/18 10:07 Dose: 40 mg Daptomycin 380 mg/ Sodium (Chloride) 100 mls @ 200 mls/hr IV Q24H [facility] Stop: 07/12/18 10:01 Last Admin: 07/09/18 09:58 Dose: 200 mls/hr Insulin Detemir (Levemir) 7 unit SC Q12 [facility] Last Admin: 07/09/18 10:11 Dose: 7 units Insulin Human Regular (Humulin R Med) 0 units SC ACHS [facility]; Protocol Last Admin: 07/09/18 12:11 Dose: 1 unit Lisinopril (Zestril) 5 mg PO DAILY [facility] Last Admin: 07/09/18 10:08 Dose: 5 mg Nystatin (Nystop Topical Powder) 0 gm TOP BID [facility] Last Admin: 07/08/18 18:03 Dose: 1 appl Pramipexole Dihydrochloride (Mirapex) 1 mg PO Q12H [facility] Last Admin: 07/09/18 11:44 Dose: 1 mg Sitagliptin Phosphate (Januvia) 50 mg PO DAILY [facility] Last Admin: 07/09/18 10:07 Dose: 50 mg - Labs Labs: 07/09/18 06:45 07/09/18 06:45 - Constitutional Appears: Chronically Ill - Head Exam Head Exam: NORMAL INSPECTION - Respiratory Exam Respiratory Exam: Decreased Breath Sounds - Cardiovascular Exam Cardiovascular Exam: +S1, +S2 - GI/Abdominal Exam GI & Abdominal Exam: Soft. absent: Tenderness - Extremities Exam Additional comments: both lower extremities with dressings in place Assessment and Plan - Assessment and Plan (Free Text) Plan: Assessment right leg cellulitis with probable PAD, no osteomyelitis on CT leg, growing MRSA from wound cultures history of stasis dermatitis of both lower extremities HTN DM Parkinson's disease morbid obesity with BMI 42 Plan continue Daptomycin and continue to monitor clinically (day 6 of antibiotics) - target 7-10 days of therapy but can switch to PO antibiotics to complete course of therapy follow up further plans of Podiatry
[2018-07-11 07:52] LABS: MEAN CELL VOLUME 85.8 fl (80.0-105.0); MEAN CORPUSCULAR HEMOGLOBIN 27.9 pg (25.0-35.0); MEAN CORPUSCULAR HGB CONC 32.5 g/dl (31.0-37.0); RBC 3.59 10^6/uL (3.5-6.1); RED CELL DISTRIBUTION WIDTH 14.6 % (11.5-14.5); WHITE BLOOD COUNT 7.9 10^3/uL (4.5-11.0)
[2018-07-11 08:00] LABS: ALB/GLOB RATIO 1.1 (1.1-1.8); ALBUMIN 3.6 g/dL (3.0-4.8); ALT/SGPT 19 U/L (7-56); AST/SGOT 16 U/L (14-36); BLOOD UREA NITROGEN 35 mg/dL (7-21); GFR NON-AFRICAN AMERICAN 57
[2018-07-11 08:39] VITALS: PULSE 62; RESP 20; TEMP 97.7; O2SAT 98
[2018-07-11] MEDS: Insulin Reg-MEDIUM-Coverage SC SCH ×2 (08:48→12:34)
[2018-07-11] MEDS: Nystatin 100,000 Units/gm Topical Pow(15 gm) TOP SCH (10:16)
[2018-07-11] MEDS: Insulin Detemir 100 units/ml Vial (Levemir) SC SCH (10:24)
[2018-07-11 10:25] VITALS: BP 126/68
[2018-07-11] MEDS: Clotrimazole 1% Cream(30 gm) TOP SCH (10:34)
--- NOTE | 2018-07-11 11:34 | CP.PCM.PN ---
<Prabhjot Mcgowan - Last Filed: 07/11/18 11:27> Subjective - Date & Time of Evaluation Date of Evaluation: 07/11/18 Time of Evaluation: 11:28 - Subjective Subjective: Podiatry progress Note for Dr. Dickinson 58 y/o F patient seen and evaluated at bedside with Dr. Dickinson. Patient was resting comfortably in her bed and NAD. Patient denies pain to her B/L LE. She denies any acute overnight events. She denies any overnight N/V/F/C/SOB/CP and has no other acute pedal complaints. Objective - Vital Signs/Intake and Output Vital Signs (last 24 hours): Temp Pulse Resp BP Pulse Ox 97.7 F 62 20 126/68 98 07/11/18 06:00 07/11/18 06:00 07/11/18 06:00 07/11/18 10:17 07/11/18 06:00 - Medications Medications: Current Medications Acetaminophen (Tylenol 325mg Tab) 650 mg PO Q6H PRN PRN Reason: Pain, moderate (4-7) Last Admin: 07/10/18 13:44 Dose: 650 mg Carbidopa/Levodopa (Sinemet) 1 tab PO QID [facility] Last Admin: 07/11/18 10:16 Dose: 1 tab Clotrimazole (Lotrimin 1%) 0 gm TOP BID [facility] Stop: 07/15/18 18:01 Last Admin: 07/11/18 10:34 Dose: 1 applic Furosemide (Lasix) 40 mg IVP DAILY [facility] Last Admin: 07/11/18 10:17 Dose: 40 mg Daptomycin 380 mg/ Sodium (Chloride) 100 mls @ 200 mls/hr IV Q24H [facility] Stop: 07/12/18 10:01 Last Admin: 07/11/18 10:31 Dose: 200 mls/hr Doxycycline Hyclate 100 mg/ (Sodium Chloride) 100 mls @ 100 mls/hr IVPB Q12 [facility]; Protocol Stop: 07/17/18 22:00 Insulin Detemir (Levemir) 7 unit SC Q12 [facility] Last Admin: 07/11/18 10:24 Dose: 7 units Insulin Human Regular (Humulin R Med) 0 units SC ACHS [facility]; Protocol Last Admin: 07/11/18 08:48 Dose: Not Given Lisinopril (Zestril) 5 mg PO DAILY [facility] Last Admin: 07/11/18 10:15 Dose: 5 mg Nystatin (Nystop Topical Powder) 0 gm TOP BID [facility] Last Admin: 07/11/18 10:16 Dose: 1 appl Pramipexole Dihydrochloride (Mirapex) 1 mg PO Q12H [facility] Last Admin: 07/11/18 10:30 Dose: 1 mg Sitagliptin Phosphate (Januvia) 50 mg PO DAILY [facility] Last Admin: 07/11/18 10:15 Dose: 50 mg - Labs Labs: 07/11/18 07:00 07/11/18 07:00 - Constitutional Appears: Well, Non-toxic, No Acute Distress - Head Exam Head Exam: ATRAUMATIC, NORMOCEPHALIC - Extremities Exam Additional comments: B/L LE focused VASC: DP/PT pulses are palpable 1/4, Cap refill time: < 3 sec to all digits, Temp gradient: warm to warm from proximal to distal, diffuse non-pitting edema noted on b/l LE distal to the knee joint (R>L), erythema noted to the LE b/L. NEURO: Protective sensation mildly diminished b/l. DERM: superficial dry eschars noted diffusly with surrounding cellulitis on left lower extremity with some superficial ulceration anterior aspect of the leg with no active drainage, no malodor, no probe to bone, no tunneling and tracking, Two lanced blisters noted on the right anterior leg with 100% granular base, no mal odor, no drainage, no probe to bone, no tracking or tunneling noted. MSK: No pain on palpation of the LE, no pain during A-ROM or P-ROM of the ankle joint. - Neurological Exam Neurological Exam: Alert, Awake, Oriented x3 - Psychiatric Exam Psychiatric exam: Normal Affect, Normal Mood Assessment and Plan - Assessment and Plan (Free Text) Assessment: 58 y/o F patient with b/l LE cellulitis with superficial ulcerations on B/L LE Plan: Patient seen and evaluated with Dr. Dickinson Plan discussed with dr. Dickinson. Chart, labs and vitals reviewed; Afebrile, absent leukocytosis B/L LE =dressed with xeroform, ABD and DSD applied to leg Lotrisone to be applied to both legs and feet. ID [id number] appreciated Continue IV abx as per ID Wound cultures: MRSA CT: No OM LE arterial Duplex: left distal SFA, popliteal, tibial disease. Vasc on-board; recs appreciated Patient is stable from podiatry standpoint Podiatry will continue to follow up the patient while in-house <John Dickinson - Last Filed: 07/12/18 12:53> Objective - Vital Signs/Intake and Output Vital Signs (last 24 hours): Temp Pulse Resp BP Pulse Ox 97.7 F 62 20 126/68 98 07/11/18 06:00 07/11/18 06:00 07/11/18 06:00 07/11/18 10:17 07/11/18 06:00 - Labs Labs: 07/11/18 07:00 07/11/18 07:00 Attending/Attestation - Attestation I have personally seen and examined this patient.: Yes I have fully participated in the care of the patient.: Yes I have reviewed all pertinent clinical information, including history, physical exam and plan: Yes
--- NOTE | 2018-07-11 12:08 | CP.PCM.PN ---
Subjective - Date & Time of Evaluation Date of Evaluation: 07/11/18 Time of Evaluation: 10:10 - Subjective Subjective: Patient is feeling a little better, no fevers, not in distress, less pain in the legs, no diarrhea, no nausea. Objective - Vital Signs/Intake and Output Vital Signs (last 24 hours): Temp Pulse Resp BP Pulse Ox 98.6 F 65 18 120/72 99 07/10/18 06:00 07/10/18 06:00 07/10/18 06:00 07/10/18 09:24 07/10/18 06:00 Intake and Output: 07/10/18 07/10/18 06:59 18:59 Intake Total 380 Output Total 50 Balance 330 - Medications Medications: Current Medications Acetaminophen (Tylenol 325mg Tab) 650 mg PO Q6H PRN PRN Reason: Pain, moderate (4-7) Last Admin: 07/10/18 13:44 Dose: 650 mg Carbidopa/Levodopa (Sinemet) 1 tab PO QID [facility] Last Admin: 07/10/18 13:10 Dose: 1 tab Clotrimazole (Lotrimin 1%) 0 gm TOP BID [facility] Stop: 07/15/18 18:01 Last Admin: 07/10/18 09:25 Dose: 1 applic Furosemide (Lasix) 40 mg IVP DAILY [facility] Last Admin: 07/10/18 09:24 Dose: 40 mg Daptomycin 380 mg/ Sodium (Chloride) 100 mls @ 200 mls/hr IV Q24H [facility] Stop: 07/12/18 10:01 Last Admin: 07/10/18 10:33 Dose: 200 mls/hr Insulin Detemir (Levemir) 7 unit SC Q12 [facility] Last Admin: 07/10/18 09:24 Dose: 7 units Insulin Human Regular (Humulin R Med) 0 units SC ACHS [facility]; Protocol Last Admin: 07/10/18 16:42 Dose: Not Given Lisinopril (Zestril) 5 mg PO DAILY [facility] Last Admin: 07/10/18 09:23 Dose: 5 mg Nystatin (Nystop Topical Powder) 0 gm TOP BID [facility] Last Admin: 07/10/18 09:25 Dose: 1 appl Pramipexole Dihydrochloride (Mirapex) 1 mg PO Q12H [facility] Last Admin: 01/18/19 10:37 Dose: 1 mg Sitagliptin Phosphate (Januvia) 50 mg PO DAILY [facility] Last Admin: 07/10/18 09:24 Dose: 50 mg - Labs Labs: 07/10/18 07:30 07/10/18 07:30 - Constitutional Appears: No Acute Distress, Chronically Ill - Head Exam Head Exam: NORMAL INSPECTION - Respiratory Exam Respiratory Exam: Decreased Breath Sounds - Cardiovascular Exam Cardiovascular Exam: +S1, +S2 - GI/Abdominal Exam GI & Abdominal Exam: Soft. absent: Tenderness - Extremities Exam Additional comments: both legs with dressings in place Assessment and Plan - Assessment and Plan (Free Text) Plan: Assessment right leg cellulitis with probable PAD, no osteomyelitis on CT leg, growing MRSA from wound cultures history of stasis dermatitis of both lower extremities HTN DM Parkinson's disease morbid obesity with BMI 42 Plan continue Daptomycin and continue to monitor clinically (day 7 of antibiotics) - target 7-10 days of therapy follow up further plans of Podiatry
--- NOTE | 2018-07-11 23:23 | DS ---
HISTORY OF PRESENT ILLNESS: Celestino Rivera will be discharged today, moving over to the Transitional Care Unit for physical therapy and further IV antibiotics. She is on daptomycin, she will probably get another 3 days of that before we switch over to probably something like doxycycline as per Infectious Disease, Januvia, Lasix, Levemir Lotrimin cream, Mirapex, nystatin, Sinemet, Tylenol, and Zestril. She also needs a physical therapy to get a more balance before she goes home. She had a cellulitis of the legs, hypertension, diabetes, and Parkinson's. She had MRSA. PHYSICAL EXAMINATION: VITAL SIGNS: She has a 97.7 temperature, 62 pulse, 131/66 blood pressure, 20 respiratory rate, and 98% O2 sat on room air. HEENT: Head is atraumatic and normocephalic. HEART: Regular rate. LUNGS: Clear to auscultation. ABDOMEN: Soft and obese. EXTREMITIES: Wrapped up cellulitis with MRSA. LABORATORY DATA: She has a 7.9 white count, 10 hemoglobin, 30.8 hematocrit with 262 platelets. Sodium 139, potassium 3.9, BUN 35, creatinine 1, GFR is 67, sugar is 107, and calcium is 9. Total bili is 0.9, AST is 16, ALT is 19, alk phos is 109, and total protein is 7.1. HIV was negative. ASSESSMENT AND PLAN: She had methicillin-resistant Staphylococcus aureus on the leg. She will be sent over to the Transitional Care Unit today for further care and treatment before she will go home next week. Felipe Wetzel DO [id number]
== END 2018-07-11 15:39 | DRG 603 ==
LOC: ED 08:57 → ERH 12:11 → 3RNO 17:09 → OBSVTOIN 07-06 08:42 → 5RSO 07-07 22:16
PROVIDERS: ADMIT Family Medicine; ATTEND Family Medicine
DX: L03.115 Cellulitis of right lower limb (principal); Z68.41 Body mass index [BMI] 40.0-44.9, adult; L03.116 Cellulitis of left lower limb; I11.0 Hypertensive heart disease with heart failure; G20 Parkinson's disease; F31.9 Bipolar disorder, unspecified; E86.0 Dehydration; I48.91 Unspecified atrial fibrillation; E11.51 Type 2 diabetes mellitus with diabetic peripheral angiopathy without gangrene; K21.9 Gastro-esophageal reflux disease without esophagitis; I87.8 Other specified disorders of veins; L30.9 Dermatitis, unspecified; E66.01 Morbid (severe) obesity due to excess calories; I50.9 Heart failure, unspecified; I25.118 Atherosclerotic heart disease of native coronary artery with other forms of angina pectoris; F20.9 Schizophrenia, unspecified; I87.2 Venous insufficiency (chronic) (peripheral); Z86.73 Personal history of transient ischemic attack (TIA), and cerebral infarction without residual deficits; I27.20 Pulmonary hypertension, unspecified; D64.9 Anemia, unspecified; E11.69 Type 2 diabetes mellitus with other specified complication; E78.00 Pure hypercholesterolemia, unspecified; Z86.14 Personal history of Methicillin resistant Staphylococcus aureus infection; Z87.01 Personal history of pneumonia (recurrent); Z88.0 Allergy status to penicillin; Z95.5 Presence of coronary angioplasty implant and graft

== ENCOUNTER 2018-07-11 15:22 | Inpatient (IN) | payer OTHER, MEDICAID ==
[2018-07-09 13:54] VITALS: BMI 39.2
[2018-07-11] MEDS: Insulin Reg-MEDIUM-Coverage SC SCH ×2 (18:08→23:22)
[2018-07-11] MEDS: Clotrimazole 1% Top Soln(10 ml) TOP SCH (18:09)
[2018-07-11] MEDS: Nystatin 100,000 Units/gm Topical Pow(15 gm) TOP SCH (18:10)
[2018-07-11] MEDS: Insulin Detemir 100 units/ml Vial (Levemir) SC SCH ×2 (19:24→22:08)
[2018-07-11] MEDS ORDERED: Pneumococcal 23-Valent Vaccine IM ONE (19:42)
[2018-07-11] MEDS ORDERED: Influenza Vaccine 60 mcg/0.5 mL SYR (4YR UP) IM ONE (19:42)
[2018-07-12] MEDS: Insulin Reg-MEDIUM-Coverage SC SCH ×3 (06:46→16:43)
[2018-07-12 08:31] LABS: BASO # 0.07 K/mm3 (0.0-2.0); BASO % 0.9 % (0.0-3.0); EOS # 0.3 (0.0-0.7); EOS % 3.8 % (1.5-5.0); GRAN # 4.29 (1.4-6.5); GRAN % 54.6 % (50.0-68.0); HEMOGLOBIN 10.4 g/dL (12.0-16.0); LYMPH # 2.8 (1.2-3.4); LYMPH % 35.2 % (22.0-35.0); MEAN CELL VOLUME 86.2 fl (80.0-105.0); MEAN CORPUSCULAR HEMOGLOBIN 27.7 pg (25.0-35.0); MEAN CORPUSCULAR HGB CONC 32.1 g/dl (31.0-37.0); MEAN PLATELET VOLUME 11.2 fl (7.0-11.0); MONO # 0.4 (0.1-0.6); MONO % 5.5 % (1.0-6.0); RBC 3.76 10^6/uL (3.5-6.1); RED CELL DISTRIBUTION WIDTH 14.5 % (11.5-14.5); WHITE BLOOD COUNT 7.9 10^3/uL (4.5-11.0)
[2018-07-12] MEDS: Insulin Detemir 100 units/ml Vial (Levemir) SC SCH ×2 (08:41→22:03)
[2018-07-12 09:01] LABS: ALB/GLOB RATIO 1.1 (1.1-1.8); CALCIUM 9.2 mg/dL (8.4-10.5)
[2018-07-12] MEDS: Clotrimazole 1% Top Soln(10 ml) TOP SCH (10:17)
--- NOTE | 2018-07-12 13:06 | CP.PCM.PN ---
<Prabhjot Mcgowan - Last Filed: 07/12/18 13:03> Subjective - Date & Time of Evaluation Date of Evaluation: 07/12/18 Time of Evaluation: 13:03 - Subjective Subjective: Podiatry progress Note for Dr. Dickinson 58 y/o F patient seen and evaluated at bedside in the TCU. Patient was resting comfortably in her bed and NAD. Patient denies pain to her B/L LE. She denies any acute overnight events. She denies any overnight N/V/F/C/SOB/CP and has no other acute pedal complaints. Objective - Vital Signs/Intake and Output Vital Signs (last 24 hours): Temp Pulse Resp BP Pulse Ox 97.3 F L 68 18 109/58 L 98 07/12/18 10:00 07/12/18 10:07 07/12/18 10:00 07/12/18 10:07 07/12/18 10:00 - Medications Medications: Current Medications Acetaminophen (Tylenol 325mg Tab) 650 mg PO Q6H PRN; Protocol PRN Reason: Pain, moderate (4-7) Last Admin: 07/11/18 19:39 Dose: 650 mg Carbidopa/Levodopa (Sinemet) 1 tab PO QID [facility]; Protocol Last Admin: 07/12/18 10:09 Dose: 1 tab Clotrimazole (Lotrimin Af 1%) 0 ml TOP BID [facility] Last Admin: 07/12/18 10:17 Dose: 1 applic Furosemide (Lasix) 40 mg IVP 0600 [facility]; Protocol Last Admin: 07/12/18 05:11 Dose: 40 mg Doxycycline Hyclate 100 mg/ (Sodium Chloride) 100 mls @ 100 mls/hr IVPB 0600,1800 [facility]; Protocol Last Admin: 07/12/18 05:08 Dose: 100 mls/hr Insulin Detemir (Levemir) 7 unit SC [facility]; Protocol Last Admin: 07/12/18 08:41 Dose: 7 units Insulin Human Regular (Humulin R Med) 0 units SC ACHS [facility]; Protocol Last Admin: 07/12/18 11:40 Dose: 3 units Lisinopril (Zestril) 5 mg PO DAILY [facility]; Protocol Last Admin: 07/12/18 10:07 Dose: 5 mg Nystatin (Nystop Topical Powder) 0 gm TOP BID [facility]; Protocol Last Admin: 07/11/18 18:10 Dose: Not Given Pramipexole Dihydrochloride (Mirapex) 1 mg PO 0800,1800 [facility] Last Admin: 07/12/18 10:09 Dose: 1 mg Sitagliptin Phosphate (Januvia) 50 mg PO DAILY [facility] Last Admin: 07/12/18 10:07 Dose: 50 mg - Labs Labs: 07/12/18 08:18 07/12/18 08:18 - Constitutional Appears: Well, Non-toxic, No Acute Distress - Head Exam Head Exam: ATRAUMATIC, NORMOCEPHALIC - Extremities Exam Additional comments: B/L LE focused VASC: DP/PT pulses are palpable 1/4, Cap refill time: < 3 sec to all digits, Temp gradient: warm to warm from proximal to distal, diffuse non-pitting edema noted on b/l LE distal to the knee joint (R>L), erythema noted to the LE b/L. NEURO: Protective sensation mildly diminished b/l. DERM: superficial dry eschars noted diffusly with surrounding cellulitis on left lower extremity with some superficial ulceration anterior aspect of the leg with no active drainage, no malodor, no probe to bone, no tunneling and tracking, Two lanced blisters noted on the right anterior leg with 100% granular base, no malodor, no drainage, no probe to bone, no tracking or tunneling noted. MSK: No pain on palpation of the LE, no pain during A-ROM or P-ROM of the ankle joint. - Neurological Exam Neurological Exam: Alert, Awake, Oriented x3 - Psychiatric Exam Psychiatric exam: Normal Affect, Normal Mood Assessment and Plan - Assessment and Plan (Free Text) Assessment: 58 y/o F patient with b/l LE cellulitis with superficial ulcerations on B/L LE Plan: Patient seen and evaluated at the bedside in the TCU Plan discussed with dr. Dickinson. Chart, labs and vitals reviewed; Afebrile, absent leukocytosis B/L LE dressed with xeroform, ABD and DSD applied to leg Lotrisone to be applied to both legs and feet. ID [id number] appreciated Continue IV abx as per ID Wound cultures: MRSA CT: No OM LE arterial Duplex: left distal SFA, popliteal, tibial disease. Vasc on-board; reccs appreciated Patient is stable from podiatry standpoint Podiatry will continue to follow up the patient while in-house <John Dickinson - Last Filed: 07/14/18 10:16> Objective - Vital Signs/Intake and Output Vital Signs (last 24 hours): Temp Pulse Resp BP Pulse Ox 97.3 F L 64 18 115/43 L 98 07/12/18 10:00 07/13/18 10:46 07/12/18 10:00 07/14/18 05:57 07/12/18 10:00 Intake and Output: 07/14/18 07/14/18 06:59 18:59 Intake Total 380 Output Total 600 Balance -220 - Medications Medications: Current Medications Acetaminophen (Tylenol 325mg Tab) 650 mg PO Q6H PRN; Protocol PRN Reason: Pain, moderate (4-7) Last Admin: 07/13/18 16:19 Dose: 650 mg Aspirin (Aspirin Chewable) 81 mg PO DAILY [facility] Last Admin: 07/13/18 11:00 Dose: 81 mg Carbidopa/Levodopa (Sinemet) 1 tab PO 0800,1200,1600,2000 [facility] Clotrimazole (Lotrimin Af 1%) 0 ml TOP BID [facility] Last Admin: 07/13/18 17:55 Dose: Not Given Furosemide (Lasix) 40 mg IVP 0600 [facility]; Protocol Last Admin: 07/14/18 05:57 Dose: 40 mg Doxycycline Hyclate 100 mg/ (Sodium Chloride) 100 mls @ 100 mls/hr IVPB 0600,1800 [facility]; Protocol Last Admin: 07/14/18 05:10 Dose: 100 mls/hr Insulin Detemir (Levemir) 7 unit SC [facility]; Protocol Last Admin: 07/14/18 06:43 Dose: 7 units Insulin Human Regular (Humulin R Med) 0 units SC [facility]; Protocol Last Admin: 07/14/18 06:43 Dose: 3 units Lisinopril (Zestril) 5 mg PO DAILY [facility]; Protocol Last Admin: 07/13/18 10:46 Dose: 5 mg Nystatin (Nystop Topical Powder) 0 gm TOP BID [facility]; Protocol Last Admin: 07/13/18 17:55 Dose: Not Given Pramipexole Dihydrochloride (Mirapex) 1 mg PO 0800,1800 [facility] Last Admin: 07/14/18 07:45 Dose: 1 mg Sitagliptin Phosphate (Januvia) 50 mg PO DAILY [facility]I - Labs Labs: 07/12/18 08:18 07/12/18 08:18 Attending/Attestation - Attestation I have personally seen and examined this patient.: Yes I have fully participated in the care of the patient.: Yes I have reviewed all pertinent clinical information, including history, physical exam and plan: Yes
--- NOTE | 2018-07-12 13:10 | CP.PCM.CON ---
History of Present Illness - History of Present Illness History of Present Illness: 58 year old female with PMH of HTN, DM, Parkinson's disease, obesity with BMI 39 [place] [facility] of pain and swelling of her legs, especially her right legs, with associated wounds. She was found to have skin and skin s tructure infection, with with wounds growing MRSA, and work up revealed probable peripheral vascular disease. She has been doing well with local wound care and IV antibiotics and is now transferred to [facility] for continued medical care and physical rehab. Infectious Diseases consult is requested to continue her antibiotic therapy. She states her legs are a little less painful, no fever or chills, no nausea or vomiting, no chest pain, no SOB, no headache or dizziness, no abdominal pain, no diarrhea, no dysuria. Review of Systems - Review of Systems All systems: reviewed and no additional remarkable complaints except (as per HPI) Past Patient History - Infectious Disease Hx of Infectious Diseases: None - Past Medical History & Family History Past Medical History?: Yes - Past Social History Smoking Status: Never Smoked - CARDIAC Hx Cardiac Disorders: Yes (CARDIAC STENTS) Hx Congestive Heart Failure: Yes Hx Hypertension: Yes - PULMONARY Hx Pneumonia: Yes - NEUROLOGICAL Hx Parkinson's Disease: Yes - HEENT Hx HEENT Problems: No - RENAL Hx Chronic Kidney Disease: No - ENDOCRINE/METABOLIC Hx Diabetes Mellitus Type 2: Yes - HEMATOLOGICAL/ONCOLOGICAL Hx Blood Disorders: No - INTEGUMENTARY Hx Dermatological Problems: Yes Other/Comment: venous stasis dermatitis - MUSCULOSKELETAL/RHEUMATOLOGICAL Hx Falls: Yes - GASTROINTESTINAL Hx Gastrointestinal Disorders: No - GENITOURINARY/GYNECOLOGICAL Hx Genitourinary Disorders: No Hx Reproductive Disorders: No - PSYCHIATRIC Hx Bipolar Disorder: Yes Hx Schizophrenia: Yes (borderline) Hx Substance Use: No - SURGICAL HISTORY Hx Coronary Stent: Yes Hx Tonsillectomy: Yes - ANESTHESIA Hx Anesthesia: Yes Hx Anesthesia Reactions: No Hx Malignant Hyperthermia: No Meds Allergies/Adverse Reactions: Allergies Allergy/AdvReac Type Severity Reaction Status Date / Time Penicillins Allergy SWELLING Verified 07/11/18 18:19 - Medications Medications: Current Medications Acetaminophen (Tylenol 325mg Tab) 650 mg PO Q6H PRN; Protocol PRN Reason: Pain, moderate (4-7) Last Admin: 07/11/18 19:39 Dose: 650 mg Carbidopa/Levodopa (Sinemet) 1 tab PO QID [facility]; Protocol Last Admin: 07/11/18 18:10 Dose: 1 tab Clotrimazole (Lotrimin Af 1%) 0 ml TOP BID [facility] Last Admin: 07/11/18 18:09 Dose: Not Given Furosemide (Lasix) 40 mg IVP 0600 [facility]; Protocol Doxycycline Hyclate 100 mg/ (Sodium Chloride) 100 mls @ 100 mls/hr IVPB 0600,1800 [facility]; Protocol Insulin Detemir (Levemir) 7 unit SC ACBHS [facility]; Protocol Last Admin: 07/11/18 19:24 Dose: 7 units Insulin Human Regular (Humulin R Med) 0 units SC ACHS [facility]; Protocol Last Admin: 07/11/18 18:08 Dose: 3 units Lisinopril (Zestril) 5 mg PO DAILY [facility]; Protocol Nystatin (Nystop Topical Powder) 0 gm TOP BID [facility]; Protocol Last Admin: 07/11/18 18:10 Dose: Not Given Pramipexole Dihydrochloride (Mirapex) 1 mg PO 0800,1800 [facility] Last Admin: 07/11/18 18:09 Dose: 1 mg Sitagliptin Phosphate (Januvia) 50 mg PO DAILY [facility] Physical Exam - Constitutional Appears: No Acute Distress, Chronically Ill - Head Exam Head Exam: NORMAL INSPECTION - Neck Exam Neck exam: Negative for: Meningismus - Respiratory Exam Respiratory Exam: Decreased Breath Sounds - Cardiovascular Exam Cardiovascular Exam: +S1, +S2 - GI/Abdominal Exam GI & Abdominal Exam: Soft. absent: Tenderness - Extremities Exam Additional comments: both lower extremities with dry dressings in place Results - Vital Signs Recent Vital Signs: Last Vital Signs Temp 98.5 F 07/11/18 19:30 Pulse 65 07/11/18 19:30 Resp 18 07/11/18 19:30 BP 114/59 L 07/11/18 19:30 Pulse Ox - Labs Result Diagrams: 07/12/18 08:18 07/12/18 08:18 Assessment & Plan - Assessment and Plan (Free Text) Plan: Assessment right leg cellulitis with probable PAD, no osteomyelitis on CT leg, growing MRSA from wound cultures history of stasis dermatitis of both lower extremities HTN DM Parkinson's disease morbid obesity with BMI 42 Plan was on Daptomycin and is now on Doxycycline (day 8 of antibiotics) - target up to 10 days of therapy follow up further plans of Podiatry will continue to monitor clinically discussed with Dr. Wetzel
[2018-07-12] MEDS: Nystatin 100,000 Units/gm Topical Pow(15 gm) TOP SCH (14:36)
--- NOTE | 2018-07-12 20:14 | HP ---
DATE OF EXAM: 07/12/2018 HISTORY OF PRESENT ILLNESS: She was in the hospital side. She was transferred over to the Transitional Care Unit. She is a nice 58-year-old white female who I know very well from house calls and admissions to the hospital and she came in with lower extremity redness and swelling. She was on Merrem in the past. The legs were great my last house call another red, inflamed and looking terrible. PAST MEDICAL HISTORY: She has a past medical history of diabetes, AFib, anemia, lower extremity total edema, cellulitis, blisters, ulcers, CHF, hypertension, pneumonia history, Parkinson's, diabetes, venous stasis, dermatitis, falls, osteomyelitis history, GERD, incontinence, schizophrenia, tonsillectomy, and coronary stents. FAMILY HISTORY: Unknown. SOCIAL HISTORY: Nonsmoker. No drinking. No drugs. ALLERGIES: ALLERGIES TO PENICILLIN. MEDICATIONS: She is currently on doxycycline, insulin coverage, Januvia, Lasix 40 mg IV, Levemir, Lotrimin, Mirapex, nystatin powder, Sinemet, Tylenol, and Zestril. REVIEW OF SYSTEMS: She is getting physical therapy. She is tired, little fatigued. No acute vision or hearing changes. No shortness of breath or cough or chest pain or palpitations. No abdominal pain, nausea, vomiting, constipation, or diarrhea. She is moving her bowels well. Bilateral lower extremity cellulitis is improving, skin lesions are getting better. The swelling is getting better. No headache or dizziness. Not anxious. Not depressed. PHYSICAL EXAMINATION VITAL SIGNS: She has 97.3 temperature, 68 pulse, 109/58 blood pressure, 18 respiratory rate, and 98% O2 sats. GENERAL: She is well-appearing, alert and oriented x3, sitting out of bed to chair, understands the situation. HEENT: Head is atraumatic and normocephalic. Extraocular muscles are intact. Pupils equal, reactive to light accommodation. Throat is moist. NECK: Supple. HEART: Regular rate and rhythm. Normal S1 and S2. LUNGS: Decreased breath sounds, clear to auscultation. ABDOMEN: Soft, morbidly obese, nontender. Positive bowel sounds. No guarding, no rebound or CVA tenderness. EXTREMITIES: She has bilateral +2/4 pitting edema with cellulitis which is slowly healing. GCS is 15. NEUROLOGIC: Cranial nerves II-XII grossly intact. Normal speech. Alert and oriented x3. SKIN: Is okay except for the lower extremities and no palpable lymphadenopathy. LYMPHS: Thyroid is midline. LABORATORY DATA: She had some lab tests, 138 sodium, potassium 4, BUN 38, creatinine 1.2, GFR is 46, sugar is 110, calcium 9.2, total bili is 0.88, AST is 18, ALT is 17, alk phos 150, total protein 7.6, albumin is 4. White count 7.9, hemoglobin 10.4, hematocrit 32.4 and platelets 278. IMPRESSION: She has got bilateral lower extremity cellulitis with wounds and congestive heart failure and diabetes. PLAN: She will be followed up with Infectious Disease, Podiatry, And Cardiology. She will have physical therapy, IV antibiotics and hopefully she will improve with physical therapy and her legs will continue to improve. Felipe Wetzel DO
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
[2018-07-13] MEDS: Insulin Reg-MEDIUM-Coverage SC SCH ×4 (02:08→17:48)
[2018-07-13] MEDS: Insulin Detemir 100 units/ml Vial (Levemir) SC SCH ×2 (07:41→22:34)
--- NOTE | 2018-07-13 09:26 | CP.PCM.PN ---
<Mitchell Wu - Last Filed: 07/13/18 09:23> Subjective - Date & Time of Evaluation Date of Evaluation: 07/13/18 Time of Evaluation: 09:24 - Subjective Subjective: Podiatry progress Note for Dr. Chavez 58F seen and evaluated at bedside in the TCU. Patient was resting comfortably in her bed and NAD. Patient denies pain to her B/L LE. She denies any acute overnight events. She denies any overnight N/V/F/C/SOB/CP and has no other acute pedal complaints. Objective - Vital Signs/Intake and Output Vital Signs (last 24 hours): Temp Pulse Resp BP Pulse Ox 97.3 F L 68 18 124/69 98 07/12/18 10:00 07/12/18 10:07 07/12/18 10:00 07/13/18 05:07 07/12/18 10:00 Intake and Output: 07/13/18 07/13/18 06:59 18:59 Intake Total 340 Output Total 600 Balance -260 - Medications Medications: Current Medications Acetaminophen (Tylenol 325mg Tab) 650 mg PO Q6H PRN; Protocol PRN Reason: Pain, moderate (4-7) Last Admin: 07/11/18 19:39 Dose: 650 mg Aspirin (Aspirin Chewable) 81 mg PO DAILY [facility] Last Admin: 07/12/18 14:40 Dose: 81 mg Carbidopa/Levodopa (Sinemet) 1 tab PO QID [facility] Last Admin: 07/13/18 08:23 Dose: 1 tab Clotrimazole (Lotrimin Af 1%) 0 ml TOP BID [facility] Last Admin: 07/12/18 10:17 Dose: 1 applic Furosemide (Lasix) 40 mg IVP 0600 [facility]; Protocol Last Admin: 07/13/18 05:07 Dose: 40 mg Doxycycline Hyclate 100 mg/ (Sodium Chloride) 100 mls @ 100 mls/hr IVPB 0600,1800 [facility]; Protocol Last Admin: 07/13/18 05:07 Dose: 100 mls/hr Insulin Detemir (Levemir) 7 unit SC [facility]; Protocol Last Admin: 07/13/18 07:41 Dose: 7 units Insulin Human Regular (Humulin R Med) 0 units SC [facility]; Protocol Last Admin: 07/13/18 06:57 Dose: 1 units Lisinopril (Zestril) 5 mg PO DAILY [facility]; Protocol Last Admin: 07/12/18 10:07 Dose: 5 mg Nystatin (Nystop Topical Powder) 0 gm TOP BID [facility]; Protocol Last Admin: 07/12/18 14:36 Dose: 1 applic Pramipexole Dihydrochloride (Mirapex) 1 mg PO 0800,1800 [facility] Last Admin: 07/13/18 07:57 Dose: 1 mg Sitagliptin Phosphate (Januvia) 50 mg PO DAILY [facility] Last Admin: 07/12/18 10:07 Dose: 50 mg - Labs Labs: 07/12/18 08:18 07/12/18 08:18 - Constitutional Appears: Well, Non-toxic, No Acute Distress - Head Exam Head Exam: ATRAUMATIC, NORMOCEPHALIC - Extremities Exam Additional comments: B/L LE focused VASC: DP/PT pulses are palpable 1/4, Cap refill time: < 3 sec to all digits, Temp gradient: warm to warm from proximal to distal, diffuse non-pitting edema noted on b/l LE distal to the knee joint (R>L), erythema noted to the LE b/L. NEURO: Protective sensation mildly diminished b/l. DERM: superficial dry eschars noted diffusly with surrounding cellulitis on left lower extremity with some superficial ulceration anterior aspect of the leg with no active drainage, no malodor, no probe to bone, no tunneling and tracking, Two lanced blisters noted on the right anterior leg with 100% granular base, no malodor, no drainage, no probe to bone, no tracking or tunneling noted. MSK: No pain on palpation of the LE, no pain during A-ROM or P-ROM of the ankle joint. - Neurological Exam Neurological Exam: Alert, Awake, Oriented x3 - Psychiatric Exam Psychiatric exam: Normal Affect, Normal Mood Assessment and Plan - Assessment and Plan (Free Text) Assessment: 58F patient with b/l LE cellulitis with superficial ulcerations on B/L LE Plan: Patient seen and evaluated at the bedside in the TCU with Dr. Chavez Afebrile, absent leukocytosis B/L LE dressed with maxorb and optifoam Lotrisone to be applied to both legs and feet Patient can shower as long as dressings are reapplied afterwards when legs are dry ID [id number] appreciated Continue IV abx as per ID Wound cultures: MRSA CT: No OM LE arterial Duplex: left distal SFA, popliteal, tibial disease. Vasc on-board; reccs appreciated Patient is stable from podiatry standpoint Podiatry will continue to follow up the patient while in-house <Roseanna Chavez - Last Filed: 07/19/18 18:58> Objective - Vital Signs/Intake and Output Vital Signs (last 24 hours): Temp Pulse Resp BP Pulse Ox 97.8 F 65 14 113/68 100 07/18/18 16:00 07/18/18 16:00 07/18/18 16:00 07/19/18 09:02 07/18/18 16:00 Intake and Output: 07/19/18 07/19/18 06:59 18:59 Intake Total 400 Output Total 575 Balance -175 - Labs Labs: 07/17/18 07:00 07/17/18 07:00 Attending/Attestation - Attestation I have personally seen and examined this patient.: Yes I have fully participated in the care of the patient.: Yes I have reviewed all pertinent clinical information, including history, physical exam and plan: Yes
[2018-07-13] MEDS: Clotrimazole 1% Top Soln(10 ml) TOP SCH ×2 (10:45→17:55)
[2018-07-13] MEDS: Nystatin 100,000 Units/gm Topical Pow(15 gm) TOP SCH ×2 (10:45→17:55)
--- NOTE | 2018-07-13 11:23 | CP.PCM.PN ---
Subjective - Date & Time of Evaluation Date of Evaluation: 07/13/18 Time of Evaluation: 09:55 - Subjective Subjective: A little less pain in the legs, no fevers. Objective - Vital Signs/Intake and Output Vital Signs (last 24 hours): Temp Pulse Resp BP Pulse Ox 97.3 F L 68 18 109/58 L 98 07/12/18 10:00 07/12/18 10:07 07/12/18 10:00 07/12/18 10:07 07/12/18 10:00 - Medications Medications: Current Medications Acetaminophen (Tylenol 325mg Tab) 650 mg PO Q6H PRN; Protocol PRN Reason: Pain, moderate (4-7) Last Admin: 07/11/18 19:39 Dose: 650 mg Carbidopa/Levodopa (Sinemet) 1 tab PO QID [facility]; Protocol Last Admin: 07/12/18 10:09 Dose: 1 tab Clotrimazole (Lotrimin Af 1%) 0 ml TOP BID [facility] Last Admin: 07/12/18 10:17 Dose: 1 applic Furosemide (Lasix) 40 mg IVP 0600 [facility]; Protocol Last Admin: 07/12/18 05:11 Dose: 40 mg Doxycycline Hyclate 100 mg/ (Sodium Chloride) 100 mls @ 100 mls/hr IVPB 0600,1800 [facility]; Protocol Last Admin: 07/12/18 05:08 Dose: 100 mls/hr Insulin Detemir (Levemir) 7 unit SC [facility]; Protocol Last Admin: 07/12/18 08:41 Dose: 7 units Insulin Human Regular (Humulin R Med) 0 units SC [facility]; Protocol Last Admin: 07/12/18 11:40 Dose: 3 units Lisinopril (Zestril) 5 mg PO DAILY [facility]; Protocol Last Admin: 07/12/18 10:07 Dose: 5 mg Nystatin (Nystop Topical Powder) 0 gm TOP BID [facility]; Protocol Last Admin: 07/11/18 18:10 Dose: Not Given Pramipexole Dihydrochloride (Mirapex) 1 mg PO 0800,1800 [facility] Last Admin: 07/12/18 10:09 Dose: 1 mg Sitagliptin Phosphate (Januvia) 50 mg PO DAILY [facility] Last Admin: 07/12/18 10:07 Dose: 50 mg - Labs Labs: 07/12/18 08:18 07/12/18 08:18 - Constitutional Appears: Chronically Ill - Head Exam Head Exam: NORMAL INSPECTION - Respiratory Exam Respiratory Exam: Decreased Breath Sounds - Cardiovascular Exam Cardiovascular Exam: +S1, +S2 - GI/Abdominal Exam GI & Abdominal Exam: Soft. absent: Tenderness Assessment and Plan - Assessment and Plan (Free Text) Plan: Assessment right leg cellulitis with probable PAD, no osteomyelitis on CT leg, growing MRSA from wound cultures history of stasis dermatitis of both lower extremities HTN DM Parkinson's disease morbid obesity with BMI 42 Plan was on Daptomycin and is now on Doxycycline (day 9 of antibiotics) - target up to 10 days of therapy follow up further plans of Podiatry will continue to monitor clinically discussed with Dr. Wetzel previously
--- NOTE | 2018-07-13 13:20 | PN ---
DATE: 07/13/2018 SUBJECTIVE: I saw Celestino resting comfortably in bed in the TCU. She is in good spirits. She is feeling well. She is doing a little bit better. No complaints. MEDICATIONS: She is on aspirin, doxycycline, insulin, Januvia, Lasix, Levemir, Lotrimin, Mirapex, nystatin, Sinemet, Tylenol, and Zestril. PHYSICAL EXAMINATION: VITAL SIGNS: She has 97.3 temperature, 68 pulse, 124/69 blood pressure, 18 respiratory rate, 90% O2 sat on room air. HEAD: Atraumatic, normocephalic. HEART: Regular rate. LUNGS: Decreased breath sounds, but clear. ABDOMEN: Soft. EXTREMITIES: No edema. LABORATORY DATA: White count 7.9, 10.4 hemoglobin, 32.4 hematocrit with 278 platelets. Sodium 138, potassium 4, BUN 38, creatinine 1.2, GFR is 46, sugar is 179, calcium is 9.2, total bili is 0.8. AST is 18, ALT is 17, alk phos 115, total protein 7.6, albumin is 4. ASSESSMENT AND PLAN: Being seen by Cardiology and by Infectious Disease. Right leg cellulitis improving growing methicillin-resistant Staphylococcus aureus, intravenous antibiotics. I will continue with aggressive treatment and care and physical therapy on Celestino Rivera. We will follow. Felipe Wetzel DO MTDD
--- NOTE | 2018-07-13 15:25 | PN ---
DATE: 07/13/2018 CARDIOLOGY FOLLOWUP SUBJECTIVE: Currently the patient is in the TCU. There are no issues. No chest pain, no shortness of breath. PHYSICAL EXAMINATION: VITAL SIGNS: Blood pressure is 129/70, the heart rate is in the 60s. NECK: Negative JVD. LUNGS: Without rales. HEART: S1, S2. EXTREMITIES: Without change. LABORATORY DATA: Hemoglobin is 10.4. BUN and creatinine of 38 and 1.2. The glucose is 230. IMPRESSION: 1. Stable angina. 2. History of percutaneous transluminal coronary angioplasty and stent. 3. Cellulitis of the lower extremities. 4. History of cardiovascular accident. 5. Parkinsonism. 6. Diabetes mellitus. Given these findings, the patient is currently hemodynamically stable. The patient is on IV antibiotics. We will continue the Lasix. Richard Dejesus MD
[2018-07-14] MEDS: Insulin Reg-MEDIUM-Coverage SC SCH ×5 (02:45→21:35)
[2018-07-14] MEDS: Insulin Detemir 100 units/ml Vial (Levemir) SC SCH ×2 (06:43→21:34)
[2018-07-14] MEDS: Clotrimazole 1% Top Soln(10 ml) TOP SCH ×2 (10:19→16:59)
[2018-07-14] MEDS: Nystatin 100,000 Units/gm Topical Pow(15 gm) TOP SCH ×2 (10:20→16:59)
--- NOTE | 2018-07-14 12:41 | CP.PCM.PN ---
<Mitchell Wu - Last Filed: 07/14/18 12:37> Subjective - Date & Time of Evaluation Date of Evaluation: 07/14/18 Time of Evaluation: 12:37 - Subjective Subjective: Podiatry progress Note for Dr. Dickinson 58F seen and evaluated at bedside in the TCU. Patients is at bedside. Patient was resting comfortably in her bed and NAD. Patient denies pain to her B/L LE. She denies any acute overnight events. She denies any overnight N/V/F/C/SOB/CP and has no other acute pedal complaints. Objective - Vital Signs/Intake and Output Vital Signs (last 24 hours): Temp Pulse Resp BP Pulse Ox 97.3 F L 119 H 18 143/72 98 07/12/18 10:00 07/14/18 10:20 07/12/18 10:00 07/14/18 10:20 07/12/18 10:00 Intake and Output: 07/14/18 07/14/18 06:59 18:59 Intake Total 380 Output Total 600 Balance -220 - Medications Medications: Current Medications Acetaminophen (Tylenol 325mg Tab) 650 mg PO Q6H PRN; Protocol PRN Reason: Pain, moderate (4-7) Last Admin: 07/13/18 16:19 Dose: 650 mg Aspirin (Aspirin Chewable) 81 mg PO DAILY [facility] Last Admin: 07/14/18 10:20 Dose: 81 mg Carbidopa/Levodopa (Sinemet) 1 tab PO 0800,1200,1600,2000 [facility] Last Admin: 07/14/18 12:09 Dose: 1 tab Clotrimazole (Lotrimin Af 1%) 0 ml TOP BID [facility] Last Admin: 07/14/18 10:19 Dose: 1 applic Furosemide (Lasix) 40 mg IVP 0600 [facility]; Protocol Last Admin: 07/14/18 05:57 Dose: 40 mg Doxycycline Hyclate 100 mg/ (Sodium Chloride) 100 mls @ 100 mls/hr IVPB 0600,1800 [facility]; Protocol Last Admin: 07/14/18 05:10 Dose: 100 mls/hr Insulin Detemir (Levemir) 7 unit SC ACS [facility]; Protocol Last Admin: 07/14/18 06:43 Dose: 7 units Insulin Human Regular (Humulin R Med) 0 units SC [facility]; Protocol Last Admin: 07/14/18 12:09 Dose: 1 units Lisinopril (Zestril) 5 mg PO DAILY [facility]; Protocol Last Admin: 07/14/18 10:20 Dose: 5 mg Nystatin (Nystop Topical Powder) 0 gm TOP BID [facility]; Protocol Last Admin: 07/14/18 10:20 Dose: 1 applic Pramipexole Dihydrochloride (Mirapex) 1 mg PO 0800,1800 [facility] Last Admin: 07/14/18 07:45 Dose: 1 mg Sitagliptin Phosphate (Januvia) 50 mg PO DAILY [facility] Last Admin: 07/14/18 10:20 Dose: 50 mg - Labs Labs: 07/12/18 08:18 07/12/18 08:18 - Constitutional Appears: Well, Non-toxic, No Acute Distress - Head Exam Head Exam: ATRAUMATIC, NORMOCEPHALIC - Extremities Exam Additional comments: LE focused VASC: DP/PT pulses are palpable 1/4, Cap refill time: < 3 sec to all digits, Temp gradient: warm to warm from proximal to distal, diffuse non-pitting edema noted on b/l LE distal to the knee joint (R>L), erythema noted to the LE b/L. NEURO: Protective sensation mildly diminished b/l. DERM: superficial dry eschars noted diffusly with surrounding cellulitis on left lower extremity with some superficial ulceration anterior aspect of the leg with no active drainage, no malodor, no probe to bone, no tunneling and tracking, Two lanced blisters noted on the right anterior leg with 100% granular base, no malodor, no drainage, no probe to bone, no tracking or tunneling noted. MSK: No pain on palpation of the LE, no pain during A-ROM or P-ROM of the ankle joint. - Neurological Exam Neurological Exam: Alert, Awake, Oriented x3 - Psychiatric Exam Psychiatric exam: Normal Affect, Normal Mood Assessment and Plan - Assessment and Plan (Free Text) Assessment: 58F patient with b/l LE superficial ulcerations on B/L LE, cellulitis resolved Plan: Patient seen and evaluated at the bedside in the TCU with Dr. Dickinson Afebrile, absent leukocytosis B/L LE dressed with maxorb and optifoam Lotrisone to be applied to both legs and feet Patient can shower as long as dressings are reapplied afterwards when legs are dry ID [id number] appreciated Continue IV abx as per ID Wound cultures: MRSA (07/05) CT: No OM LE arterial Duplex: left distal SFA, popliteal, tibial disease. Vasc on-board; reccs appreciated Patient is stable from podiatry standpoint Podiatry will continue to follow up the patient while in-house <John Dickinson - Last Filed: 07/14/18 17:33> Objective - Vital Signs/Intake and Output Vital Signs (last 24 hours): Temp Pulse Resp BP Pulse Ox 97.7 F 67 18 117/61 100 07/14/18 16:00 07/14/18 16:00 07/14/18 16:00 07/14/18 16:00 07/14/18 16:00 Intake and Output: 07/14/18 07/14/18 06:59 18:59 Intake Total 380 Output Total 600 Balance -220 - Medications Medications: Current Medications Acetaminophen (Tylenol 325mg Tab) 650 mg PO Q6H PRN; Protocol PRN Reason: Pain, moderate (4-7) Last Admin: 07/13/18 16:19 Dose: 650 mg Aspirin (Aspirin Chewable) 81 mg PO DAILY [facility] Last Admin: 07/14/18 10:20 Dose: 81 mg Carbidopa/Levodopa (Sinemet) 1 tab PO 0800,1200,1600,2000 [facility] Last Admin: 07/14/18 16:50 Dose: 1 tab Clotrimazole (Lotrimin Af 1%) 0 ml TOP BID [facility] Last Admin: 07/14/18 16:59 Dose: 1 applic Furosemide (Lasix) 40 mg IVP 0600 [facility]; Protocol Last Admin: 07/14/18 05:57 Dose: 40 mg Doxycycline Hyclate 100 mg/ (Sodium Chloride) 100 mls @ 100 mls/hr IVPB 0600,1800 [facility]; Protocol Last Admin: 07/14/18 17:00 Dose: 100 mls/hr Insulin Detemir (Levemir) 7 unit SC [facility]; Protocol Last Admin: 07/14/18 06:43 Dose: 7 units Insulin Human Regular (Humulin R Med) 0 units SC [facility]; Protocol Last Admin: 07/14/18 16:51 Dose: 1 units Lisinopril (Zestril) 5 mg PO DAILY [facility]; Protocol Last Admin: 07/14/18 10:20 Dose: 5 mg Nystatin (Nystop Topical Powder) 0 gm TOP BID [facility]; Protocol Last Admin: 07/14/18 16:59 Dose: 1 applic Pramipexole Dihydrochloride (Mirapex) 1 mg PO 0800,1800 [facility] Last Admin: 07/14/18 16:59 Dose: 1 mg Sitagliptin Phosphate (Januvia) 50 mg PO DAILY [facility] Last Admin: 07/14/18 10:20 Dose: 50 mg - Labs Labs: 07/12/18 08:18 07/12/18 08:18 Attending/Attestation - Attestation I have personally seen and examined this patient.: Yes I have fully participated in the care of the patient.: Yes I have reviewed all pertinent clinical information, including history, physical exam and plan: Yes
--- NOTE | 2018-07-14 12:50 | PN ---
DATE: 07/14/2018 SUBJECTIVE: I saw her in the transitional care unit. She is resting comfortably in bed. She is trying to eat well. She is trying to do physical therapy and needs to get out of bed everyday, but she is definitely improving with her leg cellulitis and the swelling. PHYSICAL EXAMINATION: VITAL SIGNS: She has 97.3 temperature, 68 pulse, 124/69 blood pressure, 18 respiratory rate, 90% O2 sat on room air. HEENT: Atraumatic, normocephalic. HEART: Regular rate. LUNGS: Decreased breath sounds, but clear. ABDOMEN: Soft, obese, nontender. EXTREMITIES: Not edematous. The bandage less reddened. LABORATORY DATA: She has 7.9 white count, 10.4 hemoglobin, 32.4 hematocrit with 78 platelets. Last blood sugar was 202, they have been above 200. I will increase her Januvia to 100 mg. She has 138 sodium, potassium 4, BUN 38, creatinine 1.2, GFR is 46, sugar is 110. AST is 18, ALT is 17, alk phos 115. ASSESSMENT AND PLAN: I increased her Januvia. I ordered labs for tomorrow. Need to get her out of bed to chair. She is being seen by Cardiology, Infectious Disease, and Podiatry. We will continue aggressive treatment and care and physical therapy. Felipe Wetzel DO MTDD
--- NOTE | 2018-07-14 13:22 | CP.PCM.PN ---
Subjective - Date & Time of Evaluation Date of Evaluation: 07/14/18 Time of Evaluation: 11:10 - Subjective Subjective: No fevers, non-toxic. Objective - Vital Signs/Intake and Output Vital Signs (last 24 hours): Temp Pulse Resp BP Pulse Ox 97.3 F L 64 18 129/70 98 07/12/18 10:00 07/13/18 10:46 07/12/18 10:00 07/13/18 10:46 07/12/18 10:00 Intake and Output: 07/13/18 07/13/18 06:59 18:59 Intake Total 340 Output Total 600 Balance -260 - Medications Medications: Current Medications Acetaminophen (Tylenol 325mg Tab) 650 mg PO Q6H PRN; Protocol PRN Reason: Pain, moderate (4-7) Last Admin: 07/11/18 19:39 Dose: 650 mg Aspirin (Aspirin Chewable) 81 mg PO DAILY [facility] Last Admin: 07/13/18 11:00 Dose: 81 mg Carbidopa/Levodopa (Sinemet) 1 tab PO QID [facility] Last Admin: 07/13/18 10:45 Dose: Not Given Clotrimazole (Lotrimin Af 1%) 0 ml TOP BID [facility] Last Admin: 07/13/18 10:45 Dose: 1 applic Furosemide (Lasix) 40 mg IVP 0600 [facility]; Protocol Last Admin: 07/13/18 05:07 Dose: 40 mg Doxycycline Hyclate 100 mg/ (Sodium Chloride) 100 mls @ 100 mls/hr IVPB 0600,1800 [facility]; Protocol Last Admin: 07/13/18 05:07 Dose: 100 mls/hr Insulin Detemir (Levemir) 7 unit SC [facility]; Protocol Last Admin: 07/13/18 07:41 Dose: 7 units Insulin Human Regular (Humulin R Med) [address] [facility]; Protocol Last Admin: 07/13/18 06:57 Dose: 1 units Lisinopril (Zestril) 5 mg PO DAILY [facility]; Protocol Last Admin: 07/13/18 10:46 Dose: 5 mg Nystatin (Nystop Topical Powder) 0 gm TOP BID [facility]; Protocol Last Admin: 07/13/18 10:45 Dose: 1 applic Pramipexole Dihydrochloride (Mirapex) 1 mg PO 0800,1800 [facility] Last Admin: 07/13/18 07:57 Dose: 1 mg Sitagliptin Phosphate (Januvia) 50 mg PO DAILY [facility] Last Admin: 07/13/18 10:45 Dose: 50 mg - Labs Labs: 07/12/18 08:18 07/12/18 08:18 - Constitutional Appears: Chronically Ill - Head Exam Head Exam: NORMAL INSPECTION - Respiratory Exam Respiratory Exam: Decreased Breath Sounds - Cardiovascular Exam Cardiovascular Exam: +S1, +S2 - GI/Abdominal Exam GI & Abdominal Exam: Soft. absent: Tenderness - Extremities Exam Additional comments: both legs with dressings in place Assessment and Plan - Assessment and Plan (Free Text) Plan: Assessment right leg cellulitis with probable PAD, no osteomyelitis on CT leg, growing MRSA from wound cultures history of stasis dermatitis of both lower extremities HTN DM Parkinson's disease morbid obesity with BMI 42 Plan was on Daptomycin and is now on Doxycycline (day 10 of antibiotics) - target up to 10 days of therapy follow up further plans of Podiatry will continue to monitor clinically discussed with Dr. Wetzel previously
[2018-07-15] MEDS: Insulin Detemir 100 units/ml Vial (Levemir) SC SCH ×2 (07:05→22:21)
[2018-07-15] MEDS: Insulin Reg-MEDIUM-Coverage SC SCH ×4 (07:06→22:21)
[2018-07-15 07:15] LABS: HEMOGLOBIN 9.8 g/dL (12.0-16.0); MEAN CELL VOLUME 85.4 fl (80.0-105.0); MEAN CORPUSCULAR HEMOGLOBIN 27.5 pg (25.0-35.0); MEAN CORPUSCULAR HGB CONC 32.1 g/dl (31.0-37.0); MEAN PLATELET VOLUME 10.8 fl (7.0-11.0); RBC 3.57 10^6/uL (3.5-6.1); RED CELL DISTRIBUTION WIDTH 14.4 % (11.5-14.5); WHITE BLOOD COUNT 7.9 10^3/uL (4.5-11.0)
[2018-07-15 07:30] LABS: ALB/GLOB RATIO 1.1 (1.1-1.8); ALBUMIN 3.7 g/dL (3.0-4.8); ALT/SGPT 18 U/L (7-56); AST/SGOT 23 U/L (14-36); BLOOD UREA NITROGEN 46 mg/dL (7-21); CALCIUM 8.9 mg/dL (8.4-10.5); GFR NON-AFRICAN AMERICAN 51
[2018-07-15] MEDS: Nystatin 100,000 Units/gm Topical Pow(15 gm) TOP SCH ×2 (09:17→17:06)
[2018-07-15] MEDS: Clotrimazole 1% Top Soln(10 ml) TOP SCH ×2 (09:17→17:06)
--- NOTE | 2018-07-15 10:40 | CP.PCM.PN ---
<Mitchell Wu - Last Filed: 07/15/18 10:35> Subjective - Date & Time of Evaluation Date of Evaluation: 07/15/18 Time of Evaluation: 10:35 - Subjective Subjective: Podiatry progress Note for Dr. Chavez 58F seen and evaluated at bedside in the TCU with Dr. Chavez. Patient in chair and denies pain to her B/L LE. She denies any acute overnight events. She denies any overnight N/V/F/C/SOB/CP and has no other acute pedal complaints. Objective - Vital Signs/Intake and Output Vital Signs (last 24 hours): Temp Pulse Resp BP Pulse Ox 97.7 F 67 18 91/51 L 100 07/14/18 16:00 07/14/18 16:00 07/14/18 16:00 07/15/18 09:18 07/14/18 16:00 - Medications Medications: Current Medications Acetaminophen (Tylenol 325mg Tab) 650 mg PO Q6H PRN; Protocol PRN Reason: Pain, moderate (4-7) Last Admin: 07/13/18 16:19 Dose: 650 mg Aspirin (Aspirin Chewable) 81 mg PO DAILY [facility] Last Admin: 07/15/18 09:18 Dose: 81 mg Carbidopa/Levodopa (Sinemet) 1 tab PO 0800,1200,1600,2000 [facility] Last Admin: 07/15/18 07:37 Dose: 1 tab Clotrimazole (Lotrimin Af 1%) 0 ml TOP BID [facility] Last Admin: 07/15/18 09:17 Dose: 1 applic Furosemide (Lasix) 40 mg IVP 0600 [facility]; Protocol Last Admin: 07/14/18 05:57 Dose: 40 mg Insulin Detemir (Levemir) 7 unit SC [facility]; Protocol Last Admin: 07/15/18 07:05 Dose: 7 units Insulin Human Regular (Humulin R Med) 0 units SC [facility]; Protocol Last Admin: 07/15/18 07:06 Dose: 3 units Lisinopril (Zestril) 5 mg PO DAILY [facility]; Protocol Last Admin: 07/15/18 09:18 Dose: Not Given Nystatin (Nystop Topical Powder) 0 gm TOP BID [facility]; Protocol Last Admin: 07/15/18 09:17 Dose: 1 applic Pramipexole Dihydrochloride (Mirapex) 1 mg PO 0800,1800 [facility] Last Admin: 07/15/18 07:37 Dose: 1 mg Sitagliptin Phosphate (Januvia) 50 mg PO DAILY [facility] Last Admin: 07/15/18 09:17 Dose: 50 mg - Labs Labs: 07/15/18 06:40 07/15/18 06:40 - Constitutional Appears: Well, Non-toxic, No Acute Distress - Head Exam Head Exam: ATRAUMATIC, NORMOCEPHALIC - Extremities Exam Additional comments: LE focused VASC: DP/PT pulses are palpable 1/4, Cap refill time: < 3 sec to all digits, Temp gradient: warm to warm from proximal to distal, diffuse non-pitting edema noted on b/l LE distal to the knee joint (R>L), erythema noted to the LE b/l NEURO: Protective sensation mildly diminished b/l DERM: superficial dry eschars noted diffusly with surrounding cellulitis on left lower extremity with some superficial ulceration anterior aspect of the leg with no active drainage, no malodor, no probe to bone, no tunneling and tracking, Two lanced blisters noted on the right anterior leg with 100% granular base, no malodor, no drainage, no probe to bone, no tracking or tunneling noted - improved, decreased size, skin islands forming MSK: No pain on palpation of the LE, no pain during A-ROM or P-ROM of the ankle joint - Neurological Exam Neurological Exam: Alert, Awake, Oriented x3 - Psychiatric Exam Psychiatric exam: Normal Affect, Normal Mood Assessment and Plan - Assessment and Plan (Free Text) Assessment: 58F with b/l LE superficial ulcerations on B/L LE, cellulitis resolved Plan: Patient seen and evaluated at the bedside in the TCU with Dr. Chavez Afebrile, absent leukocytosis LLE has no open lesions or wounds, RLE wound cleansed with saline and dressed with maxorb and optifoam Tubigrip applied to b/l LE, can take down at night to allow exposure to air for aid in healing Patient can shower as long as dressings are reapplied afterwards when legs are dry ID [id number] appreciated Continue IV abx as per ID Wound cultures: MRSA (07/05) CT: No OM LE arterial Duplex: left distal SFA, popliteal, tibial disease. Vasc on-board; reccs appreciated Patient is stable from podiatry standpoint Podiatry will continue to follow up the patient while in-house <Roseanna Chavez - Last Filed: 07/19/18 18:55> Objective - Vital Signs/Intake and Output Vital Signs (last 24 hours): Temp Pulse Resp BP Pulse Ox 97.8 F 65 14 113/68 100 07/18/18 16:00 07/18/18 16:00 07/18/18 16:00 07/19/18 09:02 07/18/18 16:00 Intake and Output: 07/19/18 07/19/18 06:59 18:59 Intake Total 400 Output Total 575 Balance -175 - Labs Labs: 07/17/18 07:00 07/17/18 07:00 Attending/Attestation - Attestation I have personally seen and examined this patient.: Yes I have fully participated in the care of the patient.: Yes I have reviewed all pertinent clinical information, including history, physical exam and plan: Yes
--- NOTE | 2018-07-15 15:13 | PN ---
DATE: 07/15/2018 SUBJECTIVE: Celestino was resting comfortably in bed in the transitional care unit. She is in good spirits. She is eating her breakfast. She is trying in physical therapy. She has taken her medications. She is on aspirin, doxycycline, Januvia, Lasix, Levemir, Lotrimin, Mirapex, nystatin, Sinemet, Tylenol and Zestril. PHYSICAL EXAMINATION: VITAL SIGNS: 97.7 temp, 67 pulse, 117/61 blood pressure, 18 respiratory rate, 100% O2 sat. HEENT: Head is atraumatic, normocephalic. HEART: Regular rate. LUNGS: Decreased breath sounds but clear. ABDOMEN: Soft, obese. EXTREMITIES: Wrapped up but doing well. LABORATORY DATA: 7.9 white count, 9.8 hemoglobin, 30.5 hematocrit with 255 platelets. 138 sodium, potassium 4.2, BUN 46, creatinine 1.1, GFR 51, sugar is 207, calcium 8.9. Total bili is 0.5, AST is 23, ALT is 18, alk phos 114. ASSESSMENT AND PLAN: Right leg cellulitis, history of stasis dermatitis, hypertension, diabetes, Parkinson's disease. Continue aggressive treatment and care in the TCU with physical therapy, will check on her labs tomorrow. Felipe Wetzel DO
--- NOTE | 2018-07-15 15:56 | CP.PCM.PN ---
Subjective - Date & Time of Evaluation Date of Evaluation: 07/15/18 Time of Evaluation: 09:30 - Subjective Subjective: Comfortable, less pain in the legs, no fevers. Objective - Vital Signs/Intake and Output Vital Signs (last 24 hours): Temp Pulse Resp BP Pulse Ox 97.3 F L 119 H 18 143/72 98 07/12/18 10:00 07/14/18 10:20 07/12/18 10:00 07/14/18 10:20 07/12/18 10:00 Intake and Output: 07/14/18 07/14/18 06:59 18:59 Intake Total 380 Output Total 600 Balance -220 - Medications Medications: Current Medications Acetaminophen (Tylenol 325mg Tab) 650 mg PO Q6H PRN; Protocol PRN Reason: Pain, moderate (4-7) Last Admin: 07/13/18 16:19 Dose: 650 mg Aspirin (Aspirin Chewable) 81 mg PO DAILY [facility] Last Admin: 07/14/18 10:20 Dose: 81 mg Carbidopa/Levodopa (Sinemet) 1 tab PO 0800,1200,1600,2000 [facility] Last Admin: 07/14/18 12:09 Dose: 1 tab Clotrimazole (Lotrimin Af 1%) 0 ml TOP BID [facility] Last Admin: 07/14/18 10:19 Dose: 1 applic Furosemide (Lasix) 40 mg IVP 0600 [facility]; Protocol Last Admin: 07/14/18 05:57 Dose: 40 mg Doxycycline Hyclate 100 mg/ (Sodium Chloride) 100 mls @ 100 mls/hr IVPB 0600,1800 [facility]; Protocol Last Admin: 07/14/18 05:10 Dose: 100 mls/hr Insulin Detemir (Levemir) 7 unit SC [facility]; Protocol Last Admin: 07/14/18 06:43 Dose: 7 units Insulin Human Regular (Humulin R Med) [address] [facility]; Protocol Last Admin: 07/14/18 12:09 Dose: 1 units Lisinopril (Zestril) 5 mg PO DAILY [facility]; Protocol Last Admin: 07/14/18 10:20 Dose: 5 mg Nystatin (Nystop Topical Powder) 0 gm TOP BID [facility]; Protocol Last Admin: 07/14/18 10:20 Dose: 1 applic Pramipexole Dihydrochloride (Mirapex) 1 mg PO 0800,1800 [facility] Last Admin: 07/14/18 07:45 Dose: 1 mg Sitagliptin Phosphate (Januvia) 50 mg PO DAILY [facility] Last Admin: 07/14/18 10:20 Dose: 50 mg - Labs Labs: 07/12/18 08:18 07/12/18 08:18 - Constitutional Appears: Chronically Ill - Head Exam Head Exam: NORMAL INSPECTION - Respiratory Exam Respiratory Exam: Decreased Breath Sounds - Cardiovascular Exam Cardiovascular Exam: +S1, +S2 - GI/Abdominal Exam GI & Abdominal Exam: Soft. absent: Tenderness Assessment and Plan - Assessment and Plan (Free Text) Plan: Assessment right leg cellulitis with probable PAD, no osteomyelitis on CT leg, growing MRSA from wound cultures history of stasis dermatitis of both lower extremities HTN DM Parkinson's disease morbid obesity with BMI 42 Plan has had 10 days of antibiotics - we can d/c and observe follow up further plans of Podiatry will continue to monitor clinically discussed with Dr. Wetzel previously
[2018-07-16] MEDS: Insulin Reg-MEDIUM-Coverage SC SCH ×4 (06:36→22:13)
[2018-07-16 06:52] LABS: HEMOGLOBIN 9.9 g/dL (12.0-16.0); MEAN CELL VOLUME 85.5 fl (80.0-105.0); MEAN CORPUSCULAR HEMOGLOBIN 27.6 pg (25.0-35.0); MEAN CORPUSCULAR HGB CONC 32.2 g/dl (31.0-37.0); RBC 3.59 10^6/uL (3.5-6.1); RED CELL DISTRIBUTION WIDTH 14.3 % (11.5-14.5); WHITE BLOOD COUNT 8.1 10^3/uL (4.5-11.0)
[2018-07-16 07:13] LABS: ALB/GLOB RATIO 1.1 (1.1-1.8); ALBUMIN 3.9 g/dL (3.0-4.8); ALT/SGPT 16 U/L (7-56); AST/SGOT 20 U/L (14-36); BLOOD UREA NITROGEN 40 mg/dL (7-21); CALCIUM 9.2 mg/dL (8.4-10.5); GFR NON-AFRICAN AMERICAN 57
[2018-07-16] MEDS: Insulin Detemir 100 units/ml Vial (Levemir) SC SCH ×2 (07:29→22:31)
[2018-07-16] MEDS: Clotrimazole 1% Top Soln(10 ml) TOP SCH ×2 (10:01→17:35)
--- NOTE | 2018-07-16 10:56 | CP.PCM.PN ---
<Mitchell Wu - Last Filed: 07/16/18 10:54> Subjective - Date & Time of Evaluation Date of Evaluation: 07/16/18 Time of Evaluation: 10:54 - Subjective Subjective: Podiatry progress Note for Dr. Chavez 58F seen and evaluated at bedside in the TCU with Dr. Chavez. Patient in chair and denies pain to her B/L LE. She denies any acute overnight events. She denies any overnight N/V/F/C/SOB/CP and has no other acute pedal complaints. Objective - Vital Signs/Intake and Output Vital Signs (last 24 hours): Temp Pulse Resp BP Pulse Ox 98.1 F 65 18 106/56 L 98 07/16/18 10:00 07/16/18 10:00 07/16/18 10:00 07/16/18 10:00 07/16/18 10:00 Intake and Output: 07/16/18 07/16/18 06:59 18:59 Intake Total 340 Output Total 575 Balance -235 - Medications Medications: Current Medications Acetaminophen (Tylenol 325mg Tab) 650 mg PO Q6H PRN; Protocol PRN Reason: Pain, moderate (4-7) Last Admin: 07/13/18 16:19 Dose: 650 mg Aspirin (Aspirin Chewable) 81 mg PO DAILY [facility] Last Admin: 07/16/18 09:02 Dose: 81 mg Carbidopa/Levodopa (Sinemet) 1 tab PO 0800,1200,1600,2000 [facility] Last Admin: 07/16/18 07:53 Dose: 1 tab Clotrimazole (Lotrimin Af 1%) 0 ml TOP BID [facility] Last Admin: 07/15/18 17:06 Dose: 1 applic Furosemide (Lasix) 40 mg IVP 0600 [facility]; Protocol Last Admin: 07/16/18 05:55 Dose: 40 mg Insulin Detemir (Levemir) 7 unit SC [facility]; Protocol Last Admin: 07/16/18 07:29 Dose: 7 units Insulin Human Regular (Humulin R Med) 0 units SC [facility]; Protocol Last Admin: 07/16/18 06:36 Dose: Not Given Lisinopril (Zestril) 5 mg PO DAILY [facility]; Protocol Last Admin: 07/16/18 09:02 Dose: 5 mg Nystatin (Nystop Topical Powder) 0 gm TOP BID [facility]; Protocol Last Admin: 07/15/18 17:06 Dose: 1 applic Pramipexole Dihydrochloride (Mirapex) 1 mg PO 0800,1800 [facility] Last Admin: 07/16/18 07:53 Dose: 1 mg Sitagliptin Phosphate (Januvia) 50 mg PO DAILY [facility] Last Admin: 07/16/18 09:02 Dose: 50 mg - Labs Labs: 07/16/18 06:40 07/16/18 06:40 - Constitutional Appears: Well, Non-toxic, No Acute Distress - Head Exam Head Exam: ATRAUMATIC, NORMOCEPHALIC - Extremities Exam Additional comments: LE focused VASC: DP/PT pulses are palpable 1/4, Cap refill time: < 3 sec to all digits, Temp gradient: warm to warm from proximal to distal, diffuse non-pitting edema noted on b/l LE distal to the knee joint (R>L), erythema noted to the LE b/l NEURO: Protective sensation mildly diminished b/l DERM: left leg healed, right leg anterior wound 100% granular base, no malodor, no drainage, no probe to bone, no tracking or tunneling noted - improved, decreased size, skin islands forming MSK: No pain on palpation of the LE, no pain during A-ROM or P-ROM of the ankle joint - Neurological Exam Neurological Exam: Alert, Awake - Psychiatric Exam Psychiatric exam: Normal Affect, Normal Mood Assessment and Plan - Assessment and Plan (Free Text) Assessment: 58F with b/l LE superficial ulcerations on B/L LE, cellulitis resolved Plan: Patient seen and evaluated at the bedside in the TCU with Dr. Chavez Afebrile, absent leukocytosis LLE has no open lesions or wounds, RLE wound cleansed with saline and dressed with maxorb and optifoam Tubigrip applied to b/l LE, can take down at night to allow exposure to air for aid in healing Patient can shower as long as dressings are reapplied afterwards when legs are dry ID [id number] appreciated Continue IV abx as per ID Wound cultures: MRSA (07/05) CT: No OM LE arterial Duplex: left distal SFA, popliteal, tibial disease. Vasc on-board; reccs appreciated Patient is stable from podiatry standpoint Podiatry will continue to follow up the patient while in-house <Roseanna Chavez - Last Filed: 07/19/18 18:54> Objective - Vital Signs/Intake and Output Vital Signs (last 24 hours): Temp Pulse Resp BP Pulse Ox 97.8 F 65 14 113/68 100 07/18/18 16:00 07/18/18 16:00 07/18/18 16:00 07/19/18 09:02 07/18/18 16:00 Intake and Output: 07/19/18 07/19/18 06:59 18:59 Intake Total 400 Output Total 575 Balance -175 - Labs Labs: 07/17/18 07:00 07/17/18 07:00 Attending/Attestation - Attestation I have personally seen and examined this patient.: Yes I have fully participated in the care of the patient.: Yes I have reviewed all pertinent clinical information, including history, physical exam and plan: Yes
--- NOTE | 2018-07-16 11:05 | PN ---
DATE: 07/16/2018 SUBJECTIVE: I saw her in the TCU. She is getting a little bit stronger overall. She is in fairly good spirits. She is trying physical therapy and she is trying to eat. No chest pain or shortness of breath or abdominal pain. MEDICATIONS: She is on aspirin, insulin coverage, Januvia, Lasix, Levemir, Lotrisone cream, nystatin powder, Sinemet, Tylenol, Zestril. PHYSICAL EXAMINATION: VITAL SIGNS: She has a 97.9 temperature, 60 pulse, 134/86 blood pressure, 18 respiratory rate, 99% O2 sat on room air. HEAD: Atraumatic, normocephalic. HEART: Regular rate. LUNGS: Decreased breath sounds but clear. ABDOMEN: Soft, obese, nontender. EXTREMITIES: No edema. She is walking slowly with a walker. LABORATORY DATA: White count 8.1, 9.9 hemoglobin, 30.7 hematocrit with 258 platelets. Sodium 140, potassium 4.1, BUN is 40, creatinine 1, GFR is 57, sugar is 136, calcium 9.2, total bili is 0.8, AST is 20, ALT is 16, alk phos 120, total protein 7.6. PLAN: Overall she is doing well. She has three more days in the transitional care unit and then, she should be able to be discharged hopefully. We will continue with aggressive treatment and care on Celest[place]. She had leg cellulitis which are banded, hypertension, diabetes and MRSA. Felipe Wetzel DO
[2018-07-16] MEDS: Nystatin 100,000 Units/gm Topical Pow(15 gm) TOP SCH ×2 (12:03→17:35)
--- NOTE | 2018-07-16 13:21 | CP.PCM.PN ---
Subjective - Date & Time of Evaluation Date of Evaluation: 07/16/18 Time of Evaluation: 10:20 - Subjective Subjective: Comfortable in bed, no fevers, less pain in the legs. Objective - Vital Signs/Intake and Output Vital Signs (last 24 hours): Temp Pulse Resp BP Pulse Ox 97.7 F 67 18 91/51 L 100 07/14/18 16:00 07/14/18 16:00 07/14/18 16:00 07/15/18 09:18 07/14/18 16:00 - Medications Medications: Current Medications Acetaminophen (Tylenol 325mg Tab) 650 mg PO Q6H PRN; Protocol PRN Reason: Pain, moderate (4-7) Last Admin: 07/13/18 16:19 Dose: 650 mg Aspirin (Aspirin Chewable) 81 mg PO DAILY [facility] Last Admin: 07/15/18 09:18 Dose: 81 mg Carbidopa/Levodopa (Sinemet) 1 tab PO 0800,1200,1600,2000 [facility] Last Admin: 07/15/18 12:17 Dose: 1 tab Clotrimazole (Lotrimin Af 1%) 0 ml TOP BID [facility] Last Admin: 07/15/18 09:17 Dose: 1 applic Furosemide (Lasix) 40 mg IVP 0600 [facility]; Protocol Last Admin: 07/14/18 05:57 Dose: 40 mg Insulin Detemir (Levemir) 7 unit SC [facility]; Protocol Last Admin: 07/15/18 07:05 Dose: 7 units Insulin Human Regular (Humulin R Med) 0 units SC [facility]; Protocol Last Admin: 07/15/18 12:17 Dose: 3 units Lisinopril (Zestril) 5 mg PO DAILY [facility]; Protocol Last Admin: 07/15/18 09:18 Dose: Not Given Nystatin (Nystop Topical Powder) 0 gm TOP BID [facility]; Protocol Last Admin: 07/15/18 09:17 Dose: 1 applic Pramipexole Dihydrochloride (Mirapex) 1 mg PO 0800,1800 [facility] Last Admin: 07/15/18 07:37 Dose: 1 mg Sitagliptin Phosphate (Januvia) 50 mg PO DAILY [facility] Last Admin: 07/15/18 09:17 Dose: 50 mg - Labs Labs: 07/15/18 06:40 07/15/18 06:40 - Constitutional Appears: Non-toxic, No Acute Distress - Head Exam Head Exam: NORMAL INSPECTION - Respiratory Exam Respiratory Exam: Decreased Breath Sounds - Cardiovascular Exam Cardiovascular Exam: +S1, +S2 - GI/Abdominal Exam GI & Abdominal Exam: Soft. absent: Tenderness - Extremities Exam Additional comments: both legs with dressings in place Assessment and Plan - Assessment and Plan (Free Text) Plan: Assessment right leg cellulitis with probable PAD, no osteomyelitis on CT leg, growing MRSA from wound cultures, S/P treatment with antibiotics history of stasis dermatitis of both lower extremities HTN DM Parkinson's disease morbid obesity with BMI 42 Plan has had 10 days of antibiotics - continue to monitor off antibiotics since she is at risk for nosocomial infections follow up further plans of Podiatry discussed with Dr. Wetzel
[2018-07-17] MEDS: Insulin Reg-MEDIUM-Coverage SC SCH ×4 (07:03→21:38)
[2018-07-17 07:22] LABS: MEAN CELL VOLUME 85.2 fl (80.0-105.0); MEAN CORPUSCULAR HEMOGLOBIN 27.9 pg (25.0-35.0); MEAN CORPUSCULAR HGB CONC 32.7 g/dl (31.0-37.0); MEAN PLATELET VOLUME 11.2 fl (7.0-11.0); RBC 3.59 10^6/uL (3.5-6.1); RED CELL DISTRIBUTION WIDTH 14.4 % (11.5-14.5); WHITE BLOOD COUNT 7.6 10^3/uL (4.5-11.0)
[2018-07-17 07:49] LABS: ALBUMIN 3.8 g/dL (3.0-4.8); ALT/SGPT 18 U/L (7-56); AST/SGOT 21 U/L (14-36); BLOOD UREA NITROGEN 45 mg/dL (7-21); CALCIUM 9.2 mg/dL (8.4-10.5); GFR NON-AFRICAN AMERICAN 51
[2018-07-17] MEDS: Insulin Detemir 100 units/ml Vial (Levemir) SC SCH ×2 (08:25→21:38)
[2018-07-17] MEDS: Clotrimazole 1% Top Soln(10 ml) TOP SCH ×2 (09:47→17:44)
[2018-07-17] MEDS: Nystatin 100,000 Units/gm Topical Pow(15 gm) TOP SCH ×2 (09:48→17:45)
--- NOTE | 2018-07-17 10:39 | PN ---
DATE: 07/17/2018 SUBJECTIVE: She is doing well. She is sitting out of bed to chair. She is in fairly good spirits. She is eating well, going to the bathroom well. She is trying in physical therapy. She has 2 more days here in the TCU. She has had right leg cellulitis and ulcers and CHF and she is currently on aspirin, insulin, Januvia, Lasix, Levemir, Lotrimin cream, Mirapex, nystatin, Sinemet, Tylenol and Zestril. OBJECTIVE: VITAL SIGNS: She has a 98 temperature, 63 pulse, 108/66 blood pressure, 18 respiratory rate, 90% O2 sat on room air. HEAD: Atraumatic, normocephalic. HEART: Regular rate. LUNGS: Decreased breath sounds but clear. ABDOMEN: Soft, morbidly obese, nontender. EXTREMITIES: Trace edema. Less red, less swollen, much improved. LABORATORY DATA: She has a 7.6 white count, 10 hemoglobin, 30.6 hematocrit with 263 platelets. 139 sodium, potassium 4.3, BUN 45, creatinine 1.1, GFR is 51, sugar is 119, 10.2, total bili is 0.8. AST is 21, ALT is 18, alk phos 115, total protein 7.4. PLAN: Continue with physical therapy. She is doing very well, two more days of therapy before she goes home. Felipe Wetzel DO
--- NOTE | 2018-07-17 13:39 | CP.PCM.PN ---
Subjective - Date & Time of Evaluation Date of Evaluation: 07/17/18 Time of Evaluation: 11:10 - Subjective Subjective: Comfortable on a chair, no fevers, not in distress. Objective - Vital Signs/Intake and Output Vital Signs (last 24 hours): Temp Pulse Resp BP Pulse Ox 98.1 F 65 18 106/56 L 98 07/16/18 10:00 07/16/18 10:00 07/16/18 10:00 07/16/18 10:00 07/16/18 10:00 Intake and Output: 07/16/18 07/16/18 06:59 18:59 Intake Total 340 Output Total 575 Balance -235 - Medications Medications: Current Medications Acetaminophen (Tylenol 325mg Tab) 650 mg PO Q6H PRN; Protocol PRN Reason: Pain, moderate (4-7) Last Admin: 07/13/18 16:19 Dose: 650 mg Aspirin (Aspirin Chewable) 81 mg PO DAILY [facility] Last Admin: 07/16/18 09:02 Dose: 81 mg Carbidopa/Levodopa (Sinemet) 1 tab PO 0800,1200,1600,2000 [facility] Last Admin: 07/16/18 12:26 Dose: 1 tab Clotrimazole (Lotrimin Af 1%) 0 ml TOP BID [facility] Last Admin: 07/16/18 10:01 Dose: 1 applic Furosemide (Lasix) 40 mg IVP 0600 [facility]; Protocol Last Admin: 07/16/18 05:55 Dose: 40 mg Insulin Detemir (Levemir) 7 unit SC [facility]; Protocol Last Admin: 07/16/18 07:29 Dose: 7 units Insulin Human Regular (Humulin R Med) 0 units SC [facility]; Protocol Last Admin: 07/16/18 12:03 Dose: 1 units Lisinopril (Zestril) 5 mg PO DAILY [facility]; Protocol Last Admin: 07/16/18 09:02 Dose: 5 mg Nystatin (Nystop Topical Powder) 0 gm TOP BID [facility]; Protocol Last Admin: 07/16/18 12:03 Dose: 1 applic Pramipexole Dihydrochloride (Mirapex) 1 mg PO 0800,1800 [facility] Last Admin: 07/16/18 07:53 Dose: 1 mg Sitagliptin Phosphate (Januvia) 50 mg PO DAILY [facility] Last Admin: 07/16/18 09:02 Dose: 50 mg - Labs Labs: 07/16/18 06:40 07/16/18 06:40 - Constitutional Appears: Chronically Ill - Head Exam Head Exam: NORMAL INSPECTION - Respiratory Exam Respiratory Exam: Decreased Breath Sounds - Cardiovascular Exam Cardiovascular Exam: +S1, +S2 - GI/Abdominal Exam GI & Abdominal Exam: Soft. absent: Tenderness - Extremities Exam Additional comments: both legs with dressings in place Assessment and Plan - Assessment and Plan (Free Text) Plan: Assessment S/P right leg cellulitis with probable PAD, no osteomyelitis on CT leg, growing MRSA from wound cultures, S/P treatment with antibiotics history of stasis dermatitis of both lower extremities HTN DM Parkinson's disease morbid obesity with BMI 42 Plan has had 10 days of antibiotics - continue to monitor off antibiotics since she is at risk for hospital-acquired infections follow up further plans of Podiatry discussed with Dr. Wetzel
[2018-07-18] MEDS: Insulin Reg-MEDIUM-Coverage SC SCH ×4 (07:00→21:38)
[2018-07-18] MEDS: Insulin Detemir 100 units/ml Vial (Levemir) SC SCH ×2 (07:01→21:38)
[2018-07-18] MEDS: Nystatin 100,000 Units/gm Topical Pow(15 gm) TOP SCH ×2 (09:14→17:28)
[2018-07-18] MEDS: Clotrimazole 1% Top Soln(10 ml) TOP SCH ×2 (09:14→17:28)
--- NOTE | 2018-07-18 11:01 | CP.PCM.PN ---
<Andres Canales - Last Filed: 07/18/18 10:57> Subjective - Date & Time of Evaluation Date of Evaluation: 07/18/18 Time of Evaluation: 10:57 - Subjective Subjective: Podiatry progress Note for Drs. Chavez/Alok 58F seen and evaluated at bedside this AM. Patient OOB in chair, NAD. No acute events overnight. Patient offers no new complaints to lower extremities. Denies n/v/f/d/c/sob. Objective - Vital Signs/Intake and Output Vital Signs (last 24 hours): Temp Pulse Resp BP Pulse Ox 97.6 F 67 18 117/54 L 99 07/17/18 16:00 07/17/18 16:00 07/17/18 16:00 07/18/18 09:14 07/17/18 16:00 - Medications Medications: Current Medications Acetaminophen (Tylenol 325mg Tab) 650 mg PO Q6H PRN; Protocol PRN Reason: Pain, moderate (4-7) Last Admin: 07/16/18 22:34 Dose: 650 mg Aspirin (Aspirin Chewable) 81 mg PO DAILY [facility] Last Admin: 07/18/18 09:13 Dose: 81 mg Carbidopa/Levodopa (Sinemet) 1 tab PO 0800,1200,1600,2000 [facility] Last Admin: 07/18/18 08:09 Dose: 1 tab Clotrimazole (Lotrimin Af 1%) 0 ml TOP BID [facility] Last Admin: 07/18/18 09:14 Dose: 1 applic Furosemide (Lasix) 40 mg IVP 0600 [facility]; Protocol Last Admin: 07/18/18 06:06 Dose: 40 mg Insulin Detemir (Levemir) 7 unit SC [facility]; Protocol Last Admin: 07/18/18 07:01 Dose: 7 units Insulin Human Regular (Humulin R Med) 0 units SC [facility]; Protocol Last Admin: 07/18/18 07:00 Dose: 1 units Lisinopril (Zestril) 5 mg PO DAILY [facility]; Protocol Last Admin: 07/18/18 09:14 Dose: 5 mg Nystatin (Nystop Topical Powder) 0 gm TOP BID [facility]; Protocol Last Admin: 07/18/18 09:14 Dose: 1 applic Pramipexole Dihydrochloride (Mirapex) 1 mg PO 0800,1800 [facility] Last Admin: 07/18/18 08:08 Dose: 1 mg Sitagliptin Phosphate (Januvia) 50 mg PO DAILY [facility] Last Admin: 07/18/18 09:13 Dose: 50 mg - Labs Labs: 07/17/18 07:00 07/17/18 07:00 - Constitutional Appears: Non-toxic, No Acute Distress - Extremities Exam Additional comments: LE focused VASC: DP/PT pulses are palpable 1/4, Cap refill time: < 3 sec to all digits, Temp gradient: warm to warm from proximal to distal, diffuse non-pitting edema noted on b/l LE distal to the knee joint (R>L), erythema noted to the LE b/l NEURO: Protective sensation mildly diminished b/l DERM: left leg healed, right leg anterior wound 100% granular base, no malodor, no drainage, no probe to bone, no tracking or tunneling noted - improved, decreased size, skin islands forming MSK: No pain on palpation of the LE, no pain during A-ROM or P-ROM of the ankle joint - Neurological Exam Neurological Exam: Alert, Awake, Oriented x3 - Psychiatric Exam Psychiatric exam: Normal Affect, Normal Mood Assessment and Plan - Assessment and Plan (Free Text) Assessment: 58F with b/l LE superficial ulcerations, cellulitis resolved Plan: Patient seen and evaluated alongside attending, Dr. Alok JENSEN Continue local wound care: LLE has no open lesions or wounds, RLE wound cleansed with saline and dressed with maxorb and optifoam Patient can shower as long as dressings are reapplied afterwards when legs are dry ID recs appreciated - abx d/c Wound cultures: MRSA (07/05) CT: No OM LE arterial Duplex: left distal SFA, popliteal, tibial disease. Vasc on-board; reccs appreciated Patient is stable from podiatry standpoint Podiatry will continue to follow <John Dickinson - Last Filed: 07/21/18 16:30> Objective - Vital Signs/Intake and Output Vital Signs (last 24 hours): Temp Pulse Resp BP Pulse Ox 97.8 F 65 14 113/68 100 07/18/18 16:00 07/18/18 16:00 07/18/18 16:00 07/19/18 09:02 07/18/18 16:00 - Labs Labs: 07/17/18 07:00 07/17/18 07:00 Attending/Attestation - Attestation I have personally seen and examined this patient.: Yes I have fully participated in the care of the patient.: Yes I have reviewed all pertinent clinical information, including history, physical exam and plan: Yes
--- NOTE | 2018-07-18 13:28 | PN ---
DATE: 07/18/2018 SUBJECTIVE: The patient seen earlier today in room 317. The patient had uneventful night. There has been no fever. PHYSICAL EXAMINATION: VITAL SIGNS: Temperature is 97, blood pressure is 117/50, respiratory rate of 18 and heart rate of 67. HEENT: Unremarkable. NECK: Supple. LUNGS: Decreased breath sounds. HEART: Normal S1 and S2. ABDOMEN: Soft. LABORATORY DATA: Reveals a white count is 7.6, hemoglobin of 10 and platelets of 263. Chemistries are noted. Review of orders reveals the patient is off of antibiotics and microbiology reveals the culture from her right leg with MRSA. ASSESSMENT AND PLAN: She is a 58-year-old female status post right leg cellulitis with methicillin-resistant Staphylococcus aureus with probable peripheral artery disease, no osteomyelitis on CAT scan. Growing methicillin-resistant Staphylococcus aureus, hypertension, diabetes, Parkinson's disease. Has completed 10-days of antibiotics, currently now off of antibiotic. This patient has risk for developing nosocomial infections. We will follow with you. Goran Loera MD
[2018-07-18 16:27] VITALS: PULSE 65; RESP 14; TEMP 97.8; O2SAT 100
--- NOTE | 2018-07-18 16:47 | PN ---
DATE: 07/18/2018 SUBJECTIVE: I saw her sitting on bed to chair in the transitional care unit. She is waiting for physical therapy to come. She is on aspirin, insulin, Januvia, Lasix, Levemir, Lotrimin cream, Mirapex, nystatin, Sinemet, Tylenol, and Zestril. OBJECTIVE: VITAL SIGNS: She has a 97.6 temperature, 67 pulse, 104/64 blood pressure, 18 respiratory rate, and 99% O2 sat on room air. HEENT: Head is atraumatic, normocephalic. HEART: Regular rate. LUNGS: Decreased breath sounds, but clear. ABDOMEN: Soft, nontender, positive bowel sounds, and morbidly obese. EXTREMITIES: The skin is definitely healing up on the cellulitis with very little swelling . The skin is white and not red anymore. LABORATORY DATA: She has a 7.6 white count, 10 hemoglobin, 30.6 hematocrit with 263 platelets. 139 sodium, potassium 4.3, BUN 45, creatinine 1.1, GFR is 51, blood sugar is 185, calcium is 9.2, total bili is 0.8. AST is 21, ALT is 18, alk phos 115, and total protein 7.4. PLAN: I encouraged her to participate in physical therapy. She is retired. She is being seen by Infectious Disease, Podiatry. She is status post right leg cellulitis, PAD, hypertension, diabetes, Parkinson's, and she will be discharged tomorrow back to her home. Felipe Wetzel DO MTDD
[2018-07-19 06:07] VITALS: BP 113/68
[2018-07-19] MEDS: Insulin Reg-MEDIUM-Coverage SC SCH ×2 (06:57→12:23)
[2018-07-19] MEDS: Insulin Detemir 100 units/ml Vial (Levemir) SC SCH (07:57)
[2018-07-19] MEDS: Clotrimazole 1% Top Soln(10 ml) TOP SCH (09:02)
[2018-07-19] MEDS: Nystatin 100,000 Units/gm Topical Pow(15 gm) TOP SCH (09:02)
--- NOTE | 2018-07-19 13:41 | PN ---
DATE: 07/19/2018 SUBJECTIVE: The patient is in bed in no acute distress, nontoxic. PHYSICAL EXAMINATION VITAL SIGNS: Temperature is 97, blood pressure is 113/60, respiratory rate of 18, heart rate of 65. HEENT: Examination of HEENT is unremarkable. NECK: Supple. LUNGS: Have decreased breath sounds. HEART: Normal S1 and S2. ABDOMEN: Soft and nontender. No organomegaly. No rebound. No guarding. LABORATORY DATA: Laboratory examination reveals a white count of 7.6, hemoglobin of 10, platelets of 263. BUN of 45, creatinine of 1.1. Right leg culture is MRSA. Review of orders reveals the patient to be off antibiotics. Dr. Felipe Wetzel's progress note from yesterday is noted. ASSESSMENT AND PLAN: This is a 58-year-old female status post right leg cellulitis with methicillin-resistant Staphylococcus aureus and probable peripheral arterial disease. No osteomyelitis on CAT scan and the patient who is diabetic, hypertensive, Parkinson's has completed 10 days of antibiotics for possible discharge, doing well. No evidence of infection at this point. Case discussed with Dr. Wetzel. Goran Loera MD
--- NOTE | 2018-07-20 00:57 | DS ---
HISTORY OF PRESENT ILLNESS: She is finished with transitional care. She is being discharged home today. If there are any medications that she might need, she will call me. I went over them with her. She was not sure. I know her very well. I do house calls on her. I will do house call next week. She is doing much better with physical therapy. She is walking better, the legs are much better from the cellulitis and the ulcer. She is in good spirits. PHYSICAL EXAMINATION: VITAL SIGNS: She has 97.8 temperature, 65 pulse, 113/68 blood pressure, 14 respiratory rate, 100% O2 sat on room air. HEENT: Head is atraumatic, normocephalic. HEART: Regular rate. LUNGS: Decreased breath sounds, but clear. ABDOMEN: Soft, obese, nontender. EXTREMITIES: No edema No cellulitis. LABORATORY DATA: She has 7.6 white count, 10 hemoglobin, 263 platelets, 203 blood sugar. ASSESSMENT AND PLAN: I will see her in house call this week. Felipe Wetzel DO MTDEdis
== END 2018-07-19 14:09 | disposition home health service (06) | DRG 603 ==
LOC: TRCU 15:22
PROVIDERS: ADMIT Family Medicine; ATTEND Family Medicine
PROC: F07Z9FZ Gait Training/Functional Ambulation Treatment using Assistive, Adaptive, Supportive or Protective Equipment (ICD-10-PCS; principal; 2018-07-12)
PROC: F07M6ZZ Therapeutic Exercise Treatment of Musculoskeletal System - Whole Body (ICD-10-PCS; 2018-07-12)
PROC: F08Z2ZZ Grooming/Personal Hygiene Treatment (ICD-10-PCS; 2018-07-12)
PROC: F08Z1ZZ Dressing Techniques Treatment (ICD-10-PCS; 2018-07-12)
PROC: F08Z0ZZ Bathing/Showering Techniques Treatment (ICD-10-PCS; 2018-07-12)
DX: L03.115 Cellulitis of right lower limb (principal); Z68.41 Body mass index [BMI] 40.0-44.9, adult; L03.116 Cellulitis of left lower limb; I87.2 Venous insufficiency (chronic) (peripheral); I87.8 Other specified disorders of veins; E11.51 Type 2 diabetes mellitus with diabetic peripheral angiopathy without gangrene; E11.69 Type 2 diabetes mellitus with other specified complication; E66.01 Morbid (severe) obesity due to excess calories; E78.5 Hyperlipidemia, unspecified; F20.9 Schizophrenia, unspecified; F31.9 Bipolar disorder, unspecified; G20 Parkinson's disease; I11.0 Hypertensive heart disease with heart failure; I25.118 Atherosclerotic heart disease of native coronary artery with other forms of angina pectoris; I48.91 Unspecified atrial fibrillation; I50.9 Heart failure, unspecified; K21.9 Gastro-esophageal reflux disease without esophagitis; Z79.82 Long term (current) use of aspirin; Z86.73 Personal history of transient ischemic attack (TIA), and cerebral infarction without residual deficits; Z87.01 Personal history of pneumonia (recurrent); Z95.5 Presence of coronary angioplasty implant and graft

== ENCOUNTER 2018-08-03 22:28 | Emergency (ER) | payer MEDICARE, MEDICAID ==
[2018-08-03 22:28] VITALS: BMI 39.2
[2018-08-03 23:28] VITALS: RESP 18
--- NOTE | 2018-08-03 23:46 | ED PDOC ---
Arrival/HPI - General Historian: Patient - History of Present Illness Narrative History of Present Illness (Text): 08/03/18 23:40 58 year old female, whose past medical history includes diabetes, cellulitis, anemia, and Parkinsons, presents to the emergency department for evaluation, status post fall. Patient states it felt like her legs gave out from under her. Patient denies hitting her head, but reports hitting her back. Patient states she was feeling weak before the incident, and was receiving assistance from her boyfriend. Patient informs of chronic cellulitis, but denies antibiotic use. Patient was seen by her PMD on 07/19/18. Patient denies any fevers, chills, headache, dizziness, chest pain, shortness of breath, cough, abdominal pain, nausea, vomiting, diarrhea, or any other complaint. PMD: Dr Wetzel Time/Duration: Prior to Arrival Symptom Onset: Sudden Symptom Course: Unchanged Activities at Onset: Light Context: Walking, Home <Miah Desouza - Last Filed: 08/04/18 03:08> <Beatrice Garcia PA-C - Last Filed: 08/06/18 17:07> - General Chief Complaint: Lower Extremity Problem/Injury Time Seen by Provider: 08/03/18 23:16 Past Medical History - Provider Review Nursing Documentation Reviewed: Yes - Infectious Disease Hx of Infectious Diseases: None - Cardiac Hx Cardiac Disorders: Yes (CARDIAC STENTS) Hx Congestive Heart Failure: Yes Hx Hypertension: Yes - Pulmonary Hx Pneumonia: Yes - Neurological Hx Parkinson's Disease: Yes - HEENT Hx HEENT Disorder: No - Renal Hx Renal Disorder: No - Endocrine/Metabolic Hx Diabetes Mellitus Type 2: Yes - Hematological/Oncological Hx Blood Disorders: No - Integumentary Hx Dermatological Disorder: Yes Other/Comment: venous stasis dermatitis - Musculoskeletal/Rheumatological Hx Falls: Yes - Gastrointestinal Hx Gastrointestinal Disorders: Yes - Genitourinary/Gynecological Hx Genitourinary Disorders: Yes - Psychiatric Hx Bipolar Disorder: Yes Hx Schizophrenia: Yes (borderline) Hx Substance Use: No - Surgical History Hx Coronary Stent: Yes Hx Tonsillectomy: Yes - Anesthesia Hx Anesthesia: Yes Hx Anesthesia Reactions: No Hx Malignant Hyperthermia: No <Miah Desouza - Last Filed: 08/04/18 03:08> Family/Social History - Physician Review Nursing Documentation Reviewed: Yes Family/Social History: No Known Family HX Smoking Status: Never Smoked Hx Alcohol Use: No Hx Substance Use: No <Robert Desouzayl - Last Filed: 08/04/18 03:08> Allergies/Home Meds <EmmanuelompemRobertMiah - Last Filed: 08/04/18 03:08> <Beatrice Garcia PA-C - Last Filed: 08/06/18 17:07> Allergies/Adverse Reactions: Allergies Penicillins Allergy (Verified 07/11/18 18:19) SWELLING Home Medications: Home Meds Medication Instructions Recorded Confirmed Carbidopa/Levodopa 25/100 mg 1 tab PO QID 04/11/18 07/11/18 [Sinemet] Furosemide [Lasix] 1 tab PO DAILY 04/11/18 07/11/18 Lisinopril [Zestril] 1 tab PO DAILY 04/11/18 07/11/18 Pramipexole Di-HCl [Mirapex] 1 tab PO Q12H 04/11/18 07/11/18 metFORMIN [glucOPHAGE] 1 tab PO BID 04/11/18 07/11/18 Review of Systems - Physician Review All systems were reviewed & negative as marked: Yes - Review of Systems Constitutional: absent: Fevers, Night Sweats Respiratory: absent: SOB, Cough Cardiovascular: absent: Chest Pain Gastrointestinal: absent: Abdominal Pain, Diarrhea, Nausea, Vomiting Musculoskeletal: Back Pain Neurological: absent: Headache, Dizziness <Robert Desouzayl - Last Filed: 08/04/18 03:08> Physical Exam Vital Signs Reviewed: Yes Vital Signs Pulse Resp BP Pulse Ox 08/03/18 23:28 75 18 162/83 H 100 Temperature: Afebrile Blood Pressure: Hypertensive Pulse: Regular Respiratory Rate: Normal Appearance: Positive for: Well-Appearing, Non-Toxic, Comfortable Pain Distress: None Mental Status: Positive for: Alert and Oriented X 3 - Systems Exam Head: Present: Atraumatic, Normocephalic Pupils: Present: PERRL Extroacular Muscles: Present: EOMI Conjunctiva: Present: Normal Mouth: Present: Moist Mucous Membranes Neck: Present: Normal Range of Motion Respiratory/Chest: Present: Clear to Auscultation, Good Air Exchange. No: Respiratory Distress, Accessory Muscle Use Cardiovascular: Present: Regular Rate and Rhythm, Normal S1, S2. No: Murmurs Abdomen: No: Tenderness, Distention, Peritoneal Signs Back: Present: Normal Inspection Upper Extremity: Present: Normal Inspection. No: Cyanosis, Edema Lower Extremity: Present: Other (Venous stasis bilaterally; healing ulcer noted to anterior [place] right leg, tender to palpation; no purulence noted) Neurological: Present: GCS=15, CN II-XII Intact, Speech Normal Skin: Present: Warm, Dry, Normal Color. No: Rashes Psychiatric: Present: Alert, Oriented x 3, Normal Insight, Normal Concentration <Miah Desouza - Last Filed: 08/04/18 03:08> Vital Signs Temp Pulse Resp BP Pulse Ox 08/04/18 03:30 98.2 F 71 18 148/70 96 08/04/18 02:14 71 18 148/70 96 08/03/18 23:28 75 18 162/83 H 100 <Beatrice Garcia PA-C - Last Filed: 08/06/18 17:07> Medical Decision Making ED Course and Treatment: 08/03/18 23:52 Impression: 58 year old female presents for evaluation sp fall Plan: -- CMP -- Labs -- Toradol -- Wound Cultures -- X-ray right tibia fibula -- Reassess and disposition Prior Visits: Notes and results from previous visits were reviewed. Progress Notes: <Miah Desouza - Last Filed: 08/04/18 03:08> - Lab Interpretations Microbiology Results: Microbiology Results 08/03/18 23:44 Leg - Right Gram Stain - Final 08/03/18 23:44 Leg - Right Wound Culture - Final Proteus Mirabilis Methicillin Resistant S Aureus Lab Results: Total Bilirubin 1.0 mg/dL (0.2-1.3) 08/03/18 23:55 AST 19 U/L (14-36) 08/03/18 23:55 ALT 7 U/L (7-56) 08/03/18 23:55 Alkaline Phosphatase 129 U/L (38-126) H 08/03/18 23:55 Total Protein 7.6 g/dL (5.8-8.3) 08/03/18 23:55 Albumin 3.9 g/dL (3.0-4.8) 08/03/18 23:55 Globulin 3.7 gm/dL 08/03/18 23:55 Albumin/Globulin Ratio 1.0 (1.1-1.8) L 08/03/18 23:55 - RAD Interpretation Radiology Orders: 08/03/18 23:48 TIBIA FIBULA RIGHT [RAD] Stat - Medication Orders Current Medication Orders: Discontinued Medications Sodium Chloride (Sodium Chloride 0.9%) 1,000 mls @ 999 mls/hr IV .Q1H1M STA Stop: 08/04/18 02:53 Last Admin: 08/04/18 02:28 Dose: 999 mls/hr eMAR Start Stop Document 08/04/18 02:28 IT (Rec: 08/04/18 02:28 IT [id number]) Intravenous Solution Start Date 08/04/18 Start Time 02:28 Insulin Human Regular (Humulin R) 6 units SC ONCE ONE Stop: 08/04/18 01:54 Last Admin: 08/04/18 02:28 Dose: 6 u MAR Blood Glucose Document 08/04/18 02:28 IT (Rec: 08/04/18 02:28 IT [id number]) Blood Glucose Finger Stick Blood Glucose (70-120) 281 Subcutaneous Administrations Document 08/04/18 02:28 IT (Rec: 08/04/18 02:28 IT [id number]) Injection Site MAR Injection Site Left Arm Charges for Administration # of Subcutaneous Administrations 1 Ketorolac Tromethamine (Toradol) 30 mg IVP STAT STA Stop: 08/03/18 23:50 Last Admin: 08/04/18 00:22 Dose: 30 mg MAR Pain Assessment Document 08/04/18 00:22 IT (Rec: 08/04/18 00:22 IT [id number]) Pain Reassessment Is this a pain reassessment? No Sleep Is patient sleeping during reassessment? No Presence of Pain Presence of Pain Yes IVP Administration Document 08/04/18 00:22 IT (Rec: 08/04/18 00:22 IT [id number]) Charges for Administration # of IVP Administrations 1 <Beatrice Garcia PA-C - Last Filed: 08/06/18 17:07> - Scribe Statement The provider has reviewed the documentation as recorded by the Laurence Angela Provider Scribe Attestation: All medical record entries made by the Scribe were at my direction and personally dictated by me. I have reviewed the chart and agree that the record accurately reflects my personal performance of the history, physical exam, medical decision making, and the department course for this patient. I have also personally directed, reviewed, and agree with the discharge instructions and disposition. <EmmanueljovanMiah - Last Filed: 08/04/18 03:08> Disposition/Present on Arrival - Present on Arrival Any Indicators Present on Arrival: Yes History of DVT/PE: No History of Uncontrolled Diabetes: Yes Urinary Catheter: No History of Decub. Ulcer: No History Surgical Site Infection Following: None - Disposition Have Diagnosis and Disposition been Completed?: Yes Disposition Time: 03:09 Patient Plan: Discharge <Miah Desouza - Last Filed: 08/04/18 03:08> - Notes Notes (Text): 08/06/18 16:48 Wound cx +proteus sensitive to bactrim and and +MRSA linezolid. Pt called, states that her wound looks better from the last time she was in the ER. Reports no fever, chills, redness, swelling or d/c. Case d/w Dr. Wetzel, he request that the pt be Rx zyvox 600 mg daily and bactrim ds and have the pt instructed to f/u in his office in 1 week. She states that she has an appointment set up already with Dr. Wetzel on 08/12/18. Pt notified of plan formulated w/ Dr. Wetzel, she agrees with both course of antibiotics. She verbalize understanding of information and instructions to f/u. 08/06/18 17:04 Pharmacist called from [facility], stating that the zyvox will heighten the effects of sinemet, he recommends that the patient takes the sinemet BID, rather than QID. Pt called and instructions given regarding the heightened effects of zyvox and sinemet, advised to take sinemet BID while taking zyvox and not QID, advised that she may resume her normal dosing instructions once she completes zyvox. Pt verbalize understanding of information and instructions, advised to speak to her pharmacist if she has additional inquiries. <Beatrice Garcia PA-C - Last Filed: 08/06/18 17:07> - Disposition Diagnosis: Fall, Lower limb ulcer Disposition: HOME/ ROUTINE Condition: STABLE Discharge Instructions (ExitCare): Diabetic Foot Ulcer (DC) Print Language: NEPALI Additional Instructions: All medical record entries made by the Scribe were at my direction and personally dictated by me. I have reviewed the chart and agree that the record accurately reflects my personal performance of the history, physical exam, medical decision making, and the department course for this patient. I have also personally directed, reviewed, and agree with the discharge instructions and disposition. Prescriptions: Linezolid [Zyvox] 600 mg PO DAILY #7 tab Sulfamethoxazole/Trimethoprim [Bactrim DS 800 mg-160 mg] 1 tab PO BID #14 tab Referrals: Felipe Wetzel DO [Primary Care Provider] - Follow up with primary Forms: [employer] (Georgian)
[2018-08-04 00:25] LABS: BASO # 0.04 K/mm3 (0.0-2.0); BASO % 0.5 % (0.0-3.0); EOS # 0.3 (0.0-0.7); EOS % 4.2 % (1.5-5.0); HEMOGLOBIN 10.1 g/dL (12.0-16.0); LYMPH # 1.9 (1.2-3.4); LYMPH % 25.7 % (22.0-35.0); MEAN CELL VOLUME 84.9 fl (80.0-105.0); MEAN CORPUSCULAR HEMOGLOBIN 28.2 pg (25.0-35.0); MEAN CORPUSCULAR HGB CONC 33.2 g/dl (31.0-37.0); MEAN PLATELET VOLUME 11.3 fl (7.0-11.0); MONO # 0.5 (0.1-0.6); RBC 3.58 10^6/uL (3.5-6.1); RED CELL DISTRIBUTION WIDTH 14.5 % (11.5-14.5); WHITE BLOOD COUNT 7.5 10^3/uL (4.5-11.0)
[2018-08-04 00:53] LABS: ALBUMIN 3.9 g/dL (3.0-4.8); ALT/SGPT 7 U/L (7-56); AST/SGOT 19 U/L (14-36); BLOOD UREA NITROGEN 32 mg/dL (7-21); CALCIUM 9.4 mg/dL (8.4-10.5); GFR NON-AFRICAN AMERICAN > 60
[2018-08-04] MEDS ORDERED: Sodium Chloride 0.9% 1,000 ML IV STA (01:53)
[2018-08-04] MEDS ORDERED: Insulin Regular 1 UNITS/0.01 ML ML SC ONE (01:53)
[2018-08-04 02:14] VITALS: BP 148/70; PULSE 71; O2SAT 96
[2018-08-04 03:31] VITALS: TEMP 98.2
--- NOTE | 2018-08-04 09:58 | RAD ---
Date of service: 08/04/2018 PROCEDURE: Radiographs of the right tibia and fibula. HISTORY: leg ulcer w/ pain COMPARISON: None available TECHNIQUE: Frontal and lateral views obtained. FINDINGS: BONES: No fracture or destructive lesion. JOINT SPACES: Unremarkable. OTHER FINDINGS: None. IMPRESSION: Unremarkable radiographs of the right tibia and fibula.
== END 2018-08-04 03:34 | disposition home or self-care (01) ==
LOC: ED 22:28
DX: L97.919 Non-pressure chronic ulcer of unspecified part of right lower leg with unspecified severity (principal)
CPT/HCPCS: 73590; 80053; 82948; 85025; 85651; 87070; 96372; 96374; 99284; J1885; J7030

== ENCOUNTER 2018-08-26 12:37 | Inpatient (IN) | payer MEDICARE, MEDICAID ==
[2018-08-26 12:37] VITALS: BMI 39.2
--- NOTE | 2018-08-26 14:49 | ED PDOC ---
Arrival/HPI - General Historian: Patient - History of Present Illness Narrative History of Present Illness (Text): 08/26/18 14:46 58F w/ PMH of stroke (10 years ago) w/ residual L sided deficit, CAD, HTN, DM, Parkinsons, Chronic LE edema, Cellulitis, presenting w/ complaints of lower extremity weakness. Patient reported that she has been having on going weakness which she first noted approximately 2 weeks ago as she was having difficulty ambulating w/ her walker. Patient was previously seen here as well as other ED's for same complaint multiple times. Patient is unable to determine if location is weakness is worse in her left vs right lower extremity; as well as location (ankle vs leg). No complaints of new onset numbness/tingling, no slurring of speech, headache, or difficulty speaking. She denies any chest pain, sob, abd pain, n/v/d/c, urinary complaints. Time/Duration: Prior to Arrival, > week, < month Symptom Onset: Gradual Symptom Course: Worsening <Kendall Pérez - Last Filed: 08/26/18 21:05> <Miki Pelletier DO - Last Filed: 08/26/18 21:20> - General Chief Complaint: Weakness/Neurological Deficit Time Seen by Provider: 08/26/18 14:45 Past Medical History - Provider Review Nursing Documentation Reviewed: Yes - Infectious Disease Hx of Infectious Diseases: None - Cardiac Hx Cardiac Disorders: Yes (CARDIAC STENTS) Hx Congestive Heart Failure: Yes Hx Hypertension: Yes - Pulmonary Hx Pneumonia: Yes - Neurological Hx Parkinson's Disease: Yes - HEENT Hx HEENT Disorder: No - Renal Hx Renal Disorder: No - Endocrine/Metabolic Hx Diabetes Mellitus Type 2: Yes - Hematological/Oncological Hx Blood Disorders: No - Integumentary Hx Dermatological Disorder: Yes Other/Comment: venous stasis dermatitis - Musculoskeletal/Rheumatological Hx Falls: Yes - Gastrointestinal Hx Gastrointestinal Disorders: Yes - Genitourinary/Gynecological Hx Genitourinary Disorders: Yes - Psychiatric Hx Bipolar Disorder: Yes Hx Schizophrenia: Yes (borderline) Hx Substance Use: No - Surgical History Hx Coronary Stent: Yes Hx Tonsillectomy: Yes - Anesthesia Hx Anesthesia: Yes Hx Anesthesia Reactions: No Hx Malignant Hyperthermia: No <Kendall Pérez - Last Filed: 08/26/18 21:05> Family/Social History - Physician Review Nursing Documentation Reviewed: Yes Family/Social History: Unknown Family HX Smoking Status: Never Smoked Hx Alcohol Use: No Hx Substance Use: No <Kendall Pérez - Last Filed: 08/26/18 21:05> Allergies/Home Meds <BetoKendall - Last Filed: 08/26/18 21:05> <Miki Pelletier DO - Last Filed: 08/26/18 21:20> Allergies/Adverse Reactions: Allergies Penicillins Allergy (Verified 07/11/18 18:19) SWELLING Home Medications: Home Meds Medication Instructions Recorded Confirmed Carbidopa/Levodopa 25/100 mg 1 tab PO QID 04/11/18 07/11/18 [Sinemet] Furosemide [Lasix] 1 tab PO DAILY 04/11/18 07/11/18 Lisinopril [Zestril] 1 tab PO DAILY 04/11/18 07/11/18 Pramipexole Di-HCl [Mirapex] 1 tab PO Q12H 04/11/18 07/11/18 metFORMIN [glucOPHAGE] 1 tab PO BID 04/11/18 07/11/18 Review of Systems - Review of Systems Constitutional: Normal Eyes: Normal ENT: Normal Respiratory: Normal Cardiovascular: Normal Gastrointestinal: Normal Genitourinary Female: Normal Musculoskeletal: Normal Skin: Normal Neurological: Other (weakness - difficulty walking ) Endocrine: Normal Hemo/Lymphatic: Normal Psychiatric: Normal <Kendall Pérez - Last Filed: 08/26/18 21:05> Physical Exam Vital Signs Temp Pulse Resp BP Pulse Ox 08/26/18 13:13 97.7 F 80 18 125/65 100 Temperature: Afebrile Blood Pressure: Normal Pulse: Regular Respiratory Rate: Normal Appearance: Positive for: Well-Appearing, Non-Toxic, Comfortable Pain Distress: None Mental Status: Positive for: Alert and Oriented X 3 - Systems Exam Head: Present: Atraumatic, Normocephalic Pupils: Present: PERRL Extroacular Muscles: Present: EOMI Conjunctiva: Present: Normal Neck: Present: Normal Range of Motion Respiratory/Chest: Present: Clear to Auscultation, Good Air Exchange. No: Respiratory Distress Cardiovascular: Present: Regular Rate and Rhythm, Normal S1, S2, Other (difficult to auscultate ). No: Murmurs Abdomen: Present: Normal Bowel Sounds. No: Tenderness, Distention Upper Extremity: Present: Normal Inspection. No: Edema Lower Extremity: Present: Other (BL edema 2+ non pitting compression dressing in place; R [place] erythematous w/ 1-2cm lesions noted ) Neurological: Present: Other (L facial sensory deficit, LUE + RUE 5/5 gross strength however LUE is markedly weaker relative to RUE; BL LE 2/5 gross strength; LLE w/ diminished sensation compared to RLE ) Skin: Present: Warm, Dry Psychiatric: Present: Alert, Oriented x 3, Normal Insight, Normal Concentration <Kendall Pérez - Last Filed: 08/26/18 21:05> Vital Signs Temp Pulse Resp BP Pulse Ox 08/26/18 13:13 97.7 F 80 18 125/65 100 <Miki Pelletier DO - Last Filed: 08/26/18 21:20> Medical Decision Making ED Course and Treatment: 08/26/18 15:04 58F w/ significant past medical history including stroke + CAD complaining of 2 weeks of gross lower extremity weakness. Symptoms most likely due to severe physical deconditioning Plan: Eval for neurogenic, cardiologic, endocrinologic causes of weakness CBC/CMP Trop EKG CT HEAD Urinalysis Progress Notes: 08/26/18 16:16 CBC/CMP w/ new onset FRIEDA Transaminitis - cholestatic pattern. No historic transaminitis/FRIEDA noted UA wnl Will obtain CTAP w/o con 08/26/18 18:39 CTAP completed read pending CT head pending Case endorsed to Dr. Wetzel who will accept patient to his service for inpatient admission 08/26/18 20:16 CT HEAD: IMPRESSION: 1. Right cerebellar encephalomalacia with subjacent left suboccipital craniectomy. 2. Old right frontal periventricular white matter ischemic infarction. 3. No acute pathology. CT ABDOMEN: IMPRESSION: 1. Borderline enlarged bilateral axillary and inguinal lymph nodes measuring up to 1.2 cm in cross-section. Clinical correlation is recommended. Consider follow-up with CT chest abdomen pelvis with IV contrast on a routine basis. 2. Hepatomegaly. 3. Constipation. - RAD Interpretation Radiology Orders: 08/26/18 14:44 HEAD W/O CONTRAST [CT] Stat - EKG Interpretation EKG Interpretation (Text): 08/26/18 16:13 NSR w/ PVC HR 67 Left axis deviation, no ST/T wave abnormalities noted, QTc 416 <Kendall Pérez - Last Filed: 08/26/18 21:05> ED Course and Treatment: 08/26/18 15:15 58 year old female presents to the ED for evaluation of lower extremity weakness. In agreement with resident note which contains more details about the patient. Patient seen and evaluated with resident. Came up with plan and treatment together. - Lab Interpretations Lab Results: Troponin I < 0.01 ng/mL 08/26/18 14:40 Total Bilirubin 0.7 mg/dL (0.2-1.3) 08/26/18 14:40 AST 133 U/L (14-36) H D 08/26/18 14:40 ALT 114 U/L (7-56) H 08/26/18 14:40 Alkaline Phosphatase 730 U/L (38-126) H D 08/26/18 14:40 Total Protein 8.7 g/dL (5.8-8.3) H 08/26/18 14:40 Albumin 4.3 g/dL (3.0-4.8) 08/26/18 14:40 Globulin 4.4 gm/dL 08/26/18 14:40 Albumin/Globulin Ratio 1.0 (1.1-1.8) L 08/26/18 14:40 Urine Color Yellow (YELLOW) 08/26/18 15:30 Urine Appearance Clear (CLEAR) 08/26/18 15:30 Urine pH 6.5 (4.7-8.0) 08/26/18 15:30 Ur Specific [place] 1.010 (1.005-1.035) 08/26/18 15:30 Urine Protein Negative mg/dL (<30 mg/dL) 08/26/18 15:30 Urine Glucose (UA) Negative mg/dL (NEGATIVE) 08/26/18 15:30 Urine Ketones Negative mg/dL (NEGATIVE) 08/26/18 15:30 Urine Blood Negative (NEGATIVE) 08/26/18 15:30 Urine Nitrate Negative (NEGATIVE) 08/26/18 15:30 Urine Bilirubin Negative (NEGATIVE) 08/26/18 15:30 Urine Urobilinogen 0.2 E.U./dL (<1 E.U./dL) 08/26/18 15:30 Ur Leukocyte Esterase Trace Richie/uL (NEGATIVE) H 08/26/18 15:30 Urine RBC 0 - 2 /hpf (0-2) 08/26/18 15:30 Urine WBC 0 - 2 /hpf (0-6) 08/26/18 15:30 Ur Epithelial Cells 1 - 3 /hpf (0-5) 08/26/18 15:30 - RAD Interpretation Radiology Orders: 08/26/18 14:44 HEAD W/O CONTRAST [CT] Stat 08/26/18 15:39 ABDOMEN & PELVIS [ABD & PELVIS W/O PO OR IV CONT] [CT] Stat - Medication Orders Current Medication Orders: Sodium Chloride (Sodium Chloride 0.9%) 1,000 mls @ 100 mls/hr IV .Q10H REI <Miki Pelletier DO - Last Filed: 08/26/18 21:20> - PA / BILLIARD PARLOR MANAGER / Resident Statement / has reviewed & agrees with the documentation as recorded. / has examined the patient and agrees with the treatment plan. - Scribe Statement The provider has reviewed the documentation as recorded by the Scribe Phuc Davis. All medical record entries made by the Scribe were at my direction and personally dictated by me. I have reviewed the chart and agree that the record accurately reflects my personal performance of the history, physical exam, medical decision making, and the department course for this patient. I have also personally directed, reviewed, and agree with the discharge instructions and disposition. <Miki Pelletier DO - Last Filed: 08/26/18 21:20> Disposition/Present on Arrival - Present on Arrival Any Indicators Present on Arrival: Yes History of DVT/PE: No History of Uncontrolled Diabetes: Yes Urinary Catheter: No History of Decub. Ulcer: No History Surgical Site Infection Following: None - Disposition Have Diagnosis and Disposition been Completed?: Yes Disposition Time: 20:18 Patient Plan: Admission <Kendall Pérez - Last Filed: 08/26/18 21:05> - Disposition Disposition Time: 20:00 <Miki Pelletier DO - Last Filed: 08/26/18 21:20> - Disposition Diagnosis: Weakness Disposition: HOSPITALIZED Patient Problems: Current Active Problems Problem Status Onset Weakness Acute Condition: STABLE Discharge Instructions (ExitCare): Weakness (ED) Forms: [employer] (German)
[2018-08-26 15:03] LABS: BASO # 0.06 K/mm3 (0.0-2.0); BASO % 0.9 % (0.0-3.0); EOS # 0.3 (0.0-0.7); EOS % 4.3 % (1.5-5.0); HEMOGLOBIN 10.3 g/dL (12.0-16.0); LYMPH # 2.1 (1.2-3.4); LYMPH % 31.2 % (22.0-35.0); MEAN CELL VOLUME 87.9 fl (80.0-105.0); MEAN CORPUSCULAR HEMOGLOBIN 27.7 pg (25.0-35.0); MEAN CORPUSCULAR HGB CONC 31.5 g/dl (31.0-37.0); MEAN PLATELET VOLUME 11.3 fl (7.0-11.0); MONO # 0.4 (0.1-0.6); MONO % 5.3 % (1.0-6.0); RBC 3.72 10^6/uL (3.5-6.1); RED CELL DISTRIBUTION WIDTH 14.9 % (11.5-14.5); WHITE BLOOD COUNT 6.8 10^3/uL (4.5-11.0)
[2018-08-26 15:13] LABS: ALBUMIN 4.3 g/dL (3.0-4.8); ALT/SGPT 114 U/L (7-56); AST/SGOT 133 U/L (14-36); BLOOD UREA NITROGEN 40 mg/dL (7-21); CALCIUM 9.5 mg/dL (8.4-10.5); GFR NON-AFRICAN AMERICAN 29
[2018-08-26 15:20] LABS: TROPONIN I < 0.01 ng/mL
[2018-08-26 15:41] LABS: PH,URINE 6.5 (4.7-8.0); URINE BILIRUBIN NEGATIVE (NEGATIVE); URINE BLOOD NEGATIVE (NEGATIVE); URINE GLUCOSE (UA) NEGATIVE (NEGATIVE); URINE LEUKOCYTE ESTERASE TRACE Leu/uL (NEGATIVE); URINE PROTEIN NEGATIVE mg/dL (<30 mg/dL); URINE UROBILINOGEN 0.2 E.U./dL (<1 E.U./dL)
[2018-08-26 15:42] LABS: URINE APPEARANCE CLEAR (CLEAR); URINE COLOR YELLOW (YELLOW)
[2018-08-26 15:46] LABS: URINE RBC 0 - 2 /hpf (0-2); URINE WBC 0 - 2 /hpf (0-6)
[2018-08-26] MEDS ORDERED: Sodium Chloride 0.9% 1,000 ML IV SCH (16:15)
[2018-08-26] MEDS: Sodium Chloride 0.9% 1,000 ML IV SCH (20:43)
[2018-08-26] MEDS ORDERED: INSULIN GLARGINE RECOMBINA 14 UNIT SC SCH (22:00)
[2018-08-26] MEDS: Insulin Reg-HIGH-Coverage SC SCH (22:48)
--- NOTE | 2018-08-26 22:58 | CARD ---
APPROVED REPORT Date of service: 08/26/2018 EKG Measurement Heart [id number] <Conclusion> Sinus rhythm with occasional premature ventricular complexes Left axis deviation Inferior infarct, age undetermined Abnormal ECG
--- NOTE | 2018-08-27 | HP ---
DATE OF EXAM: 08/26/2018 HISTORY OF PRESENT ILLNESS: I was called down to the emergency room to put her in the hospital. She comes in being very weak with some falls, lower extremity weakness, it has been getting worse over the past 2 weeks and difficulty ambulating. She has been to other emergency rooms, it is getting worse. This is a 58-year-old white female with stroke history 10 years ago, residual left-sided weakness, CAD, hypertension, diabetes, Parkinson's, chronic lower extremity edema, cellulitis, CHF, getting weaker, difficult to stand, the cannot move her around well, she might need further physical therapy. She had cardiac stents, CHF, hypertension, pneumonia history, Parkinson's history, type 2 diabetes, venous stasis dermatitis, falls, GERD, urinary issues, UTIs, bipolar, schizophrenia, coronary stents, and tonsillectomy. SOCIAL HISTORY: Nonsmoker. No drinking. No drugs. ALLERGIES: PENICILLIN. MEDICATIONS: She is on Sinemet, Lasix, Zestril, Mirapex, Glucophage, and insulin. REVIEW OF SYSTEMS: No acute vision or hearing changes. No sore throat. No neck pain. No chest pain or palpitations. No shortness of breath or cough. No abdominal pain, nausea, vomiting, constipation, or diarrhea. Extremities are extremely weak, swollen, difficult to move the legs, difficulty walking, difficult to stand up without help. PHYSICAL EXAMINATION: VITAL SIGNS: 97.7 temperature, 80 pulse, 18 respiratory rate, 125/65 blood pressure, and 100% O2 sat. GENERAL: She is a well-appearing, resting in bed, alert and oriented x3. HEENT: Head is atraumatic and normocephalic. Extraocular muscles are intact. Throat is dry. NECK: Supple. HEART: Regular rate. Normal S1 and S2. LUNGS: Decreased breath sounds, but clear to auscultation. ABDOMEN: Soft and nontender. Positive bowel sounds. Obese. No guarding. No rebound. No CVA tenderness. EXTREMITIES: A +2 to 3 pitting edema bilaterally. She has erythematous areas noted in the right [place] with a 1-2 cm lesion noted. NEUROLOGIC: She has a left facial, left upper extremity issues. She has left-sided weakness from an old stroke. Right [place] erythematous issue. She is alert and oriented x3. SKIN: Warm and dry. LYMPHS: Thyroid midline. No palpable appreciable lymphadenopathy. LABORATORY DATA: Troponin I was less than 0.01, total bili is 0.7, AST is 133, ALT is 114, and alk phos is 730 or elevated. Total protein is 8.7, albumin is 4.3, and globulin 4.4. Urine was clean. Head CT shows right cerebellar encephalomalacia with subjacent left occipital craniotomy, old right frontal periventricular white matter ischemic infarction. CT of the abdomen shows borderline enlarged bilateral axillary and inguinal lymph nodes measuring up to 1.2 cm of cross section, and constipation. White count 6.8, hemoglobin 10.3, hematocrit 32.7 with 338 platelets. ASSESSMENT AND PLAN: She has elevated liver enzymes, weakness, debility with walking, gait disturbance, got very weak over the past 2 weeks. She might need to go to subacute rehab and I will see what physical therapy says. Celestino Rivera with GI evaluate her liver enzymes being elevated. Felipe Wetzel DO MTDD
[2018-08-27 07:21] LABS: HEMOGLOBIN 10.2 g/dL (12.0-16.0); MEAN CELL VOLUME 87.6 fl (80.0-105.0); MEAN CORPUSCULAR HEMOGLOBIN 28.1 pg (25.0-35.0); MEAN CORPUSCULAR HGB CONC 32.1 g/dl (31.0-37.0); MEAN PLATELET VOLUME 10.9 fl (7.0-11.0); RBC 3.63 10^6/uL (3.5-6.1); RED CELL DISTRIBUTION WIDTH 14.8 % (11.5-14.5); WHITE BLOOD COUNT 7.2 10^3/uL (4.5-11.0)
[2018-08-27] MEDS: Insulin Reg-HIGH-Coverage SC SCH ×4 (07:30→21:37)
[2018-08-27 07:39] LABS: ALBUMIN 3.9 g/dL (3.0-4.8); CALCIUM 9.3 mg/dL (8.4-10.5)
--- NOTE | 2018-08-27 09:02 | CT ---
Date of service: 08/26/2018 PROCEDURE: CT HEAD WITHOUT CONTRAST. HISTORY: LE weakness COMPARISON: 05/09/2017 TECHNIQUE: Axial computed tomography images were obtained through the head/brain without intravenous contrast. Radiation dose: Total exam DLP = 902.57 mGy-cm. This CT exam was performed using one or more of the following dose reduction techniques: Automated exposure control, adjustment of the mA and/or kV according to patient size, and/or use of iterative reconstruction technique. FINDINGS: HEMORRHAGE: No intracranial hemorrhage. BRAIN: No mass effect or edema. Chronic microvascular changes are seen in the periventricular white matter and basal ganglia. There is a focal chronic infarct in the head of the caudate nucleus on the right with focal atrophy. There is chronic encephalomalacia in the left cerebellar hemisphere VENTRICLES: Unremarkable. No hydrocephalus. CALVARIUM: Unremarkable. PARANASAL SINUSES: Unremarkable as visualized. No significant inflammatory changes. MASTOID AIR CELLS: Unremarkable as visualized. No inflammatory changes. OTHER FINDINGS: The report concurs with the preliminary [facility] report IMPRESSION: No acute intracranial findings
--- NOTE | 2018-08-27 09:10 | CT ---
Date of service: 08/26/2018 PROCEDURE: CT Abdomen and Pelvis without intravenous contrast HISTORY: Transaminitis COMPARISON: 05/09/2018 TECHNIQUE: Without contrast.. Contrast dose: Radiation dose: Total exam DLP = 2255.2 mGy-cm. This CT exam was performed using one or more of the following dose reduction techniques: Automated exposure control, adjustment of the mA and/or kV according to patient size, and/or use of iterative reconstruction technique. FINDINGS: LOWER THORAX: Unremarkable. LIVER: Unremarkable. No gross lesion or ductal dilatation. GALLBLADDER AND BILE DUCTS: Unremarkable. PANCREAS: Unremarkable. No gross lesion or ductal dilatation. SPLEEN: Unremarkable. ADRENALS: Unremarkable. No mass. KIDNEYS AND URETERS: Unremarkable. No hydronephrosis. No solid mass. VASCULATURE: Unremarkable. No aortic aneurysm. No aortic atherosclerotic calcification or mural plaque present. BOWEL: Unremarkable. No obstruction. No gross mural thickening. APPENDIX: Unremarkable. Normal appendix. PERITONEUM: Unremarkable. No free fluid. No free air. LYMPH NODES: Mildly enlarged axillary and inguinal lymph nodes are unchanged in size. BLADDER: Unremarkable. REPRODUCTIVE: Unremarkable. BONES: No acute fracture. OTHER FINDINGS: The report concurs with the preliminary [facility] report IMPRESSION: No acute intra-abdominal findings.
[2018-08-27] MEDS: Sodium Chloride 0.9% 1,000 ML IV SCH (09:26)
[2018-08-27] MEDS ORDERED: Insulin Detemir 100 units/ml Vial (Levemir) SC SCH ×2 (10:00→16:27)
--- NOTE | 2018-08-27 13:56 | PN ---
DATE: 08/27/2018 SUBJECTIVE: She slept fairly well last night. A bit uncomfortable with constipation, asking for something. I have given her stool softener and a Dulcolax suppository. She is on Zestril, IV fluids, Sinemet, Mirapex, Levemir, Lasix IV, Januvia and baby aspirin. She had fallen. She has weak legs. She needs PT eval. She might need REBECCA. Also her liver enzymes are elevated. PHYSICAL EXAMINATION: VITAL SIGNS: She has 98 temperature, 67 pulse,133/72 blood pressure, 20 respiratory rate, 100% O2 sat on room air. HEENT: Head is atraumatic, normocephalic. HEART: Regular rate. LUNGS: Decreased breath sounds, but clear. ABDOMEN: Soft, nontender. Positive bowel sounds. No guarding, no rebound, no CVA tenderness. EXTREMITIES: +2/4 pitting edema. Weak legs, she has a right stockton ulcer. We will get the wound care people take a look at that. LABORATORY DATA: She has a 7.2 white count, 10.2 hemoglobin, 31.8 hematocrit with 345 platelets. 139 sodium, 4.9 potassium, BUN is 34, a bit better, creatinine is 1.6, a bit better, GFR is 33, sugar is down to 120, 9.3 calcium, 0.8 total bilirubin. AST is little bit better at 123, ALT went up to 170, alk phos dropped to 722, total protein 7.9, TSH is 2.01. ASSESSMENT AND PLAN: Waiting for the abdomen and pelvis CAT scan and a head CT, not back yet. Consult with Gastroenterology, physical therapy to get her out of bed to chair, and we will continue aggressive treatment care on Celestino Rivera. Felipe Wetzel DO MTDEdis
--- NOTE | 2018-08-27 15:40 | US ---
Date of service: 08/27/2018 HISTORY: elevated lfts COMPARISON: None. TECHNIQUE: Sonographic evaluation of the abdomen. FINDINGS: LIVER: Measures 13.88 x 12.39 cm. Increased echogenicity of the liver parenchyma. No mass. No intrahepatic bile duct dilatation. GALLBLADDER: Unremarkable. No gallstones. COMMON BILE DUCT: Measures 6 mm. No stones. No dilatation. PANCREAS: Unremarkable as visualized. No mass. No ductal dilatation. RIGHT KIDNEY: Measures 9.45 x 4.43 x 5.58cm. Normal echogenicity. No calculus, mass, or hydronephrosis. 2 cm simple cyst LEFT KIDNEY: Measures 9.05 x 4.04 x 5.10cm. Normal echogenicity. No calculus, mass, or hydronephrosis. SPLEEN: Normal in size and contour. No mass. 11.71 x 5.16 cm AORTA: No aneurysmal dilatation. IVC: Unremarkable. OTHER FINDINGS: None. IMPRESSION: Unremarkable abdominal sonogram.
[2018-08-27 16:58] LABS: HEPATITIS B SURFACE AG Negative (NEGATIVE)
[2018-08-27 17:04] LABS: HEPATITIS A IGM NEGATIVE (NEGATIVE); HEPATITIS B CORE AB NEGATIVE (NEGATIVE)
[2018-08-27 17:15] LABS: HEPATITIS C ANTIBODY NEGATIVE (NEGATIVE)
--- NOTE | 2018-08-28 01:13 | CON ---
DATE: 08/27/2018 ENDOCRINOLOGY CONSULT Room 567 HISTORY OF PRESENT ILLNESS: This is a 58-year-old female with known history of type 2 insulin-requiring diabetes, presenting here with lower extremity weakness and difficulty in ambulation, progressively worsening until the time of admission and is now being referred for diabetic evaluation and management. She admits to having had recent hyperglycemic accelerations over the past week or so prior to admission. PAST MEDICAL HISTORY: As mentioned above, history of type 2 insulin-requiring diabetes, on a combination of Lantus taken as 14 units at bedtime with NovoLog given p.r.n. for each meal with a combination of oral hypoglycemic therapy with metformin given as 1 g b.i.d. and Januvia at 50 mg once daily; history of hypertension and dyslipidemia; history of a previous CVA with residual left-sided weakness; history of coronary artery disease with multiple coronary stent placements; also known history of peripheral arterial disease and vasculopathy with chronic lower extremity edema and venous insufficiency; history of previous admissions for lower extremity cellulitis. There is also known history of diabetic retinopathy and polyneuropathy with painful lower extremity paresthesias. PHYSICAL EXAMINATION: GENERAL: This is an obese female in no apparent distress. VITAL SIGNS: Blood pressure of 160/90, pulse of 100 beats per minute and regular, temperature 99, respirations 20, height is 5 feet 1 inch, weight is 208 pounds. HEENT: Head normocephalic. Eyes anicteric with pink conjunctivae. Funduscopy not possible at this time. Ears, nose, throat otherwise normal. NECK: Supple. Thyroid gland is normal size. No carotid bruits. No cervical adenopathy. CARDIOPULMONARY: Some adynamic precordium. S1, S2 are rapid and regular. LUNGS: Show scattered rhonchi. ABDOMEN: Obese, soft, with positive bowel sounds. EXTREMITIES: There is +2 bipedal edema with hyperpigmentation in the distal lower extremities. Pulses are +2 bilaterally. LABORATORY DATA: Her chemistry showed a BUN of 34, sodium 139, potassium 4.9, chloride 102, CO2 of 29, glucose 120, and creatinine 1.6, with elevated liver transaminases, alkaline phosphatase is 722 as noted. Her glucose levels have ranged from 259 to over 500 mg/dL. ASSESSMENT: This is a 58-year-old female with uncontrolled and decompensated type 2 insulin-requiring diabetes with marked hyperglycemic accelerations, presenting here with worsening lower extremity weakness and undergoing neurological workup at this time as noted. She also has diabetic microvascular complications of retinopathy, polyneuropathy, and now nephropathy with underlying chronic kidney disease. Moreover, she also has diabetic macrovascular complications of a previous cerebrovascular accident with residual left-sided weakness, with coronary artery disease and coronary stent placements, with underlying peripheral arterial disease and vasculopathy with concomitant venous insufficiency, with stasis dermatitis in both lower extremities. PLAN OF MANAGEMENT: We will modify her current insulin regimen to a more physiologic basal and bolus insulin drug combination to optimize metabolic control. We will start her with Humalog given as 8 units t.i.d. before meals to start tomorrow morning as ordered. We will modify the coverage scale to obviate hypoglycemia utilizing the low-dose Humalog insulin coverage as ordered. We will also modify her basal insulin with Levemir to be given as 24 units subcu at bedtime daily to start tomorrow night. We will modify her Januvia to 50 mg once daily in the morning as ordered, especially with underlying renal insufficiency as noted. We will obtain a hemoglobin A1c if not already ordered to ascertain her prior glycemic control as noted. We will also obtain baseline thyroid function studies and lipid panel as ordered. Moreover, we will obtain a GGTP level and a CA 19-9 and CEA level as ordered. We will obtain serial chemistries and supplement accordingly as needed. We will also obtain a dietary evaluation for nutritional counseling and healthier food choices with weight loss efforts if at all possible. We will obtain diabetic education to reinforce home glucose monitoring and adherence to her insulin regimen as noted. Milena Augustin MD
[2018-08-28 07:12] LABS: HEMOGLOBIN 9.9 g/dL (12.0-16.0); MEAN CELL VOLUME 87.6 fl (80.0-105.0); MEAN CORPUSCULAR HEMOGLOBIN 27.3 pg (25.0-35.0); MEAN CORPUSCULAR HGB CONC 31.2 g/dl (31.0-37.0); MEAN PLATELET VOLUME 10.8 fl (7.0-11.0); RBC 3.62 10^6/uL (3.5-6.1); RED CELL DISTRIBUTION WIDTH 14.6 % (11.5-14.5); WHITE BLOOD COUNT 10.5 10^3/uL (4.5-11.0)
[2018-08-28 07:59] LABS: ALB/GLOB RATIO 0.9 (1.1-1.8); ALBUMIN 3.7 g/dL (3.0-4.8); CALCIUM 9.2 mg/dL (8.4-10.5)
--- NOTE | 2018-08-28 08:12 | CP.PCM.PN ---
Subjective - Date & Time of Evaluation Date of Evaluation: 08/28/18 Time of Evaluation: 07:20 - Subjective Subjective: Endocrine Service Progress Note for Dr. Charli Hartman DO, IM PGY-3 Patient seen and examined at bedside. No acute complaints at time of exam, reports feeling better compared to admission but not back to baseline. No acute events reported overnight. Patient complains of still having weakness in the legs, and wants to go to rehab. Reports her sugars were high prior to admissions, but only in the 200's, never higher. Reports that her episode of BG > 500 since admission was due to having a peanut butter and jelly sandwich corby priscila 30 min prior to fingerstick. Objective - Vital Signs/Intake and Output Vital Signs (last 24 hours): Temp Pulse Resp BP Pulse Ox 98.8 F 80 20 141/61 95 08/27/18 21:45 08/27/18 21:45 08/27/18 21:45 08/27/18 21:45 08/27/18 21:45 Intake and Output: 08/28/18 08/28/18 06:59 18:59 Intake Total 2520 Output Total 1300 Balance 1220 - Medications Medications: Current Medications Aspirin (Aspirin Chewable) 81 mg PO DAILY [facility] Last Admin: 08/27/18 09:26 Dose: 81 mg Carbidopa/Levodopa (Sinemet) 1 tab PO 0800,1200,1600,2000 [facility] Last Admin: 08/27/18 21:38 Dose: 1 tab Docusate Sodium (Colace) 100 mg PO DAILY [facility] Last Admin: 08/27/18 09:26 Dose: 100 mg Furosemide (Lasix) 40 mg IVP DAILY [facility] Last Admin: 08/27/18 09:26 Dose: 40 mg Sodium Chloride (Sodium Chloride 0.9%) 1,000 mls @ 80 mls/hr IV .[id number] [facility] Last Admin: 08/27/18 09:26 Dose: 80 mls/hr Insulin Detemir (Levemir) 24 unit SC HS [facility] Insulin Human Lispro (Humalog Low) 0 units SC ACHS [facility]; Protocol Insulin Human Lispro (Humalog) 8 units SC AC [facility] Lisinopril (Zestril) 5 mg PO DAILY [facility] Last Admin: 08/27/18 09:26 Dose: 5 mg Pramipexole Dihydrochloride (Mirapex) 1 mg PO 0800,1800 [facility] Last Admin: 08/27/18 17:20 Dose: 1 mg Sitagliptin Phosphate (Januvia) 50 mg PO DAILY [facility] - Labs Labs: 08/28/18 06:45 08/28/18 06:45 - Constitutional Appears: Non-toxic, No Acute Distress - Head Exam Head Exam: ATRAUMATIC, NORMAL INSPECTION, NORMOCEPHALIC - Eye Exam Eye Exam: Normal appearance. absent: Conjunctival injection, Scleral icterus Pupil Exam: absent: Irregular - ENT Exam ENT Exam: Mucous Membranes Moist - Neck Exam Neck Exam: Full ROM. absent: Lymphadenopathy, Thyromegaly - Respiratory Exam Respiratory Exam: Clear to Ausculation Bilateral, NORMAL BREATHING PATTERN. abs ent: Accessory Muscle Use, Chest Wall Tenderness, Decreased Breath Sounds, Rales, Rhonchi, Wheezes - Cardiovascular Exam Cardiovascular Exam: REGULAR RHYTHM, RRR, +S1, +S2. absent: Bradycardia, Tachycardia, Irregular Rhythm, JVD, +S4 - GI/Abdominal Exam GI & Abdominal Exam: Soft, Normal Bowel Sounds. absent: Distended, Firm, Rigid, Tenderness - Extremities Exam Extremities Exam: absent: Joint Swelling, Pedal Edema Additional comments: extensive dry and cracked skin throughout extremities, healing scabs along anterior stockton of RLE - Neurological Exam Additional comments: awake and alert, following all commands appropriately, moving all extremities spontaneously - Psychiatric Exam Psychiatric exam: Normal Affect, Normal Mood - Skin Skin Exam: Warm Additional comments: extensive dry and cracked skin with some peeling and some redness throughout bilateral LE Assessment and Plan - Assessment and Plan (Free Text) Assessment: This is a 58 yo F with PMH of HTN, CVA with L residual weakness, DM2, CAD, and Parkinson's who presented with worsening LE weakness x2 weeks. Endocrine was consulted for elevated blood glucoses. Plan: 1) Poorly controlled DM2 2) Hx CVA with L residual deficit 3) HTN 4) CAD 5) Chronic LE edema 6) Parkinson's -BG 24 hr 120-259, 1x > 500 but likely outlier -continue current regimen: levemir 24u HS, Lispro 8u AC, Lispro Low-ISS, Januvia 50mg daily -A1c pending -CEA and Ca 19-9 pending -thyroid studies wnl Patient seen and examined as above, will discuss with attending, Dr. Augustin. Further recs as per attending.
--- NOTE | 2018-08-28 08:13 | CP.PCM.CON ---
<CarlosbryanJose - Last Filed: 08/28/18 09:51> History of Present Illness - History of Present Illness History of Present Illness: GI Fellow PGY4, Consult note. Celestino Rivera, 57F, presented for generalized LE weakness x2 weeks. Standard work-up was completed and she was found to have significantly elevated alk phos, ~700 and mildly elevated AST, ALT for which we were consulted. Pastient denies previous liver problems. She admits to being in the hospital frequently and exposed to different medications in the last few weeks including several antibiotics including bactrim and zyvox. She denies abdominal pain, jaundice, fever, chills. She does admits constipation. Labs and imaging reviewed. PMHx - Bipolar, parkinsons, T2DM, obesity, htn PSHx - EGD in the remote past, self reports a small ulcer. FMhx - No relatives with colon cancer SOCHx- No smoking or alchol use currently 12pt ROS completed and negative except for above. Past Patient History - Infectious Disease Hx of Infectious Diseases: None - Past Medical History & Family History Past Medical History?: Yes - Past Social History Smoking Status: Never Smoked - CARDIAC Hx Cardiac Disorders: Yes (CARDIAC STENTS) Hx Congestive Heart Failure: Yes Hx Hypertension: Yes - PULMONARY Hx Respiratory Disorders: Yes Hx Pneumonia: Yes - NEUROLOGICAL HX Cerebrovascular Accident: Yes (10years ago. Left side weakness) - HEENT Hx HEENT Problems: No - RENAL Hx Chronic Kidney Disease: No - ENDOCRINE/METABOLIC Hx Diabetes Mellitus Type 2: Yes - HEMATOLOGICAL/ONCOLOGICAL Hx Blood Disorders: No - INTEGUMENTARY Hx Dermatological Problems: Yes Other/Comment: venous stasis dermatitis - MUSCULOSKELETAL/RHEUMATOLOGICAL Hx Arthritis: Yes - GASTROINTESTINAL Hx Gastrointestinal Disorders: Yes Hx Gastroesophageal Reflux: Yes - GENITOURINARY/GYNECOLOGICAL Hx Genitourinary Disorders: No - PSYCHIATRIC Hx Psychophysiologic Disorder: Yes Hx Bipolar Disorder: Yes Hx Schizophrenia: Yes (borderline) Hx Substance Use: No - SURGICAL HISTORY Hx Surgeries: Yes (tonsillectomy) Hx Coronary Stent: Yes Other/Comment: as per pt 8yrs ago fluid was drained from her head in [facility] - ANESTHESIA Hx Anesthesia: Yes Hx Anesthesia Reactions: No Hx Malignant Hyperthermia: No Meds Allergies/Adverse Reactions: Allergies Allergy/AdvReac Type Severity Reaction Status Date / Time Penicillins Allergy SWELLING Verified 07/11/18 18:19 - Medications Medications: Current Medications Aspirin (Aspirin Chewable) 81 mg PO DAILY [facility] Last Admin: 08/27/18 09:26 Dose: 81 mg Carbidopa/Levodopa (Sinemet) 1 tab PO 0800,1200,1600,2000 [facility] Last Admin: 08/27/18 21:38 Dose: 1 tab Docusate Sodium (Colace) 100 mg PO DAILY [facility] Last Admin: 08/27/18 09:26 Dose: 100 mg Furosemide (Lasix) 40 mg IVP DAILY [facility] Last Admin: 08/27/18 09:26 Dose: 40 mg Sodium Chloride (Sodium Chloride 0.9%) 1,000 mls @ 80 mls/hr IV .[id number] [facility] Last Admin: 08/27/18 09:26 Dose: 80 mls/hr Insulin Detemir (Levemir) 24 unit SC HS [facility] Insulin Human Lispro (Humalog Low) 0 units SC ACHS [facility]; Protocol Insulin Human Lispro (Humalog) 8 units SC AC [facility] Lisinopril (Zestril) 5 mg PO DAILY [facility] Last Admin: 08/27/18 09:26 Dose: 5 mg Pramipexole Dihydrochloride (Mirapex) 1 mg PO 0800,1800 [facility] Last Admin: 08/27/18 17:20 Dose: 1 mg Sitagliptin Phosphate (Januvia) 50 mg PO DAILY [facility] Physical Exam - Constitutional Appears: Well, Non-toxic, Chronically Ill - Head Exam Head Exam: ATRAUMATIC, NORMAL INSPECTION - Eye Exam Eye Exam: EOMI, Normal appearance, PERRL - ENT Exam ENT Exam: Mucous Membranes Moist, Normal Exam - Respiratory Exam Respiratory Exam: Clear to Auscultation Bilateral, NORMAL BREATHING PATTERN - Cardiovascular Exam Cardiovascular Exam: REGULAR RHYTHM, +S1, +S2 - GI/Abdominal Exam GI & Abdominal Exam: Normal Bowel Sounds, Soft. absent: Organomegaly, Tenderness - Extremities Exam Additional comments: chronic venous changes with dermatitis - Neurological Exam Neurological exam: Alert, CN II-XII Intact, Oriented x3 - Psychiatric Exam Psychiatric exam: Normal Affect, Normal Mood Results - Vital Signs Recent Vital Signs: Last Vital Signs Temp 98.8 F 08/27/18 21:45 Pulse 80 08/27/18 21:45 Resp 20 08/27/18 21:45 BP 141/61 08/27/18 21:45 Pulse Ox 95 08/27/18 21:45 - Labs Result Diagrams: 08/28/18 06:45 08/28/18 06:45 Labs: Laboratory Results - last 24 hr 08/27/18 08/27/18 08/27/18 10:30 10:30 10:30 WBC RBC Hgb Hct MCV MCH MCHC RDW Plt Count MPV Sodium Potassium Chloride Carbon Dioxide Anion Gap BUN Creatinine Est GFR ( Amer) Est GFR (Non-Af Amer) POC Glucose (mg/dL) Random Glucose Calcium Magnesium Transferrin 235.52 Ferritin 65.8 Total Bilirubin GGT AST ALT Alkaline Phosphatase Total Protein Albumin Globulin Albumin/Globulin Ratio Triglycerides Cholesterol LDL Cholesterol Direct HDL Cholesterol Carcinoembryonic Ag Thyroxine (T4) TSH 3rd Generation Hepatitis A IgM Ab Negative Hep Bs Antigen Negative Hep B Core IgM Ab Negative Hepatitis C Antibody Negative 08/27/18 08/27/18 08/27/18 11:15 16:03 21:20 WBC RBC Hgb Hct MCV MCH MCHC RDW Plt Count MPV Sodium Potassium Chloride Carbon Dioxide Anion Gap BUN Creatinine Est GFR ( Amer) Est GFR (Non-Af Amer) POC Glucose (mg/dL) > 500 H* 167 H 259 H Random Glucose Calcium Magnesium Transferrin Ferritin Total Bilirubin GGT AST ALT Alkaline Phosphatase Total Protein Albumin Globulin Albumin/Globulin Ratio Triglycerides Cholesterol LDL Cholesterol Direct HDL Cholesterol Carcinoembryonic Ag Thyroxine (T4) TSH 3rd Generation Hepatitis A IgM Ab Hep Bs Antigen Hep B Core IgM Ab Hepatitis C Antibody 08/28/18 08/28/18 08/28/18 06:45 06:45 06:45 WBC 10.5 D RBC 3.62 Hgb 9.9 L Hct 31.7 L MCV 87.6 MCH 27.3 MCHC 31.2 RDW 14.6 H Plt Count 309 MPV 10.8 Sodium 139 Potassium 4.1 Chloride 105 Carbon Dioxide 28 Anion Gap 10 BUN 31 H Creatinine 1.4 H Est GFR ( Amer) 47 Est GFR (Non-Af Amer) 38 POC Glucose (mg/dL) Random Glucose 111 H Calcium 9.2 Magnesium 2.1 Transferrin Ferritin Total Bilirubin 1.2 GGT 216 H AST 68 H D ALT 29 Alkaline Phosphatase 592 H Total Protein 7.8 Albumin 3.7 Globulin 4.0 Albumin/Globulin Ratio 0.9 L Triglycerides 89 Cholesterol 132 LDL Cholesterol Direct 48 HDL Cholesterol 40 Carcinoembryonic Ag 1.0 Thyroxine (T4) 6.5 TSH 3rd Generation 1.59 Hepatitis A IgM Ab Hep Bs Antigen Hep B Core IgM Ab Hepatitis C Antibody Assessment & Plan - Assessment and Plan (Free Text) Assessment: #Elevated liver tests - predominately alk phos, cholestatic pattern. #Constipation #hx of CVA #Parkinsons/bipolar #CAD/DM/HTN PLAN: -This is likely due to recent Abx exposure and DILI. Recommend continue holding potentially hepatotoxic medications as possible. She is currently not on the Abx as an inpatient. -Continue to monitor liver tests. -CT reviewed which shows retention of hard stool. -Abd u/s shows normal biliary findings, CBD 6mm. -Hepatitis panel negative -Autoimmune, GGT, CK w/u PENDING -Bowel regimen -Continue HHD Case discussed with Dr. Rodriguez, see attestation. - Date & Time Date: 08/28/18 Time: 08:58 <Nicholas Rodriguez - Last Filed: 08/28/18 12:06> Meds - Medications Medications: Current Medications Aspirin (Aspirin Chewable) 81 mg PO DAILY [facility] Last Admin: 08/28/18 10:04 Dose: 81 mg Bisacodyl (Dulcolax) 10 mg PO ONCE ONE Stop: 08/29/18 12:01 Carbidopa/Levodopa (Sinemet) 1 tab PO 0800,1200,1600,2000 [facility] Last Admin: 08/28/18 08:27 Dose: 1 tab Docusate Sodium (Colace) 100 mg PO DAILY [facility] Last Admin: 08/28/18 10:10 Dose: Not Given Docusate Sodium (Colace) 100 mg PO BID [facility] Last Admin: 08/28/18 10:09 Dose: 100 mg Furosemide (Lasix) 40 mg IVP DAILY [facility] Last Admin: 08/28/18 10:05 Dose: 40 mg Sodium Chloride (Sodium Chloride 0.9%) 1,000 mls @ 80 mls/hr IV .[id number] [facility] Last Admin: 08/27/18 09:26 Dose: 80 mls/hr Insulin Detemir (Levemir) 24 unit SC HS [facility] Insulin Human Lispro (Humalog Low) 0 units SC ACHS [facility]; Protocol Last Admin: 08/28/18 11:55 Dose: Not Given Insulin Human Lispro (Humalog) 8 units SC AC [facility] Last Admin: 08/28/18 11:53 Dose: Not Given Lisinopril (Zestril) 5 mg PO DAILY [facility] Last Admin: 08/28/18 10:04 Dose: 5 mg Polyethylene Glycol (Miralax) 17 gm PO BID [facility] Last Admin: 08/28/18 10:03 Dose: 17 gm Pramipexole Dihydrochloride (Mirapex) 1 mg PO 0800,1800 [facility] Last Admin: 08/28/18 08:27 Dose: 1 mg Sitagliptin Phosphate (Januvia) 50 mg PO DAILY [facility] Last Admin: 08/28/18 10:03 Dose: 50 mg Results - Vital Signs Recent Vital Signs: Last Vital Signs Temp 98.4 F 08/28/18 06:00 Pulse 72 08/28/18 10:04 Resp 18 08/28/18 06:00 BP 126/56 L 08/28/18 10:05 Pulse Ox 100 08/28/18 06:00 - Labs Result Diagrams: 08/28/18 06:45 08/28/18 06:45 Labs: Laboratory Results - last 24 hr 08/27/18 08/27/18 08/27/18 10:30 10:30 10:30 WBC RBC Hgb Hct MCV MCH MCHC RDW Plt Count MPV Sodium Potassium Chloride Carbon Dioxide Anion Gap BUN Creatinine Est GFR ( Amer) Est GFR (Non-Af Amer) POC Glucose (mg/dL) Random Glucose Calcium Magnesium Transferrin 235.52 Ferritin 65.8 Total Bilirubin GGT AST ALT Alkaline Phosphatase Total Creatine Kinase Total Protein Albumin Globulin Albumin/Globulin Ratio Triglycerides Cholesterol LDL Cholesterol Direct HDL Cholesterol Carcinoembryonic Ag Thyroxine (T4) TSH 3rd Generation Hepatitis A IgM Ab Negative Hep Bs Antigen Negative Hep B Core IgM Ab Negative Hepatitis C Antibody Negative 08/27/18 08/27/18 08/27/18 11:15 16:03 21:20 WBC RBC Hgb Hct MCV MCH MCHC RDW Plt Count MPV Sodium Potassium Chloride Carbon Dioxide Anion Gap BUN Creatinine Est GFR ( Amer) Est GFR (Non-Af Amer) POC Glucose (mg/dL) > 500 H* 167 H 259 H Random Glucose Calcium Magnesium Transferrin Ferritin Total Bilirubin GGT AST ALT Alkaline Phosphatase Total Creatine Kinase Total Protein Albumin Globulin Albumin/Globulin Ratio Triglycerides Cholesterol LDL Cholesterol Direct HDL Cholesterol Carcinoembryonic Ag Thyroxine (T4) TSH 3rd Generation Hepatitis A IgM Ab Hep Bs Antigen Hep B Core IgM Ab Hepatitis C Antibody 08/28/18 08/28/18 08/28/18 06:45 06:45 06:45 WBC 10.5 D RBC 3.62 Hgb 9.9 L Hct 31.7 L MCV 87.6 MCH 27.3 MCHC 31.2 RDW 14.6 H Plt Count 309 MPV 10.8 Sodium 139 Potassium 4.1 Chloride 105 Carbon Dioxide 28 Anion Gap 10 BUN 31 H Creatinine 1.4 H Est GFR ( Amer) 47 Est GFR (Non-Af Amer) 38 POC Glucose (mg/dL) Random Glucose 111 H Calcium 9.2 Magnesium 2.1 Transferrin Ferritin Total Bilirubin 1.2 GGT 216 H AST 68 H D ALT 29 Alkaline Phosphatase 592 H Total Creatine Kinase Total Protein 7.8 Albumin 3.7 Globulin 4.0 Albumin/Globulin Ratio 0.9 L Triglycerides 89 Cholesterol 132 LDL Cholesterol Direct 48 HDL Cholesterol 40 Carcinoembryonic Ag 1.0 Thyroxine (T4) 6.5 TSH 3rd Generation 1.59 Hepatitis A IgM Ab Hep Bs Antigen Hep B Core IgM Ab Hepatitis C Antibody 08/28/18 08/28/18 08/28/18 08:16 08:54 11:33 WBC RBC Hgb Hct MCV MCH MCHC RDW Plt Count MPV Sodium Potassium Chloride Carbon Dioxide Anion Gap BUN Creatinine Est GFR ( Amer) Est GFR (Non-Af Amer) POC Glucose (mg/dL) 112 H 135 H Random Glucose Calcium Magnesium Transferrin Ferritin Total Bilirubin GGT AST ALT Alkaline Phosphatase Total Creatine Kinase 131 Total Protein Albumin Globulin Albumin/Globulin Ratio Triglycerides Cholesterol LDL Cholesterol Direct HDL Cholesterol Carcinoembryonic Ag Thyroxine (T4) TSH 3rd Generation Hepatitis A IgM Ab Hep Bs Antigen Hep B Core IgM Ab Hepatitis C Antibody Attending/Attestation - Attestation I have personally seen and examined this patient.: Yes I have fully participated in the care of the patient.: Yes I have reviewed all pertinent clinical information: Yes Notes (Text): 08/28/18 12:01 I have seen and examined patient with GI fellow. Agree with above documentation with the following additions. In brief, this is a 58 year old female with history of DM, HTN, obesity, parkinson's, who presents to hospital with com plaint of progressive weakness and lower extremity swelling. GI called for evaluation of elevated LFTs. She reports recent antibiotic use for lower extremity cellulitis two weeks ago. She otherwise denies abdominal pain, nausea, vomiting, fever/chills, weight loss, jaundice, pruritis, excessive ETOH use, or prior knowledge of liver disease. She reports constipation without a bowel movement over past 4 days. DM HTN Obesity Parkinson's Transaminitis - likely drug induced given clinical scenario with recent zyvox and bactrim exposure - Diet as tolerated - Abdominal US reviewed by me showing no gross abnormalities - LFTs trending down, continue to monitor and avoid hepatotoxic therapies - Awaiting autoimmune results - Maintain bowel regimen to prevent constipation - No further planned GI intervention, will sign off case. Patient would benefit from repeat LFTs within 1 week to ensure normalization. Please reconsult as necessary, thank you.
[2018-08-28] MEDS: Insulin Lispro 1 UNITS/0.01 ML SC SCH ×3 (08:30→17:11)
[2018-08-28] MEDS: Insulin Lispro (humaLOG) LOW Coverage SC SCH ×4 (08:30→21:55)
[2018-08-28] MEDS: POLYETHYLENE GLYCOL 3350 17 GM/Dose PACKET PO SCH ×2 (10:03→17:08)
--- NOTE | 2018-08-28 10:29 | PN ---
DATE: 08/28/2018 SUBJECTIVE: She was resting comfortably in bed. She just finished physical therapy. I am hoping tomorrow will be the third overnight she can get to [facility] for subacute rehab. She is in good spirits. PHYSICAL EXAMINATION: GENERAL: She is trying to eat well, trying PT. VITAL SIGNS: She has a 98.4 temp, 77 pulse, 133/47 blood pressure, 18 respiratory rate, 100% O2 sat on room air. HEENT: Head is atraumatic, normocephalic. HEART: Regular rate. LUNGS: Decreased breath sounds, but clear. ABDOMEN: Soft, obese. EXTREMITIES: +2/4 pitting edema. MEDICATIONS: She is on aspirin, Colace, Dulcolax, insulin, Januvia, Lasix IV, Levemir, MiraLax, Mirapex, Janumet and Zestril. LABORATORY DATA: She has 139 sodium, potassium 4.1, BUN 31, creatinine 1.4, better, GFR is 38, sugar is 112, magnesium 2.1, total bili is 1.2, GGT is 216 or higher. AST came down to 68, ALT came down to 29, alk phos is 592, which came down. Total protein is 7.8, CA 19-9, CA 125 are pending. TSH is 1.59. ASSESSMENT AND PLAN: The wound was clean. Negative hepatitis. She was being seen by Endocrinology. Unremarkable ultrasound of the abdomen. She was being seen by Gastroenterology, Endocrinology and Wound Care. Hoping to get her to [facility] tomorrow Felipe Wetzel DO MTDD
[2018-08-28] MEDS: Sodium Chloride 0.9% 1,000 ML IV SCH ×2 (12:31→12:34)
[2018-08-28 16:39] VITALS: PULSE 71; RESP 20; TEMP 98.7; O2SAT 98
[2018-08-28] MEDS ORDERED: Insulin Detemir 100 units/ml Vial (Levemir) SC SCH (22:00)
[2018-08-29] MEDS: Sodium Chloride 0.9% 1,000 ML IV SCH ×2 (05:35→11:43)
[2018-08-29 07:24] LABS: HEMOGLOBIN 9.3 g/dL (12.0-16.0); MEAN CORPUSCULAR HEMOGLOBIN 27.8 pg (25.0-35.0); MEAN CORPUSCULAR HGB CONC 31.6 g/dl (31.0-37.0); MEAN PLATELET VOLUME 10.9 fl (7.0-11.0); RBC 3.34 10^6/uL (3.5-6.1); RED CELL DISTRIBUTION WIDTH 14.4 % (11.5-14.5); WHITE BLOOD COUNT 8.8 10^3/uL (4.5-11.0)
[2018-08-29] MEDS: Insulin Lispro (humaLOG) LOW Coverage SC SCH ×2 (07:44→11:42)
[2018-08-29] MEDS: Insulin Lispro 1 UNITS/0.01 ML SC SCH ×2 (07:44→11:49)
[2018-08-29 07:55] LABS: ALB/GLOB RATIO 0.9 (1.1-1.8); ALBUMIN 3.5 g/dL (3.0-4.8); CALCIUM 8.8 mg/dL (8.4-10.5)
[2018-08-29] MEDS: POLYETHYLENE GLYCOL 3350 17 GM/Dose PACKET PO SCH ×2 (09:14→09:26)
[2018-08-29 09:59] VITALS: BP 131/76
[2018-08-29] MEDS ORDERED: Bisacodyl 5mg EC Tab PO ONE (12:00)
--- NOTE | 2018-08-29 12:00 | PN ---
DATE: 08/29/2018 LOCATION: Room 567. SUBJECTIVE: This is a 58-year-old female with recent uncontrolled type 2 insulin-requiring diabetes, now being followed closely for metabolic management. Her glycemic levels are fluctuating but much improved as noted overnight. Her glucose levels have ranged from 115 to 125 mg/dL. Her chemistry showed a BUN of 30, sodium 137, potassium 3.8, chloride 103, CO2 of 28, glucose 101 and creatinine 1.2. So, at this time, we will continue the same basal and bolus insulin regimen to allow for dose equilibration as ordered. We will keep her on the basal insulin given as Levemir at 24 units subcu at bedtime daily as given. We will continue the Humalog given as prandial insulin at 8 units t.i.d. before meals as ordered. We will also continue the same low-dose correction scale using Humalog insulin as given. We will obtain serial chemistries and supplement accordingly as needed. We will follow. Milena Augustin MD
--- NOTE | 2018-08-29 19:20 | DS ---
HISTORY OF PRESENT ILLNESS: She is going to go to [facility] today to continue her physical therapy she needed, she cannot barely stand or walk. MEDICATIONS: She is on chewable aspirin, Colace, Dulcolax, insulin, Januvia, Lasix, Levemir, MiraLax, Mirapex, Sinemet, IV fluids, and Zestril. PHYSICAL EXAMINATION: GENERAL: She is in good spirits. She is feeling well. She needs to get stronger. She understands that now she is going to rehab for strength training, gait stabilization and not allow to fall anymore. VITAL SIGNS: 98.7 temperature, pulse, 130/70 blood pressure, 20 respiratory rate, and 98% O2 sat on room air. HEENT: Head is atraumatic and normocephalic. HEART: Regular rate. LUNGS: Decreased breath sounds, but clear. ABDOMEN: Soft, morbidly obese, and nontender. EXTREMITIES: Trace edema to +1. LABORATORY DATA: She has a 8.8 white count, 9.3 hemoglobin, 29.4 hematocrit with 268 platelets. Sodium 137, potassium 3.8, BUN 30, creatinine is 1.2, which is much better than when she came in, GFR is up to 46, last blood sugar was 101, calcium is 8.8, and total bili is 1. AST is 58, ALT is 39, and alk phos is 483. She has 7.3 total protein and albumin is 3.5. ASSESSMENT AND PLAN: She was seen by GI, who says that she can go Endocrinology. Ultrasound of the abdomen was fine. Her medications were adjusted for diabetes. CA19-9 was normal at 9.6, CA125 was normal at 5.5, and CEA was normal at 1. Her TSH is 1.59. So, the cancer markers were all negative. I will see her over at [facility] for physical therapy. Felipe Wetzel DO MTDEdis
--- NOTE | 2018-08-31 08:25 | PN ---
DATE: 08/28/2018 ENDOCRINOLOGY FOLLOWUP NOTE LOCATION: In room 567. SUBJECTIVE: This is a 58-year-old female with recent uncontrolled type 2 insulin-requiring diabetes presenting here with marked hyperglycemic accelerations and is now being followed closely for metabolic management. Her glycemic levels are fluctuating, but improved as noted today and glucose levels have ranged from 112 to 135 and 215 mg/dL. LABORATORY DATA: Her chemistry showed a BUN of 31, sodium 139, potassium 4.1, chloride 105, CO2 of 28, glucose 111, and creatinine 1.4 as noted. ASSESSMENT: This is a 58-year-old female with uncontrolled and decompensated type 2 insulin-requiring diabetes with marked hyperglycemic accelerations and clearly suboptimal metabolic control as noted. Her A1c levels are pending at this time. PLAN OF MANAGEMENT: We will modify her current basal and bolus insulin regimen as ordered. We will increase the Humalog to 8 units t.i.d. before meals to start today as ordered. We will also increase the basal insulin with Levemir to be given as 24 units subcu at bedtime daily as given. We will obtain serial chemistries and supplement accordingly as needed. We will also modify her coverage scale using Humalog insulin to obviate hypoglycemia using a very low-dose coverage scale as ordered. We will obtain serial chemistries and supplement accordingly as needed. We will follow. Milena Augustin MD
== END 2018-08-29 12:40 | DRG 57 ==
LOC: ED 12:37 → ERH 20:10 → 5RNO 22:26
PROVIDERS: ADMIT Family Medicine; ATTEND Family Medicine
DX: I69.354 Hemiplegia and hemiparesis following cerebral infarction affecting left non-dominant side (principal); I13.0 Hypertensive heart and chronic kidney disease with heart failure and stage 1 through stage 4 chronic kidney disease, or unspecified chronic kidney disease; G20 Parkinson's disease; E11.21 Type 2 diabetes mellitus with diabetic nephropathy; E11.51 Type 2 diabetes mellitus with diabetic peripheral angiopathy without gangrene; I25.10 Atherosclerotic heart disease of native coronary artery without angina pectoris; E11.319 Type 2 diabetes mellitus with unspecified diabetic retinopathy without macular edema; E11.42 Type 2 diabetes mellitus with diabetic polyneuropathy; I50.9 Heart failure, unspecified; N18.9 Chronic kidney disease, unspecified; E11.22 Type 2 diabetes mellitus with diabetic chronic kidney disease; E11.65 Type 2 diabetes mellitus with hyperglycemia; I87.2 Venous insufficiency (chronic) (peripheral); R26.2 Difficulty in walking, not elsewhere classified; R74.8 Abnormal levels of other serum enzymes; K59.00 Constipation, unspecified; K21.9 Gastro-esophageal reflux disease without esophagitis; E66.9 Obesity, unspecified; G93.89 Other specified disorders of brain; Z79.4 Long term (current) use of insulin; Z95.5 Presence of coronary angioplasty implant and graft; Z87.01 Personal history of pneumonia (recurrent)

== ENCOUNTER 2018-10-28 21:41 | Inpatient (IN) | payer MEDICARE, MEDICAID ==
[2018-10-29 00:14] LABS: BASO # 0.08 K/mm3 (0.0-2.0); BASO % 1.1 % (0.0-3.0); EOS # 0.4 (0.0-0.7); EOS % 4.9 % (1.5-5.0); HEMOGLOBIN 10.8 g/dL (12.0-16.0); LYMPH # 2.3 (1.2-3.4); LYMPH % 31.8 % (22.0-35.0); MEAN CORPUSCULAR HEMOGLOBIN 27.7 pg (25.0-35.0); MEAN PLATELET VOLUME 11.7 fl (7.0-11.0); MONO # 0.4 (0.1-0.6); MONO % 5.6 % (1.0-6.0); RBC 3.9 10^6/uL (3.5-6.1); WHITE BLOOD COUNT 7.2 10^3/uL (4.5-11.0)
[2018-10-29 00:20] LABS: MEAN CELL VOLUME 83.8 fl (80.0-105.0)
[2018-10-29 00:56] LABS: ALBUMIN 3.7 g/dL (3.0-4.8)
[2018-10-29 01:21] LABS: ALB/GLOB RATIO 0.9 (1.1-1.8); ALT/SGPT 14 U/L (7-56); AST/SGOT 84 U/L (14-36); BLOOD UREA NITROGEN 39 mg/dL (7-21); CALCIUM 8.8 mg/dL (8.4-10.5); GFR NON-AFRICAN AMERICAN 51
[2018-10-29 01:30] LABS: B-TYPE NATRIURETIC PEPTIDE 438 pg/mL (0-450)
[2018-10-29] MEDS ORDERED: Aztreonam 1 Gm in NS 100mL 100 ML IVPB STA (01:40)
[2018-10-29] MEDS ORDERED: Vancomycin 1gm in NS 250ml 1 GM/250 ML BAG IVPB STA (01:40)
--- NOTE | 2018-10-29 01:46 | ED PDOC ---
Arrival/HPI - General Chief Complaint: Lower Extremity Problem/Injury Time Seen by Provider: 10/28/18 22:01 Historian: Patient - History of Present Illness Narrative History of Present Illness (Text): 10/29/18 01:41 58-year-old female with a history of Parkinson's disease, stroke presents today with left lower leg pain swelling and redness. Patient states she noticed that a ulcer opened up on the anterior aspect of the lower leg. Patient states she is noticed some purulent discharge. She is complaining of pain to the calf. Patient denies chest pain or shortness of breath. No abdominal pain. No dizziness or weakness. She denies fevers or chills. No other complaints Past Medical History - Provider Review Nursing Documentation Reviewed: Yes - Travel History Have you recently traveled outside [place] w/in the past 3 mons?: No - Infectious Disease Hx of Infectious Diseases: None - Cardiac Hx Cardiac Disorders: Yes (CARDIAC STENTS) Hx Congestive Heart Failure: Yes Hx Hypertension: Yes - Pulmonary Hx Respiratory Disorders: Yes Hx Pneumonia: Yes - Neurological HX Cerebrovascular Accident: Yes (10years ago. Left side weakness) - HEENT Hx HEENT Disorder: No - Renal Hx Renal Disorder: No - Endocrine/Metabolic Hx Diabetes Mellitus Type 2: Yes - Hematological/Oncological Hx Blood Disorders: No - Integumentary Hx Dermatological Disorder: Yes Other/Comment: venous stasis dermatitis - Musculoskeletal/Rheumatological Hx Arthritis: Yes - Gastrointestinal Hx Gastrointestinal Disorders: Yes Hx Gastroesophageal Reflux: Yes - Genitourinary/Gynecological Hx Genitourinary Disorders: No - Psychiatric Hx Psychophysiologic Disorder: Yes Hx Bipolar Disorder: Yes Hx Schizophrenia: Yes (borderline) Hx Substance Use: No - Surgical History Hx Coronary Stent: Yes Other/Comment: as per pt 8yrs ago fluid was drained from her head in [facility] - Anesthesia Hx Anesthesia: Yes Hx Anesthesia Reactions: No Hx Malignant Hyperthermia: No Family/Social History - Physician Review Nursing Documentation Reviewed: Yes Family/Social History: Unknown Family HX Smoking Status: Never Smoked Hx Alcohol Use: No Hx Substance Use: No Allergies/Home Meds Allergies/Adverse Reactions: Allergies Penicillins Allergy (Verified 07/11/18 18:19) SWELLING Home Medications: Home Meds Medication Instructions Recorded Confirmed Lisinopril [Zestril] 1 tab PO DAILY 04/11/18 07/11/18 Review of Systems - Review of Systems Constitutional: absent: Fatigue, Fevers Respiratory: absent: SOB, Cough Cardiovascular: absent: Chest Pain, Palpitations Gastrointestinal: absent: Abdominal Pain, Nausea, Vomiting Musculoskeletal: Arthralgias Skin: Skin Lesions, Cellulitis Neurological: absent: Headache, Dizziness Physical Exam Vital Signs Reviewed: Yes Vital Signs Temp Pulse Resp BP Pulse Ox 10/28/18 22:07 97.7 F 86 14 160/80 H 95 Temperature: Afebrile Blood Pressure: Hypertensive Pulse: Regular Respiratory Rate: Normal Appearance: Positive for: Well-Appearing, Non-Toxic, Comfortable Pain Distress: None Mental Status: Positive for: Alert and Oriented X 3 - Systems Exam Head: Present: Atraumatic Mouth: Present: Moist Mucous Membranes Neck: Present: Normal Range of Motion Respiratory/Chest: Present: Clear to Auscultation, Good Air Exchange. No: Respiratory Distress, Accessory Muscle Use Cardiovascular: Present: Regular Rate and Rhythm, Normal S1, S2. No: Murmurs Abdomen: No: Tenderness Upper Extremity: Present: Normal Inspection Lower Extremity: Present: CALF TENDERNESS (+ left leg calf tenderness, + edema, + erythema; there is a V shaped ulceration noted along the anterior aspect of lower leg; + warmth. ), Tenderness, Swelling, Erythema, Capillary Refill < 2 s Neurological: Present: GCS=15 Skin: Present: Warm, Dry Psychiatric: Present: Alert, Oriented x 3 Medical Decision Making ED Course and Treatment: 10/29/18 01:43 58yr old female with bilateral lower leg swelling with cellulitis and ulceration to left lower leg. cbc; wnl cmp; bun; 39 cr; 1.1 BNP: wnl blood cultures pending venous duplex of the bilateral lower extremities; no DVT Patient started on vancomycin and aztreonam for cellulitis Case discussed with Dr. Wetzel accepts observational status admission for cellulitis of the lower legs. consult ID and dr. hernandez Impression: Cellulitis, legs, wound ,leg Admit [facility] 10/29/18 01:50 - Lab Interpretations Lab Results: NT-Pro-B Natriuret Pep 438 pg/mL (0-450) 10/28/18 23:34 Total Bilirubin 0.9 mg/dL (0.2-1.3) 10/28/18 23:34 AST 84 U/L (14-36) H D 10/28/18 23:34 ALT 14 U/L (7-56) 10/28/18 23:34 Alkaline Phosphatase 207 U/L (38-126) H D 10/28/18 23:34 Total Protein 7.2 g/dL (5.8-8.3) 10/28/18 23:34 Albumin 3.7 g/dL (3.0-4.8) 10/28/18 23:34 Globulin 4.2 gm/dL 10/28/18 23:34 Albumin/Globulin Ratio 0.9 (1.1-1.8) L 10/28/18 23:34 - RAD Interpretation Radiology Orders: 10/28/18 23:29 DUPLEX LOWER EXTRM VEIN BILAT [US] Stat - Medication Orders Current Medication Orders: Aztreonam (Azactam 1 Gm) 100 mls @ 100 mls/hr IVPB STAT STA; Protocol Stop: 10/29/18 02:39 Vancomycin HCl (Vancomycin 1gm) 1 gm in 250 mls @ 167 mls/hr IVPB STAT STA; Protocol Stop: 10/29/18 03:09 Disposition/Present on Arrival - Present on Arrival Any Indicators Present on Arrival: No History of DVT/PE: No History of Uncontrolled Diabetes: No Urinary Catheter: No History of Decub. Ulcer: No History Surgical Site Infection Following: None - Disposition Have Diagnosis and Disposition been Completed?: Yes Diagnosis: Cellulitis of leg, Wound, open, leg Disposition: HOSPITALIZED Disposition Time: 01:00 Patient Plan: Admission Patient Problems: Current Active Problems Problem Status Onset Cellulitis of leg Acute Condition: FAIR Discharge Instructions (ExitCare): Cellulitis (ED) Forms: [employer] ([employer])
[2018-10-29] MEDS: POLYETHYLENE GLYCOL 3350 17 GM/Dose PACKET PO SCH ×3 (10:07→17:44)
[2018-10-29] MEDS: Vancomycin 1gm in NS 250ml 1 GM/250 ML BAG IVPB SCH ×2 (10:07→20:27)
[2018-10-29] MEDS: Silver Sulfadiazine 1% Cream (25 gm) TP SCH (10:08)
[2018-10-29] MEDS: Insulin Lispro 1 UNITS/0.01 ML SC SCH ×2 (11:32→17:44)
[2018-10-29] MEDS: Insulin Reg-MEDIUM-Coverage SC SCH ×2 (11:32→17:49)
--- NOTE | 2018-10-29 12:12 | CP.PCM.CON ---
<Mitchell Wu - Last Filed: 10/29/18 12:08> History of Present Illness - History of Present Illness History of Present Illness: Podiatry consult - Drs. Dickinson/Scott 58F seen and evaluated at bedside this AM with Dr. Chavez. Resting comfortably. Patient was treated on her last admission for b/l lower extremity venous stasis ulcerations and cellulitis. Patient states that she has had worsening redness and pain in her legs for 2 weeks. States she is in a reclining chair when she is at home and sleeps in the same chair at night. States she has a hospital bed to sleep in but it is too uncomfortable for her to sleep on. States she has not noticed drainage or openings from her legs. Denies n/v/f/c and has no other acute pedal complaints at this time. Past Patient History - Infectious Disease Hx of Infectious Diseases: None - Past Medical History & Family History Past Medical History?: Yes - Past Social History Smoking Status: Never Smoked - CARDIAC Hx Cardiac Disorders: Yes (CARDIAC STENTS) Hx Congestive Heart Failure: Yes Hx Hypertension: Yes - PULMONARY Hx Respiratory Disorders: Yes Hx Pneumonia: Yes - NEUROLOGICAL HX Cerebrovascular Accident: Yes (10years ago. Left side weakness) - HEENT Hx HEENT Problems: No - RENAL Hx Chronic Kidney Disease: No - ENDOCRINE/METABOLIC Hx Diabetes Mellitus Type 2: Yes - HEMATOLOGICAL/ONCOLOGICAL Hx Blood Disorders: No - INTEGUMENTARY Hx Dermatological Problems: Yes Other/Comment: venous stasis dermatitis - MUSCULOSKELETAL/RHEUMATOLOGICAL Hx Arthritis: Yes - GASTROINTESTINAL Hx Gastrointestinal Disorders: Yes Hx Gastroesophageal Reflux: Yes - GENITOURINARY/GYNECOLOGICAL Hx Genitourinary Disorders: No - PSYCHIATRIC Hx Psychophysiologic Disorder: Yes Hx Bipolar Disorder: Yes Hx Schizophrenia: Yes (borderline) Hx Substance Use: No - SURGICAL HISTORY Hx Coronary Stent: Yes Other/Comment: as per pt 8yrs ago fluid was drained from her head in [facility] - ANESTHESIA Hx Anesthesia: Yes Hx Anesthesia Reactions: No Hx Malignant Hyperthermia: No Meds Allergies/Adverse Reactions: Allergies Allergy/AdvReac Type Severity Reaction Status Date / Time Penicillins Allergy SWELLING Verified 07/11/18 18:19 - Medications Medications: Current Medications Aspirin (Aspirin Chewable) 81 mg PO DAILY REI Last Admin: 10/29/18 10:07 Dose: 81 mg Betamethasone/Clotrimazole (Lotrisone) 0 gm TOP BID [facility] Carbidopa/Levodopa (Sinemet) 1 tab PO 0800,1200,1600,2000 [facility] Docusate Sodium (Colace) 100 mg PO BID [facility] Last Admin: 10/29/18 10:22 Dose: Not Given Furosemide (Lasix) 40 mg IVP DAILY [facility] Last Admin: 10/29/18 10:07 Dose: 40 mg Vancomycin HCl (Vancomycin 1gm) 1 gm in 250 mls @ 167 mls/hr IVPB Q12H [facility]; Protocol Stop: 11/06/18 07:16 Last Admin: 10/29/18 10:07 Dose: 167 mls/hr Insulin Detemir (Levemir) 24 unit SC HS [facility] Insulin Human Lispro (Humalog) 8 units SC AC [facility] Last Admin: 10/29/18 11:32 Dose: Not Given Insulin Human Regular (Humulin R Med) 0 units SC ACHS [facility]; Protocol Last Admin: 10/29/18 11:32 Dose: Not Given Ketorolac Tromethamine (Toradol) 30 mg IVP Q6H PRN PRN Reason: Pain, moderate (4-7) Lisinopril (Zestril) 5 mg PO DAILY [facility] Last Admin: 10/29/18 10:07 Dose: 5 mg Nystatin (Nystop Topical Powder) 0 gm TOP BID PRN PRN Reason: Rash Polyethylene Glycol (Miralax) 17 gm PO BID [facility] Last Admin: 10/29/18 10:23 Dose: Not Given Pramipexole Dihydrochloride (Mirapex) 1 mg PO 0800,1800 [facility] Silver Sulfadiazine (Silvadene 1% 25 Gm) 0 gm TP DAILY [facility] Last Admin: 10/29/18 10:08 Dose: 25 gm Sitagliptin Phosphate (Januvia) 50 mg PO DAILY [facility] Last Admin: 10/29/18 10:07 Dose: 50 mg Physical Exam - Constitutional Appears: Non-toxic - Head Exam Head Exam: ATRAUMATIC - Extremities Exam Additional comments: VASC: DP pulses faintly palpable, PT nonpalpable b/l; cap refill <3 seconds to digits; mild edema noted to LE associated with erythema DERM: no open lesions or wounds present, scab formation from previous wound noted to left anterior leg; erythema at LE b/l ORTHO: mild pain on palpation of b/l anterior LE proximal to ankle joint, no other gross pathology noted NEURO: diminished - Neurological Exam Neurological exam: Alert, Oriented x3 - Psychiatric Exam Psychiatric exam: Normal Affect Results - Vital Signs Recent Vital Signs: Last Vital Signs Temp 97.7 F 10/28/18 22:07 Pulse 75 10/29/18 07:16 Resp 13 10/29/18 07:16 BP 150/78 10/29/18 10:07 Pulse Ox 100 10/29/18 07:16 - Labs Result Diagrams: 10/28/18 23:34 10/28/18 23:34 Labs: Laboratory Results - last 24 hr 10/28/18 10/28/18 10/29/18 23:34 23:34 11:16 WBC 7.2 RBC 3.90 Hgb 10.8 L Hct 32.7 L MCV 83.8 D MCH 27.7 MCHC 33.0 RDW 15.0 H Plt Count 247 MPV 11.7 H Neut % (Auto) 56.6 Lymph % (Auto) 31.8 [place] % (Auto) 5.6 Eos % (Auto) 4.9 Baso % (Auto) 1.1 Lymph # (Auto) 2.3 [place] # (Auto) 0.4 Eos # (Auto) 0.4 Baso # (Auto) 0.08 Absolute Neuts (auto) 4.06 Sodium 142 Potassium 4.7 Chloride 111 H Carbon Dioxide 24 Anion Gap 12 BUN 39 H Creatinine 1.1 Est GFR ( Amer) > 60 Est GFR (Non-Af Amer) 51 POC Glucose (mg/dL) 134 H Random Glucose 126 H Calcium 8.8 Total Bilirubin 0.9 AST 84 H D ALT 14 Alkaline Phosphatase 207 H D NT-Pro-B Natriuret Pep 438 Total Protein 7.2 Albumin 3.7 Globulin 4.2 Albumin/Globulin Ratio 0.9 L Assessment & Plan - Assessment and Plan (Free Text) Assessment: 58F with b/l LE cellulitis and stasis changes to LE Plan: Patient seen and evaluated with Dr. Chavez VSS, WBC 7.2 Venous duplex pending read Legs left open, betadine paint to scab on LLE Lotrisone ordered, apply to legs BID while in house Keep legs elevated while in bed F/u with Dr. Chavez upon discharge as outpatient Will continue to follow Thank you for the consult - Date & Time Date: 10/29/18 Time: 12:14 <Roseanna Chavez - Last Filed: 10/30/18 11:34> Meds - Medications Medications: Current Medications Aspirin (Aspirin Chewable) 81 mg PO DAILY [facility] Last Admin: 10/29/18 10:07 Dose: 81 mg Betamethasone/Clotrimazole (Lotrisone) 0 gm TOP BID [facility] Last Admin: 10/29/18 17:44 Dose: Not Given Carbidopa/Levodopa (Sinemet) 1 tab PO 0800,1200,1600,2000 [facility] Last Admin: 10/30/18 08:54 Dose: 1 tab Docusate Sodium (Colace) 100 mg PO BID [facility] Last Admin: 10/29/18 17:44 Dose: Not Given Furosemide (Lasix) 40 mg IVP DAILY [facility] Last Admin: 10/29/18 10:07 Dose: 40 mg Vancomycin HCl (Vancomycin 1gm) 1 gm in 250 mls @ 167 mls/hr IVPB Q12H [facility]; Protocol Stop: 11/06/18 07:16 Last Admin: 10/30/18 08:53 Dose: 167 mls/hr Insulin Detemir (Levemir) 24 unit SC HS [facility] Last Admin: 10/29/18 21:42 Dose: 24 unit Insulin Human Lispro (Humalog) 8 units SC AC [facility] Last Admin: 10/30/18 08:46 Dose: Not Given Insulin Human Regular (Humulin R Med) 0 units SC ACHS [facility]; Protocol Last Admin: 10/30/18 08:47 Dose: Not Given Ketorolac Tromethamine (Toradol) 30 mg IVP Q6H PRN PRN Reason: Pain, moderate (4-7) Last Admin: 10/30/18 08:11 Dose: 30 mg Lisinopril (Zestril) 5 mg PO DAILY [facility] Last Admin: 10/29/18 10:07 Dose: 5 mg Nystatin (Nystop Topical Powder) 0 gm TOP BID PRN PRN Reason: Rash Polyethylene Glycol (Miralax) 17 gm PO BID [facility] Last Admin: 10/29/18 17:44 Dose: Not Given Pramipexole Dihydrochloride (Mirapex) 1 mg PO 0800,1800 [facility] Last Admin: 10/30/18 08:53 Dose: 1 mg Silver Sulfadiazine (Silvadene 1% 25 Gm) 0 gm TP DAILY [facility] Last Admin: 10/29/18 10:08 Dose: 25 gm Sitagliptin Phosphate (Januvia) 50 mg PO DAILY [facility] Last Admin: 10/29/18 10:07 Dose: 50 mg Results - Vital Signs Recent Vital Signs: Last Vital Signs Temp 97.5 F L 10/30/18 06:00 Pulse 66 10/30/18 06:00 Resp 18 10/30/18 06:00 BP 147/75 10/30/18 06:00 Pulse Ox 98 10/30/18 06:00 - Labs Result Diagrams: 10/30/18 07:00 10/30/18 07:00 Labs: Laboratory Results - last 24 hr 10/29/18 10/29/18 10/30/18 16:11 20:56 06:42 WBC RBC Hgb Hct MCV MCH MCHC RDW Plt Count MPV Sodium Potassium Chloride Carbon Dioxide Anion Gap BUN Creatinine Est GFR ( Amer) Est GFR (Non-Af Amer) POC Glucose (mg/dL) 172 H 156 H 63 L Random Glucose Calcium Total Bilirubin AST ALT Alkaline Phosphatase Total Protein Albumin Globulin Albumin/Globulin Ratio 10/30/18 10/30/18 10/30/18 07:00 07:00 11:18 WBC 8.1 RBC 3.72 Hgb 10.2 L Hct 31.2 L MCV 83.9 MCH 27.4 MCHC 32.7 RDW 14.9 H Plt Count 228 MPV 10.9 Sodium 142 Potassium 4.1 Chloride 110 H Carbon Dioxide 27 Anion Gap 9 L BUN 36 H Creatinine 1.3 H Est GFR ( Amer) 51 Est GFR (Non-Af Amer) 42 POC Glucose (mg/dL) 189 H Random Glucose 68 L Calcium 8.7 Total Bilirubin 1.0 AST 29 ALT 12 Alkaline Phosphatase 190 H Total Protein 7.1 Albumin 3.6 Globulin 3.5 Albumin/Globulin Ratio 1.0 L Attending/Attestation - Attestation I have personally seen and examined this patient.: Yes I have fully participated in the care of the patient.: Yes I have reviewed all pertinent clinical information: Yes
[2018-10-29 17:33] VITALS: BMI 44.4
[2018-10-29] MEDS ORDERED: Pneumococcal 23-Valent Vaccine IM ONE (17:33)
[2018-10-29] MEDS: Clotrimazole/Betamethasone Cream(15 gm) TOP SCH (17:44)
--- NOTE | 2018-10-29 18:06 | CON ---
DATE: 10/29/2018 CHIEF COMPLAINT: Weakness in lower extremity and infection times several days. HISTORY OF PRESENT ILLNESS: This is a 58-year-old female seen earlier today in room 569, bed 2, known to me from previous admission from June. She at that time had a right leg cellulitis with MRSA, history of peripheral arterial disease, history of Parkinson's, cerebrovascular accident, coronary artery disease, schizophrenia, bipolar, atrial fibrillation, hypertension, diabetes, morbid obesity with a BMI of 44, and a history of renal disease, now admitted with left leg erythema and warm to touch low-grade fevers. No nausea. No vomiting. REVIEW OF SYSTEMS: Reveals a 12-point review of systems is performed. PAST MEDICAL HISTORY: Significant for right leg cellulitis with MRSA, peripheral arterial disease, cerebrovascular accident, coronary artery disease, hypertension, Parkinson's, diabetes, morbid obesity with BMI of 44, and history of renal disease, atrial fibrillation, bipolar and schizophrenia. PAST SURGICAL HISTORY: Significant for cardiac stent placement. ALLERGIES: THE PATIENT IS ALLERGIC TO PENICILLIN; HOWEVER, SHE HAD TOLERATED MEROPENEM IN THE PAST NOT TYPE 1 ANAPHYLAXIS TYPE ALLERGY. MEDICATIONS AT HOME: Reviewed include H insulin, furosemide, aspirin, and carbidopa and levodopa. PHYSICAL EXAMINATION: GENERAL: The patient is in bed, in no acute distress. She is answering questions appropriately. VITAL SIGNS: Has a temperature of 97; pulse of 71, it was up to 86; respiratory rate of 13, and blood pressure is 159/75. HEENT: Unremarkable. NECK: Supple. LUNGS: Decreased breath sounds. HEART: Normal S1 and S2. ABDOMEN: Soft and nontender. EXTREMITIES: Examination of the left leg; significant erythema, central necrotic area and the anterior chin, part of the chin. Pulses are intact. Sensory is intact. LABORATORY DATA: Laboratory examination reveals a white count of 7.2, hemoglobin of 10, BUN of 39, creatinine of 1.1 with a GFR of 51, glucose is 131, and alk phos is 207. Consultation by Dr. Mitchell Wu reviewed, who is writing for Dr. Chavez. ASSESSMENT AND PLAN: A 58-year-old female with: Left lower extremity cellulitis in a patient, who has had renal disease in the past. She does have renal insufficiency right now, currently on vancomycin. We will add meropenem and the patient with diabetes, hypertension, schizophrenia, morbid obesity with body mass index of 44, history of renal disease, Parkinson's, pending culture results. She will have arterial studies to rule out peripheral arterial disease, the podiatric involvement is appreciated. Vascular consultation is considered MRI to rule out underlying osteomyelitis. We will make further recommendation, follow the vancomycin levels carefully. We will follow with you. Goran Loera MD
--- NOTE | 2018-10-29 18:24 | HP ---
DATE OF EXAM: 10/29/2018 HISTORY OF PRESENT ILLNESS: I have been doing house calls on [place] for a while now. She was in the hospital a few months back, did well and went home. She also went to subacute rehab and did well. Over the past month her legs have started to get more erythematous and now she has a little bit of an ulcer. She was seen by the pack press operator and sent into the emergency room. She is a 58-year-old white female with lower leg redness, swelling even though she is on Lasix. The ulcer opened up on the anterior aspect of the lower leg. Some purulent discharge. Also some pain. Not short of breath. PAST MEDICAL HISTORY: She has a past medical history of Parkinson's disease, stroke, cellulitis in the past, she has had cardiac stents, CHF, hypertension, pneumonia history. She had a CVA 10 years ago with left-sided weakness. She is to walk with a walker when she can walk. She has diabetes, venous stasis dermatitis, arthritis, reflux, bipolar, schizophrenia. No substance abuse. Eight years ago she had fluid drained from her head at [facility] in [place]. FAMILY HISTORY: Unknown family history. SOCIAL HISTORY: Never smoked. No alcohol. No drugs. There is secondhand smoke though. ALLERGIES: ALLERGIC TO PENICILLIN. CURRENT MEDICATIONS: She is on a few medications, aspirin, Colace, insulin coverage, Januvia, Levemir, MiraLax, Mirapex, Silvadene, Sinemet, lisinopril. REVIEW OF SYSTEMS: No acute vision or hearing changes. No sore throat. No neck pain. No shortness of breath or cough. No chest pain or palpitations. No nausea, vomiting, constipation, diarrhea or abdominal pain. She does have arthralgias. She does have redness in both lower extremities with skin lesions now and oozing pus coming from the ulcer. No headache or dizziness. PHYSICAL EXAMINATION VITAL SIGNS: She has a 97.7 temperature, 86 pulse, 14 respiratory rate, 160/80 blood pressure, and 95% O2 sat. GENERAL: She is comfortable in bed, a little uncomfortable in the legs, worried. She feels that she is getting weaker, might need subacute rehab again. She went to [facility] and she liked it and did well. She is well-appearing, nontoxic, comfortable. Alert and oriented x3. HEENT: Head; atraumatic, normocephalic. Throat is moist. NECK: Supple. No JVD. Thyroid midline. No palpable appreciable cervical lymphadenopathy. HEART: Regular rate. Normal S1, S2. LUNGS: Decreased breath sounds bilaterally. Poor inspiration but clear to auscultation. No wheezes, no rhonchi nor rales. ABDOMEN: Soft, nontender. Positive bowel sounds. No guarding, no rebound nor CVA tenderness. She is obese. EXTREMITIES: There is calf tenderness left with edema. A +1/4 pitting edema. It is warm. There is a V-shaped ulceration noted along the anterior aspect of the lower leg, a little bit of tenderness, redness, a little bit of clear to whitish pus coming from it if you put pressure on it. NEUROLOGIC: GCS is 15. Cranial nerves II through XII grossly intact. Alert and oriented x3. LABORATORY DATA: She has a 142 sodium, potassium 4.7, BUN 39, creatinine 1.1, GFR is 51, sugar is 126, calcium is 8.8, total bili is 0.9. AST is 84, ALT is 14, alk phos 207. BNP is 438. Total protein is 7.2, albumin is 3.7. White count is 7.2, hemoglobin 10.8, hematocrit 32.7, and platelets are 247. ASSESSMENT AND PLAN: So it looks like we have bilateral lower leg cellulitis with ulcer. Maybe a little bit of need of physical therapy. She will have consults with Podiatry and Infectious Disease. She will be on IV antibiotics, she was given aztreonam in the ER and vancomycin, we will wait for Infectious Disease. I have put her back on her regular medications. Out of bed to chair. Lasix IV to help with the swelling so it could help it heal. There is a duplex scan pending to rule out DVT. We will continue aggressive treatment and care with her cellulitis and ulcer of the lower extremity. Physical therapy is ordered. She might need subacute rehab again. Felipe Wetzel DO [facility] # [id number]
[2018-10-29] MEDS: Insulin Detemir 100 units/ml Vial (Levemir) SC SCH (21:42)
[2018-10-30 07:12] LABS: HEMOGLOBIN 10.2 g/dL (12.0-16.0); MEAN CELL VOLUME 83.9 fl (80.0-105.0); MEAN CORPUSCULAR HEMOGLOBIN 27.4 pg (25.0-35.0); MEAN CORPUSCULAR HGB CONC 32.7 g/dl (31.0-37.0); MEAN PLATELET VOLUME 10.9 fl (7.0-11.0); RBC 3.72 10^6/uL (3.5-6.1); RED CELL DISTRIBUTION WIDTH 14.9 % (11.5-14.5); WHITE BLOOD COUNT 8.1 10^3/uL (4.5-11.0)
[2018-10-30 07:27] LABS: ALBUMIN 3.6 g/dL (3.0-4.8); CALCIUM 8.7 mg/dL (8.4-10.5)
[2018-10-30] MEDS: Insulin Lispro 1 UNITS/0.01 ML SC SCH ×3 (08:46→17:38)
[2018-10-30] MEDS: Insulin Reg-MEDIUM-Coverage SC SCH ×4 (08:47→22:16)
[2018-10-30] MEDS: Vancomycin 1gm in NS 250ml 1 GM/250 ML BAG IVPB SCH (08:53)
--- NOTE | 2018-10-30 10:19 | CP.PCM.PCO ---
Additional Comments - Additional Comments Additional Comments: Pt is a 58 y.o. female w/ pmhx of cellulitis to lower extremity, DM, HTN, CHF, schizophrenia, Parkinson's disease, and CVA who presented in ED for L lower extremity pain and swelling. Pt seen and examined at bedside. In no acute distress. +Erythema to alexandre lower extremity. There is a scab noted on the anterior L lower extremity. She is currently on Vancomycin IV per ID recs. Podiatry on consult. Pending Venous Doppler of alexandre lower ext, and blood and wou nd culture. Physical therapy pending. Will continue to follow. Laboratory Results - last 24 hr 10/29/18 10/29/18 10/29/18 11:16 16:11 20:56 WBC RBC Hgb Hct MCV MCH MCHC RDW Plt Count MPV Sodium Potassium Chloride Carbon Dioxide Anion Gap BUN Creatinine Est GFR ( Amer) Est GFR (Non-Af Amer) POC Glucose (mg/dL) 134 H 172 H 156 H Random Glucose Calcium Total Bilirubin AST ALT Alkaline Phosphatase Total Protein Albumin Globulin Albumin/Globulin Ratio 10/30/18 10/30/18 10/30/18 06:42 07:00 07:00 WBC 8.1 RBC 3.72 Hgb 10.2 L Hct 31.2 L MCV 83.9 MCH 27.4 MCHC 32.7 RDW 14.9 H Plt Count 228 MPV 10.9 Sodium 142 Potassium 4.1 Chloride 110 H Carbon Dioxide 27 Anion Gap 9 L BUN 36 H Creatinine 1.3 H Est GFR ( Amer) 51 Est GFR (Non-Af Amer) 42 POC Glucose (mg/dL) 63 L Random Glucose 68 L Calcium 8.7 Total Bilirubin 1.0 AST 29 ALT 12 Alkaline Phosphatase 190 H Total Protein 7.1 Albumin 3.6 Globulin 3.5 Albumin/Globulin Ratio 1.0 L
[2018-10-30] MEDS: Clotrimazole/Betamethasone Cream(15 gm) TOP SCH ×2 (11:46→17:53)
[2018-10-30] MEDS: Silver Sulfadiazine 1% Cream (25 gm) TP SCH (11:47)
[2018-10-30] MEDS: POLYETHYLENE GLYCOL 3350 17 GM/Dose PACKET PO SCH ×2 (11:47→17:39)
--- NOTE | 2018-10-30 12:25 | PN ---
DATE: 10/30/2018 SUBJECTIVE: She slept fairly well. She is eating well, going to the bathroom well. Her legs are still little bit tender and red, little bit better than yesterday. She is on antibiotics. PHYSICAL EXAMINATION: VITAL SIGNS: She has 97.5 temp, 66 pulse, 147/75 blood pressure, 18 respiratory rate, 98% O2 sat on room air. HEAD: Atraumatic, normocephalic. HEART: Regular rate. LUNGS: Decreased breath sounds. Poor inspiration, but clear to auscultation. No wheezes. No rhonchi. No rales. ABDOMEN: Soft. Morbidly obese, nontender. Positive bowel sounds. No guarding. No rebound. No CVA tenderness. EXTREMITIES: Less swollen, which is good. She is on Lasix IV. It is still red. There is still an ulcer. MEDICATIONS: She is on aspirin, Colace, insulin, Januvia, Lasix IV which is helping, Levemir, Lotrisone, MiraLax, Mirapex, nystatin, carbidopa and levodopa, Toradol, vancomycin, and Zestril. LABORATORY DATA: White count 8.1, 10.2 hemoglobin, 31.2 hematocrit, 228 platelets. Sodium 142, potassium 4.1, BUN 36, creatinine 1.3, GFR is 42, sugar 68, calcium 8.7, total bilirubin is 1. AST is 29, ALT is 12, alk phos 190. BNP was 438 and total protein 7.1. ASSESSMENT AND PLAN: We will continue IV antibiotics as per Infectious Disease. Let us see what physical therapy says about her walking and if she needs to go to [facility], TCU or home with services. We will continue aggressive treatment and care. The patient has cellulitis. Felipe Wetzel DO
--- NOTE | 2018-10-30 14:17 | PN ---
DATE: 10/30/2018 SUBJECTIVE: A 58-year-old female seen at bedside for continued evaluation and management of lower extremity cellulitis and new wound on her left lower leg. She states she is feeling much better since admission. She experience any any fever, chills, nausea or vomiting. ALLERGIES: THE PATIENT IS ALLERGIC TO PENICILLIN. PHYSICAL EXAMINATION: EXTREMITIES: Weakly palpable dorsalis pedis pulses noted bilaterally and nonpalpable PT pulse noted bilaterally, +2 nonpitting lower extremity edema noted bilaterally. Capillary filling time is delayed x10. Lower extremity presents with thin, shining and discolored bilaterally secondary to longstanding chronic peripheral vascular disease and venous stasis dermatitis. Therefore, I present with a superficial non-stage ulceration on the anterior aspect of the left lower leg. There is noted to be no drainage. No purulence. No probing to tendon or bone. No underlying abscess formation. The periphery of the wound is void of any cellulitic activity at this time. LABORATORY FINDINGS: Reveal a white blood cell count of 8.1, hemoglobin of 10.2, hematocrit of 31.2, platelet count of 228. There is no microbiology noted on the left lower leg wound. Venous Doppler results are pending. However, she does report no pain in her legs at this time. MEDICATION: All medications are noted in MAR. ASSESSMENT: A 58-year-old female with resolving bilateral lower extremity cellulitis and chronic venous stasis changes to both lower extremities. PLAN: The patient was seen and evaluated. We are awaiting venous Doppler results. Culture of the left wound was taken and submitted for sensitivities. The wounds were cleansed with normal sterile saline and application of Silver Hydrogel with gauze was applied to the left lower leg and application of Lotrisone was applied to both lower legs. The patient was told to elevate both legs when in bed and perform PT as tolerated. John Dickinson DPM
[2018-10-30] MEDS: Nystatin 100,000 Units/gm Topical Pow(15 gm) TOP PRN (15:19)
--- NOTE | 2018-10-30 20:02 | PN ---
DATE: 10/30/2018 SUBJECTIVE: The patient is in bed in no acute distress, nontoxic. PHYSICAL EXAMINATION VITAL SIGNS: On exam temperature is 95, blood pressure is 120/70 and respiratory 16. HEENT: Unremarkable. NECK: Supple. LUNGS: Have decreased breath sounds. HEART: Normal S1 and S2. ABDOMEN: Soft. LABORATORY EXAMINATION: Reveals a white count of 7.2, hemoglobin of 10 and platelets of 247. Chemistries reveals creatinine is 1.3 and microbiology is noted. The blood cultures are negative. ASSESSMENT AND PLAN: This is a 58-year-old female with left lower extremity cellulitis and the patient has renal disease, renal sufficiency and the patient's leg is much improved as of this morning. SINCE SHE IS ALLERGIC TO PENICILLIN, she is on vancomycin and may complete with p.o. doxycycline. Goran Loera MD
[2018-10-30] MEDS: Insulin Detemir 100 units/ml Vial (Levemir) SC SCH (22:14)
[2018-10-31 07:07] LABS: ALBUMIN 3.6 g/dL (3.0-4.8); CALCIUM 8.8 mg/dL (8.4-10.5)
[2018-10-31 07:46] LABS: HEMOGLOBIN 10.9 g/dL (12.0-16.0); MEAN CELL VOLUME 83.8 fl (80.0-105.0); MEAN CORPUSCULAR HEMOGLOBIN 27.2 pg (25.0-35.0); MEAN CORPUSCULAR HGB CONC 32.4 g/dl (31.0-37.0); MEAN PLATELET VOLUME 11.5 fl (7.0-11.0); RBC 4.01 10^6/uL (3.5-6.1); WHITE BLOOD COUNT 8.3 10^3/uL (4.5-11.0)
[2018-10-31] MEDS: Insulin Reg-MEDIUM-Coverage SC SCH ×4 (08:13→22:02)
[2018-10-31] MEDS: Insulin Lispro 1 UNITS/0.01 ML SC SCH ×3 (08:14→18:08)
--- NOTE | 2018-10-31 10:07 | CP.PCM.PN ---
<Sandra Quevedo - Last Filed: 10/31/18 10:05> Subjective - Date & Time of Evaluation Date of Evaluation: 10/31/18 Time of Evaluation: 10:05 - Subjective Subjective: Podiatry consult - Drs. Dickinson/Scott 58F seen and evaluated at bedside this AM . Resting comfortably. States she has not noticed drainage or openings from her legs. Denies n/v/f/c and has no other acute pedal complaints at this time. Objective - Vital Signs/Intake and Output Vital Signs (last 24 hours): Temp Pulse Resp BP Pulse Ox 98.1 F 67 19 148/78 98 10/31/18 06:00 10/31/18 06:00 10/31/18 06:00 10/31/18 06:00 10/31/18 06:00 Intake and Output: 10/31/18 10/31/18 06:59 18:59 Intake Total 240 Output Total 100 Balance 140 - Medications Medications: Current Medications Aspirin (Aspirin Chewable) 81 mg PO DAILY [facility] Last Admin: 10/30/18 11:45 Dose: 81 mg Betamethasone/Clotrimazole (Lotrisone) 0 gm TOP BID [facility] Last Admin: 10/30/18 17:53 Dose: 1 appful Carbidopa/Levodopa (Sinemet) 1 tab PO 0800,1200,1600,2000 [facility] Last Admin: 10/31/18 08:09 Dose: 1 tab Docusate Sodium (Colace) 100 mg PO BID [facility] Last Admin: 10/30/18 17:38 Dose: Not Given Doxycycline Hyclate (Doryx) 100 mg PO Q12 [facility]; Protocol Stop: 11/02/18 22:01 Last Admin: 10/30/18 22:14 Dose: 100 mg Furosemide (Lasix) 40 mg IVP DAILY [facility] Last Admin: 10/30/18 11:46 Dose: 40 mg Insulin Detemir (Levemir) 24 unit SC HS [facility] Last Admin: 10/30/18 22:14 Dose: 24 unit Insulin Human Lispro (Humalog) 8 units SC AC [facility] Last Admin: 10/31/18 08:14 Dose: 8 unit Insulin Human Regular (Humulin R Med) 0 units SC ACHS [facility]; Protocol Last Admin: 10/31/18 08:13 Dose: Not Given Ketorolac Tromethamine (Toradol) 30 mg IVP Q6H PRN PRN Reason: Pain, moderate (4-7) Last Admin: 10/31/18 08:19 Dose: 30 mg Lisinopril (Zestril) 5 mg PO DAILY [facility] Last Admin: 10/30/18 11:48 Dose: 5 mg Nystatin (Nystop Topical Powder) 0 gm TOP BID PRN PRN Reason: Rash Last Admin: 10/30/18 15:19 Dose: 1 appful Polyethylene Glycol (Miralax) 17 gm PO BID [facility] Last Admin: 10/30/18 17:39 Dose: Not Given Pramipexole Dihydrochloride (Mirapex) 0.25 mg PO TID [facility] Last Admin: 10/30/18 17:53 Dose: 0.25 mg Silver Sulfadiazine (Silvadene 1% 25 Gm) 0 gm TP DAILY [facility] Last Admin: 10/30/18 11:47 Dose: 25 gm Sitagliptin Phosphate (Januvia) 50 mg PO DAILY [facility] Last Admin: 10/30/18 11:46 Dose: 50 mg - Labs Labs: 10/31/18 06:15 10/31/18 06:15 - Constitutional Appears: Well, Non-toxic, No Acute Distress - Head Exam Head Exam: ATRAUMATIC, NORMOCEPHALIC - Extremities Exam Additional comments: VASC: DP pulses faintly palpable, PT nonpalpable b/l; cap refill <3 seconds to digits; mild edema noted to LE associated with erythema DERM: no open lesions or wounds present, scab formation from previous wound noted to left anterior leg; erythema at LE b/l ORTHO: mild pain on palpation of b/l anterior LE proximal to ankle joint, no other gross pathology noted NEURO: diminished - Neurological Exam Neurological Exam: Alert, Awake, Oriented x3 - Psychiatric Exam Psychiatric exam: Normal Affect, Normal Mood Assessment and Plan - Assessment and Plan (Free Text) Assessment: 58F with b/l LE cellulitis and stasis changes to LE Plan: Patient seen and evaluated with Dr. Chavez VSS, WBC 8.3 Venous duplex: negative for DVT Legs left open, Mepilex dressing to wound LLE Lotrisone applied Keep legs elevated while in bed F/u with Dr. Chavez upon discharge as outpatient Will continue to follow <John Dickinson - Last Filed: 10/31/18 11:26> Objective - Vital Signs/Intake and Output Vital Signs (last 24 hours): Temp Pulse Resp BP Pulse Ox 98.1 F 67 19 148/78 98 10/31/18 06:00 10/31/18 10:34 10/31/18 06:00 10/31/18 10:34 10/31/18 06:00 Intake and Output: 10/31/18 10/31/18 06:59 18:59 Intake Total 240 Output Total 100 Balance 140 - Medications Medications: Current Medications Aspirin (Aspirin Chewable) 81 mg PO DAILY [facility] Last Admin: 10/31/18 10:34 Dose: 81 mg Betamethasone/Clotrimazole (Lotrisone) 0 gm TOP BID [facility] Last Admin: 10/31/18 10:35 Dose: 1 appful Carbidopa/Levodopa (Sinemet) 1 tab PO 0800,1200,1600,2000 [facility] Last Admin: 10/31/18 08:09 Dose: 1 tab Docusate Sodium (Colace) 100 mg PO BID [facility] Last Admin: 10/31/18 10:34 Dose: Not Given Doxycycline Hyclate (Doryx) 100 mg PO Q12 [facility]; Protocol Stop: 11/02/18 22:01 Last Admin: 10/31/18 10:34 Dose: 100 mg Furosemide (Lasix) 40 mg IVP DAILY [facility] Last Admin: 10/31/18 10:33 Dose: 40 mg Insulin Detemir (Levemir) 24 unit SC HS [facility] Last Admin: 10/30/18 22:14 Dose: 24 unit Insulin Human Lispro (Humalog) 8 units SC AC [facility] Last Admin: 10/31/18 08:14 Dose: 8 unit Insulin Human Regular (Humulin R Med) 0 units SC ACHS [facility]; Protocol Last Admin: 10/31/18 08:13 Dose: Not Given Ketorolac Tromethamine (Toradol) 30 mg IVP Q6H PRN PRN Reason: Pain, moderate (4-7) Last Admin: 10/31/18 08:19 Dose: 30 mg Lisinopril (Zestril) 5 mg PO DAILY [facility] Last Admin: 10/31/18 10:34 Dose: 5 mg Nystatin (Nystop Topical Powder) 0 gm TOP BID PRN PRN Reason: Rash Last Admin: 10/30/18 15:19 Dose: 1 appful Polyethylene Glycol (Miralax) 17 gm PO BID [facility] Last Admin: 10/31/18 10:35 Dose: Not Given Pramipexole Dihydrochloride (Mirapex) 0.25 mg PO TID [facility] Last Admin: 10/31/18 10:34 Dose: 0.25 mg Silver Sulfadiazine (Silvadene 1% 25 Gm) 0 gm TP DAILY [facility] Last Admin: 10/31/18 10:35 Dose: 25 gm Sitagliptin Phosphate (Januvia) 50 mg PO DAILY [facility] Last Admin: 10/31/18 10:34 Dose: 50 mg - Labs Labs: 10/31/18 06:15 10/31/18 06:15 Attending/Attestation - Attestation I have personally seen and examined this patient.: Yes I have fully participated in the care of the patient.: Yes I have reviewed all pertinent clinical information, including history, physical exam and plan: Yes
[2018-10-31] MEDS: Silver Sulfadiazine 1% Cream (25 gm) TP SCH (10:35)
[2018-10-31] MEDS: Clotrimazole/Betamethasone Cream(15 gm) TOP SCH ×2 (10:35→18:09)
[2018-10-31] MEDS: POLYETHYLENE GLYCOL 3350 17 GM/Dose PACKET PO SCH ×2 (10:35→18:03)
--- NOTE | 2018-10-31 13:53 | US ---
HISTORY: Leg pain and swelling. Evaluate for DVT PHYSICIAN(S): Richard Hodgson MD. TECHNIQUE: Duplex sonography and color-flow Doppler with graded compression were used to evaluate the deep venous systems of both lower extremities. FINDINGS: The exam is limited by body habitus and edema. The tibial veins are not well seen The visualized deep venous systems of both lower extremities are sonographically normal and compressible. Normal wave forms and augmentation are seen. There is no sonographic evidence for deep venous thrombosis in the visualized segments of both lower extremities. IMPRESSION: No sonographic evidence for deep venous thrombosis in the visualized segments of both lower extremities. Limited study.
[2018-10-31 14:13] VITALS: RESP 18
--- NOTE | 2018-10-31 16:28 | PN ---
DATE: 10/31/2018 SUBJECTIVE: I saw her in bed this morning. She is eating her breakfast. She is having a lot problems standing and trying to walk. I believe physical therapy recommended subacute rehab. She was at [facility] in the past, so I am going to try and get her back to [facility] with physical therapy when we get done with the hospital. I believe the first chance she has to get there will be this Friday. She is on aspirin, Colace, doxycycline, insulin, Januvia, Lasix IV, Levemir, Lotrisone, MiraLax, Mirapex, Nystatin, Silvadene, Sinemet, Toradol as needed, and Zestril. PHYSICAL EXAMINATION: GENERAL: She definitely has Parkinson's symptoms despite her being on good medication. VITAL SIGNS: She has a 98.1 temperature, 67 pulse, 140/78 blood pressure, 19 respiratory rate, and 90% O2 sat on room air. HEENT: Head is atraumatic and normocephalic. HEART: Regular rate. LUNGS: Decreased breath sounds but clear. ABDOMEN: Morbidly obese. Soft and nontender. Positive bowel sounds. EXTREMITIES: Much thinner than when she came in. Trace edema with redness of both lower extremities are improving and the ulcer of the left [place] is also improving and is bandaged. LABORATORY DATA: She has a 8.3 white count, 10.9 hemoglobin, 32.6 hematocrit with 242 platelets. Sodium 141, potassium 4.2, BUN 43, creatinine 1.4, at the better baseline. GFR is 38. Sugar is 102, calcium 8.8. Total bili is 0.7. AST is 37, ALT is 39, alk phos 193, and total protein is 7.3. Micros were negative. ASSESSMENT AND PLAN: She is being seen by Infectious Disease and Podiatry. I am hoping that I can get her to the [facility] on Friday for subacute rehab before she goes home. She needs it, also recommended by physical therapy. Continue with ulcer care, get her out of bed physical therapy, and hopefully Friday at [facility]. Felipe Wetzel DO MTDEdis
[2018-10-31] MEDS: Insulin Detemir 100 units/ml Vial (Levemir) SC SCH (22:13)
[2018-10-31] MEDS: Nystatin 100,000 Units/gm Topical Pow(15 gm) TOP PRN (22:42)
--- NOTE | 2018-10-31 22:51 | PN ---
DATE: 10/31/2018 SUBJECTIVE: The patient is seen in bed, was seen early this morning, and doing well. The legs have greatly improved. OBJECTIVE: VITAL SIGNS: Temperature is 98, blood pressure is 120/70, and respiratory rate of 18. HEENT: Unremarkable. NECK: Supple. LUNGS: Have decreased breath sounds. HEART: Normal S1 and S2. ABDOMEN: Soft. LABORATORY EXAMINATION: Reveals a white count of 8.3, hemoglobin of 10, BUN of 43, and creatinine of 1.4. Microbiology is noted with a left leg cultures Gram-positive cocci. REVIEW OF ORDERS: Reveal the patient to be on p.o. doxycycline. THE PATIENT IS ALLERGIC TO PENICILLIN. ASSESSMENT AND PLAN: This is a 58-year-old female who was seen early this morning. She is awake and alert, doing well, who was admitted with left lower extremity cellulitis with Gram-positive cocci in a patient with renal insufficiency and leg is greatly improving and THE PATIENT IS ALLERGIC TO PENICILLIN, currently on p.o. doxycycline. We will check on the identification of Gram-positive cocci. Dr. Wetzel's note is reviewed. Goran Loera MD
[2018-11-01 07:31] LABS: HEMOGLOBIN 10.6 g/dL (12.0-16.0); MEAN CELL VOLUME 84.1 fl (80.0-105.0); MEAN CORPUSCULAR HEMOGLOBIN 27.2 pg (25.0-35.0); MEAN CORPUSCULAR HGB CONC 32.4 g/dl (31.0-37.0); MEAN PLATELET VOLUME 11.4 fl (7.0-11.0); RBC 3.89 10^6/uL (3.5-6.1)
[2018-11-01 08:03] LABS: ALB/GLOB RATIO 1.1 (1.1-1.8); ALBUMIN 3.8 g/dL (3.0-4.8); CALCIUM 8.8 mg/dL (8.4-10.5)
[2018-11-01] MEDS: Insulin Reg-MEDIUM-Coverage SC SCH ×3 (08:40→17:44)
[2018-11-01] MEDS: Insulin Lispro 1 UNITS/0.01 ML SC SCH ×3 (08:41→17:43)
[2018-11-01] MEDS: POLYETHYLENE GLYCOL 3350 17 GM/Dose PACKET PO SCH ×2 (09:41→17:44)
[2018-11-01 14:47] VITALS: PULSE 60; TEMP 98.1; O2SAT 100
--- NOTE | 2018-11-01 14:59 | PN ---
DATE: 11/01/2018 SUBJECTIVE: The patient is in bed, in no acute distress, nontoxic. PHYSICAL EXAMINATION: VITAL SIGNS: Temperature is 98, blood pressure is 140/70, respiratory rate of 18. HEENT: Unremarkable. NECK: Supple. LUNGS: Have decreased breath sounds. HEART: Normal S1, S2. ABDOMEN: Soft, nontender. LABORATORY DATA: Laboratory examination reveals the patient's white count is 8, hemoglobin of 10. Chemistries are noted. Review of orders reveals the patient to be on p.o. doxycycline. ASSESSMENT AND PLAN: This is a 58-year-old female who is awake and alert, doing well, admitted with a left lower extremity cellulitis and a gram-positive cocci in a patient with renal insufficiency, currently on p.o. doxycycline and the gram-positive and cocci identification and sensitivity still pending. Complete with short course of 5 to 7 days of p.o. doxycycline. Goran Loera MD
[2018-11-01] MEDS: Clotrimazole/Betamethasone Cream(15 gm) TOP SCH ×2 (16:00→17:44)
[2018-11-01] MEDS: Silver Sulfadiazine 1% Cream (25 gm) TP SCH (16:43)
--- NOTE | 2018-11-01 19:15 | PN ---
DATE: 11/01/2018 SUBJECTIVE: seen oob to chair . She is having cellulitis. She is improving. She is feeling a little bit better. Physical Therapy recommended [facility], hoping tomorrow Friday we can get her back to [facility]. She has been there before. The legs are less swollen, less red. They are improving. PHYSICAL EXAMINATION: VITAL SIGNS: Temperature 98.4, 63 pulse, 140/71 blood pressure, 18 respiratory rate, 90% O2 sat on room air. HEENT: Head is atraumatic, normocephalic. GENERAL: She is alert. She is smiling, less pain. She is eating okay. HEART: Regular rate. LUNGS: Decreased breath sounds, but clear. ABDOMEN: Soft, morbidly obese, nontender, positive bowel sounds. No guarding, no rebound, and no CVA tenderness. EXTREMITIES: No edema today, Lasix IV is helping greatly. SKIN: The skin is less red and the ulcers are getting smaller. LABORATORY DATA: She has a 141 sodium, potassium 4, BUN is 46, creatinine 1.8, GFR is 42, sugar is 80, calcium is 8.8, total bili is 0.9. AST is 40, ALT is 6, alk phos 197, total protein 7.3. White count 8, 10.6 hemoglobin, 32.7 hematocrit with 241 platelets. ASSESSMENT AND PLAN: Gram stain did grow out gram-positive cocci in the wound, being seen by Infectious Disease. Physical Therapy recommended [facility]. She has also been seen by Podiatry. My goal is to discharge her 11/02/2018, to [facility] if possible with case management and social work instructor help us. Felipe Wetzel DO MTDD
[2018-11-01] MEDS: Insulin Detemir 100 units/ml Vial (Levemir) SC SCH (21:49)
[2018-11-02 07:20] LABS: HEMOGLOBIN 10.5 g/dL (12.0-16.0); MEAN CELL VOLUME 83.7 fl (80.0-105.0); MEAN CORPUSCULAR HEMOGLOBIN 27.2 pg (25.0-35.0); MEAN CORPUSCULAR HGB CONC 32.5 g/dl (31.0-37.0); MEAN PLATELET VOLUME 10.9 fl (7.0-11.0); RBC 3.86 10^6/uL (3.5-6.1); RED CELL DISTRIBUTION WIDTH 14.9 % (11.5-14.5); WHITE BLOOD COUNT 8.6 10^3/uL (4.5-11.0)
--- NOTE | 2018-11-02 07:54 | CP.PCM.PN ---
<Mitchell Wu - Last Filed: 11/02/18 10:34> Subjective - Date & Time of Evaluation Date of Evaluation: 11/02/18 Time of Evaluation: 07:52 - Subjective Subjective: Podiatry progress note - Drs. Dickinson/Scott 58F seen and evaluated at bedside this AM with Dr. Dickinson. Resting comfortably. States she has not noticed drainage or openings from her legs. Denies n/v/f/c and has no other acute pedal complaints at this time. Objective - Vital Signs/Intake and Output Vital Signs (last 24 hours): Temp Pulse Resp BP Pulse Ox 98.1 F 60 18 141/72 100 11/01/18 14:00 11/01/18 14:00 11/01/18 14:00 11/01/18 14:59 11/01/18 14:00 Intake and Output: 11/02/18 11/02/18 06:59 18:59 Intake Total 360 Balance 360 - Medications Medications: Current Medications Aspirin (Aspirin Chewable) 81 mg PO DAILY [facility] Last Admin: 11/01/18 09:40 Dose: 81 mg Betamethasone/Clotrimazole (Lotrisone) 0 gm TOP BID [facility] Last Admin: 11/01/18 17:44 Dose: Not Given Carbidopa/Levodopa (Sinemet) 1 tab PO 0800,1200,1600,2000 [facility] Last Admin: 11/01/18 21:46 Dose: 1 tab Docusate Sodium (Colace) 100 mg PO BID [facility] Last Admin: 11/01/18 17:44 Dose: Not Given Doxycycline Hyclate (Doryx) 100 mg PO Q12 [facility]; Protocol Stop: 11/02/18 22:01 Last Admin: 11/01/18 21:46 Dose: 100 mg Furosemide (Lasix) 40 mg IVP DAILY [facility] Last Admin: 11/01/18 14:59 Dose: 40 mg Insulin Detemir (Levemir) 24 unit SC HS [facility] Last Admin: 11/01/18 21:49 Dose: 24 unit Insulin Human Lispro (Humalog) 8 units SC AC [facility] Last Admin: 11/01/18 17:43 Dose: 8 unit Insulin Human Regular (Humulin R Med) 0 units SC ACHS [facility]; Protocol Last Admin: 11/01/18 17:44 Dose: Not Given Ketorolac Tromethamine (Toradol) 30 mg IVP Q6H PRN PRN Reason: Pain, moderate (4-7) Last Admin: 11/02/18 04:40 Dose: 30 mg Lisinopril (Zestril) 5 mg PO DAILY [facility] Last Admin: 11/01/18 09:40 Dose: 5 mg Nystatin (Nystop Topical Powder) 0 gm TOP BID PRN PRN Reason: Rash Last Admin: 10/31/18 22:42 Dose: 1 appful Polyethylene Glycol (Miralax) 17 gm PO BID [facility] Last Admin: 11/01/18 17:44 Dose: Not Given Pramipexole Dihydrochloride (Mirapex) 0.25 mg PO TID [facility] Last Admin: 11/01/18 17:43 Dose: 0.25 mg Silver Sulfadiazine (Silvadene 1% 25 Gm) 0 gm TP DAILY [facility] Last Admin: 11/01/18 16:43 Dose: Not Given Sitagliptin Phosphate (Januvia) 50 mg PO DAILY [facility] Last Admin: 11/01/18 09:39 Dose: 50 mg - Labs Labs: 11/02/18 07:00 11/01/18 07:00 - Constitutional Appears: Non-toxic - Head Exam Head Exam: ATRAUMATIC - Extremities Exam Additional comments: VASC: DP pulses faintly palpable, PT nonpalpable b/l; cap refill <3 seconds to digits; mild edema noted to LE associated with erythema DERM: no open lesions or wounds present, scab formation from previous wound noted to left anterior leg; erythema at LE b/l ORTHO: mild pain on palpation of b/l anterior LE proximal to ankle joint, no other gross pathology noted NEURO: diminished - Neurological Exam Neurological Exam: Alert, Awake, Oriented x3 - Psychiatric Exam Psychiatric exam: Normal Affect Assessment and Plan - Assessment and Plan (Free Text) Assessment: 58F with b/l LE cellulitis and stasis changes to LE Plan: Patient seen and evaluated with Dr. Alok JENSEN, WBC 8.3 Venous duplex: negative for DVT Normogel and foam dressing to left anterior leg Lotrisone applied Keep legs elevated while in bed F/u with Dr. Chavez upon discharge as outpatient Will continue to follow <John Dickinson - Last Filed: 11/02/18 10:42> Objective - Vital Signs/Intake and Output Vital Signs (last 24 hours): Temp Pulse Resp BP Pulse Ox 98.1 F 60 18 142/71 100 11/01/18 14:00 11/01/18 14:00 11/01/18 14:00 11/02/18 09:26 11/01/18 14:00 Intake and Output: 11/02/18 11/02/18 06:59 18:59 Intake Total 720 Output Total 200 Balance 520 - Medications Medications: Current Medications Aspirin (Aspirin Chewable) 81 mg PO DAILY [facility] Last Admin: 11/02/18 09:27 Dose: 81 mg Betamethasone/Clotrimazole (Lotrisone) 0 gm TOP BID [facility] Last Admin: 11/02/18 09:22 Dose: Not Given Carbidopa/Levodopa (Sinemet) 1 tab PO 0800,1200,1600,2000 [facility] Last Admin: 11/02/18 08:46 Dose: 1 tab Docusate Sodium (Colace) 100 mg PO BID [facility] Last Admin: 11/02/18 09:21 Dose: Not Given Doxycycline Hyclate (Doryx) 100 mg PO Q12 [facility]; Protocol Stop: 11/02/18 22:01 Last Admin: 11/02/18 09:27 Dose: 100 mg Furosemide (Lasix) 40 mg IVP DAILY [facility] Last Admin: 11/02/18 09:26 Dose: 40 mg Insulin Detemir (Levemir) 24 unit SC HS [facility] Last Admin: 11/01/18 21:49 Dose: 24 unit Insulin Human Lispro (Humalog) 8 units SC AC [facility] Last Admin: 11/02/18 08:38 Dose: Not Given Insulin Human Regular (Humulin R Med) 0 units SC [facility]; Protocol Last Admin: 11/02/18 10:19 Dose: Not Given Ketorolac Tromethamine (Toradol) 30 mg IVP Q6H PRN PRN Reason: Pain, moderate (4-7) Last Admin: 11/02/18 04:40 Dose: 30 mg Lisinopril (Zestril) 5 mg PO DAILY [facility] Last Admin: 11/02/18 09:27 Dose: 5 mg Nystatin (Nystop Topical Powder) 0 gm TOP BID PRN PRN Reason: Rash Last Admin: 10/31/18 22:42 Dose: 1 appful Polyethylene Glycol (Miralax) 17 gm PO BID [facility] Last Admin: 11/02/18 09:22 Dose: Not Given Pramipexole Dihydrochloride (Mirapex) 0.25 mg PO TID [facility] Last Admin: 11/02/18 09:27 Dose: 0.25 mg Silver Sulfadiazine (Silvadene 1% 25 Gm) 0 gm TP DAILY [facility] Last Admin: 11/02/18 09:22 Dose: Not Given Sitagliptin Phosphate (Januvia) 50 mg PO DAILY [facility] Last Admin: 11/02/18 09:27 Dose: 50 mg - Labs Labs: 11/02/18 07:00 11/02/18 07:00 Attending/Attestation - Attestation I have personally seen and examined this patient.: Yes I have fully participated in the care of the patient.: Yes I have reviewed all pertinent clinical information, including history, physical exam and plan: Yes
[2018-11-02 07:58] LABS: ALBUMIN 3.9 g/dL (3.0-4.8); CALCIUM 8.9 mg/dL (8.4-10.5)
[2018-11-02] MEDS: Insulin Reg-MEDIUM-Coverage SC SCH ×3 (08:38→13:52)
[2018-11-02] MEDS: Insulin Lispro 1 UNITS/0.01 ML SC SCH ×2 (08:38→13:51)
[2018-11-02] MEDS: Silver Sulfadiazine 1% Cream (25 gm) TP SCH (09:22)
[2018-11-02] MEDS: POLYETHYLENE GLYCOL 3350 17 GM/Dose PACKET PO SCH (09:22)
[2018-11-02] MEDS: Clotrimazole/Betamethasone Cream(15 gm) TOP SCH (09:22)
[2018-11-02 09:28] VITALS: BP 142/71
--- NOTE | 2018-11-02 21:33 | PN ---
DATE: 11/02/2018 SUBJECTIVE: The patient is seen earlier today. PHYSICAL EXAMINATION: GENERAL: She is awake and alert. No fevers and no chills, answering questions appropriate. VITAL SIGNS: Temperature of 98, blood pressure is 140/70, respiratory rate 18. HEENT: Unremarkable. NECK: Supple. Lungs: Decreased breath sounds. HEART: Normal S1, S2. ABDOMEN: Soft. LABORATORY DATA: Reveals a white count of 8.6 and hemoglobin of 10. BUN of 48 and creatinine of 1.2. Microbiology reveals MRSA of the leg cultures and sensitivity is noted, sensitive to tetracycline. ASSESSMENT AND PLAN: This is a 58-year-old female who was seen earlier today, awake and alert with left lower extremity MRSA cellulitis with renal insufficiency complete with 5-7 days of doxycycline as discussed. Goran Loera MD
--- NOTE | 2018-11-02 23:58 | DS ---
HISTORY OF PRESENT ILLNESS: She is here for a cellulitis, also recommendations from physical therapy is for [facility]. I am not sure if she has any more days left, if not she will be in trouble, she will have to go home and get home physical therapy. She definitely needs [facility] though with better physical therapy. Hopefully, will be able to go to [facility] today or home today. I am waiting for social work professor plan. PHYSICAL EXAMINATION: VITAL SIGNS: She has a 98.1 temp, 60 pulse, 141/72 blood pressure, 18 respiratory rate and 98% O2 sat on room air. HEENT: Head is atraumatic and normocephalic. HEART: Regular rate. LUNGS: Clear to auscultation. ABDOMEN: Soft and nontender. Positive bowel sounds. Morbidly obese. EXTREMITIES: There is no edema. The ulcer of the left leg is improving. MEDICATIONS: She is on aspirin, Colace, , insulin coverage, Januvia, Lasix IV again changed to p.o., Levemir, Lotrisone, MiraLax, Mirapex, nystatin powder, Silvadene, Sinemet, Toradol and Zestril. If we can get her to [facility] that will be great if we can she will go home today. Today is the discharge day on [address]. Felipe Wetzel DO MTDD
== END 2018-11-02 14:50 | DRG 603 ==
LOC: ED 21:41 → ERH 10-29 01:50 → 5RNO 10-29 07:55
PROVIDERS: ADMIT Family Medicine; ATTEND Family Medicine
DX: L03.116 Cellulitis of left lower limb (principal); Z68.41 Body mass index [BMI] 40.0-44.9, adult; L97.929 Non-pressure chronic ulcer of unspecified part of left lower leg with unspecified severity; I11.0 Hypertensive heart disease with heart failure; G20 Parkinson's disease; F20.9 Schizophrenia, unspecified; F31.9 Bipolar disorder, unspecified; B95.62 Methicillin resistant Staphylococcus aureus infection as the cause of diseases classified elsewhere; I87.2 Venous insufficiency (chronic) (peripheral); K21.9 Gastro-esophageal reflux disease without esophagitis; L03.115 Cellulitis of right lower limb; I48.91 Unspecified atrial fibrillation; I25.10 Atherosclerotic heart disease of native coronary artery without angina pectoris; E66.01 Morbid (severe) obesity due to excess calories; E11.51 Type 2 diabetes mellitus with diabetic peripheral angiopathy without gangrene; I50.9 Heart failure, unspecified; N28.9 Disorder of kidney and ureter, unspecified; Z86.73 Personal history of transient ischemic attack (TIA), and cerebral infarction without residual deficits; Z95.5 Presence of coronary angioplasty implant and graft; Z88.0 Allergy status to penicillin